=== PATIENT | male | born 1940 | race Caucasian/White ===

== ENCOUNTER 2016-07-13 11:09 | Inpatient (IN) | payer MEDICARE, OTHER ==
[~2016-07-13] VITALS: Ht 175.3 cm; Wt 65.8 kg
[~2016-07-13 11:09] MED LIST: GABA100C14 PO; HYDR-762 PO; NIAC500T92 PO; ONDA4TAB35 PO; PANT40TA4 PO; SMV40T PO; TRAZ50TA18 PO
[2016-07-13] MEDS ORDERED: PANTOPRAZOLE 40 MG INJ IV STA (16:59)
[2016-07-13] MEDS ORDERED: ONDANSETRON 4 MG INJ IV STA (16:59)
[2016-07-13] MEDS ORDERED: SOD CHLORIDE 0.9% 1,000 ML IV STA (16:59)
[2016-07-13 17:34] LABS: HEMATOCRIT 42.1 % (42.0-52.0); HEMOGLOBIN 13.8 g/dl (14.0-18.0); MEAN CORPUSCULAR HGB CONC 32.7 g/dl (32.0-37.0); MEAN CORPUSCULAR VOLUME 91.7 fl (82.0-101.0); MEAN PLATELET VOLUME 7.3 fl (7.4-10.4); PLATELET COUNT 205 10^3/UL (140-440); RED BLOOD COUNT 4.59 10^6/ul (4.70-6.10); RED CELL DISTRIBUTION WIDTH 14.4 % (11.5-14.5); UNCORRECTED WBC 6.4 10^3/ul (4.8-10.8); WHITE BLOOD COUNT 6.4 10^3/ul (4.8-10.8)
[2016-07-13] MEDS ORDERED: morphine 4 MG/ML VIAL IV STA (17:41)
[2016-07-13 17:44] LABS: ALBUMIN 4.7 g/dl (3.3-4.9); INR 1.05; PROTIME 13.7 Sec (12.2-14.2); PT RATIO 1.1
[2016-07-13 17:45] LABS: POTASSIUM 3.8 mmol/L (3.5-5.1)
[2016-07-13 17:47] LABS: ALBUMIN/GLOBULIN RATIO 1.27; BILIRUBIN,INDIRECT 0.5 mg/dl (0-1.1); BILIRUBIN,TOTAL 0.5 mg/dl (0.2-1.3); CONDITION 1; CREATININE 1.76 mg/dl (0.61-1.24); LH ANALYZER COMMENTS 1; SUSPECT 1; TOTAL PROTEIN 8.4 g/dl (6.1-8.1)
[2016-07-13 17:48] LABS: CALCIUM 9.9 mg/dl (8.4-10.2)
[2016-07-13 17:58] LABS: TROPONIN-I 0.028 ng/ml (0.00-0.12)
[2016-07-13 18:02] LABS: BASOPHIL # 0.1 10^3/ul (0.0-0.1); EOSINOPHILS # 0.1 10^3/ul (0.0-0.5); LYMPHOCYTES # 1.9 10^3/ul (0.8-2.9); MONOCYTE # 1.3 10^3/ul (0.3-0.9); NEUTROPHIL # 3.1 10^3/ul (1.6-7.5)
[2016-07-13] MEDS ORDERED: SOD CHLORIDE 0.9% 1,000 ML IV SCH (18:51)
--- NOTE | 2016-07-13 18:55 | RADRPT ---
PROCEDURE: XR Chest. CLINICAL INDICATION: Chest pain and vomiting TECHNIQUE: AP Portable chest. COMPARISON: 03/09/2014 chest x-ray FINDINGS: The soft tissues and bones are remarkable for multiple EKG leads superimposed over chest wall. Mild bilateral acromioclavicular osteoarthropathy is present. Mild thoracic spondylosis is present.. N o focal infiltrates, masses, or effusions are noted. The mediastinum and heart are remarkable for m ild vascular calcifications of the thoracic aorta and normal size heart. No pneumothorax is present . IMPRESSION: 1. No radiographic evidence for acute cardiopulmonary disease. 2. Mild atherosclerotic vascular disease RPTAT: HDC .Desiree Oliver MD, Date Time Electronically viewed and signed by .Desiree Oliver MD, on 07/13/2016 18:54 .C/
--- NOTE | 2016-07-13 18:55 | ERA ---
ER Documentation Chief Complaint Date/Time DATE: 07/13/16 TIME: 18:52 Chief Complaint SENT BY PCP - VOMITTING COFFEE GROUND VOMITTUS X 2 DAYS HPI This is a 75-year-old male who presents to the emergency room for evaluation of vomiting. This patient states that he was vomiting up brown vomit, he went to his primary care physician who is Dr. pacheco and this patient was referred to the emergency room for evaluation of upper GI bleed as he was vomiting up coffee-ground emesis. This patient does state he has epigastric discomfort and he states that the discomfort is periodic mildly relieved with vomiting. Denies any radiation of the pain. Patient presents to the emergency room for further evaluation. He is denying chest pain, palpitations shortness of breath or weakness at this time. He denies being on any blood thinners. ROS All systems reviewed and are negative except as per history of present illness. Medications Home Meds Active Scripts Ondansetron Hcl* (Zofran* ODT) 4 mg -ODT Tab.disper, 4 MG PO Q6 Y for NAUSEA AND /OR VOMITING, #10 TAB Prov:JOEL ESQUIVEL MD 02/16/16 Reported Medications Niacin (Niacin* ER) 500 Mg Tab.er.24h, 500 MG PO DAILY, TAB.SA 02/16/16 Hydrocodone Bit-Acetaminophen* (Eden*) 10-325 Mg Tablet, 1 TAB PO Q4H Y for PAIN, TAB 02/16/16 Gabapentin* (Gabapentin*) 100 Mg Capsule, 100 MG PO TID, #90 CAP 02/16/16 Pantoprazole* (Pantoprazole*) 40 Mg Tablet.dr, 40 MG PO DAILY, TAB 03/02/14 Simvastatin (Simvastatin) 40 Mg Tablet, 40 MG PO HS, TAB 03/02/14 Trazodone Hcl* (Trazodone Hcl*) 50 Mg Tablet, 50 MG PO HS, TAB 03/02/14 Allergies Allergies: Coded Allergies: No Known Allergy (Verified , 02/16/16) PMhx/Soc History of Surgery: No Anesthesia Reaction: No Hx Neurological Disorder: No Hx Respiratory Disorders: No Hx Cardiac Disorders: No (HTN, HIGH CHOLESTEROL) Hx Psychiatric Problems: No Hx Miscellaneous Medical Probl: Yes (RECTAL CA, HIP PAIN) Hx Alcohol Use: No Hx Substance Use: No Hx Tobacco Use: No (2005) Smoking Status: Former smoker Physical Exam Vitals Vital Signs Date Time Temp Pulse Resp B/P Pulse Ox O2 Delivery O2 Flow Rate FiO2 07/13/16 18:14 66 17 132/61 99 Nasal Cannula 2.0 07/13/16 18:02 Nasal Cannula 2 07/13/16 11:12 98.4 77 19 110/52 96 Physical Exam INITIAL VITAL SIGNS: Reviewed by me GENERAL: The patient is well developed and appropriate for usual state of health in no apparent distress HEENT: Pupils equal, round, and reactive to light. EOMI. There is no scleral icterus. NECK: C-spine is soft and supple, there is no meningismus. There is no cervical lymphadenopathy. LUNGS: Clear to auscultation bilaterally. There are no rales, wheezes or rhonchi. HEART: Regular rate and rhythm, no murmurs, clicks, rubs or gallops. ABDOMEN: Epigastric tenderness to palpation, negative Bryan sign, otherwise soft, non-tender, non-distended. There are bowel sounds in all four quadrants. No rebound or guarding. EXTREMITIES: There is no peripheral cyanosis or edema. No focal swelling or erythema. NEUROLOGICAL: The patient moves all four extremities with 5/5 strength. Cranial nerves II - XII are intact. Normal gait. Alert and oriented SKIN: There is no apparent rash or petechiae. HEME/LYMPHATIC: There is no evidence of excessive bruising or lymphedema. PSYCHIATRIC: The patient does not appear anxious or depressed. Result Diagram: 07/13/16 1720 07/13/16 1720 Results 24 hrs Laboratory Tests Test 07/13/16 17:20 Activated Partial Thromboplast Time 32.0Sec Alanine Aminotransferase (ALT/SGPT) 27IU/L Albumin 4.7g/dl Albumin/Globulin Ratio 1.27 Alkaline Phosphatase 89IU/L Anion Gap 23 Aspartate Amino Transf (AST/SGOT) 31IU/L Basophils # 0.110^3/ul Basophils % 1.0% Blood Morphology Comment Blood Urea Nitrogen 52mg/dl Calcium Level 9.9mg/dl Carbon Dioxide Level 32mmol/L Chloride Level 91mmol/L Creatinine 1.76mg/dl Differential Comment MANUAL DIFF Direct Bilirubin 0.00mg/dl Eosinophils # 0.110^3/ul Eosinophils % 1.0% Globulin 3.70g/dl Glucose Level 101mg/dl Hematocrit 42.1% Hemoglobin 13.8g/dl INR International Normalized Ratio 1.05 Indirect Bilirubin 0.5mg/dl Lymphocytes # 1.910^3/ul Lymphocytes % 30.0% Mean Corpuscular Hemoglobin 30.0pg Mean Corpuscular Hemoglobin Concent 32.7g/dl Mean Corpuscular Volume 91.7fl Mean Platelet Volume 7.3fl Monocytes # 1.310^3/ul Monocytes % 20.0% Neutrophils # 3.110^3/ul Neutrophils % 48.0% Nucleated Red Blood Cells # 10^3/ul Nucleated Red Blood Cells % /100WBC Platelet Count 53284^3/UL Potassium Level 3.8mmol/L Prothrombin Time 13.7Sec Prothrombin Time Ratio 1.1 Red Blood Count 4.5910^6/ul Red Cell Distribution Width 14.4% Sodium Level 142mmol/L Total Bilirubin 0.5mg/dl Total Protein 8.4g/dl Troponin I 0.028ng/ml White Blood Count 6.410^3/ul Current Medications Medications (Trade) Dose Ordered Sig/Ned Route PRN Reason Start Time Stop Time Status Last Admin Dose Admin Sodium Chloride (NS) 1,000 ml @ 1,000 mls/hr Q1H STAT IV 07/13/16 16:59 07/13/16 17:58 DC 07/13/16 17:29 Pantoprazole (Protonix Iv) 40 mg ONCE STAT IV 07/13/16 16:59 07/13/16 17:00 DC 07/13/16 17:29 Ondansetron HCl (Zofran Inj) 4 mg ONCE STAT IV 07/13/16 16:59 07/13/16 17:00 DC 07/13/16 17:29 Morphine Sulfate (morphine) 4 mg ONCE STAT IV 07/13/16 17:41 07/13/16 17:42 DC 07/13/16 18:09 Procedures/MDM Chest X-ray 1V Interpreted by me: Soft Tissue: No acute abnormalities Bones: No acute abnormalities Mediastinum/Cardiac Silhouette/Lungs: [No acute abnormalities] This 75-year-old male presents to the ER for evaluation of vomiting. This patient did vomit brown vomit and it appears that there was concern for upper GI bleed. This patient was sent in by his primary care physician for admission. His hemoglobin is stable at this time, blood pressure is within normal limits. He received fluids, Zofran, Protonix, and morphine. He is in no acute distress at this time will be placed in for admission for serial hemoglobins and possible GI intervention. He was also found to have a minor renal insufficiency and acute kidney injury. The patient was hydrated with IV normal saline here in the emergency room. Departure Diagnosis: Primary Impression: Upper GI bleed Additional Impressions: Acute kidney injury Renal insufficiency Nausea and vomiting Condition: Stable ANUPAM HAMMOND DO Jul 13, 2016 18:55
[2016-07-13] MEDS ORDERED: ONDANSETRON 4 MG INJ IV PRN (19:00)
[2016-07-13] MEDS ORDERED: ACETAMINOPHEN 325 MG TAB PO PRN (19:00)
[2016-07-13] MEDS ORDERED: TRAZ50TA18 PO (19:12)
[2016-07-13] MEDS ORDERED: ESCI10TA48 PO (19:13)
[2016-07-13] MEDS ORDERED: GABA300C16 PO (19:16)
[2016-07-13 21:00] VITALS: TEMP 98.9
[2016-07-13 21:25] VITALS: BP 122/58; PULSE 69; RESP 20
[2016-07-13 22:00] VITALS: Ht 175.3 cm; Wt 65.8 kg
[2016-07-13] MEDS ORDERED: DEXTROSE 5%-0.45% NACL 1,000 ML IV SCH (22:00)
[2016-07-13] MEDS ORDERED: ZOLPIDEM 5 MG TAB PO PRN (22:00)
[2016-07-13] MEDS: ATORVASTATIN 20 MG TAB PO SCH (23:17)
[2016-07-13] MEDS: traZODone 50 MG TAB PO SCH (23:18)
[2016-07-14] MEDS: ONDANSETRON 4 MG INJ IV PRN ×3 (04:37→20:05)
[2016-07-14] MEDS: PANTOPRAZOLE 40 MG INJ IV SCH (05:47)
[2016-07-14 05:48] LABS: ALBUMIN 3.8 g/dl (3.3-4.9)
[2016-07-14 05:49] LABS: POTASSIUM 3.8 mmol/L (3.5-5.1)
[2016-07-14 05:51] LABS: ALBUMIN/GLOBULIN RATIO 1.26; BILIRUBIN,INDIRECT 0.2 mg/dl (0-1.1); BILIRUBIN,TOTAL 0.2 mg/dl (0.2-1.3); CREATININE 1.36 mg/dl (0.61-1.24); TOTAL PROTEIN 6.8 g/dl (6.1-8.1)
[2016-07-14 06:40] LABS: HEMATOCRIT 35.3 % (42.0-52.0); HEMOGLOBIN 11.7 g/dl (14.0-18.0); MEAN CORPUSCULAR HEMOGLOBIN 30.4 pg (29.0-33.0); MEAN CORPUSCULAR HGB CONC 33.2 g/dl (32.0-37.0); MEAN CORPUSCULAR VOLUME 91.7 fl (82.0-101.0); MEAN PLATELET VOLUME 7.5 fl (7.4-10.4); PLATELET COUNT 156 10^3/UL (140-440); RED BLOOD COUNT 3.85 10^6/ul (4.70-6.10); UNCORRECTED WBC 5.9 10^3/ul (4.8-10.8); WHITE BLOOD COUNT 5.9 10^3/ul (4.8-10.8)
[2016-07-14 06:57] LABS: CONDITION 1; LH ANALYZER COMMENTS 1; SUSPECT 1
[2016-07-14 09:20] LABS: EOSINOPHILS # 0.1 10^3/ul (0.0-0.5); LYMPHOCYTES # 0.5 10^3/ul (0.8-2.9); MONOCYTE # 1.8 10^3/ul (0.3-0.9); NEUTROPHIL # 3.3 10^3/ul (1.6-7.5)
[2016-07-14] MEDS: ESCITALOPRAM 10 MG TAB PO SCH (09:20)
[2016-07-14] MEDS: GABAPENTIN 300 MG CAP PO SCH (09:20)
[2016-07-14 10:20] VITALS: BP 167/74; PULSE 62; RESP 18
[2016-07-14] MEDS: morphine 4 MG/ML VIAL IV PRN ×2 (10:29→20:10)
[2016-07-14] MEDS ORDERED: morphine 4 MG/ML VIAL IV STA (12:14)
[2016-07-14] MEDS ORDERED: ONDANSETRON 4 MG INJ IV STA (12:14)
[2016-07-14] MEDS ORDERED: POTASSIUM CHLORIDE 30 MEQ in DEXTROSE 5%-0.45% NACL 1,000 ML IV SCH (14:33)
--- NOTE | 2016-07-14 14:56 | HP ---
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 The patient also complaining of severe epigastric pain with severe nausea. The patient denies taking excessive amounts of aspiri n or any anticoagulants. There is no specific history of GI bleed in the past or peptic ulcer disea se. MEDICATIONS: 1. Niacin 2. Gabapentin. 3. Pantoprazole 4. Simvastatin. 5. Trazodone. ALLERGIES: NO KNOWN ALLERGIES. REVIEW OF SYSTEMS: HEAD: Prior history of TIAs. EYES: No blurry vision or glaucoma. Status post cataract surgery 7 years ago. ENT: Noncontributory. NECK: Status post tonsillectomy. No history of thyroid disease. CHEST: A prior smoker. History of pneumonia 2013 from which he recovered. CARDIOVASCULAR: No PND, orthopnea, palpitations. GASTROINTESTINAL: Prior history of gastrointestinal bleed, status post gastroenteritis and diarrhea after chemotherapy and radiation therapy, history of anorectal cancer in complete remission, status post chemo and radiation. GENITOURINARY: No dysuria. The patient does have nonobstructive kidney stones bilaterally. MUSCULOSKELETAL: History of avascular necrosis of the hips, status post orthopedic evaluation for s kaela. PRIOR SURGERIES: Include abdominal aortic aneurysm resection in 2005, status post endoluminal stent ing which has been stable and patient has been referred to vascular surgeon and he has not made an a ppointment as yet. PAST MEDICAL HISTORY: The patient also has history of hyperlipidemia, history of epidermoid cyst in the posterior cervical area, status post resection. PHYSICAL EXAMINATION: GENERAL: The patient is an average-built male who appears quite weak and pale. VITAL SIGNS: Blood pressure 132/62 in the emergency room, heart rate 66 per minute, pulse ox 99% on 2 liters nasal O2. HEENT: Head normocephalic. Moderate pallor without cyanosis. Tongue is coated, dry. NECK: Supple. No thyromegaly, bruits or lymphadenopathy. CHEST: Revealed decreased breath sounds at bases. HEART: S1, S2 with no definite gallops. ABDOMEN: Soft, moderate epigastric tenderness without rebound. Bowel sounds active. EXTREMITIES: No edema. Pedal pulsations poorly palpable. Homans sign is negative. NEUROLOGIC: No localizing or lateralizing signs. LABORATORY DATA: Initial WBC count 6.4, hematocrit 40.1, platelet count 205,000. Sodium 140, potas sium 3.8, BUN 52, creatinine 1.76. Chest x-ray shows normal size heart, lung menon clear. IMPRESSION: 1. Acute upper gastrointestinal bleed, probably related to peptic ulcer disease versus gastritis. 2. Dehydration with prerenal azotemia, increased BUN and also secondary to underlying GI bleed. 3. Abdominal aortic aneurysm status post endoluminal stent placement, stable. 4. Status post anal CA treated, in complete remission. 5. Hyperlipidemia. PLAN: Patient will be admitted to the medical floor, intravenous hydration, bowel rest. Obtain GI consultation, Dr. Gardiner, continue PPIs and closely monitor CBC and treat. Replace blood losses as needed. Dictated By: SYLVAIN PORRAS MD SR/NTS Conf#: [id number] DID#: [id number]
[2016-07-14 15:13] LABS: HEMATOCRIT 36.1 % (42.0-52.0); MEAN CORPUSCULAR HEMOGLOBIN 30.2 pg (29.0-33.0); MEAN CORPUSCULAR HGB CONC 33.2 g/dl (32.0-37.0); MEAN CORPUSCULAR VOLUME 91.1 fl (82.0-101.0); PLATELET COUNT 168 10^3/UL (140-440); RED BLOOD COUNT 3.97 10^6/ul (4.70-6.10); RED CELL DISTRIBUTION WIDTH 13.6 % (11.5-14.5); UNCORRECTED WBC 4.9 10^3/ul (4.8-10.8); WHITE BLOOD COUNT 4.9 10^3/ul (4.8-10.8)
[2016-07-14 15:23] LABS: CONDITION 1; LH ANALYZER COMMENTS 1; SUSPECT 1
[2016-07-14] MEDS: POTASSIUM CHLORIDE 30 MEQ in DEXTROSE 5%-0.45% NACL 1,000 ML IV SCH (15:58)
[2016-07-14 16:07] LABS: LYMPHOCYTES # 0.8 10^3/ul (0.8-2.9); MONOCYTE # 1.4 10^3/ul (0.3-0.9); NEUTROPHIL # 2.5 10^3/ul (1.6-7.5)
[2016-07-14] MEDS: METOCLOPRAMIDE 10 MG INJ IV SCH ×2 (17:15→23:50)
--- NOTE | 2016-07-14 17:18 | CONS ---
DATE OF ADMISSION: 07/13/2016 DATE OF CONSULTATION: REFERRING PHYSICIAN: Alfredo Caballero MD Dear Dr. Caballero, Thank you for asking me to evaluate your patient who is a 75-year-old gentle man with a history of anal cancer successfully treated with radiation and chemo and is tumor free. He got admitted to the hospital for abdominal pain, nausea and vomiting of 3 days' duration. There was some ground colored material in the vomitus, so GI consult was called in. 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 Patient denies consuming any kin d of ulcerogenic medication. The patient has got intravascular stent for abdominal aortic aneurysm. MEDICATIONS: All reviewed. ALLERGIES: NONE. REVIEW OF SYSTEMS: Negative. PAST SURGICAL HISTORY: ____, aneurysm resection in 2005, status post endoluminal stenting. PAST MEDICAL HISTORY: Hyperlipidemia, epidermoid cyst in the posterior cervical area, status post resection. PHYSICAL EXAMINATION: GENERAL: Thin, well-nourished, not in distress. VITAL SIGNS: Stable. HEENT: Unremarkable. NECK: Supple, no thyromegaly, no lymphadenopathy. CARDIOVASCULAR: No murmur, gallop or click. LUNGS: Clear. ABDOMEN: Benign. EXTREMITIES: No pedal edema. Homans sign negative. No clubbing, no cyanosis. CENTRAL NERVOUS SYSTEM: Grossly within normal limits. LABORATORY DATA: Hematocrit was 42 dropped down to 35 and now is stable. BUN was 52. Creatinine 1 .76. INR was within normal limits. IMPRESSION: 1. Upper gastrointestinal bleeding, rule out peptic ulcer disease, gastritis, Natali-Browne tear, r ule out also aortoenteric fistula secondary to graft. 2. Anal cancer, cured. 3. Dehydration. 4. Abdominal aortic aneurysm status post endoluminal stent. 5. Hyperlipidemia. PLAN: At this point, is to continue PPI, monitor H and H, Reglan around the clock and will proceed with endoscopy in a.m. Discussed with the patient, he understood and has agreed for the procedure. Dictated By: NICOLAS AVITIA/NTS Conf#: [id number] DID#: [id number]
[2016-07-14 20:00] VITALS: BP 139/67; PULSE 61; RESP 18
[2016-07-14] MEDS: traZODone 50 MG TAB PO SCH (20:05)
[2016-07-14] MEDS: ATORVASTATIN 20 MG TAB PO SCH (20:05)
[2016-07-14] MEDS ORDERED: NON-FORMULARY/PATIENT OWN MED (Simvastatin 40 MG) PO SCH (21:00)
[2016-07-15] VITALS (11 sets, daily range): BP systolic 98–166; BP diastolic 49–77; PULSE 65–84; RESP 16–26
[2016-07-15] MEDS: POTASSIUM CHLORIDE 30 MEQ in DEXTROSE 5%-0.45% NACL 1,000 ML IV SCH ×3 (01:56→20:16)
[2016-07-15] MEDS: morphine 4 MG/ML VIAL IV PRN (03:23)
[2016-07-15] MEDS: ONDANSETRON 4 MG INJ IV PRN (03:24)
[2016-07-15] MEDS: PANTOPRAZOLE 40 MG INJ IV SCH (05:43)
[2016-07-15] MEDS: METOCLOPRAMIDE 10 MG INJ IV SCH ×3 (05:44→18:06)
[2016-07-15 06:46] LABS: HEMATOCRIT 35.9 % (42.0-52.0); MEAN CORPUSCULAR HEMOGLOBIN 30.7 pg (29.0-33.0); MEAN CORPUSCULAR HGB CONC 33.3 g/dl (32.0-37.0); MEAN CORPUSCULAR VOLUME 92.1 fl (82.0-101.0); MEAN PLATELET VOLUME 7.4 fl (7.4-10.4); PLATELET COUNT 162 10^3/UL (140-440); RED CELL DISTRIBUTION WIDTH 13.7 % (11.5-14.5); UNCORRECTED WBC 7.4 10^3/ul (4.8-10.8); WHITE BLOOD COUNT 7.4 10^3/ul (4.8-10.8)
[2016-07-15 07:01] LABS: CONDITION 1; LH ANALYZER COMMENTS 1; SUSPECT 1
[2016-07-15 07:11] LABS: CREATININE 0.96 mg/dl (0.61-1.24)
[2016-07-15 07:12] LABS: CALCIUM 8.9 mg/dl (8.4-10.2); MAGNESIUM 1.9 mg/dl (1.7-2.5)
[2016-07-15] MEDS: GABAPENTIN 300 MG CAP PO SCH (08:13)
[2016-07-15] MEDS: ESCITALOPRAM 10 MG TAB PO SCH (08:13)
[2016-07-15 10:02] LABS: EOSINOPHILS # 0.1 10^3/ul (0.0-0.5); LYMPHOCYTES # 0.4 10^3/ul (0.8-2.9); MONOCYTE # 1.9 10^3/ul (0.3-0.9); MYELOCYTES # 0.1; NEUTROPHIL # 4.2 10^3/ul (1.6-7.5)
--- NOTE | 2016-07-15 12:45 | CONS ---
Date/Time of Note Date/Time of Note DATE: 07/15/16 TIME: 12:44 Assessment/Plan Assessment/Plan Additional Assessment/Plan IMPRESSION: 1. Upper gastrointestinal bleeding, rule out peptic ulcer disease, gastritis, Natali-Browne tear, rule out also aortoenteric fistula secondary to graft. 2. Anal cancer, cured. 3. Dehydration. 4. Abdominal aortic aneurysm status post endoluminal stent. 5. Hyperlipidemia. Plan EGD today Consultation Date/Type/Reason Admit Date/Time Jul 13, 2016 at 18:51 Initial Consult Date 24 HR Interval Summary Constitutional: improved, no complaints Exam/Review of Systems Vital Signs Vitals Vital Signs Date Time Temp Pulse Resp B/P Pulse Ox O2 Delivery O2 Flow Rate FiO2 07/15/16 08:12 98.0 65 18 166/77 99 Nasal Cannula 2.0 Intake and Output 07/14/16 07/14/16 07/15/16 15:00 23:00 07:00 Intake Total 1840 ml 1300 ml Output Total 1120 ml 400 ml Balance 720 ml 900 ml Exam Constitutional: alert, oriented, well developed Psych: nl mood/affect, no complaints Head: atraumatic, normocephalic Eyes: EOMI, PERRL, nl conjunctiva, nl lids, nl sclera ENMT: nl external ears & nose, nl lips & teeth, nl nasal mucosa & septum Neck: non-tender, supple Respiratory: clear to auscultation, normal air movement Cardiovascular: nl pulses, regular rate and rhythm Gastrointestinal: nl liver, spleen, non-tender, soft Musculoskeletal: nl extremities to inspection, nl gait and stance Extremities: normal pulses Neurological: HEEL SEAT FITTER II-XII intact, nl mental status, nl speech, nl strength Skin: nl turgor, No rash or lesions Lymph: nl lymph nodes Results Result Diagram: 07/15/16 0540 07/15/16 0520 Results 24 hrs Laboratory Tests Test 07/14/16 15:04 07/15/16 05:20 07/15/16 05:40 Band Neutrophils % 3.0 8.0 H Basophils # Basophils % Blood Morphology Comment Eosinophils # 0.1 Eosinophils % 1.0 Hematocrit 36.1 L 35.9 L Hemoglobin 12.0 L 12.0 L Lymphocytes # 0.8 0.4 L Lymphocytes % 16.0 6.0 L Mean Corpuscular Hemoglobin 30.2 30.7 Mean Corpuscular Hemoglobin Concent 33.2 33.3 Mean Corpuscular Volume 91.1 92.1 Mean Platelet Volume 7.0 L 7.4 Monocytes # 1.4 H 1.9 H Monocytes % 29.0 H 26.0 H Neutrophils # 2.5 4.2 Neutrophils % 51.0 57.0 Nucleated Red Blood Cells # Nucleated Red Blood Cells % Platelet Count 168 162 Promyelocytes # 0.0 0.1 Promyelocytes % 1.0 H 1.0 H Red Blood Count 3.97 L 3.90 L Red Cell Distribution Width 13.6 13.7 White Blood Count 4.9 7.4 # Anion Gap 16 Blood Urea Nitrogen 32 #H Calcium Level 8.9 Carbon Dioxide Level 33 H Chloride Level 97 Creatinine 0.96 Glucose Level 121 Magnesium Level 1.9 Potassium Level 4.0 Sodium Level 142 Myelocytes # 0.1 Myelocytes % 1.0 H Medications Medications Current Medications Zolpidem Tartrate (Ambien) 5 mg HS PRN PO INSOMNIA; Start 07/13/16 at 22:00 Ondansetron HCl (Zofran Inj) 4 mg Q4H PRN IV NAUSEA AND/OR VOMITING Last administered on 07/15/16 03:24; Admin Dose 4 MG; Start 07/13/16 at 22:00 Morphine Sulfate (morphine) 4 mg Q4H PRN IV pain Last administered on at 03:23; Admin Dose 4 MG; Start 07/13/16 at 22:00 Pantoprazole (Protonix Iv) 40 mg DAILY@06 IV Last administered on 07/15/16 05 :43; Admin Dose 40 MG; Start 07/14/16 at 06:00 Escitalopram Oxalate (Lexapro) 10 mg DAILY PO Last administered on 07/14/16 09:20; Admin Dose 10 MG; Start 07/14/16 at 09:00 Gabapentin (Neurontin) 300 mg DAILY PO Last administered on 07/14/16 09:20; Admin Dose 300 MG; Start 07/14/16 at 09:00 Trazodone HCl (Desyrel) 50 mg QHS PO Last administered on 07/14/16 20:05; Admin Dose 50 MG; Start 07/13/16 at 22:30 Atorvastatin Calcium 20 mg 20 mg DAILY@21 PO Last administered on 12/29/16at 20 :05; Admin Dose 20 MG; Start 07/13/16 at 22:30 Potassium Chloride/Dextrose/ Sodium Chloride (KCl/D5-1/2ns) 1,015 ml @ 100 mls/ hr Q10H9M IV Last administered on 07/15/16at 01:56; Admin Dose 100 MLS/HR; Start 07/14/16 at 15:37 Metoclopramide HCl (Reglan) 5 mg Q6 IV Last administered on 07/15/16at 12:17; Admin Dose 5 MG; Start 07/14/16 at 18:00 NICOLAS ACKERMAN MD Jul 15, 2016 12:45
[2016-07-15] MEDS ORDERED: PROPOFOL 20 ML ONE (13:22)
[2016-07-15] MEDS ORDERED: FENTAnyl 50 MCG/ML VIAL ONE (13:22)
[2016-07-15] MEDS ORDERED: ONDANSETRON 4 MG INJ IV PRN (14:00)
[2016-07-15] MEDS ORDERED: FENTAnyl 50 MCG/ML VIAL IV PRN ×2 (14:00)
[2016-07-15] MEDS ORDERED: MEPERIDINE 25 MG INJ IV PRN (14:00)
[2016-07-15] MEDS ORDERED: HYDROmorphONE (0.2 MG/ML) 10ML SYG IV PRN ×3 (14:00)
--- NOTE | 2016-07-15 15:51 | GILP ---
DATE OF PROCEDURE: 07/15/2016 PROCEDURE PERFORMED: Esophagogastroduodenoscopy with biopsy. INDICATION: A 75-year-old male undergoing this procedure for GI bleeding manifested in the form of hematemesis. The patient is mildly anemic. The purpose is to evaluate upper GI tract, find out the source of bleeding, especially rule out aortoenteric fistula since the patient had aneurysmal graft . INFORMED CONSENT: The risk of the procedure, related and unrelated complications, anesthetic risks and alternatives discussed. Informed consent was obtained. DESCRIPTION OF PROCEDURE: The patient was brought to the GI lab, sedated by Dr. Farris. After obt aining sedation, scope was passed with much ease into esophagus which was grossly within normal limi ts. He had residual of 200 mL of biliary juice in the fundal area which was completely aspirated. Z line was at 35 cm. The patient had a 5 cm hiatal hernia. Stomach mucosa revealed pangastritis wh ich was of moderate to severe degree, duodenal bulb and second part was within normal limits. Scope was advanced all the way beyond the third part into the jejunum and no aortoenteric fistula or alte red blood was identified. Scope was then gradually withdrawn circumferentially inspecting the proxi mal jejunum and the entire duodenum. Multiple biopsies obtained from the stomach to rule out H. pyl harleen infection. Retroversion done, hiatal hernia confirmed. Scope was straightened out and removed with good patient tolerance. IMPRESSION: 1. Normal esophagus. 2. Z line at 35 cm. 3. A 5 cm hiatal hernia. 4. Pangastritis. 5. Normal duodenum. 6. Endoscopy done up to proximal jejunum. There was no evidence of prior aortoenteric fistula. PLAN: At this point is to continue Reglan for gastroparesis. Continue PPI. We will advance the di et with aspiration precautions. Dictated By: NICOLAS ACKERMAN MD PJ/JOHNNY Conf#: [id number] DID#: [id number] CC: SYLVAIN PORRAS MD;*EndCC*
[2016-07-15] MEDS ORDERED: LOPERAMIDE 2 MG CAP PO PRN (18:30)
[2016-07-15] MEDS: ATORVASTATIN 20 MG TAB PO SCH (21:16)
[2016-07-15] MEDS: traZODone 50 MG TAB PO SCH (21:16)
[2016-07-16] MEDS: METOCLOPRAMIDE 10 MG INJ IV SCH ×4 (00:31→17:31)
[2016-07-16] MEDS: morphine 4 MG/ML VIAL IV PRN ×3 (02:22→18:14)
[2016-07-16] MEDS: PANTOPRAZOLE 40 MG INJ IV SCH (05:41)
[2016-07-16 06:25] LABS: BASOPHILS % 0.2 % (0.0-2.0); EOSINOPHILS # 0.2 10^3/ul (0.0-0.5); EOSINOPHILS % 3.1 % (0.0-7.0); HEMATOCRIT 35.2 % (42.0-52.0); HEMOGLOBIN 11.6 g/dl (14.0-18.0); LYMPHOCYTES # 0.9 10^3/ul (0.8-2.9); LYMPHOCYTES % 15.6 % (15.0-51.0); MEAN CORPUSCULAR HEMOGLOBIN 30.3 pg (29.0-33.0); MEAN CORPUSCULAR HGB CONC 32.9 g/dl (32.0-37.0); MEAN PLATELET VOLUME 7.4 fl (7.4-10.4); MONOCYTE # 1.1 10^3/ul (0.3-0.9); MONOCYTES % 19.5 % (0.0-11.0); NEUTROPHIL # 3.5 10^3/ul (1.6-7.5); NEUTROPHILS % 61.6 % (39.0-77.0); PLATELET COUNT 150 10^3/UL (140-440); RED BLOOD COUNT 3.82 10^6/ul (4.70-6.10); RED CELL DISTRIBUTION WIDTH 13.8 % (11.5-14.5); UNCORRECTED WBC 5.7 10^3/ul (4.8-10.8); WHITE BLOOD COUNT 5.7 10^3/ul (4.8-10.8)
[2016-07-16 06:28] LABS: CONDITION 1; LH ANALYZER COMMENTS 1
[2016-07-16] MEDS: POTASSIUM CHLORIDE 30 MEQ in DEXTROSE 5%-0.45% NACL 1,000 ML IV SCH (06:32)
[2016-07-16 06:42] LABS: POTASSIUM 4.1 mmol/L (3.5-5.1)
[2016-07-16 06:44] LABS: CREATININE 0.93 mg/dl (0.61-1.24)
[2016-07-16 06:45] LABS: CALCIUM 8.6 mg/dl (8.4-10.2); MAGNESIUM 1.8 mg/dl (1.7-2.5)
[2016-07-16 08:01] VITALS: BP 153/71; PULSE 69; RESP 16
[2016-07-16] MEDS: GABAPENTIN 300 MG CAP PO SCH (10:29)
[2016-07-16] MEDS: ESCITALOPRAM 10 MG TAB PO SCH (10:29)
[2016-07-16] MEDS ORDERED: POTASSIUM CHLORIDE 20 MEQ in DEXTROSE 5%-0.45% NACL 1,000 ML IV SCH (15:57)
[2016-07-16] MEDS: D5W-0.45 NACL + KCL 20 MEQ 1,000 ML IV SCH (17:31)
[2016-07-16 20:00] VITALS: BP 123/60; PULSE 67; RESP 18
[2016-07-16] MEDS: traZODone 50 MG TAB PO SCH (20:47)
[2016-07-16] MEDS: ATORVASTATIN 20 MG TAB PO SCH (20:47)
[2016-07-17] MEDS: METOCLOPRAMIDE 10 MG INJ IV SCH ×3 (00:07→13:10)
[2016-07-17] MEDS: D5W-0.45 NACL + KCL 20 MEQ 1,000 ML IV SCH ×2 (04:04→13:10)
[2016-07-17] MEDS: PANTOPRAZOLE 40 MG INJ IV SCH (05:42)
[2016-07-17 07:04] LABS: BASOPHILS % 0.3 % (0.0-2.0); EOSINOPHILS # 0.4 10^3/ul (0.0-0.5); EOSINOPHILS % 6.1 % (0.0-7.0); HEMATOCRIT 31.6 % (42.0-52.0); HEMOGLOBIN 10.4 g/dl (14.0-18.0); LYMPHOCYTES # 0.9 10^3/ul (0.8-2.9); LYMPHOCYTES % 15.8 % (15.0-51.0); MEAN CORPUSCULAR HEMOGLOBIN 30.5 pg (29.0-33.0); MEAN CORPUSCULAR VOLUME 92.4 fl (82.0-101.0); MEAN PLATELET VOLUME 7.6 fl (7.4-10.4); MONOCYTE # 1.2 10^3/ul (0.3-0.9); MONOCYTES % 19.8 % (0.0-11.0); NEUTROPHIL # 3.4 10^3/ul (1.6-7.5); PLATELET COUNT 141 10^3/UL (140-440); RED BLOOD COUNT 3.42 10^6/ul (4.70-6.10); RED CELL DISTRIBUTION WIDTH 13.7 % (11.5-14.5); UNCORRECTED WBC 5.9 10^3/ul (4.8-10.8); WHITE BLOOD COUNT 5.9 10^3/ul (4.8-10.8)
[2016-07-17 07:23] LABS: CONDITION 1; LH ANALYZER COMMENTS 1
[2016-07-17 07:27] LABS: CREATININE 0.85 mg/dl (0.61-1.24)
[2016-07-17 07:28] LABS: CALCIUM 8.3 mg/dl (8.4-10.2); MAGNESIUM 1.7 mg/dl (1.7-2.5)
[2016-07-17 07:52] VITALS: BP 117/60; RESP 18
--- NOTE | 2016-07-17 09:17 | CONS ---
Date/Time of Note Date/Time of Note DATE: 07/16/16 TIME: 22:17 Assessment/Plan Assessment/Plan Chief Complaint/Hosp Course IMPRESSION: 1. Upper gastrointestinal bleeding due to gastritis as seen on EGD 07-15-16. 2. Anal cancer, cured. 3. Dehydration. 4. Abdominal aortic aneurysm status post endoluminal stent. 5. Hyperlipidemia. Plan 1. advance diet as tolerated. 2. continue PPI bid x 2 wks Problems: Consultation Date/Type/Reason Admit Date/Time Jul 13, 2016 at 18:51 Initial Consult Date Type of Consultation: GI 24 HR Interval Summary Free Text/Dictation no n/v, tolerates po, no abdominal pain. Constitutional: improved Exam/Review of Systems Vital Signs Vitals Vital Signs Date Time Temp Pulse Resp B/P Pulse Ox O2 Delivery O2 Flow Rate FiO2 07/17/16 07:52 97.9 59 18 117/60 95 07/16/16 20:00 Room Air 07/15/16 20:00 2.0 Intake and Output 07/16/16 07/16/16 07/17/16 15:00 23:00 07:00 Intake Total 1420 ml 1800 ml Output Total 160 ml 400 ml Balance 1260 ml 1400 ml Exam Constitutional: alert, oriented, well developed Psych: nl mood/affect, no complaints Head: atraumatic, normocephalic Eyes: EOMI, nl conjunctiva, nl lids, nl sclera ENMT: mucosa pink and moist, nl external ears & nose, nl lips & teeth, nl nasal mucosa & septum Neck: non-tender, supple Respiratory: clear to auscultation, normal air movement Cardiovascular: nl pulses, regular rate and rhythm Gastrointestinal: non-tender, soft Neurological: nl mental status, nl speech, nl strength Results Result Diagram: 07/17/1622 07/17/16 0522 Results 24 hrs Laboratory Tests Test 07/17/16 05:22 Anion Gap 10 Basophils # 0.0 Basophils % 0.3 Blood Urea Nitrogen 18 Calcium Level 8.3 L Carbon Dioxide Level 28 Chloride Level 104 Creatinine 0.85 Eosinophils # 0.4 Eosinophils % 6.1 Glucose Level 88 Hematocrit 31.6 L Hemoglobin 10.4 L Lymphocytes # 0.9 Lymphocytes % 15.8 Magnesium Level 1.7 Mean Corpuscular Hemoglobin 30.5 Mean Corpuscular Hemoglobin Concent 33.0 Mean Corpuscular Volume 92.4 Mean Platelet Volume 7.6 Monocytes # 1.2 H Monocytes % 19.8 H Neutrophils # 3.4 Neutrophils % 58.0 Nucleated Red Blood Cells # 0.0 Nucleated Red Blood Cells % 0.0 Platelet Count 141 Potassium Level 4.0 Red Blood Count 3.42 L Red Cell Distribution Width 13.7 Sodium Level 138 White Blood Count 5.9 Medications Medications Current Medications Zolpidem Tartrate (Ambien) 5 mg HS PRN PO INSOMNIA; Start 07/13/16 at 22:00 Ondansetron HCl (Zofran Inj) 4 mg Q4H PRN IV NAUSEA AND/OR VOMITING Last administered on 07/15/16 03:24; Admin Dose 4 MG; Start 07/13/16 at 22:00 Morphine Sulfate (morphine) 4 mg Q4H PRN IV pain Last administered on 18:14; Admin Dose 4 MG; Start 07/13/16 at 22:00 Pantoprazole (Protonix Iv) 40 mg DAILY@06 IV Last administered on 07/17/16 05: 42; Admin Dose 40 MG; Start 07/14/16 at 06:00 Escitalopram Oxalate (Lexapro) 10 mg DAILY PO Last administered on 07/16/16 10:29; Admin Dose 10 MG; Start 07/14/16 at 09:00 Gabapentin (Neurontin) 300 mg DAILY PO Last administered on 07/16/16 10:29; Admin Dose 300 MG; Start 07/14/16 at 09:00 Trazodone HCl (Desyrel) 50 mg QHS PO Last administered on 07/16/16 20:47; Admin Dose 50 MG; Start 07/13/16 at 22:30 Atorvastatin Calcium (Lipitor) 20 mg DAILY@21 PO Last administered on 20:47; Admin Dose 20 MG; Start 07/13/16 at 22:30 Metoclopramide HCl (Reglan) 5 mg Q6 IV Last administered on 07/17/16 05:41; Admin Dose 5 MG; Start 07/14/16 at 18:00 Loperamide HCl 4 mg 4 mg Q6H PRN PO DIARRHEA Last administered on 07/15/16 18 :55; Admin Dose 4 MG; Start 07/15/16 at 18:30 Potassium Chloride/Dextrose/ Sod Cl (D5-1/2ns + KCl 20 Meq) 1,000 ml @ 100 mls/ hr Q10H IV Last administered on 07/17/16t 04:04; Admin Dose 100 MLS/HR; Start 07/16/16 at 16:30 JESSY GAMBLE MD Jul 17, 2016 09:17
[2016-07-17] MEDS: GABAPENTIN 300 MG CAP PO SCH (09:25)
[2016-07-17] MEDS: ESCITALOPRAM 10 MG TAB PO SCH (09:25)
--- NOTE | 2016-07-17 15:05 | CONS ---
Date/Time of Note Date/Time of Note DATE: 07/17/16 TIME: 15:04 Assessment/Plan Assessment/Plan Chief Complaint/Hosp Course IMPRESSION: 1. Upper gastrointestinal bleeding due to gastritis as seen on EGD 07-15-16. 2. Anal cancer, cured. 3. Dehydration. 4. Abdominal aortic aneurysm status post endoluminal stent. 5. Hyperlipidemia. Plan 1. advance diet as tolerated. 2. continue PPI bid x 2 wks 3. OK to dc home from GI perspective if ok with primary and other consultants. Problems: Consultation Date/Type/Reason Admit Date/Time Jul 13, 2016 at 18:51 Type of Consultation: GI 24 HR Interval Summary Free Text/Dictation tolerates PO, no further melena, brbpr, no n/v Constitutional: improved Exam/Review of Systems Vital Signs Vitals Vital Signs Date Time Temp Pulse Resp B/P Pulse Ox O2 Delivery O2 Flow Rate FiO2 07/17/16 07:52 97.9 59 18 117/60 95 07/16/16 20:00 Room Air 07/15/16 20:00 2.0 Intake and Output 07/16/16 07/16/16 07/17/16 15:00 23:00 07:00 Intake Total 1420 ml 1800 ml Output Total 160 ml 400 ml Balance 1260 ml 1400 ml Exam Constitutional: alert, oriented, well developed Psych: nl mood/affect, no complaints Head: atraumatic, normocephalic Eyes: EOMI, nl conjunctiva, nl lids ENMT: nl external ears & nose, nl lips & teeth, nl nasal mucosa & septum Neck: non-tender, supple Respiratory: clear to auscultation, normal air movement Cardiovascular: nl pulses, regular rate and rhythm Gastrointestinal: bowel sounds, non-tender, soft Neurological: nl mental status, nl speech, nl strength Results Result Diagram: 07/17/1622 07/17/1622 Results 24 hrs Laboratory Tests Test 07/17/16 05:22 Anion Gap 10 Basophils # 0.0 Basophils % 0.3 Blood Urea Nitrogen 18 Calcium Level 8.3 L Carbon Dioxide Level 28 Chloride Level 104 Creatinine 0.85 Eosinophils # 0.4 Eosinophils % 6.1 Glucose Level 88 Hematocrit 31.6 L Hemoglobin 10.4 L Lymphocytes # 0.9 Lymphocytes % 15.8 Magnesium Level 1.7 Mean Corpuscular Hemoglobin 30.5 Mean Corpuscular Hemoglobin Concent 33.0 Mean Corpuscular Volume 92.4 Mean Platelet Volume 7.6 Monocytes # 1.2 H Monocytes % 19.8 H Neutrophils # 3.4 Neutrophils % 58.0 Nucleated Red Blood Cells # 0.0 Nucleated Red Blood Cells % 0.0 Platelet Count 141 Potassium Level 4.0 Red Blood Count 3.42 L Red Cell Distribution Width 13.7 Sodium Level 138 White Blood Count 5.9 Medications Medications Current Medications Zolpidem Tartrate (Ambien) 5 mg HS PRN PO INSOMNIA; Start 07/13/16 at 22:00 Ondansetron HCl (Zofran Inj) 4 mg Q4H PRN IV NAUSEA AND/OR VOMITING Last administered on 07/15/16 03:24; Admin Dose 4 MG; Start 07/13/16 at 22:00 Morphine Sulfate (morphine) 4 mg Q4H PRN IV pain Last administered on 18:14; Admin Dose 4 MG; Start 07/13/16 at 22:00 Pantoprazole (Protonix Iv) 40 mg DAILY@06 IV Last administered on 07/17/16 05: 42; Admin Dose 40 MG; Start 07/14/16 at 06:00 Escitalopram Oxalate (Lexapro) 10 mg DAILY PO Last administered on 07/17/16 09: 25; Admin Dose 10 MG; Start 07/14/16 at 09:00 Gabapentin (Neurontin) 300 mg DAILY PO Last administered on 07/17/16 09:25; Admin Dose 300 MG; Start 07/14/16 at 09:00 Trazodone HCl (Desyrel) 50 mg QHS PO Last administered on 07/16/16 20:47; Admin Dose 50 MG; Start 07/13/16 at 22:30 Atorvastatin Calcium (Lipitor) 20 mg DAILY@21 PO Last administered on 20:47; Admin Dose 20 MG; Start 07/13/16 at 22:30 Metoclopramide HCl (Reglan) 5 mg Q6 IV Last administered on 07/17/16 13:10; Admin Dose 5 MG; Start 07/14/16 at 18:00 Loperamide HCl 4 mg 4 mg Q6H PRN PO DIARRHEA Last administered on 07/15/16 18 :55; Admin Dose 4 MG; Start 07/15/16 at 18:30 Potassium Chloride/Dextrose/ Sod Cl (D5-1/2ns + KCl 20 Meq) 1,000 ml @ 100 mls/ hr Q10H IV Last administered on 07/17/16t 13:10; Admin Dose 100 MLS/HR; Start 07/16/16 at 16:30 JESSY GAMBLE MD Jul 17, 2016 15:05
== END 2016-07-17 15:50 | disposition home or self-care (01) | DRG 379 ==
LOC: E/R 11:09 → MS2 18:51
PROVIDERS: ADMIT Internal Medicine; ATTEND Internal Medicine
PROC: 0DB68ZX Excision of Stomach, Via Natural or Artificial Opening Endoscopic, Diagnostic (ICD-10-PCS; principal; 2016-07-15 13:00)
DX: K92.0 Hematemesis (principal); K31.84 Gastroparesis; E86.0 Dehydration; E78.5 Hyperlipidemia, unspecified; K44.9 Diaphragmatic hernia without obstruction or gangrene; K29.70 Gastritis, unspecified, without bleeding; Z85.048 Personal history of other malignant neoplasm of rectum, rectosigmoid junction, and anus; R19.7 Diarrhea, unspecified
CPT/HCPCS: 36415; 71010; 80048; 80053; 83735; 84484; 85025; 85610; 85730; 86850; 86900; 86901; 87045; 88305; 88312; 93005; 96374; 96375; 97001; C9113; J2270; J2405; J2765; J3010; J3480; J7030

== ENCOUNTER → 2017-01-12 | Outpatient (CLI) | payer MEDICARE, OTHER ==
[~2017-01-12] MED LIST changes: +ESCI10TA48 PO; -GABA100C14 PO; +GABA300C16 PO; -HYDR-762 PO; +IODIXANOL LOCM 100 ML BTL ONE; -ONDA4TAB35 PO; +SOD CHLORIDE 0.9% 100 ML ONE
--- NOTE | 2017-01-12 11:20 | RADRPT ---
PROCEDURE: CT angiogram of the abdomen and pelvis with 3-D reconstructions CLINICAL INDICATION: ABD AORTIC ANEURYSM TECHNIQUE: CT angiogram of the abdomen and pelvis was performed on a multislice CT scanner . The patient was scanned after administration of intravenous contrast. Sagittal and coronal reformatted images were obtained from the axial source images. 3D MIP reformatted images were also created from the axial source images. DLP 511.94 mGycm CTDI vol 57.51, 8.96 mGy COMPARISON: CT abdomen/pelvis from 02/16/2016 FINDINGS: ANGIOGRAM: There is stable aneurysmal dilatation of the visualized distal descending thoracic aorta which measu res up to 3.2 cm in diameter. The celiac is widely patent. There is mild narrowing of the proximal SMA. There are single renal arteries bilaterally which are widely patent. The patient is again noted to be status post aortobi-iliac stent grafting of an infrarenal aortic an eurysm. The aneurysm sac measures up to 8.3 x 6.8 cm in maximum axial dimensions on series 3, image 163 which is unchanged. There is no evidence of an endoleak. The JOSE origin is occluded although the JOSE and its branches are opacified from collaterals. 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 There is stable aneurysmal dilatation of the left common iliac artery which measures up t o 4.6 cm in diameter. Both of these common iliac artery aneurysms are traversed by the distal limbs of the stent graft and do not demonstrate endoleak. Severe narrowing at the origin of the right internal iliac artery is noted as well as poststenotic d ilatation. There is calcific back wall atherosclerosis in the right external iliac artery as well a s a focus of moderate narrowing proximally on series 3, image 217 although it is otherwise widely pa tent. A coil mass is noted at the origin of the left internal iliac artery which is occluded. The left-si ded distal limb of the stent graft extends into the mid left external iliac artery is widely patent. The remainder of the left external iliac artery demonstrates a focus of mild narrowing just past t he distal extent of the stent although it is otherwise widely patent. The right common femoral and profunda arteries are patent. There is a focus of mild to moderate narrowing of the proximal right superficial femoral artery on s eries 3, image 337. There is a focus of moderate to severe narrowing of the left common femoral artery on series 3, imag e 266. The proximal profunda artery is patent. The proximal left SFA is patent. ANCILLARY: There is a small hiatal hernia. There are emphysematous changes at the lung bases. There is decreased osseous mineralization. There are severe degenerative changes of the right hip j oint including joint space narrowing, small osteophytes, and subchondral cysts and sclerosis. Mild scoliosis of the lumbar spine is noted. There are simple renal cysts measuring up to 5.4 cm on the right and 5.6 cm on the left. The appendix is within normal limits. There are colonic diverticula without evidence of diverticulitis. IMPRESSION: Stable mild aneurysmal dilatation of the distal descending thoracic aorta to 3.2 cm. Stable aneurysmal dilatation of the infrarenal aorta which measures up to 8.3 x 6.8 cm status post a ortobi-iliac stent graft in. There is no evidence of an endoleak. 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 Stable short segment moderate to severe narrowing of the left common femoral artery. Please see ancillary findings above. RPTAT: EE Physician Kenneth Date Time Electronically viewed and signed by Gabe Mcmahan Physician on 01/12/2017 11:20 /
== END | disposition home or self-care (01) ==
LOC: C/S 01-05 10:08
PROVIDERS: ATTEND Surgery
DX: I71.6 Thoracoabdominal aortic aneurysm, without rupture (principal); I72.3 Aneurysm of iliac artery; I77.1 Stricture of artery; K46.9 Unspecified abdominal hernia without obstruction or gangrene; K44.9 Diaphragmatic hernia without obstruction or gangrene; J43.9 Emphysema, unspecified; M41.9 Scoliosis, unspecified; N28.1 Cyst of kidney, acquired; K57.90 Diverticulosis of intestine, part unspecified, without perforation or abscess without bleeding
CPT/HCPCS: 75635; Q9967

== ENCOUNTER 2017-08-09 13:52 | Inpatient (IN) | END 2017-08-12 12:00 | disposition home or self-care (01) | DRG 389 ==

== ENCOUNTER 2019-01-12 13:52 | Inpatient (IN) | payer MEDICARE, OTHER ==
[2019-01-11 20:01] VITALS: PULSE 38
[~2019-01-12] VITALS: Ht 182.9 cm; Wt 75.2 kg
[~2019-01-12 13:52] MED LIST changes: +ESCI10TA PO; -ESCI10TA48 PO; -IODIXANOL LOCM 100 ML BTL ONE; -NIAC500T92 PO; +OXYC-209 PO; +PANT40TA3 PO; -PANT40TA4 PO; +SIMV40TA2 PO; -SMV40T PO; -SOD CHLORIDE 0.9% 100 ML ONE; +TRAZ-111 PO; -TRAZ50TA18 PO
[2019-01-12 14:03] VITALS: Ht 182.9 cm; Wt 75.2 kg
[2019-01-12] MEDS ORDERED: ONDANSETRON 4 MG INJ IV STA (15:02)
[2019-01-12] MEDS ORDERED: SOD CHLORIDE 0.9% 500 ML IV STA (15:04)
--- NOTE | 2019-01-12 15:04 | ERD ---
ER Documentation Chief Complaint Chief Complaint BIBA, REFERRED BY CAREGIVER D/T COMPLAINTS OF AP THIS MORNING HPI 78-year-old male history of hypertension, hyperlipidemia, abdominal aortic aneurysm status post endovascular stent, depression and anal cancer in remission presents the ED via rescue ambulance for evaluation of a 1 day history of moderate, generalized, crampy abdominal pain. No chest pain, shortness of breath or cough. Has been having intermittent nonbloody, non-mucoid diarrhea recently but denies nausea, vomiting constipation. No dysuria, polyuria, hematuria or flank pain. Increasing, bilateral lower extremity pain with swelling. No relieving or exacerbating factors. No fevers or chills. ROS All systems reviewed and are negative except as per history of present illness. Medications Home Meds Reported Medications Oxycodone HCl/Acetaminophen (Oxycodone-Acetaminophen 10-325) 1 Each Tablet, 1 EACH PO NEEDED, TAB 01/12/19 Gabapentin* (Gabapentin*) 300 Mg Capsule, 300 MG PO BID, #60 CAP 01/12/19 Escitalopram Oxalate* (Escitalopram Oxalate*) 20 Mg Tablet, 20 MG PO DAILY, #30 TAB 01/12/19 Simvastatin* (Zocor*) 40 Mg Tablet, 40 MG PO QHS, #30 TAB 01/12/19 Oxybutynin Chloride* (Ditropan*) 5 Mg Tablet, 5 MG PO DAILY, TAB 01/12/19 Diazepam* (Diazepam*) 5 Mg Tablet, 5 MG PO DAILY, TAB 01/12/19 Diphenoxylate HCl/Atropine (Diphenoxylate-Atrop 2.5-0.025) 1 Each Tablet, 1 EACH PO TID, TAB 01/12/19 Allergies Allergies: Coded Allergies: No Known Allergy (Unverified , 01/17/19) PMhx/Soc Reviewed in chart. As per HPI. History of Surgery: Yes (ABDOMINAL ANEURIZM REPAIR) Anesthesia Reaction: No Hx Neurological Disorder: No Hx Respiratory Disorders: No Hx Cardiac Disorders: No Hx Psychiatric Problems: Yes (DEPRESSION) Hx Miscellaneous Medical Probl: Yes (See EMR) Hx Alcohol Use: Yes (OCCASIONALY) Hx Substance Use: No Hx Tobacco Use: Yes FmHx No family history relevant to presenting complaint Physical Exam Vitals Temp: 100.1. Pulse: 48. Respirations: 20. Blood pressure 130/60. O2 saturation 98%. Physical Exam Const: Chronically ill-appearing, moderate distress due to pain. Head: Atraumatic Eyes: Pupils equal react to light, extraocular movements are intact. Normal Conjunctiva ENT: Normal External Ears, Nose and Mouth. Mucous membranes are dry Neck: Full range of motion. No JVD. No meningismus. Resp: Breath sounds diminished at left base. No rhonchi or wheezes. Cardio: Bradycardic. Regular rate and rhythm, no murmurs pulses 2+ in all extremities. Abd: Soft, non tender, non distended. No rebound or guarding. No masses. Normal bowel sounds Skin: No petechiae or rashes Back: No midline or flank tenderness Ext: No cyanosis . 1+ edema bilateral lower extremities. Mild bilateral calf tenderness. Neur: Awake and alert. No focal deficit Psych: Normal Mood and Affect Result Diagram: 01/19/1951101/19/19511 Results 24 hrs Laboratory Tests Test 01/12/19 15:10 White Blood Count 15.6 10^3/ul Red Blood Count 3.52 10^6/ul Hemoglobin 8.7 g/dl Hematocrit 29.0 % Mean Corpuscular Volume 82.4 fl Mean Corpuscular Hemoglobin 24.7 pg Mean Corpuscular Hemoglobin Concent 30.0 g/dl Red Cell Distribution Width 18.3 % Platelet Count 149 10^3/UL Mean Platelet Volume 9.7 fl Immature Granulocytes % 0.600 % Neutrophils % 85.8 % Lymphocytes % 5.4 % Monocytes % 7.2 % Eosinophils % 0.7 % Basophils % 0.3 % Nucleated Red Blood Cells % 0.0 /100WBC Immature Granulocytes # 0.090 10^3/ul Neutrophils # 13.4 10^3/ul Lymphocytes # 0.9 10^3/ul Monocytes # 1.1 10^3/ul Eosinophils # 0.1 10^3/ul Basophils # 0.1 10^3/ul Nucleated Red Blood Cells # 0.0 10^3/ul Sodium Level 142 mmol/L Potassium Level 4.5 mmol/L Chloride Level 107 mmol/L Carbon Dioxide Level 28 mmol/L Anion Gap 7 Blood Urea Nitrogen 18 mg/dl Creatinine 1.04 mg/dl Est Glomerular Filtrat Rate mL/min mL/min Glucose Level 106 mg/dl Calcium Level 8.4 mg/dl Total Bilirubin 0.8 mg/dl Direct Bilirubin 0.00 mg/dl Indirect Bilirubin 0.8 mg/dl Aspartate Amino Transf (AST/SGOT) 19 IU/L Alanine Aminotransferase (ALT/SGPT) 22 IU/L Alkaline Phosphatase 87 IU/L Troponin I < 0.012 ng/ml Total Protein 6.8 g/dl Albumin 3.4 g/dl Globulin 3.40 g/dl Albumin/Globulin Ratio 1.00 Lipase 21 U/L Current Medications Medications Dose Sig/Ned Start Time Status Last (Trade) Ordered Route PRN Stop Time Admin Dose Reason Admin Ondansetron 4 mg ONCE STAT 01/12/19 DC 01/12/19 HCl (Zofran IV 15:02 15:34 Inj) 01/12/19 15:04 Sodium 500 ml @ Q1H STAT 01/12/19 DC 01/12/19 Chloride 500 mls/hr IV 15:04 15:33 01/12/19 16:03 IV Flush 10 ml STK-MED 01/12/19 DC 01/12/19 (NS 10 ml) ONCE .ROUTE 17:22 17:22 01/12/19 17:23 Sodium 100 ml @ ud STK-MED 01/12/19 DC 01/12/19 Chloride ONCE .ROUTE 17:22 17:22 01/12/19 17:23 Iohexol 150 ml STK-MED 01/12/19 DC 01/12/19 (Omnipaque ONCE .ROUTE 17:22 17:22 300mg/ ml) 01/12/19 17:23 Procedures/MDM DOCUMENTS REVIEWED: ED nurse, prior ED, prior records EKG: Time: 1934. Sinus bradycardia. Ventricular rate 42. No acute ST segment elevation depression. No ectopy. My Interpretation IMAGING: PROCEDURE: XR Chest. CLINICAL INDICATION: Abdominal pain TECHNIQUE: An AP view of the chest was obtained. COMPARISON: SD CR CHEST 06/15/2018; DR CHEST 08/07/2017; CR CHEST 07/13/2016; CR CHEST 11/11/2015; CR CHEST 01/20/2015 FINDINGS: There is prominence of the interstitial and central pulmonary vascular markings with small left pleural effusion. No focal airspace opacification or pneumothorax is seen. The cardiomediastinal silhouette is mildly enlarged. Calcifications are seen within the aortic arch. The osseous structures demonstrate senescent changes. IMPRESSION: 1. Findings suggestive of pulmonary vascular congestion with small left pleural effusion. No significant interval change. 2. Mild cardiomegaly and aortic atherosclerosis. RPTAT: HH .Kimberly Matthew MD, Date Time Electronically viewed and signed by .Kimberly Matthew MD, on 01/12/2019 15:52 PROCEDURE: CT Abdomen and Pelvis with IV contrast. CLINICAL INDICATION: Abdominal pain TECHNIQUE: CT of the abdomen and pelvis with IV contrast. interventional technologist reports that contrast infiltration occurred at the time of injection. No intravascular contrast is present on the submitted images. Coronal and sagittal reformatted images. DICOM images are available. One or more of the following dose reduction techniques were used: automated exposure control, adjustment of the mA and/or kV according to patient size, use of iterative reconstruction technique. CTDI 14.8 mGy, DLP 867 mGy-cm. COMPARISON: CT 08/07/2017 FINDINGS: Lower thorax: Mild hiatal hernia. Coronary arterial calcifications. Mild left pleural effusion. Bibasilar atelectasis. Mild pulmonary emphysema. Liver: Normal. Biliary: Normal gallbladder. No biliary dilatation. Pancreas: Normal. Spleen: Normal. Adrenal glands: Normal. Genitourinary: Bilateral benign renal cysts. No urolithiasis or obstructive uropathy. Unremarkable urinary bladder. Vascular: Status post aortoiliac endograft placement. [place] abdominal aortic aneurysm sac diameter is 8.5 cm, stable. 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 No retroperitoneal hematoma. Aortoiliac atherosclerotic calcifications. Lymph nodes: No lymphadenopathy. Gastrointestinal: No bowel obstruction. Normal appendix. Colonic diverticulosis, without diverticulitis. No evidence of colitis. Peritoneum: No free air, free fluid or abscess. Reproductive organs: Unremarkable. Musculoskeletal: Severe right hip osteoarthritic degenerative changes. Osteopenia. Scoliosis and degenerative enthesopathy of the spine. IMPRESSION: 1. Please note: interventional technologist reports that contrast extravasation occurred at the time of injection. Continued monitoring of the injection site is recommended to exclude potential complication from contrast extravasation. 2. Mild hiatal hernia. 3. Mild left pleural effusion. Bibasilar atelectasis. 4. Mild pulmonary emphysema. 5. Stable appearance status post aortoiliac endograft placement. Aortoiliac atherosclerotic calcifications. 6. Colonic diverticulosis, without diverticulitis. 7. No evidence of bowel obstruction, mass, lymphadenopathy, or acute inflammatory process. 8. Osteopenia. RPTAT: QQ .Sid Mendoza MD, Date Time Electronically viewed and signed by .Sid Mendoza MD, on 01/12/2019 17:52 .R/ PROCEDURE: XR Chest. CLINICAL INDICATION: Abdominal pain TECHNIQUE: An AP view of the chest was obtained. COMPARISON: SD CR CHEST 06/15/2018; DR CHEST 08/07/2017; CR CHEST 07/13/2016; CR CHEST 11/11/2015; CR CHEST 01/20/2015 FINDINGS: There is prominence of the interstitial and central pulmonary vascular markings with small left pleural effusion. No focal airspace opacification or pneumothorax is seen. The cardiomediastinal silhouette is mildly enlarged. Calcifications are seen within the aortic arch. The osseous structures demonstrate senescent changes. IMPRESSION: 1. Findings suggestive of pulmonary vascular congestion with small left pleural effusion. No significant interval change. 2. Mild cardiomegaly and aortic atherosclerosis. RPTAT: HH .Kimberly Matthew MD, MD Date Time Electronically viewed and signed by .Kimberly Matthew MD, on 01/12/2019 15:52 [employer]-year-old male history of hypertension, hyperl ipidemia, abdominal aortic aneurysm status post endovascular stent, depression and anal cancer in remission presents the ED via rescue ambulance for evaluation of a 1 day history of moderate, generalized, crampy abdominal pain. CBC reveals leukocytosis of 15.6 with anemia, H/H of 8.7/29.0 decreased from 9.8/30.25 July 2018. Chemistry is unremarkable for electrolyte abnormalities, renal insufficiency or hyperglycemia. No hyperbilirubinemia or transaminitis. Lipase is not elevated or consistent with pancreatitis. Urinalysis is still pending. Chest x-ray reveals cardiomegaly with evidence of pulmonary vascular congestion and small left pleural effusion. Bilateral lower extremity swelling. Venous Doppler to evaluate for DVT is negative. EKG reveals bradycardia but no acute ischemic changes. Troponin is negative. Bradycardia of uncertain etiology as the patient is not on any beta-blockers may be related to sick sinus syndrome. No hypotension. CT scan of the abdomen and pelvis with IV contrast to evaluate for an acute intra-abdominal process including bowel obstruction, tumor recurrence, mesenteric ischemia, diverticulitis, prior abdominal aortic aneurysm endovascular stent reveals hiatal hernia, diverticulosis, stable endovascular stent but no acute inflammatory process. Contrast extravasation into the upper extremity will require further evaluation and follow-up. Patient presents with abdominal pain of uncertain etiology. Diarrhea possibly secondary to viral amrik ology although bacterial enteritis, foodborne illness and C. difficile colitis are considered. Lower extremity swelling and x-ray findings of pulmonary vascular congestion consistent with CHF will require further evaluation. Chronic anemia with no signs of active bleeding. admit to telemetry for further evaluation and management. PATIENT CARE TRANSITIONED: Time: 19:05, Dr. Caballero Counseled patient and family regarding diagnosis, diagnostic results and plan for admission. Departure Diagnosis: Primary Impression: Acute generalized abdominal pain Additional Impressions: Sinus bradycardia History of rectal or anal cancer Leukocytosis Leukocytosis type: unspecified Qualified Codes: D72.829 - Elevated white blood cell count, unspecified Anemia Anemia type: unspecified type Qualified Codes: D64.9 - Anemia, unspecified Diarrhea Diarrhea type: unspecified type Qualified Codes: R19.7 - Diarrhea, unspecified History of endovascular stent graft for abdominal aortic aneurysm Condition: Serious JUAN SKINNER MD Jan 12, 2019 15:04
[2019-01-12] MEDS ORDERED: DIPH1TAB25 PO (15:11)
[2019-01-12] MEDS ORDERED: DIAZ5TAB4 PO (15:11)
[2019-01-12] MEDS ORDERED: ESCI20TA38 PO (15:12)
[2019-01-12] MEDS ORDERED: SIMV40TA2 PO (15:12)
[2019-01-12] MEDS ORDERED: OXYB5TAB7 PO (15:12)
[2019-01-12] MEDS ORDERED: GABA300C16 PO (15:13)
[2019-01-12] MEDS ORDERED: OXYC-431 PO (15:14)
[2019-01-12] MEDS ORDERED: SOD CHLORIDE 0.9% 100 ML ONE (17:22)
[2019-01-12] MEDS ORDERED: IOHEXOL 300MG/ML 150 ML BTL ONE (17:22)
[2019-01-12] MEDS ORDERED: ONDANSETRON 4 MG INJ IV PRN (20:30)
[2019-01-12] MEDS ORDERED: ACETAMINOPHEN 325 MG TAB PO PRN (20:30)
[2019-01-12] MEDS ORDERED: LORAZEPAM 2 MG INJ IV ONE (20:30)
[2019-01-13] VITALS (78 sets, daily range): BP systolic 77–165; BP diastolic 33–72; PULSE 32–93; RESP 11–30
[2019-01-13] MEDS ORDERED: ATROPINE 1 MG INJ IV ONE (02:00)
[2019-01-13] MEDS ORDERED: SOD CHLORIDE 0.45% 1,000 ML IV SCH (02:36)
[2019-01-13] MEDS ORDERED: ESCITALOPRAM 10 MG TAB PO ONE (03:00)
[2019-01-13] MEDS ORDERED: VANCOMYCIN 1 GM (PMX) 250 ML IVPB ONE (03:00)
[2019-01-13] MEDS ORDERED: NACL 0.9% 3 ML SYG IV SCH (03:00)
[2019-01-13] MEDS ORDERED: ACETAMINOPHEN 325 MG TAB PO PRN (03:00)
[2019-01-13] MEDS ORDERED: ATROPINE 1 MG/10 ML SYRINGE IV PRN (03:00)
[2019-01-13] MEDS: DEXTROSE 5%-0.45% NACL 1,000 ML IV SCH ×2 (03:09→16:34)
[2019-01-13] MEDS ORDERED: DOPamine-D5W 1.6 MG/ML 250 ML ONE (04:08)
[2019-01-13] MEDS: DOPamine-D5W 1.6 MG/ML 250 ML IV SCH ×2 (04:22→16:36)
[2019-01-13] MEDS: PIPER-TAZO 3.375 GM IV (PMX) 100 ML IVPB SCH ×3 (05:48→18:14)
[2019-01-13] MEDS: PANTOPRAZOLE (EC) 40 MG TAB PO SCH (05:48)
[2019-01-13] MEDS ORDERED: LIDOCAINE 1% (MPF) 5 ML VIAL SC ONE (08:00)
--- NOTE | 2019-01-13 09:21 | CONS ---
Assessment/Plan Assessment/Plan Hospital Course (Demo Recall) Assessment: - Sick sinus with severe bradycardia/jxn rhythm- denies taking any avn blockers, will confirm. cont supportive care. cont dopamine and titrate to keep SBP > 90. cont tele monitoring. check tsh/ft4. will likely need PPM if does not resolve - s/p AAA - stable on ct scan - abd pain- resolved, ct scan negative - edema - neg venous duplex, possible related to derrek. obtain echo Consultation Date/Type/Reason Admit Date/Time Jan 12, 2019 at 20:17 Date of Consultation: Jan 13, 2019 Type of Consult Cardiology Reason for Consultation Bradycardia Requesting Provider: SYLVAIN PORRAS MD Date/Time of Note DATE: 01/13/19 TIME: 09:17 Hx of Present Illness Pt is a 78 y.o. with h/o AAA s/p endostent 2005 who presents for abd cramping, weakness. Pt with symptoms for 1 days. reports dizziness no fainting. lives at home with residential care officer, states he has no family. is ambulatory around the house no cp/sob/dizziness at [facility] Denies any chest pain/pressure, fainting. Pt without h/o syncope in the past. no palpitations. Pt found to have sinus derrek with jxn derrek at times as well. 30s-40s bp initially 80s now improved after dopamine. did respond to prn atropine as well. did have one episode of n/v this am. otherwise pt states no current abd pain/cp or dizziness. Constitutional: other (weakness) Eyes: no complaints ENT: no complaints Respiratory: no complaints Cardiovascular: no complaints Gastrointestinal: pain Genitourinary: no complaints Musculoskeletal: no complaints Skin: no complaints Neurologic: no complaints Endocrine: no complaints Lymphatic: no complaints Psychological: no complaints Immunologic: no complaints Past Medical History Anal adenoca s/p xrt/chemo GI bleed AAA s/p endorepair HTN HLD Home Meds Reported Medications Oxycodone HCl/Acetaminophen (Oxycodone-Acetaminophen 10-325) 1 Each Tablet, 1 EACH PO NEEDED, TAB 01/12/19 Gabapentin* (Gabapentin*) 300 Mg Capsule, 300 MG PO BID, #60 CAP 01/12/19 Escitalopram Oxalate* (Escitalopram Oxalate*) 20 Mg Tablet, 20 MG PO DAILY, #30 TAB 01/12/19 Simvastatin* (Zocor*) 40 Mg Tablet, 40 MG PO QHS, #30 TAB 01/12/19 Oxybutynin Chloride* (Ditropan*) 5 Mg Tablet, 5 MG PO DAILY, TAB 01/12/19 Diazepam* (Diazepam*) 5 Mg Tablet, 5 MG PO DAILY, TAB 01/12/19 Diphenoxylate HCl/Atropine (Diphenoxylate-Atrop 2.5-0.025) 1 Each Tablet, 1 EACH PO TID, TAB 01/12/19 Discontinued Reported Medications Oxycodone HCl/Acetaminophen (Percocet 10-325 mg Tablet) 1 Each Tablet, 1 EACH PO Q4 PRN for PAIN, TAB 08/07/17 Trazodone Hcl* (Trazodone Hcl*) 50 Mg Tablet, 50 MG PO QHS, #30 TAB 08/07/17 Simvastatin* (Zocor*) 40 Mg Tablet, 40 MG PO QHS, #30 TAB 08/07/17 Pantoprazole* (Protonix*) 40 Mg Tablet.dr, 40 MG PO DAILY, TAB 08/07/17 Escitalopram Oxalate* (Lexapro*) 10 Mg Tablet, 10 MG PO DAILY, #30 TAB 08/07/17 Gabapentin* (Gabapentin*) 300 Mg Capsule, 300 MG PO DAILY, #60 CAP 08/07/17 Medications Current Medications IV Flush (NS 3 ml) 3 ml PER PROTOCOL IV ; Start 01/13/19 at 03:00 Ondansetron HCl (Zofran Inj) 4 mg Q6H PRN IV NAUSEA/VOMITING; Start 01/13/19 at 03:00 Acetaminophen (Tylenol Tab) 650 mg Q6H PRN PO .PAIN 1-3 OR TEMP; Start 01/13/19 at 03:00 Morphine Sulfate (morphine) 2 mg Q4H PRN IV .SEVERE PAIN 7-10; Start 01/13/19 at 03:00 Pantoprazole (Protonix Tab) 40 mg DAILY@06 PO Last administered on 01/13/19at 05:48; Admin Dose 40 MG; Start 01/13/19 at 06:00 Enoxaparin Sodium (Lovenox) 30 mg DAILY SC ; Start 01/13/19 at 09:00 Dextrose/Sodium Chloride 1,000 ml @ 100 mls/hr Q10H IV Last administered on 01/13/19at 03:09; Admin Dose 100 MLS/HR; Start 01/13/19 at 03:00 Atropine Sulfate (Atropine (Syringe)) 0.4 mg Q2H PRN IV for HR< 50/mt; Start 01/13/19 at 03:00 Piperacillin Sod/ Tazobactam Sod 100 ml @ 200 mls/hr Q6 IVPB Last administered on 01/13/19at 05:48; Admin Dose 200 MLS/HR; Start 01/13/19 at 06:00 Dopamine HCl/ Dextrose 250 ml @ 5.64 mls/hr TITRATE IV Last administered on 01/13/19at 04:22; Admin Dose 5.64 MLS/HR; Start 01/13/19 at 04:30 Allergies: Coded Allergies: No Known Allergy (Unverified , 01/12/19) Past Surgical History Past Surgical Hx: other Family History Significant Family History: other (no rpeorted high risk ca) Social History Alcohol Use: none Smoking Status: Former smoker Drug Use: none Exam/Review of Systems Exam Vitals Vital Signs Date Temp Pulse Resp B/P (MAP) Pulse Ox O2 O2 Flow FiO2 Time Delivery Rate 01/13/19 42 18 129/45 98 06:45 (73) 01/13/19 Nasal 06:00 Cannula 01/13/19 2.0 04:00 01/13/19 97.6 03:11 Intake and Output 01/12/19 01/12/19 01/13/19 1515:00 23:00 07:00 IntakeIntake Total 686.28 ml OutputOutput Total 600 ml BalanceBalance 86.28 ml Constitutional: alert, oriented, other (elderly) Psych: no complaints, nl mood/affect Head: normocephalic, atraumatic Eyes: nl conjunctiva, nl lids ENMT: nl external ears & nose, nl lips & teeth, nl nasal mucosa & septum Neck: supple, non-tender; No jvd Respiratory: clear to auscultation, normal air movement Cardiovascular: other (derrek, nl s1s2, ii/vi esequiel rusb) Gastrointestinal: soft, nl liver, spleen, non-tender Musculoskeletal: other (normal muscle mass) Extremities: normal pulses, edema (2+ to knees bilateral ) Neurological: ADMINISTRATIVE CLERK II-XII intact, nl mental status, nl speech, nl strength Lymph: nl lymph nodes Results Result Diagram: 01/12/19 1510 01/12/19 1510 Results 24hrs Laboratory Tests Test 01/12/19 15:10 01/13/19 02:00 01/13/19 04:46 White Blood Count 15.6 #H Red Blood Count 3.52 L Hemoglobin 8.7 L Hematocrit 29.0 L Mean Corpuscular Volume 82.4 Mean Corpuscular Hemoglobin 24.7 L Mean Corpuscular Hemoglobin Concent 30.0 L Red Cell Distribution Width 18.3 #H Platelet Count 149 Mean Platelet Volume 9.7 Immature Granulocytes % 0.600 H Neutrophils % 85.8 H Lymphocytes % 5.4 L Monocytes % 7.2 Eosinophils % 0.7 Basophils % 0.3 Nucleated Red Blood Cells % 0.0 Immature Granulocytes # 0.090 H Neutrophils # 13.4 H Lymphocytes # 0.9 Monocytes # 1.1 H Eosinophils # 0.1 Basophils # 0.1 Nucleated Red Blood Cells # 0.0 Sodium Level 142 Potassium Level 4.5 Chloride Level 107 Carbon Dioxide Level 28 Anion Gap 7 Blood Urea Nitrogen 18 Creatinine 1.04 Est Glomerular Filtrat Rate mL/min Glucose Level 106 Calcium Level 8.4 Total Bilirubin 0.8 Direct Bilirubin 0.00 Indirect Bilirubin 0.8 Aspartate Amino Transf (AST/SGOT) 19 Alanine Aminotransferase (ALT/SGPT) 22 Alkaline Phosphatase 87 Troponin I < 0.012 0.028 Total Protein 6.8 Albumin 3.4 Globulin 3.40 H Albumin/Globulin Ratio 1.00 Lipase 21 L Urine Color YELLOW Urine Clarity CLEAR Urine pH 8.0 Urine Specific [place] 1.036 H Urine Ketones NEGATIVE Urine Nitrite NEGATIVE Urine Bilirubin NEGATIVE Urine Urobilinogen NEGATIVE Urine Leukocyte Esterase NEGATIVE Urine Microscopic RBC 21 H Urine Microscopic WBC 1 Urine Hemoglobin 1+ H Urine Glucose NEGATIVE Urine Total Protein NEGATIVE Lactic Acid Level 0.9 Imaging Imaging cxr report reviewed in emr ekg: reviewed sinus bradycardia, initial jxn derrek cardia with pacs tele reviewed: severe sinus derrek and intermitent jxn rhythm with pacs Medications Medication Current Medications IV Flush (NS 3 ml) 3 ml PER PROTOCOL IV ; Start 01/13/19 at 03:00 Ondansetron HCl (Zofran Inj) 4 mg Q6H PRN IV NAUSEA/VOMITING; Start 01/13/19 at 03:00 Acetaminophen (Tylenol Tab) 650 mg Q6H PRN PO .PAIN 1-3 OR TEMP; Start 01/13/19 at 03:00 Morphine Sulfate (morphine) 2 mg Q4H PRN IV .SEVERE PAIN 7-10; Start 01/13/19 at 03:00 Pantoprazole (Protonix Tab) 40 mg DAILY@06 PO Last administered on 01/13/19at 05:48; Admin Dose 40 MG; Start 01/13/19 at 06:00 Enoxaparin Sodium (Lovenox) 30 mg DAILY SC ; Start 01/13/19 at 09:00 Dextrose/Sodium Chloride 1,000 ml @ 100 mls/hr Q10H IV Last administered on 01/13/19at 03:09; Admin Dose 100 MLS/HR; Start 01/13/19 at 03:00 Atropine Sulfate (Atropine (Syringe)) 0.4 mg Q2H PRN IV for HR< 50/mt; Start 01/13/19 at 03:00 Piperacillin Sod/ Tazobactam Sod 100 ml @ 200 mls/hr Q6 IVPB Last administered on 01/13/19at 05:48; Admin Dose 200 MLS/HR; Start 01/13/19 at 06:00 Dopamine HCl/ Dextrose 250 ml @ 5.64 mls/hr TITRATE IV Last administered on 01/13/19at 04:22; Admin Dose 5.64 MLS/HR; Start 01/13/19 at 04:30 YEYO GALEANA Jan 13, 2019 09:21
--- NOTE | 2019-01-13 09:27 | HP ---
DATE OF ADMISSION: 01/12/2019 CHIEF COMPLAINT AND HISTORY OF PRESENT ILLNESS: The patient is a 78-year-old gentleman who is well k nown to me from previous followup with a prior history of abdominal aortic aneurysm status post endov ascular stent, prior history of anal cancer, chronic anemia, hyperlipidemia, hypertension, presenting with a 1-day history of severe crampy abdominal pain, and the patient was evaluated in the emergency room and I evaluated the patient in the emergency room as the patient was hypotensive and was admitt ed to the intensive care unit. The patient has been having nonbloody diarrhea for the past few weeks . The patient has not had any recent antibiotics. The patient also has been complaining of leg pain with swelling. There has been no history of trauma. MEDICATIONS: 1. Pantoprazole 40 mg p.o. daily. 2. Lomotil 1 tablet t.i.d. p.r.n. 3. Ditropan 5 mg p.o. daily. 4. Simvastatin 40 mg p.o. daily. 5. Lexapro 20 mg p.o. daily. The patient also has been depressed recently. REVIEW OF SYSTEMS: HEAD: No history of headaches, focal weakness, or numbness. No prior history of strokes. EYES: No blurry vision or glaucoma. Status post cataract surgery about 10 years back. ENT: Decreased hearing bilaterally. NECK: Status post tonsillectomy. No history of thyroid disease. CHEST: The patient was a prior smoker, history of pneumonia in 2013 from which he recovered complete ly. HEART: The patient denies any chest pain, palpitations or shortness of breath. GASTROINTESTINAL: Prior history of GI bleed, history of anorectal cancer, in complete remission post -chemo and radiation. GENITOURINARY: History of nonobstructive kidney stones bilaterally. 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 The patient is due to have an orthopedic evaluation. The patient is having difficulty ambulation recently. PRIOR SURGERIES: Include abdominal aortic aneurysm status post endovascular stenting. PHYSICAL EXAMINATION: GENERAL: The patient is an average-built male who appears somewhat depressed and anxious, complains of moderate pain in the left upper quadrant of abdomen. T-max is 100.1, blood pressure in the 90s sy stolic. Just before my seeing the patient. The patient has been given 1 dose of atropine. His hear t rate was in the 40s and up to 56, irregularly irregular. HEENT: Mild pallor, no cyanosis or icterus. Tongue is moist. NECK: Supple. No thyromegaly, bruits or lymphadenopathy. LUNGS: Clinically clear anteriorly. HEART: S1, S2 heard with no definite gallops. Irregularly irregular rhythm. ABDOMEN: Soft. Mild left upper quadrant tenderness without rebound. Bowel sounds are active. EXTREMITIES: 1+ pitting edema bilaterally with calf tenderness. NEUROLOGIC: The patient moves both upper and lower extremities well, oriented x3, no focal lateraliz ing signs. RECTAL: Deferred due to the patient's discomfort. LABORATORY DATA: WBC count 15.6, hematocrit 29.0, platelet count 149,000. Sodium 142, potassium 4.5 , BUN 18, creatinine 1.04. Troponin less than 0.012, lipase is 21. Chest x-ray shows small pleural effusion or increased pulmonary vascular congestion. CT of the abdomen and pelvis shows mild hiatal hernia, mild pulmonary emphysema, stable aortoiliac endograft placement, colonic diverticulosis witho ut diverticulitis, no obstruction, lymphadenopathy. Doppler venous study of the lower extremities sh ows no evidence of deep vein thrombosis. EKG shows sinus bradycardia, ventricular rate is 42. No ST elevations. IMPRESSION: 1. Abdominal pain with leukocytosis, possible Clostridium difficile colitis, recent diarrhea, gastro enteritis. 2. Lower extremity edema with evidence of mild cellulitis. 3. The patient presented with bradycardia after atropine heart rate went up to the 60s with atrial f ibrillation, intermittent, on the monitor, which is new. 4. Prior history of hypertension. 5. History of nephrolithiasis. 6. Status post abdominal aortic aneurysm with status post endovascular stent. 7. History of anal cancer in remission. 8. Major depression. PLAN: We will start the patient on intravenous vancomycin and Zosyn. Obtain stool for Clostridium d ifficile, repeat EKG in the morning with troponins. Gentle hydration. Consider pressors only if he does not respond to fluid management. We will get GI consultation with Dr. Gardiner in the morning. T he patient will be admitted to the intensive care unit in view of hypotension. We will also obtain b lood cultures x2 prior to starting antibiotics. Dictated By: SYLVAIN PORRAS MD SR/NTS Conf#: [id number] DID#: [id number] CC: SYLVAIN PORRAS MD;*[facility]*
[2019-01-13] MEDS: ONDANSETRON 4 MG INJ IV PRN ×2 (09:57→15:48)
[2019-01-13] MEDS: ENOXAPARIN 30 MG/0.3 ML SYG SC SCH (10:00)
[2019-01-13] MEDS ORDERED: ESCITALOPRAM 10 MG TAB PO SCH (17:30)
[2019-01-13] MEDS ORDERED: LORAZEPAM 0.5 MG TAB PO PRN (18:00)
--- NOTE | 2019-01-13 18:12 | CONS ---
DATE OF ADMISSION: 01/12/2019 DATE OF CONSULTATION: TYPE OF CONSULTATION: Gastrointestinal. HISTORY OF PRESENT ILLNESS: A 78-year-old male with a history of abdominal aortic aneurysm, status p ost endovascular stent. History of anal cancer, chronic anemia, hyperlipidemia, hypertension, came t o the hospital complaining of crampy abdominal pain. The patient was evaluated in the ER. He was fo und to be hypotensive. He was admitted to intensive care unit for further management. He denies of any abdominal pain, no nausea, no vomiting, no chest pain, no shortness of breath, no diarrhea. He j ust vomited once during his stay in the hospital this morning. He also complains of crampy abdominal pain. No GI bleeding, no weight loss. SOCIAL HISTORY: He has no family member and he lives at home with a tent finisher. MEDICATIONS AT HOME: 1. Pantoprazole 2. Lomotil. 3. Detrol. 4. Simvastatin. 5. Lexapro. REVIEW OF SYSTEMS: Negative. PRIOR SURGERY: Abdominal aortic aneurysm, status post endovascular stenting. PHYSICAL EXAMINATION: GENERAL: Alert, awake, not in distress. VITAL SIGNS: Stable. HEENT: Unremarkable. NECK: Supple, no thyromegaly, no lymphadenopathy. CARDIOVASCULAR: No murmur, gallop or click. LUNGS: Clear. ABDOMEN: Benign. EXTREMITIES: No edema. CENTRAL NERVOUS SYSTEM: Grossly within normal limits. LABORATORY DATA: CMP was within normal limits. Thyroxine level was normal. His hematocrit was 29. Normochromic normocytic pattern. Platelet count was 149. WBC was 14.6. IMPRESSION: 1. Bradycardia with episode of hypotension, most probably related to sick sinus syndrome. 2. Abdominal pain which is totally resolved. 3. History of anal cancer, status post radiation and chemotherapy. 4. Status post endoclip stasis for lower abdominal aortic aneurysm. 5. Major depression. PLAN: To send stool for analysis, especially for C. difficile toxin, ova, parasites, culture. Zofr an for the symptomatic relief of his nausea and vomiting, and anemia workup . Cardiology followup al so. ADDENDUM: I reviewed all of his medication. Dictated By: NICOLAS AVITIA/NTS Conf#: [id number] DID#: [id number] CC: SYLVAIN PORRAS MD;*End*
--- NOTE | 2019-01-13 18:19 | PN ---
DATE: 01/13/2019 SUBJECTIVE: The patient was nauseous earlier, vomited x2. Complains of pain in the abdomen, but muc h improved since yesterday. No chest pain or palpitations. OBJECTIVE: VITAL SIGNS: Temperature 98.2, heart rate 38 per minute, blood pressure 150/50, sats 96%. HEENT: Moderate pallor, without cyanosis or icterus. Tongue is moist. NECK: Supple. LUNGS: Clinically clear. HEART: S1, S2 heard. No definite gallops. ABDOMEN: Soft. Minimal left upper quadrant tenderness. EXTREMITIES: Decreased edema. Decreased erythema. Homans negative. LABORATORY DATA: Magnesium is 1.937, serum thyroxine 4.3. TSH 3.87. Other labs pending. Dr. Montanez's cardiology consultation and Dr. Gardiner's GI consultation greatly appreciated. IMPRESSION: 1. Severe sinus bradycardia with intermittent junctional rhythm with premature atrial contractions, presently no evidence of atrial fibrillation. 2. Abdominal pain, possible Clostridium difficile colitis with recent diarrhea and gastroenteritis. 3. Mild cellulitis of the lower extremities. 4. Prior history of hypertension. 5. Prior history of nephrolithiasis. 6. History of anal cancer in remission. 7. Status post abdominal aortic aneurysm, status post endovascular stent 10 years ago. 8. Underlying depression. PLAN: We will continue vancomycin and Zosyn for now. Recheck labs today. T4 levels are low; howeve r, TSH levels are in the normal range. Will start the patient on a small dose of Synthroid. We will start the patient on full-liquid diet and observe. Continue recommendations per Dr. Montanez and Dr Marcelino Gardiner. The patient has been somewhat anxious, wants to go home. We will keep him on anxiolytics, namely lorazepam. Dictated By: SYLVAIN PORRAS MD SR/NTS Conf#: [id number] DID#: [id number] CC: SYLVAIN PORRAS MD;*EndCC*
[2019-01-13] MEDS: ESCITALOPRAM 10 MG TAB PO SCH (18:23)
[2019-01-14] VITALS (98 sets, daily range): BP systolic 77–157; BP diastolic 33–70; PULSE 30–70; RESP 9–25
[2019-01-14] MEDS: PIPER-TAZO 3.375 GM IV (PMX) 100 ML IVPB SCH ×4 (00:34→18:30)
[2019-01-14] MEDS: D5W-0.45 NACL + KCL 20 MEQ 1,000 ML IV SCH ×3 (00:34→12:30)
[2019-01-14] MEDS: PANTOPRAZOLE (EC) 40 MG TAB PO SCH (05:23)
[2019-01-14] MEDS: LEVOTHYROXINE 25 MCG TAB PO SCH (05:23)
--- NOTE | 2019-01-14 07:08 | CONS ---
Assessment/Plan Assessment/Plan Hospital Course (Demo Recall) 78 yo male presented with crampy abdominal pain, hypotensive and one episode of nausea Pt is alert. C/O being tired. Denies lightheadedness, SOB, dizziness, CP. Denies abdominal pain or N/V. Tolerating full liquid diet. NO bm overnight. Per RN , no signs of GI bleeding. HR in 40s. On dopamine gtt stable at 6 mcg. 1. Bradycardia with episode of hypotension, most probably related to sick sinus syndrome. 2. Abdominal pain -resolved 3. History of anal cancer, status post radiation and chemotherapy. 4. H/O abdominal aortic aneurysm -Status post endoclip stasis for lower abdominal aortic aneurysm. 5. Major depression. 6. Diverticulosis 7. Mild pulmonary emphysema 8. Mild hiatal hernia 9. Osteopenia CT abd/pelvis 01/12: 1. Please note: electromechanical technologist reports that contrast extravasation occurred at the time of injection. Continued monitoring of the injection site is recommended to exclude potential complication from contrast extravasation. 2. Mild hiatal hernia. 3. Mild left pleural effusion. Bibasilar atelectasis. 4. Mild pulmonary emphysema. 5. Stable appearance status post aortoiliac endograft placement. Aortoiliac atherosclerotic calcifications. 6. Colonic diverticulosis, without diverticulitis. 7. No evidence of bowel obstruction, mass, lymphadenopathy, or acute inflammatory process. 8. Osteopenia. PLAN: Pending anemia work up Pending stool cultures Aspiration precautions. Monitor HH and for active GI bleeding, no signs or symptoms of GI bleeding noted PRN anti emetics Supportive ICU care Pt examined and plan of care d/w Dr. Gardiner Consultation Date/Type/Reason Admit Date/Time Jan 12, 2019 at 20:17 Initial Consult Date 01/13/19 Requesting Provider: SYLVAIN PORRAS MD Date/Time of Note DATE: 01/14/19 TIME: 07:01 Exam/Review of Systems Exam Vitals Vital Signs Date Temp Pulse Resp B/P (MAP) Pulse Ox O2 O2 Flow FiO2 Time Delivery Rate 01/14/19 40 16 149/55 99 06:45 (86) 01/14/19 98.8 04:00 01/13/19 Nasal 2.0 20:00 Cannula Intake and Output 01/13/19 01/13/19 01/14/19 1515:00 23:00 07:00 IntakeIntake Total 600 ml 333.84 ml 918.44 ml OutputOutput Total 1950 ml 2050 ml 1200 ml BalanceBalance -1350 ml -1716.16 ml -281.56 ml Constitutional: alert Psych: no complaints Head: normocephalic Eyes: PERRL ENMT: mucosa pink and moist Respiratory: normal air movement Cardiovascular: other (sinus derrek) Gastrointestinal: soft, non-tender Neurological: nl mental status Results Result Diagram: 01/14/19 0400 01/14/19 0400 Results 24hrs Laboratory Tests Test 01/13/19 18:13 01/14/19 04:00 White Blood Count 8.4 # 8.6 Red Blood Count 3.29 L 3.36 L Hemoglobin 8.0 L 8.4 L Hematocrit 26.4 L 27.0 L Mean Corpuscular Volume 80.2 L 80.4 L Mean Corpuscular Hemoglobin 24.3 L 25.0 L Mean Corpuscular Hemoglobin Concent 30.3 L 31.1 L Red Cell Distribution Width 18.3 H 18.0 H Platelet Count 135 L 137 L Mean Platelet Volume 9.6 9.4 Immature Granulocytes % 0.200 0.200 Neutrophils % 75.6 70.0 Lymphocytes % 10.0 L 12.6 L Monocytes % 13.0 H 15.0 H Eosinophils % 1.0 1.8 Basophils % 0.2 0.4 Nucleated Red Blood Cells % 0.0 0.0 Immature Granulocytes # 0.020 0.020 Neutrophils # 6.4 6.0 Lymphocytes # 0.8 1.1 Monocytes # 1.1 H 1.3 H Eosinophils # 0.1 0.2 Basophils # 0.0 0.0 Nucleated Red Blood Cells # 0.0 0.0 Sodium Level 139 141 Potassium Level 3.6 3.7 Chloride Level 106 106 Carbon Dioxide Level 27 27 Anion Gap 6 8 Blood Urea Nitrogen 14 10 Creatinine 1.00 1.06 Est Glomerular Filtrat Rate mL/min Glucose Level 130 119 Calcium Level 8.1 L 8.5 Absolute Reticulocyte Count 0.056 Percent Reticulocyte Count 1.7 H Prothrombin Time 14.8 Prothrombin Time Ratio 1.2 INR International Normalized Ratio 1.15 Magnesium Level 2.0 Total Bilirubin 0.4 Direct Bilirubin 0.00 Indirect Bilirubin 0.4 Aspartate Amino Transf (AST/SGOT) 18 Alanine Aminotransferase (ALT/SGPT) 15 Alkaline Phosphatase 83 Total Protein 6.5 Albumin 3.2 L Globulin 3.30 H Albumin/Globulin Ratio 0.96 Triglycerides Level 63 Cholesterol Level 81 L LDL Cholesterol, Calculated 35 HDL Cholesterol 33 Cholesterol/HDL Ratio 2.4 Thyroid Stimulating Hormone (TSH) Pending Free Thyroxine Index Pending Thyroxine (T4) Pending Triiodothyronine (T3) Uptake Pending Medications Medication Current Medications IV Flush (NS 3 ml) 3 ml PER PROTOCOL IV ; Start 01/13/19 at 03:00 Ondansetron HCl (Zofran Inj) 4 mg Q6H PRN IV NAUSEA/VOMITING Last administered on 01/13/19at 15:48; Admin Dose 4 MG; Start 01/13/19 at 03:00 Acetaminophen (Tylenol Tab) 650 mg Q6H PRN PO .PAIN 1-3 OR TEMP; Start 01/13/19 at 03:00 Morphine Sulfate (morphine) 2 mg Q4H PRN IV .SEVERE PAIN 7-10; Start 01/13/19 at 03:00 Pantoprazole (Protonix Tab) 40 mg DAILY@06 PO Last administered on 01/14/19at 05:23; Admin Dose 40 MG; Start 01/13/19 at 06:00 Enoxaparin Sodium (Lovenox) 30 mg DAILY SC Last administered on 01/13/19at 10:00; Admin Dose 30 MG; Start 01/13/19 at 09:00 Atropine Sulfate (Atropine (Syringe)) 0.4 mg Q2H PRN IV for HR< 50/mt; Start 01/13/19 at 03:00 Piperacillin Sod/ Tazobactam Sod 100 ml @ 200 mls/hr Q6 IVPB Last administered on 01/14/19at 05:00; Admin Dose 200 MLS/HR; Start 01/13/19 at 06:00 Dopamine HCl/ Dextrose 250 ml @ 5.64 mls/hr TITRATE IV Last administered on 01/13/19at 16:36; Admin Dose 19.74 MLS/HR; Start 01/13/19 at 04:30 Levothyroxine Sodium (Synthroid) 12.5 mcg DAILY@06 PO Last administered on 01/14/19 05:23; Admin Dose 12.5 MCG; Start 01/14/19 at 06:00 Lorazepam (Ativan) 0.5 mg Q6H PRN PO ANXIETY; Start 01/13/19 at 18:00 Escitalopram Oxalate (Lexapro) 20 mg DAILY PO Last administered on 01/13/19at 18:23; Admin Dose 20 MG; Start 01/13/19 at 17:30 Potassium Chloride/Dextrose/ Sod Cl 1,000 ml @ 100 mls/hr Q10H IV Last administered on 01/14/19at 00:34; Admin Dose 100 MLS/HR; Start 01/13/19 at 20:30 DORIS LEBLANC Jan 14, 2019 07:08
[2019-01-14] MEDS: ESCITALOPRAM 10 MG TAB PO SCH (08:33)
[2019-01-14] MEDS: DOPamine-D5W 1.6 MG/ML 250 ML IV SCH (08:38)
[2019-01-14] MEDS: ENOXAPARIN 30 MG/0.3 ML SYG SC SCH (09:00)
--- NOTE | 2019-01-14 09:55 | CONS ---
Assessment/Plan Assessment/Plan Hospital Course (Demo Recall) Assessment: - Sick sinus with severe bradycardia/jxn rhythm- denies taking any avn blockers, will confirm. cont supportive care. cont dopamine and titrate to keep SBP > 90. cont tele monitoring. will need PPM keep npo if unable to perform today will plan for tomorrow - s/p AAA - stable on ct scan - abd pain- resolved, ct scan negative - edema - neg venous duplex, possible related to derrek. Consultation Date/Type/Reason Admit Date/Time Jan 12, 2019 at 20:17 Initial Consult Date 01/13/19 Type of Consult Cardiology Requesting Provider: SYLVAIN PORRAS MD Date/Time of Note DATE: 01/14/19 TIME: 09:53 24 HR Interval Summary Free Text/Dictation remains derrek in 40s sinus with intermittent hr 30s jxn on monitor. pacs/pvcs noted. on dopamine 5mcg, bpstable uop good. no dizziness reproted tele reiewed as above Detailed Summary Eyes: no complaints ENT: no complaints Respiratory: no complaints Cardiovascular: no complaints Exam/Review of Systems Exam Vitals Vital Signs Date Temp Pulse Resp B/P (MAP) Pulse Ox O2 O2 Flow FiO2 Time Delivery Rate 01/14/19 38 16 143/57 99 09:15 (85) 01/14/19 Nasal 09:00 Cannula 01/14/19 2.0 08:00 01/14/19 98.2 08:00 Intake and Output 01/13/19 01/13/19 01/14/19 1515:00 23:00 07:00 IntakeIntake Total 600 ml 333.84 ml 918.44 ml OutputOutput Total 1950 ml 2050 ml 1200 ml BalanceBalance -1350 ml -1716.16 ml -281.56 ml Exam Constitutional: alert, oriented, other (elderly) Psych: no complaints, nl mood/affect Head: normocephalic, atraumatic Eyes: nl conjunctiva, nl lids ENMT: nl external ears & nose, nl lips & teeth, nl nasal mucosa & septum Neck: supple, non-tender; No jvd Respiratory: clear to auscultation, normal air movement Cardiovascular: other (derrek, nl s1s2, ii/vi esequiel rusb) Gastrointestinal: soft, nl liver, spleen, non-tender Musculoskeletal: other (normal muscle mass) Extremities: normal pulses, edema (2+ to knees bilateral ) Neurological: 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 STILL OPERATOR II-XII intact, nl mental status, nl speech, nl strength Lymph: nl lymph nodes Results Result Diagram: 01/14/19 0400 01/14/19 0400 Results 24hrs Laboratory Tests Test 01/13/19 18:13 01/14/19 04:00 White Blood Count 8.4 # 8.6 Red Blood Count 3.29 L 3.36 L Hemoglobin 8.0 L 8.4 L Hematocrit 26.4 L 27.0 L Mean Corpuscular Volume 80.2 L 80.4 L Mean Corpuscular Hemoglobin 24.3 L 25.0 L Mean Corpuscular Hemoglobin Concent 30.3 L 31.1 L Red Cell Distribution Width 18.3 H 18.0 H Platelet Count 135 L 137 L Mean Platelet Volume 9.6 9.4 Immature Granulocytes % 0.200 0.200 Neutrophils % 75.6 70.0 Lymphocytes % 10.0 L 12.6 L Monocytes % 13.0 H 15.0 H Eosinophils % 1.0 1.8 Basophils % 0.2 0.4 Nucleated Red Blood Cells % 0.0 0.0 Immature Granulocytes # 0.020 0.020 Neutrophils # 6.4 6.0 Lymphocytes # 0.8 1.1 Monocytes # 1.1 H 1.3 H Eosinophils # 0.1 0.2 Basophils # 0.0 0.0 Nucleated Red Blood Cells # 0.0 0.0 Sodium Level 139 141 Potassium Level 3.6 3.7 Chloride Level 106 106 Carbon Dioxide Level 27 27 Anion Gap 6 8 Blood Urea Nitrogen 14 10 Creatinine 1.00 1.06 Est Glomerular Filtrat Rate mL/min Glucose Level 130 119 Calcium Level 8.1 L 8.5 Absolute Reticulocyte Count 0.056 Percent Reticulocyte Count 1.7 H Prothrombin Time 14.8 Prothrombin Time Ratio 1.2 INR International Normalized Ratio 1.15 Magnesium Level 2.0 Ferritin 36.5 Total Bilirubin 0.4 Direct Bilirubin 0.00 Indirect Bilirubin 0.4 Aspartate Amino Transf (AST/SGOT) 18 Alanine Aminotransferase (ALT/SGPT) 15 Alkaline Phosphatase 83 Total Protein 6.5 Albumin 3.2 L Globulin 3.30 H Albumin/Globulin Ratio 0.96 Triglycerides Level 63 Cholesterol Level 81 L LDL Cholesterol, Calculated 35 HDL Cholesterol 33 Cholesterol/HDL Ratio 2.4 Vitamin B12 Level 390 Folate 8.8 Thyroid Stimulating Hormone (TSH) 4.010 Free Thyroxine Index Pending Thyroxine (T4) Pending Triiodothyronine (T3) Uptake Pending Imaging Imaging cxr report reviewed in emr Medications Medication Current Medications IV Flush (NS 3 ml) 3 ml PER PROTOCOL IV ; Start 01/13/19 at 03:00 Ondansetron HCl (Zofran Inj) 4 mg Q6H PRN IV NAUSEA/VOMITING Last administered on 01/13/19at 15:48; Admin Dose 4 MG; Start 01/13/19 at 03:00 Acetaminophen (Tylenol Tab) 650 mg Q6H PRN PO .PAIN 1-3 OR TEMP; Start 01/13/19 at 03:00 Morphine Sulfate (morphine) 2 mg Q4H PRN IV .SEVERE PAIN 7-10; Start 01/13/19 at 03:00 Pantoprazole (Protonix Tab) 40 mg DAILY@06 PO Last administered on 01/14/19 05:23; Admin Dose 40 MG; Start 01/13/19 at 06:00 Enoxaparin Sodium (Lovenox) 30 mg DAILY SC Last administered on 01/13/19at 1 0:00; Admin Dose 30 MG; Start 01/13/19 at 09:00 Atropine Sulfate (Atropine (Syringe)) 0.4 mg Q2H PRN IV for HR< 50/mt; Start 01/13/19 at 03:00 Piperacillin Sod/ Tazobactam Sod 100 ml @ 200 mls/hr Q6 IVPB Last administered on 01/14/19at 05:00; Admin Dose 200 MLS/HR; Start 01/13/19 at 06:00 Dopamine HCl/ Dextrose 250 ml @ 5.64 mls/hr TITRATE IV Last administered on 01/14/19at 08:38; Admin Dose 14.1 MLS/HR; Start 01/13/19 at 04:30 Levothyroxine Sodium (Synthroid) 12.5 mcg DAILY@06 PO Last administered on 01/14/19 05:23; Admin Dose 12.5 MCG; Start 01/14/19 at 06:00 Lorazepam (Ativan) 0.5 mg Q6H PRN PO ANXIETY; Start 01/13/19 at 18:00 Escitalopram Oxalate (Lexapro) 20 mg DAILY PO Last administered on 7/1/19at 08:33; Admin Dose 20 MG; Start 01/13/19 at 17:30 Potassium Chloride/Dextrose/ Sod Cl 1,000 ml @ 100 mls/hr Q10H IV Last administered on 01/14/19at 00:34; Admin Dose 100 MLS/HR; Start 01/13/19 at 20:30 YEYO GALEANA Jan 14, 2019 09:55
--- NOTE | 2019-01-14 09:58 | RADRPT ---
Echocardiogram Report Patient Name: MANOLO YOUSIFPatient ID: [id number] : 1940 (78y 6m)Study Date: 01/13/2019 10:57:29 AM Gender: MAccession #: [id number] Tech: Corey Bae [facility] Location: [address] Ref.Physician: ANIRUDH GALEANA Height(Cm): BSA: Weight(Kg): Quality: AdequateOrder Physician: ANIRUDH GALEANA Account #: Procedures: Echocardiographic Report: Transthoracic echocardiogram with complete 2D, M-Mode, and doppler examination. Indications: Bradycardia. Measurements: 2D/M Mode Doppler Measurement Value Normal Range Measurement Value Normal Range LVIDd 2D 3.0 [ 4.2 - 5.8 ] cm AV Peak Herb 1.9 [ 100.0 - 170.0 ] cm/se c LVIDs 2D 2.1 [ 2.5 - 4.0 ] cm AV Peak PG 14.0 [ 2.0 - 9.0 ] mmHg LVPWd 2D 0.8 [ 0.6 - 1.0 ] cm LVOT Peak Herb 1.2 [ 70.0 - 110.0 ] cm/sec IVSd 2D 1.0 [ 0.6 - 1.0 ] cm LVOT Peak PG 5.0 [ 2.0 - 6.0 ] mmHg AoR Diam 2D 3.3 [ 2.6 - 3.4 ] cm MV E Peak Herb 0.6 [ 60.0 - 130.0 ] cm/sec EDV 2D 36.2 [ 62.0 - 150.0 ] ml MV A Peak Herb 0.9 [ 100.0 - 120.0 ] cm/se c ESV 2D 14.4 [ 21.0 - 61.0 ] ml MV E/A 0.7 [ 0.8 - 1.5 ] ratio EF 2D 60.2 [ 52.0 - 72.0 ] percent MV PHT 83.0 [ 20.0 - 100.0 ] msec LA Dimen 2D 3.0 [ 3.0 - 4.0 ] cm MV Decel Time 282 [ 104 - 258 ] msec MV Decel [place] 2 Lat E` Herb 0.1 [ 10.0 - 15.0 ] cm/sec Lateral E/E` 6.5 [ 1.0 - 2.0 ] ratio Med E` Herb 0.1 cm/sec MV E/A 0.7 [ 0.8 - 1.5 ] ratio MVA PHT 2.7 [ 2.0 - 4.0 ] cm2 Findings: Left Ventricle: Normal left ventricular systolic function. Normal left ventricular cavity size. Normal left ventricular wall thickness. Ejection fraction is visually estimated at 55-60 %. Tissue Doppler/Mitral Doppler indices are consistent with impaired relaxation (Stage I diastolic dysfunction). Right Ventricle: Normal right ventricular size. Normal right ventricular systolic function. Left Atrium: The left atrium is normal in size. Right Atrium: The right atrium is normal in size. Atrial Septum: Normal atrial septum. Ventricular septum: Normal/intact ventricular septum. Mitral Valve: Normal appearance of the mitral valve. No mitral valve regurgitation is seen. Aortic Valve: Normal appearance of the aortic valve. No significant aortic stenosis or insufficiency. Aortic sclerosis without significant stenosis. Tricuspid Valve: Normal appearance of the tricuspid valve. Unable to obtain RVSP due to minimal presence of tricuspid regurgitation. No evidence of tricuspid regurgitation. Pulmonic Valve: Normal pulmonic valve appearance. There is trace pulmonic regurgitation. Pericardium: Normal pericardium with no significant pericardial effusion. Aorta: Normal aortic root. IVC: Normal size and normal respiratory collapse consistent with normal right atrial pressure. Conclusions: Normal left ventricular systolic function. Normal left ventricular cavity size. Normal left ventricular wall thickness. Ejection fraction is visually estimated at 55-60 %. Tissue Doppler/Mitral Doppler indices are consistent with impaired relaxation (Stage I diastolic dysfunction). Normal right ventricular size. Normal right ventricular systolic function. Normal appearance of the aortic valve. No significant aortic stenosis or insufficiency. Aortic sclerosis without significant stenosis. Normal appearance of the tricuspid valve. Unable to obtain RVSP due to minimal presence of tricuspid regurgitation. No evidence of tricuspid regurgitation. Normal pericardium with no significant pericardial effusion. Normal size and normal respiratory collapse consistent with normal right atrial pressure. No Vegetation, masses, or thrombi seen. Electronically Signed By: Anirudh Galeana 2019-01-14 09:58:13 PDT
--- NOTE | 2019-01-14 10:36 | PN ---
DATE: 01/14/2019 SUBJECTIVE: The patient is more awake and responsive. Denies any nausea, vomiting. VITAL SIGNS: Heart rate in the 40s, blood pressure 125/55, O2 sats 99% on 2 liters nasal cannula. Mod erate pallor . CHEST: Clear anteriorly. HEART: S1, S2 with no definite gallops. ABDOMEN: Soft, nontender, no hepatosplenomegaly. EXTREMITIES: Trace edema, decreased erythema. LABORATORY DATA: Hematocrit 27, platelet count is 137,000. Sodium 141, potassium 3.7, BUN 10, creat inine 1.06, repeat TSH is 4.01. Patient started on low dose T4 supplements. IMPRESSION: 1. Sick sinus syndrome with severe sinus bradycardia with intermittent junctional rhythm. 2. Mild hyperthyroidism. 3. Abdominal pain, resolving. 4. Mild cellulitis of the lower extremities, improved. 5. Hypertension. 6. Prior history of nephrolithiasis. 7. Prior history of anorectal cancer in remission. 8. Status post abdominal aortic aneurysm status post endovascular stent 10 years back. 9. Underlying major depression. PLAN: We will advance the diet. Continue recommendations per Dr. Montanez. The patient is being pr epped for possible pacemaker placement. Dictated By: SYLVAIN PORRAS MD SR/NTS Conf#: [id number] DID#: [id number]
[2019-01-14] MEDS ORDERED: POLYMYXIN/BACITRACIN 1L IRRIG IRR ONE (16:30)
[2019-01-14] MEDS ORDERED: CEFAZOLIN 1 GM/50 ML (PMX) 50 ML IVPB ONE (16:30)
--- NOTE | 2019-01-14 17:42 | PREAC ---
Date/Time of Note Date/Time of Note DATE: 01/14/19 TIME: 17:41 Anesthesia Eval and Record Evaluation Time Pre-Procedure Interview DATE: 01/14/19 TIME: 17:41 Age 78 Sex male NPO: 8 hrs Preoperative diagnosis Sick sinus syndrome with severe sinus bradycardia with intermittent junctional rhythm. Planned procedure PACEMAKER Past Medical History Past Medical History: Includes Cardio: HTN, Dyslipidemia GI: Other (abdominal aortic aneurysm status post endovascular stent/ rectal cancer) Heme: Anemia Surgery & Anesthesia Issues No known issue Meds Anticoagulation: No Beta Soco within 24 hr: No Reason Beta Soco not given: Pt. not on B-Soco Reported Medications Oxycodone HCl/Acetaminophen (Oxycodone-Acetaminophen 10-325) 1 Each Tablet, 1 EACH PO NEEDED, TAB 01/12/19 Gabapentin* (Gabapentin*) 300 Mg Capsule, 300 MG PO BID, #60 CAP 01/12/19 Escitalopram Oxalate* (Escitalopram Oxalate*) 20 Mg Tablet, 20 MG PO DAILY, #30 TAB 01/12/19 Simvastatin* (Zocor*) 40 Mg Tablet, 40 MG PO QHS, #30 TAB 01/12/19 Oxybutynin Chloride* (Ditropan*) 5 Mg Tablet, 5 MG PO DAILY, TAB 01/12/19 Diazepam* (Diazepam*) 5 Mg Tablet, 5 MG PO DAILY, TAB 01/12/19 Diphenoxylate HCl/Atropine (Diphenoxylate-Atrop 2.5-0.025) 1 Each Tablet, 1 EACH PO TID, TAB 01/12/19 Discontinued Reported Medications Oxycodone HCl/Acetaminophen (Percocet 10-325 mg Tablet) 1 Each Tablet, 1 EACH PO Q4 PRN for PAIN, TAB 08/07/17 Trazodone Hcl* (Trazodone Hcl*) 50 Mg Tablet, 50 MG PO QHS, #30 TAB 08/07/17 Simvastatin* (Zocor*) 40 Mg Tablet, 40 MG PO QHS, #30 TAB 08/07/17 Pantoprazole* (Protonix*) 40 Mg Tablet.dr, 40 MG PO DAILY, TAB 08/07/17 Escitalopram Oxalate* (Lexapro*) 10 Mg Tablet, 10 MG PO DAILY, #30 TAB 08/07/17 Gabapentin* (Gabapentin*) 300 Mg Capsule, 300 MG PO DAILY, #60 CAP 08/07/17 Current Medications IV Flush (NS 3 ml) 3 ml PER PROTOCOL IV ; Start 01/13/19 at 03:00 Ondansetron HCl (Zofran Inj) 4 mg Q6H PRN IV NAUSEA/VOMITING Last administered on 01/13/19 15:48; Admin Dose 4 MG; Start 01/13/19 at 03:00 Acetaminophen (Tylenol Tab) 650 mg Q6H PRN PO .PAIN 1-3 OR TEMP Last administered on 01/14/19 10:53; Admin Dose 650 MG; Start 01/13/19 at 03:00 Morphine Sulfate (morphine) 2 mg Q4H PRN IV .SEVERE PAIN 7-10; Start 01/13/19 at 03:00 Pantoprazole (Protonix Tab) 40 mg DAILY@06 PO Last administered on 01/14/19 05:23; Admin Dose 40 MG; Start 01/13/19 at 06:00 Atropine Sulfate (Atropine (Syringe)) 0.4 mg Q2H PRN IV for HR< 50/mt; Start 01/13/19 at 03:00 Piperacillin Sod/ Tazobactam Sod 100 ml @ 200 mls/hr Q6 IVPB Last administered on 01/14/19 12:07; Admin Dose 200 MLS/HR; Start 01/13/19 at 06:00 Dopamine HCl/ Dextrose 250 ml @ 5.64 mls/hr TITRATE IV Last administered on 01/14/19 08:38; Admin Dose 14.1 MLS/HR; Start 01/13/19 at 04:30 Levothyroxine Sodium (Synthroid) 12.5 mcg DAILY@06 PO Last administered on 05:23; Admin Dose 12.5 MCG; Start 01/14/19 at 06:00 Lorazepam (Ativan) 0.5 mg Q6H PRN PO ANXIETY; Start 01/13/19 at 18:00 Escitalopram Oxalate (Lexapro) 20 mg DAILY PO Last administered on 01/14/19 08:33; Admin Dose 20 MG; Start 01/13/19 at 17:30 Potassium Chloride/Dextrose/ Sod Cl 1,000 ml @ 100 mls/hr Q10H IV Last administered on 01/14/19 12:30; Admin Dose 100 MLS/HR; Start 01/13/19 at 20:30 Sodium Chloride 1,000 ml @ 75 mls/hr [id number] IV ; Start 01/15/19 at 07:30 Meds reviewed: Yes Allergies Coded Allergies: No Known Allergy (Unverified , 01/12/19) Allergies Reviewed: Yes Labs/Studies Labs Reviewed: Reviewed by anesthesiologist Result Diagram: 01/14/19 0400 01/14/19 0400 Laboratory Tests 01/14/19 04:00 test: N/A Studies: ECG (SB), CXR (The heart is enlarged. Mediastinum is not widened. No hilar masses seen. Lungs are clear of any infiltrates. There is mild interstitial edema. There is no effusion or pneumothorax. The osseous structures appear normal), 2D Echo (EF 55-60%) Pre-procedure Exam Last vitals Vital Signs Date Temp Pulse Resp B/P (MAP) Pulse Ox O2 O2 Flow FiO2 Time Delivery Rate 01/14/19 38 16 139/58 100 16:45 (85) 01/14/19 Nasal 2.0 16:00 Cannula 01/14/19 98.0 12:00 Airway: Adequate mouth opening Mallampati: Mallampati II Teeth: Normal Lung: Normal Heart: Normal ASA Physical Status ASA physical status: 3 Emergency: None Planned Anesthetic General/MAC: MAC Pre-operative Attestations Prior to commencing anesthesia and surgery, the patient was re-evaluated, there was verification of: *The patient's identity *The results of appropriate recent lab work and preoperative vital signs *The above evaluation not changing prior to induction *Anesthetic plan, risk benefits, alternative and complications discussed with patient/family; questions answered; patient/family understands, accepts and wishes to proceed. OTONIEL MOORE Jan 14, 2019 17:42
[2019-01-15] VITALS (54 sets, daily range): BP systolic 115–167; BP diastolic 46–154; PULSE 34–76; RESP 11–21
[2019-01-15] MEDS: PIPER-TAZO 3.375 GM IV (PMX) 100 ML IVPB SCH ×4 (00:01→18:31)
[2019-01-15] MEDS: D5W-0.45 NACL + KCL 20 MEQ 1,000 ML IV SCH ×2 (00:01→12:30)
[2019-01-15] MEDS: DOPamine-D5W 1.6 MG/ML 250 ML IV SCH (01:50)
[2019-01-15] MEDS: PANTOPRAZOLE (EC) 40 MG TAB PO SCH (05:42)
[2019-01-15] MEDS: LEVOTHYROXINE 25 MCG TAB PO SCH (05:43)
--- NOTE | 2019-01-15 07:15 | CONS ---
Assessment/Plan Assessment/Plan Hospital Course (Demo Recall) 78 yo male presented with crampy abdominal pain, hypotensive and one episode of nausea 1. Bradycardia with episode of hypotension, most probably related to sick sinus syndrome. 2. Abdominal pain -resolved 3. History of anal cancer, status post radiation and chemotherapy. 4. H/O abdominal aortic aneurysm -Status post endoclip stasis for lower abdominal aortic aneurysm. 5. Major depression. 6. Diverticulosis 7. Mild pulmonary emphysema 8. Mild hiatal hernia 9. Osteopenia 10. Mild thrombocytopenia 11. UTI -preliminary urine cx shows gram neg rods CT abd/pelvis 01/12: 1. Please note: senior technologist reports that contrast extravasation occurred at the time of injection. Continued monitoring of the injection site is recommended to exclude potential complication from contrast extravasation. 2. Mild hiatal hernia. 3. Mild left pleural effusion. Bibasilar atelectasis. 4. Mild pulmonary emphysema. 5. Stable appearance status post aortoiliac endograft placement. Aortoiliac atherosclerotic calcifications. 6. Colonic diverticulosis, without diverticulitis. 7. No evidence of bowel obstruction, mass, lymphadenopathy, or acute inflammatory process. 8. Osteopenia. PLAN: Plan for pacemaker today Pending FOB Pending stool cultures Aspiration precautions. Monitor HH and for active GI bleeding, no signs or symptoms of GI bleeding noted Supportive ICU care Pt examined and plan of care d/w Dr. Gardiner Consultation Date/Type/Reason Admit Date/Time Jan 12, 2019 at 20:17 Initial Consult Date 01/13/19 Requesting Provider: SYLVAIN PORRAS MD Date/Time of Note DATE: 01/15/19 TIME: 07:09 24 HR Interval Summary Free Text/Dictation Anemia work up noted. No acute events overnight. Pt continues on dopamine gtt. Stable. NO bm. NPO for pacemaker procedure today. Pt denies N/V or abdominal pain. Exam/Review of Systems Exam Vitals Vital Signs Date Temp Pulse Resp B/P (MAP) Pulse Ox O2 O2 Flow FiO2 Time Delivery Rate 01/15/19 49 17 163/56 95 06:45 (91) 01/15/19 Nasal 2.0 06:00 Cannula 01/15/19 98.0 04:00 Intake and Output 01/14/19 01/14/19 01/15/19 1515:00 23:00 07:00 IntakeIntake Total 898 ml 912.1 ml 999.3 ml OutputOutput Total 1600 ml 1450 ml 1200 ml BalanceBalance -702 ml -537.9 ml -200.7 ml Constitutional: alert Psych: no complaints Eyes: nl sclera, PERRL Respiratory: normal air movement Cardiovascular: regular rate and rhythm Gastrointestinal: soft, bowel sounds Neurological: nl mental status Results Result Diagram: 01/15/19 0433 01/15/19 0442 Results 24hrs Laboratory Tests Test 01/15/19 04:33 01/15/19 04:42 White Blood Count 9.8 Red Blood Count 3.39 L Hemoglobin 8.5 L Hematocrit 27.3 L Mean Corpuscular Volume 80.5 L Mean Corpuscular Hemoglobin 25.1 L Mean Corpuscular Hemoglobin Concent 31.1 L Red Cell Distribution Width 18.2 H Platelet Count 122 L Mean Platelet Volume 8.8 Immature Granulocytes % 0.400 Neutrophils % 67.3 Lymphocytes % 12.1 L Monocytes % 14.4 H Eosinophils % 5.4 Basophils % 0.4 Nucleated Red Blood Cells % 0.0 Immature Granulocytes # 0.040 H Neutrophils # 6.6 Lymphocytes # 1.2 Monocytes # 1.4 H Eosinophils # 0.5 Basophils # 0.0 Nucleated Red Blood Cells # 0.0 Sodium Level 140 Potassium Level 4.0 Chloride Level 105 Carbon Dioxide Level 27 Anion Gap 8 Blood Urea Nitrogen 11 Creatinine 1.02 Est Glomerular Filtrat Rate mL/min Glucose Level 108 Calcium Level 8.2 L Medications Medication Current Medications IV Flush (NS 3 ml) 3 ml PER PROTOCOL IV ; Start 01/13/19 at 03:00 Ondansetron HCl (Zofran Inj) 4 mg Q6H PRN IV NAUSEA/VOMITING Last administered on 01/13/19at 15:48; Admin Dose 4 MG; Start 01/13/19 at 03:00 Acetaminophen (Tylenol Tab) 650 mg Q6H PRN PO .PAIN 1-3 OR TEMP Last administered on 01/14/19at 10:53; Admin Dose 650 MG; Start 01/13/19 at 03:00 Morphine Sulfate (morphine) 2 mg Q4H PRN IV .SEVERE PAIN 7-10; Start 01/13/19 at 03:00 Pantoprazole (Protonix Tab) 40 mg DAILY@06 PO Last administered on 01/14/19at 05:23; Admin Dose 40 MG; Start 01/13/19 at 06:00 Atropine Sulfate (Atropine (Syringe)) 0.4 mg Q2H PRN IV for HR< 50/mt; Start 01/13/19 at 03:00 Piperacillin Sod/ Tazobactam Sod 100 ml @ 200 mls/hr Q6 IVPB Last administered on 01/15/19at 05:41; Admin Dose 200 MLS/HR; Start 01/13/19 at 06:00 Dopamine HCl/ Dextrose 250 ml @ 5.64 mls/hr TITRATE IV Last administered on 01/15/19at 01:50; Admin Dose 14.1 MLS/HR; Start 01/13/19 at 04:30 Levothyroxine Sodium (Synthroid) 12.5 mcg DAILY@06 PO Last administered on 01/14/19at 05:23; Admin Dose 12.5 MCG; Start 01/14/19 at 06:00 Lorazepam (Ativan) 0.5 mg Q6H PRN PO ANXIETY; Start 01/13/19 at 18:00 Escitalopram Oxalate (Lexapro) 20 mg DAILY PO Last administered on 01/14/19at 08:33; Admin Dose 20 MG; Start 01/13/19 at 17:30 Potassium Chloride/Dextrose/ Sod Cl 1,000 ml @ 100 mls/hr Q10H IV Last administered on 01/15/19at 00:01; Admin Dose 100 MLS/HR; Start 01/13/19 at 20:30 Sodium Chloride 1,000 ml @ 75 mls/hr [id number] IV ; Start 01/15/19 at 07:30 DORIS LEBLANC Jan 15, 2019 07:15
[2019-01-15] MEDS: ESCITALOPRAM 10 MG TAB PO SCH (09:00)
--- NOTE | 2019-01-15 09:36 | CONS ---
Assessment/Plan Assessment/Plan Hospital Course (Demo Recall) Assessment: - Sick sinus with severe bradycardia/jxn rhythm- denies taking any avn blockers, no improvement. cont supportive care. plan for PPM placement today with Dr. Mcghee at 2pm. keeping npo. would like R PICC removed prior to procedure to minimize infection risk. will wean dopamine and try to pull picc if possible. otherwise will need to be removed in OR. - s/p AAA - stable on ct scan - abd pain- resolved, ct scan negative - edema - neg venous duplex, possible related to derrek, improved Consultation Date/Type/Reason Admit Date/Time Jan 12, 2019 at 20:17 Initial Consult Date 01/13/19 Type of Consult Cardiology Requesting Provider: SYLVAIN PORRAS MD Date/Time of Note DATE: 01/15/19 TIME: 09:32 24 HR Interval Summary Free Text/Dictation remains on dopamine gtt 5mcg. hrs 40s. sometimes in 30s. appears to be sinus on tele review, ? 2:1 on one of the leads. will obtain ekg. denies any dizziness, lightehadedness, palpitations, n/v, abd pain. in bed. 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 willing to proceed. Detailed Summary Eyes: no complaints ENT: no complaints Respiratory: no complaints Cardiovascular: no complaints Exam/Review of Systems Exam Vitals Vital Signs Date Temp Pulse Resp B/P (MAP) Pulse Ox O2 O2 Flow FiO2 Time Delivery Rate 01/15/19 38 08:00 01/15/19 17 163/56 95 06:45 (91) 01/15/19 Nasal 2.0 06:00 Cannula 01/15/19 98.0 04:00 Intake and Output 01/14/19 01/14/19 01/15/19 1515:00 23:00 07:00 IntakeIntake Total 898 ml 912.1 ml 999.3 ml OutputOutput Total 1600 ml 1450 ml 1200 ml BalanceBalance -702 ml -537.9 ml -200.7 ml Exam Constitutional: alert, oriented, other (elderly) Psych: no complaints, nl mood/affect Head: normocephalic, atraumatic Eyes: nl conjunctiva, nl lids ENMT: nl external ears & nose, nl lips & teeth, nl nasal mucosa & septum Neck: supple, non-tender; No jvd Respiratory: clear to auscultation, normal air movement Cardiovascular: other (derrek, nl s1s2, ii/vi esequiel rusb) Gastrointestinal: soft, nl liver, spleen, non-tender Musculoskeletal: other (normal muscle mass) Extremities: normal pulses, edema (2+ to knees bilateral ) 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, nl mental status, nl speech, nl strength Lymph: nl lymph nodes Results Result Diagram: 01/15/19 0433 01/15/19 0442 Results 24hrs Laboratory Tests Test 01/15/19 04:33 01/15/19 04:42 White Blood Count 9.8 Red Blood Count 3.39 L Hemoglobin 8.5 L Hematocrit 27.3 L Mean Corpuscular Volume 80.5 L Mean Corpuscular Hemoglobin 25.1 L Mean Corpuscular Hemoglobin Concent 31.1 L Red Cell Distribution Width 18.2 H Platelet Count 122 L Mean Platelet Volume 8.8 Immature Granulocytes % 0.400 Neutrophils % 67.3 Lymphocytes % 12.1 L Monocytes % 14.4 H Eosinophils % 5.4 Basophils % 0.4 Nucleated Red Blood Cells % 0.0 Immature Granulocytes # 0.040 H Neutrophils # 6.6 Lymphocytes # 1.2 Monocytes # 1.4 H Eosinophils # 0.5 Basophils # 0.0 Nucleated Red Blood Cells # 0.0 Sodium Level 140 Potassium Level 4.0 Chloride Level 105 Carbon Dioxide Level 27 Anion Gap 8 Blood Urea Nitrogen 11 Creatinine 1.02 Est Glomerular Filtrat Rate mL/min Glucose Level 108 Calcium Level 8.2 L Imaging Imaging cxr report reviewed in emr tele reviewed per hpi Medications Medication Current Medications IV Flush (NS 3 ml) 3 ml PER PROTOCOL IV ; Start 01/13/19 at 03:00 Ondansetron HCl (Zofran Inj) 4 mg Q6H PRN IV NAUSEA/VOMITING Last administered on 01/13/19at 15:48; Admin Dose 4 MG; Start 01/13/19 at 03:00 Acetaminophen (Tylenol Tab) 650 mg Q6H PRN PO .PAIN 1-3 OR TEMP Last administered on 01/14/19at 10:53; Admin Dose 650 MG; Start 01/13/19 at 03:00 Morphine Sulfate (morphine) 2 mg Q4H PRN IV .SEVERE PAIN 7-10; Start 01/13/19 at 03:00 Pantoprazole (Protonix Tab) 40 mg DAILY@06 PO Last administered on 01/14/19at 05:23; Admin Dose 40 MG; Start 01/13/19 at 06:00 Atropine Sulfate (Atropine (Syringe)) 0.4 mg Q2H PRN IV for HR< 50/mt; Start 01/13/19 at 03:00 Piperacillin Sod/ Tazobactam Sod 100 ml @ 200 mls/hr Q6 IVPB Last administered on 01/15/19at 05:41; Admin Dose 200 MLS/HR; Start 01/13/19 at 06:00 Dopamine HCl/ Dextrose 250 ml @ 5.64 mls/hr TITRATE IV Last administered on 01/15/19at 01:50; Admin Dose 14.1 MLS/HR; Start 01/13/19 at 04:30 Levothyroxine Sodium (Synthroid) 12.5 mcg DAILY@06 PO Last administered on 01/14/19at 05:23; Admin Dose 12.5 MCG; Start 01/14/19 at 06:00 Lorazepam (Ativan) 0.5 mg Q6H PRN PO ANXIETY; Start 01/13/19 at 18:00 Escitalopram Oxalate (Lexapro) 20 mg DAILY PO Last administered on 01/14/19at 08:33; Admin Dose 20 MG; Start 01/13/19 at 17:30 Potassium Chloride/Dextrose/ Sod Cl 1,000 ml @ 100 mls/hr Q10H IV Last administered on 01/15/19at 00:01; Admin Dose 100 MLS/HR; Start 01/13/19 at 20:30 Sodium Chloride 1,000 ml @ 75 mls/hr [id number] IV ; Start 01/15/19 at 07:30 YEYO GALEANA Jan 15, 2019 09:36
[2019-01-15] MEDS ORDERED: BUPIVACAINE 0.25% (MPF) 30 ML INJ ONE (12:05)
[2019-01-15] MEDS ORDERED: MINERAL OIL LIGHT 10 ML VIAL ONE (12:05)
[2019-01-15] MEDS ORDERED: SODIUM CL BACTERIOSTATIC 30 ML INJ ONE (12:05)
[2019-01-15] MEDS ORDERED: THROMBIN 5000 UNIT VIAL ONE (12:05)
[2019-01-15] MEDS ORDERED: POLYMYXIN/BACITRACIN 1L IRRIG ONE (12:05)
--- NOTE | 2019-01-15 12:20 | PN ---
DATE: 01/15/2019 SUBJECTIVE: The patient is presently lethargic. Denies any chest pain or shortness of breath. PHYSICAL EXAMINATION VITAL SIGNS: Temperature 97.7, blood pressure 134/56 on dopamine drip. Heart rate 38 per minute, re gular. O2 sats 100% on room air. HEENT: Head normocephalic. Moderate pallor with cyanosis. Tongue is moist. NECK: Supple. LUNGS: Clinically clear. HEART: S1, S2 heard, no definite gallops. ABDOMEN: Soft, nontender today. EXTREMITIES: Decreased edema. Homans sign is negative. Onychomycosis of the toenails bilaterally. NEUROLOGIC: The patient moves both upper and lower extremities well. LABORATORY DATA: WBC count 9.8, hematocrit 27.3, platelet count 122,000. Sodium 140, potassium 4, B UN 11, creatinine 1.02, urine culture 30,000 total protein. Blood culture negative. IMPRESSION: 1. Sick sinus syndrome with severe bradycardia. 2. Abdominal pain, resolving. 3. Mild hypothyroidism. 4. Prior history of hypertension. 5. History of anorectal cancer in remission. 6. Status post abdominal aortic aneurysm status post endovascular stent, 10 years back. 7. Underlying major depression. 8. Prior history of nephrolithiasis. 9. Urinary tract infection. PLAN: We will continue Zosyn for now and proceed with pacemaker placement per Dr. Montanez. Will di scuss with Dr. Montanez. Dictated By: SYLVAIN PORRAS MD SR/NTS Conf#: [id number] DID#: [id number]
[2019-01-15] MEDS: SOD CHLORIDE 0.9% 1,000 ML IV SCH ×2 (12:52→18:31)
[2019-01-15] MEDS ORDERED: FENTAnyl 50 MCG/ML VIAL ONE (14:30)
[2019-01-15] MEDS ORDERED: LIDOCAINE 1%/EPI 30 ML INJ ONE (14:39)
[2019-01-15] MEDS ORDERED: CEFAZOLIN 1 GM INJ ONE (14:58)
[2019-01-15] MEDS ORDERED: LIDOCAINE 2% (SDV) 5 ML INJ ONE (14:58)
[2019-01-15] MEDS ORDERED: PROPOFOL 40 ML ONE (14:58)
[2019-01-15] MEDS ORDERED: ONDANSETRON 4 MG INJ IV PRN (15:00)
[2019-01-15] MEDS ORDERED: EPHEDrine 25 MG/5 ML SYG IV PRN (15:00)
[2019-01-15] MEDS ORDERED: HYDROmorphONE 0.5 MG/0.5 ML SYG IV PRN ×2 (15:00)
[2019-01-15] MEDS ORDERED: FENTAnyl 50 MCG/ML VIAL IV PRN (15:00)
[2019-01-15] MEDS ORDERED: IOHEXOL 300MG/ML 30 ML BTL ONE (15:03)
--- NOTE | 2019-01-15 16:24 | PAC ---
Date/Time of Note Date/Time of Note DATE: 01/15/19 TIME: 16:23 Post-Anesthesia Notes Post-Anesthesia Note Last documented vital signs Vital Signs Date Temp Pulse Resp B/P (MAP) Pulse Ox O2 O2 Flow FiO2 Time Delivery Rate 01/15/19 42 14 155/59 100 14:00 (91) 01/15/19 97.9 12:00 01/15/19 Nasal 2.0 08:00 Cannula Activity: WNL Respiratory function: WNL Cardiovascular function: WNL Mental status: Baseline Pain reasonably controlled: Yes Hydration appropriate: Yes Nausea/Vomiting absent: Yes Comments BP: 130/68 HR: 60 RR: 15 T: 98 SaO2: 97% YENNY FRANCISCO MD Jan 15, 2019 16:24
--- NOTE | 2019-01-15 17:04 | OPR ---
DATE OF OPERATION: PREOPERATIVE DIAGNOSIS: Sick sinus syndrome. POSTOPERATIVE DIAGNOSIS: Sick sinus syndrome. OPERATION: Implantation of dual chamber pacemaker. SURGEON: Carroll Pacheco MD DESCRIPTION OF PROCEDURE: The left deltopectoral area was prepped with Betadine and draped with ster ile drapes. Skin and subcutaneous tissues were infiltrated with lidocaine. Venogram was performed s howing an inferiorly displaced subclavian vein. A subcutaneous pocket was formed and extended submus cularly because the patient was so thin. The axillary/subclavian system was entered using a micropun cture technique. Using guidewire technique, 2 sheaths were placed and later peeled away. Ventricula r lead was Medtronic [id number], serial number [id number] was passed into the RV apex and had an R-wave o f 4, impedance of 11.27 ohms, threshold of 0.6 volts. The atrial lead was model [id number], serial numbe r [id number] was positioned in the right atrial appendage. The P-wave was 4.1 millivolts, impedance 682, threshold of less than 1. Leads were secured with two 2-0 Tevdek sutures. They were then attac hed to Medtronic Advisa MRI, [id number] serial number [id number]. ICD was positioned in the submuscular pocket. At this point, the PICC line was removed under fluoroscopic guidance. Subsequently, the poc ket was irrigated with solution. FloSeal was administered. Deep layer was closed with interru pted 2-0 Vicryl, second layer with continuous 3-0 Vicryl subcuticular layer with 4-0 Vicryl. The pat ient tolerated procedure well and was taken to the operating room in good condition. Dictated By: CARROLL PACHECO MD IW/NTS Conf#: [id number] DID#: [id number] CC: SYLVAIN PORRAS MD;*End[facility]*
--- NOTE | 2019-01-15 17:59 | CONS ---
DATE OF ADMISSION: 01/12/2019 DATE OF CONSULTATION: REASON FOR CONSULTATION: Pneumothorax. Thank you, Dr. Galeana, for this consultation. HISTORY OF PRESENT ILLNESS: This is a 78-year-old gentleman with past medical history including anal cancer, chronic anemia, hyperlipidemia, came in with abdominal pain with decreased p.o. intake and h ypotensive requiring admission to the intensive care unit. Here, he was found to have significant br adycardia consistent with sick sinus syndrome. The patient underwent dual pacemaker placement today. No intraoperative complications; however, postoperative chest x-ray demonstrated small left pneumot horax. The patient remains asymptomatic with no hemodynamic compromise. PAST MEDICAL HISTORY: As above. MEDICATIONS: Per chart. ALLERGIES: NONE. SOCIAL HISTORY: He is a current nonsmoker. No alcohol. No history of drug use. FAMILY HISTORY: Noncontributory. SYSTEMS REVIEW: A 12-point review of systems was negative other than that mentioned above. PHYSICAL EXAMINATION: GENERAL: Well-nourished, well-developed gentleman, comfortable at rest, in no acute distress. VITAL SIGNS: Currently afebrile, pulse is 70, blood pressure 155/59, O2 saturation 96% on room air. NECK: Supple. No JVD or lymphadenopathy. CARDIAC: S1, S2. No added sounds or murmurs. CHEST: Diminished air entry bilaterally. He has a pacemaker implantation in the left upper chest wa ll and dressings in place. ABDOMEN: Soft, nontender. No guarding or rebound. EXTREMITIES: No cyanosis, clubbing, or edema. NEUROLOGIC: Grossly intact. No focal deficits. LABORATORY DATA: White count 9.8, hemoglobin 8.5, platelets 122. BUN 11, creatinine is 1.02. INR w as 1.15. IMPRESSION AND PLAN: Sick sinus syndrome, status post pacemaker placement with postoperative pneumot horax. No evidence of tension pneumothorax or hemodynamic instability or hypoxemia at present. The patient will be placed on nonrebreather O2 for nitrogen washout to allow re-expansion of the lung. I will repeat chest x-ray in the a.m. If patient has persistent pneumothorax, he may require pigtail catheter drainage and/or Heimlich valve. Dictated By: RENE HONG MD SV/JOHNNY Conf#: [id number] DID#: [id number] CC: YEYO GALEANA MD; SYLVAIN PORRAS MD;*[facility]*
[2019-01-15] MEDS: CEFAZOLIN 1 GM/50 ML (PMX) 50 ML IVPB SCH (20:44)
[2019-01-15] MEDS: morphine 2 MG INJ IV PRN (21:50)
[2019-01-16] VITALS (24 sets, daily range): BP systolic 95–144; BP diastolic 54–83; PULSE 60–87; RESP 12–21
[2019-01-16] MEDS: PIPER-TAZO 3.375 GM IV (PMX) 100 ML IVPB SCH ×2 (00:25→05:32)
[2019-01-16] MEDS: SOD CHLORIDE 0.9% 1,000 ML IV SCH ×2 (04:00→09:45)
[2019-01-16] MEDS: CEFAZOLIN 1 GM/50 ML (PMX) 50 ML IVPB SCH ×2 (04:15→11:36)
[2019-01-16] MEDS: morphine 2 MG INJ IV PRN ×3 (04:32→16:11)
[2019-01-16] MEDS: LEVOTHYROXINE 25 MCG TAB PO SCH (05:32)
[2019-01-16] MEDS: PANTOPRAZOLE (EC) 40 MG TAB PO SCH (05:32)
[2019-01-16] MEDS: ESCITALOPRAM 10 MG TAB PO SCH (08:30)
--- NOTE | 2019-01-16 10:08 | PN ---
DATE: 01/15/2019 SUBJECTIVE: The patient is awake, alert, status post pacemaker placement by who is consult ation has been greatly appreciated. Nursing noted some bleeding around the pacemaker site. OBJECTIVE: VITAL SIGNS: Temperature 97.6, blood pressure 105/69, O2 sats 100% on 10 liters. CHEST: Clear anteriorly. HEART: S1, S2 with no definite gallops. EXTREMITIES: Decreased edema. Homans sign is negative. LABORATORY DATA: WBC of 8.5, hematocrit 26.6, platelet count 124,000. Potassium 4.0. The patient's postop chest x-ray showed small left hemothorax. Dr. Shaver's consultation was greatly appreciated . Chest x-ray from today shows stable small left apical pneumothorax. IMPRESSION: 1. Sick sinus syndrome with severe sinus bradycardia, status post pacemaker placement. 2. Abdominal pain, resolved. 3. Mild hypothyroidism. 4. Prior history of hypertension. 5. Small apical pneumothorax, left. 6. Status post abdominal aortic aneurysm status post endovascular stent. PLAN: We will closely monitor for any further bleeding. The patient is severely anemic. We will re check labs in a.m. Will hold anticoagulants for now. Continue monitoring in the ICU. Dictated By: SYLVAIN PORRAS MD SR/JOHNNY Conf#: [id number] DID#: [id number]
--- NOTE | 2019-01-16 10:11 | CONS ---
Assessment/Plan Assessment/Plan Hospital Course (Demo Recall) Assessment: - Sick sinus with severe bradycardia/jxn rhythm- denies taking any avn blockers, no improvement. s/p PPM - small apical ptx s/p ppm- pulmonary consulting, continue high flow o2 via nc - afib- new onset post ppm, monitoring on tele. unable to add anticoag given oozing from ppm. will consider once stable if remains in afib. will add po amio 400mg po bid. - s/p AAA - stable on ct scan - abd pain- resolved, ct scan negative - edema - neg venous duplex, possible related to derrek, improved Consultation Date/Type/Reason Admit Date/Time Jan 12, 2019 at 20:17 Initial Consult Date 01/13/19 Type of Consult Cardiology Requesting Provider: SYLVAIN PORRAS MD Date/Time of Note DATE: 01/16/19 TIME: 10:07 24 HR Interval Summary Free Text/Dictation no acute events. no cp/sob. feeling well. has oozing at ppm site/dressing change d. no hematoma. pt in/out afib now post procedure, rate controlled 80s-90s with intermittent av pacing tele reviewed per hpi Detailed Summary Eyes: no complaints ENT: no complaints Respiratory: no complaints Cardiovascular: no complaints Exam/Review of Systems Exam Vitals Vital Signs Date Temp Pulse Resp B/P (MAP) Pulse Ox O2 O2 Flow FiO2 Time Delivery Rate 01/16/19 76 12 105/69 100 Non 09:00 (81) Rebreather 01/16/19 10.0 08:00 01/16/19 97.6 08:00 01/15/19 100 17:26 Intake and Output 01/15/19 01/15/19 01/16/19 1515:00 23:00 07:00 IntakeIntake Total 948.70 ml 1511.28 ml 875 ml OutputOutput Total 775 ml 305 ml 320 ml BalanceBalance 173.70 ml 1206.28 ml 555 ml Exam Constitutional: alert, oriented, other (elderly) Psych: no complaints, nl mood. flat affect Head: normocephalic, atraumatic Eyes: nl conjunctiva, nl lids ENMT: nl external ears & nose, nl lips & teeth, nl nasal mucosa & septum Neck: supple, non-tender; No jvd Respiratory: clear to auscultation, normal air movement Cardiovascular: other (derrek, nl s1s2, ii/vi esequiel rusb) L PPM site dressing now c/d/i with pressure dressing. 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, nl mental status, nl speech, nl strength Lymph: nl lymph nodes Results Result Diagram: 01/16/1944301/16/19443 Results 24hrs Laboratory Tests Test 01/16/19 04:44 White Blood Count 8.5 Red Blood Count 3.23 L Hemoglobin 8.1 L Hematocrit 26.6 L Mean Corpuscular Volume 82.4 Mean Corpuscular Hemoglobin 25.1 L Mean Corpuscular Hemoglobin Concent 30.5 L Red Cell Distribution Width 18.2 H Platelet Count 124 L Mean Platelet Volume 9.8 Immature Granulocytes % 0.400 Neutrophils % 65.4 Lymphocytes % 11.9 L Monocytes % 15.8 H Eosinophils % 5.9 Basophils % 0.6 Nucleated Red Blood Cells % 0.0 Immature Granulocytes # 0.030 Neutrophils # 5.6 Lymphocytes # 1.0 Monocytes # 1.3 H Eosinophils # 0.5 Basophils # 0.1 Nucleated Red Blood Cells # 0.0 Sodium Level 140 Potassium Level 4.0 Chloride Level 109 Carbon Dioxide Level 26 Anion Gap 5 Blood Urea Nitrogen 12 Creatinine 1.12 Est Glomerular Filtrat Rate mL/min Glucose Level 80 Calcium Level 7.8 L Medications Medication Current Medications IV Flush (NS 3 ml) 3 ml PER PROTOCOL IV ; Start 01/13/19 at 03:00 Ondansetron HCl (Zofran Inj) 4 mg Q6H PRN IV NAUSEA/VOMITING Last administered on 01/13/19at 15:48; Admin Dose 4 MG; Start 01/13/19 at 03:00 Acetaminophen (Tylenol Tab) 650 mg Q6H PRN PO .PAIN 1-3 OR TEMP Last administered on 01/14/19at 10:53; Admin Dose 650 MG; Start 01/13/19 at 03:00 Morphine Sulfate (morphine) 2 mg Q4H PRN IV .SEVERE PAIN 7-10 Last administered on 01/16/19at 08:31; Admin Dose 2 MG; Start 01/13/19 at 03:00 Pantoprazole (Protonix Tab) 40 mg DAILY@06 PO Last administered on 01/16/19 05:32; Admin Dose 40 MG; Start 01/13/19 at 06:00 Atropine Sulfate (Atropine (Syringe)) 0.4 mg Q2H PRN IV for HR< 50/mt; Start 01/13/19 at 03:00 Piperacillin Sod/ Tazobactam Sod 100 ml @ 200 mls/hr Q6 IVPB Last administered on 01/16/19at 05:32; Admin Dose 200 MLS/HR; Start 01/13/19 at 06:00 Lorazepam (Ativan) 0.5 mg Q6H PRN PO ANXIETY; Start 01/13/19 at 18:00 Escitalopram Oxalate (Lexapro) 20 mg DAILY PO Last administered on 01/16/19 08:30; Admin Dose 20 MG; Start 01/13/19 at 17:30 Sodium Chloride 1,000 ml @ 75 mls/hr [id number] IV Last administered on 01/16/19at 09:45; Admin Dose 75 MLS/HR; Start 01/15/19 at 07:30 Levothyroxine Sodium (Synthroid) 25 mcg DAILY@06 PO Last administered on 01/16/19 05:32; Admin Dose 25 MCG; Start 01/16/19 at 06:00 Cefazolin Sodium 50 ml @ 100 mls/hr Q8H IVPB Last administered on 01/16/19 04:15; Admin Dose 100 MLS/HR; Start 01/15/19 at 20:00; Stop 01/16/19 at 12:29 YEYO GALEANA Jan 16, 2019 10:11
[2019-01-16] MEDS: AMIODARONE 200 MG TAB PO SCH ×2 (10:23→20:10)
--- NOTE | 2019-01-16 11:46 | CONS ---
Consult Date/Type/Reason Admit Date/Time Jan 12, 2019 at 20:17 Initial Consult Date 01/13/19 Type of Consult Pulmonary Requesting Provider: SYLVAIN PORRAS MD Date/Time of Note DATE: 01/16/19 TIME: 11:44 Subjective Patient comfortable this morning no new events continued on nonrebreather O2 but chest x-ray shows no change in pneumothorax. Objective Vital Signs Date Temp Pulse Resp B/P (MAP) Pulse Ox O2 O2 Flow FiO2 Time Delivery Rate 01/16/19 65 16 125/72 100 Non 11:00 (89) Rebreather 01/16/19 10.0 08:00 01/16/19 97.6 08:00 01/15/19 100 17:26 Intake and Output 01/15/19 01/15/19 01/16/19 1515:00 23:00 07:00 IntakeIntake Total 948.70 ml 1511.28 ml 950 ml OutputOutput Total 775 ml 305 ml 350 ml BalanceBalance 173.70 ml 1206.28 ml 600 ml Exam PHYSICAL EXAMINATION: GENERAL: Well-nourished, well-developed gentleman, comfortable at rest, in no acute distress. VITAL SIGNS: NECK: Supple. No JVD or lymphadenopathy. CARDIAC: S1, S2. No added sounds or murmurs. CHEST: Diminished air entry bilaterally. He has a pacemaker implantation in the left upper chest wall and dressings in place. ABDOMEN: Soft, nontender. No guarding or rebound. EXTREMITIES: No cyanosis, clubbing, or edema. NEUROLOGIC: Grossly intact. No focal deficits. . I Vent Setting Fraction of Inspired Oxygen pe: 100 Results/Medications Result Diagram: 01/16/19 0444 01/16/19 0444 Results 24 hrs Laboratory Tests Test 01/16/19 04:44 White Blood Count 8.5 Red Blood Count 3.23 L Hemoglobin 8.1 L Hematocrit 26.6 L Mean Corpuscular Volume 82.4 Mean Corpuscular Hemoglobin 25.1 L Mean Corpuscular Hemoglobin Concent 30.5 L Red Cell Distribution Width 18.2 H Platelet Count 124 L Mean Platelet Volume 9.8 Immature Granulocytes % 0.400 Neutrophils % 65.4 Lymphocytes % 11.9 L Monocytes % 15.8 H Eosinophils % 5.9 Basophils % 0.6 Nucleated Red Blood Cells % 0.0 Immature Granulocytes # 0.030 Neutrophils # 5.6 Lymphocytes # 1.0 Monocytes # 1.3 H Eosinophils # 0.5 Basophils # 0.1 Nucleated Red Blood Cells # 0.0 Sodium Level 140 Potassium Level 4.0 Chloride Level 109 Carbon Dioxide Level 26 Anion Gap 5 Blood Urea Nitrogen 12 Creatinine 1.12 Est Glomerular Filtrat Rate mL/min Glucose Level 80 Calcium Level 7.8 L Medications Current Medications IV Flush (NS 3 ml) 3 ml PER PROTOCOL IV ; Start 01/13/19 at 03:00 Ondansetron HCl (Zofran Inj) 4 mg Q6H PRN IV NAUSEA/VOMITING Last administered on 01/13/19 15:48; Admin Dose 4 MG; Start 01/13/19 at 03:00 Acetaminophen (Tylenol Tab) 650 mg Q6H PRN PO .PAIN 1-3 OR TEMP Last administered on 01/14/19 10:53; Admin Dose 650 MG; Start 01/13/19 at 03:00 Morphine Sulfate (morphine) 2 mg Q4H PRN IV .SEVERE PAIN 7-10 Last administered on 01/16/19 08:31; Admin Dose 2 MG; Start 01/13/19 at 03:00 Pantoprazole (Protonix Tab) 40 mg DAILY@06 PO Last administered on 01/16/19 05:32; Admin Dose 40 MG; Start 01/13/19 at 06:00 Atropine Sulfate (Atropine (Syringe)) 0.4 mg Q2H PRN IV for HR< 50/mt; Start 01/13/19 at 03:00 Lorazepam (Ativan) 0.5 mg Q6H PRN PO ANXIETY; Start 01/13/19 at 18:00 Escitalopram Oxalate (Lexapro) 20 mg DAILY PO Last administered on 01/16/19 08:30; Admin Dose 20 MG; Start 01/13/19 at 17:30 Sodium Chloride 1,000 ml @ 75 mls/hr [id number] IV Last administered on 01/16/19 09:45; Admin Dose 75 MLS/HR; Start 01/15/19 at 07:30 Levothyroxine Sodium (Synthroid) 25 mcg DAILY@06 PO Last administered on 01/16/19 05:32; Admin Dose 25 MCG; Start 01/16/19 at 06:00 Cefazolin Sodium 50 ml @ 100 mls/hr Q8H IVPB Last administered on 01/16/19at 11:36; Admin Dose 100 MLS/HR; Start 01/15/19 at 20:00; Stop 01/16/19 at 12:29 Amiodarone HCl (Cordarone) 400 mg BID PO Last administered on 01/16/19at 10:23; Admin Dose 400 MG; Start 01/16/19 at 10:15 Ciprofloxacin/ Dextrose 200 ml @ 200 mls/hr Q24H IVPB ; Start 01/16/19 at 12:00; Status UNV Assessment/Plan Hospital Course (Demo Recall) Assessment 1. Sick sinus syndrome status post pacemaker placement 2. Iatrogenic pneumothorax no change despite high flow O2. Plan 1. CT chest to evaluate size of pneumothorax if significant patient may require Heimlich valve or pigtail catheter drainage. RENE HONG MD, [facility] Jan 16, 2019 11:46
[2019-01-16] MEDS: CIPROFLOXACIN 400MG/D5W 200 ML IVPB SCH (13:25)
--- NOTE | 2019-01-16 15:44 | RADRPT ---
Vent Rate: 41 bpm RR Interval: 1460 msec RI Interval: 238 msec QRS Duration: 114 msec QT Interval: 526 msec QTC Interval: 435 msec P-R-T [place]: 41 - -40 - 21 degrees Sinus bradycardia...rate< 50 Prolonged RI interval...RI >230, V-rate 30- 49 Electronically Signed By: Elias Hobson
[2019-01-16] MEDS ORDERED: LIDOCAINE 2% (SDV) 5 ML INJ ONE (16:41)
--- NOTE | 2019-01-16 18:27 | CONS ---
Assessment/Plan Assessment/Plan Assessment/Plan (Daily) Hospital Course (Demo Recall) 78 yo male presented with crampy abdominal pain, hypotensive and one episode of nausea 1. Bradycardia with episode of hypotension, most probably related to sick sinus syndrome. 2. Abdominal pain -resolved 3. History of anal cancer, status post radiation and chemotherapy. 4. H/O abdominal aortic aneurysm -Status post endoclip stasis for lower abdominal aortic aneurysm. 5. Major depression. 6. Diverticulosis 7. Mild pulmonary emphysema 8. Mild hiatal hernia 9. Osteopenia 10. Mild thrombocytopenia 11. UTI -preliminary urine cx shows gram neg rods 12. Status post pacemaker insertion 13. Pneumothorax Plan Continue present care Once he is stable we will do EGD and colonoscopy for his iron deficiency anemia patient ferritin is low at 36 Consultation Date/Type/Reason Admit Date/Time Jan 12, 2019 at 20:17 Initial Consult Date 01/13/19 Requesting Provider: SYLVAIN PORRAS MD Date/Time of Note DATE: 01/16/19 TIME: 18:26 24 HR Interval Summary Constitutional: no complaints Exam/Review of Systems Exam Vitals Vital Signs Date Temp Pulse Resp B/P (MAP) Pulse Ox O2 O2 Flow FiO2 Time Delivery Rate 01/16/19 61 18 133/61 100 Nasal 4.0 18:00 (85) Cannula 01/16/19 97.7 16:00 01/15/19 100 17:26 Intake and Output 01/15/19 01/15/19 01/16/19 1515:00 23:00 07:00 IntakeIntake Total 948.70 ml 1511.28 ml 950 ml OutputOutput Total 775 ml 305 ml 350 ml BalanceBalance 173.70 ml 1206.28 ml 600 ml Constitutional: alert, oriented, well developed Psych: no complaints, nl mood/affect Head: normocephalic, atraumatic Eyes: nl conjunctiva, EOMI, nl lids, nl sclera, PERRL ENMT: nl external ears & nose, nl lips & teeth, nl nasal mucosa & septum Neck: supple, non-tender Respiratory: clear to auscultation, normal air movement Cardiovascular: regular rate and rhythm, nl pulses Gastrointestinal: soft, nl liver, spleen, non-tender Musculoskeletal: nl extremities to inspection, nl gait and stance Extremities: normal pulses Neurological: NEWS EDITOR II-XII intact, nl mental status, nl speech, nl strength Skin: nl turgor; No rash or lesions Lymph: nl lymph nodes Results Result Diagram: 01/16/1944301/16/19443 Results 24hrs Laboratory Tests Test 01/16/19 04:44 White Blood Count 8.5 Red Blood Count 3.23 L Hemoglobin 8.1 L Hematocrit 26.6 L Mean Corpuscular Volume 82.4 Mean Corpuscular Hemoglobin 25.1 L Mean Corpuscular Hemoglobin Concent 30.5 L Red Cell Distribution Width 18.2 H Platelet Count 124 L Mean Platelet Volume 9.8 Immature Granulocytes % 0.400 Neutrophils % 65.4 Lymphocytes % 11.9 L Monocytes % 15.8 H Eosinophils % 5.9 Basophils % 0.6 Nucleated Red Blood Cells % 0.0 Immature Granulocytes # 0.030 Neutrophils # 5.6 Lymphocytes # 1.0 Monocytes # 1.3 H Eosinophils # 0.5 Basophils # 0.1 Nucleated Red Blood Cells # 0.0 Sodium Level 140 Potassium Level 4.0 Chloride Level 109 Carbon Dioxide Level 26 Anion Gap 5 Blood Urea Nitrogen 12 Creatinine 1.12 Est Glomerular Filtrat Rate mL/min Glucose Level 80 Calcium Level 7.8 L Medications Medication Current Medications IV Flush (NS 3 ml) 3 ml PER PROTOCOL IV ; Start 01/13/19 at 03:00 Ondansetron HCl (Zofran Inj) 4 mg Q6H PRN IV NAUSEA/VOMITING Last administered on 01/13/19at 15:48; Admin Dose 4 MG; Start 01/13/19 at 03:00 Acetaminophen (Tylenol Tab) 650 mg Q6H PRN PO .PAIN 1-3 OR TEMP Last administered on 01/14/19at 10:53; Admin Dose 650 MG; Start 01/13/19 at 03:00 Morphine Sulfate (morphine) 2 mg Q4H PRN IV .SEVERE PAIN 7-10 Last administered on 01/16/19at 16:11; Admin Dose 2 MG; Start 01/13/19 at 03:00 Pantoprazole (Protonix Tab) 40 mg DAILY@06 PO Last administered on 01/16/19at 05:32; Admin Dose 40 MG; Start 01/13/19 at 06:00 Atropine Sulfate (Atropine (Syringe)) 0.4 mg Q2H PRN IV for HR< 50/mt; Start 01/13/19 at 03:00 Lorazepam (Ativan) 0.5 mg Q6H PRN PO ANXIETY Last administered on 01/16/19 15:24; Admin Dose 0.5 MG; Start 01/13/19 at 18:00 Escitalopram Oxalate (Lexapro) 20 mg DAILY PO Last administered on 01/16/19 08:30; Admin Dose 20 MG; Start 01/13/19 at 17:30 Sodium Chloride 1,000 ml @ 75 mls/hr [id number] IV Last administered on 01/16/19 09:45; Admin Dose 75 MLS/HR; Start 01/15/19 at 07:30 Levothyroxine Sodium (Synthroid) 25 mcg DAILY@06 PO Last administered on 01/16/19 05:32; Admin Dose 25 MCG; Start 01/16/19 at 06:00 Amiodarone HCl (Cordarone) 400 mg BID PO Last administered on 01/16/19 10:23; Admin Dose 400 MG; Start 01/16/19 at 10:15 Ciprofloxacin/ Dextrose 200 ml @ 200 mls/hr Q24H IVPB Last administered on 01/16/19 13:25; Admin Dose 200 MLS/HR; Start 01/16/19 at 12:00 NICOLAS ACKERMAN MD Jan 16, 2019 18:27
[2019-01-16] MEDS ORDERED: LORAZEPAM 2 MG INJ IV PRN (23:30)
[2019-01-17] VITALS (24 sets, daily range): BP systolic 110–140; BP diastolic 57–72; PULSE 60–63; RESP 9–26
[2019-01-17] MEDS: PANTOPRAZOLE (EC) 40 MG TAB PO SCH (06:00)
[2019-01-17] MEDS: LEVOTHYROXINE 25 MCG TAB PO SCH (06:00)
[2019-01-17] MEDS: ESCITALOPRAM 10 MG TAB PO SCH (09:14)
[2019-01-17] MEDS: AMIODARONE 200 MG TAB PO SCH ×2 (09:14→20:55)
--- NOTE | 2019-01-17 10:23 | CONS ---
Consult Date/Type/Reason Admit Date/Time Jan 12, 2019 at 20:17 Initial Consult Date 01/13/19 Requesting Provider: SYLVAIN PORRAS MD Date/Time of Note DATE: 01/17/19 TIME: 10:19 Subjective s/p left-sided small-bore 8.5 F chest tube placement. Small air-leak noted. Objective Vitals Vital Signs Date Temp Pulse Resp B/P (MAP) Pulse Ox O2 O2 Flow FiO2 Time Delivery Rate 01/17/19 60 14 125/72 99 Room Air 09:00 (89) 01/17/19 2.0 08:00 01/17/19 98.5 08:00 01/15/19 100 17:26 Intake and Output 01/16/19 01/16/19 01/17/19 1515:00 23:00 07:00 IntakeIntake Total 600 ml 375 ml 600 ml OutputOutput Total 220 ml 240 ml 470 ml BalanceBalance 380 ml 135 ml 130 ml Exam HEENT: Neck supple; no JVD; no LAD CVS: paced, S1 and S2 CHEST: Clear ABD: Soft, NT, + BS EXT: No c/c/e Results/Medications Result Diagram: 01/17/19 0740 01/17/19 0740 Results 24 hrs Laboratory Tests Test 01/17/19 07:40 White Blood Count 6.1 # Red Blood Count 3.01 L Hemoglobin 7.5 L Hematocrit 25.1 L Mean Corpuscular Volume 83.4 Mean Corpuscular Hemoglobin 24.9 L Mean Corpuscular Hemoglobin Concent 29.9 L Red Cell Distribution Width 18.5 H Platelet Count 98 #L Mean Platelet Volume 9.7 Immature Granulocytes % 0.200 Neutrophils % 68.2 Lymphocytes % 13.2 L Monocytes % 11.8 H Eosinophils % 5.9 Basophils % 0.7 Nucleated Red Blood Cells % 0.0 Immature Granulocytes # 0.010 Neutrophils # 4.2 Lymphocytes # 0.8 Monocytes # 0.7 Eosinophils # 0.4 Basophils # 0.0 Nucleated Red Blood Cells # 0.0 Sodium Level 141 Potassium Level 3.8 Chloride Level 110 Carbon Dioxide Level 25 Anion Gap 6 Blood Urea Nitrogen 16 Creatinine 1.06 Est Glomerular Filtrat Rate mL/min Glucose Level 80 Calcium Level 7.8 L Home Meds Reported Medications Oxycodone HCl/Acetaminophen (Oxycodone-Acetaminophen 10-325) 1 Each Tablet, 1 EACH PO NEEDED, TAB 01/12/19 Gabapentin* (Gabapentin*) 300 Mg Capsule, 300 MG PO BID, #60 CAP 01/12/19 Escitalopram Oxalate* (Escitalopram Oxalate*) 20 Mg Tablet, 20 MG PO DAILY, #30 TAB 01/12/19 Simvastatin* (Zocor*) 40 Mg Tablet, 40 MG PO QHS, #30 TAB 01/12/19 Oxybutynin Chloride* (Ditropan*) 5 Mg Tablet, 5 MG PO DAILY, TAB 01/12/19 Diazepam* (Diazepam*) 5 Mg Tablet, 5 MG PO DAILY, TAB 01/12/19 Diphenoxylate HCl/Atropine (Diphenoxylate-Atrop 2.5-0.025) 1 Each Tablet, 1 EACH PO TID, TAB 01/12/19 Discontinued Reported Medications Oxycodone HCl/Acetaminophen (Percocet 10-325 mg Tablet) 1 Each Tablet, 1 EACH PO Q4 PRN for PAIN, TAB 08/07/17 Trazodone Hcl* (Trazodone Hcl*) 50 Mg Tablet, 50 MG PO QHS, #30 TAB 08/07/17 Simvastatin* (Zocor*) 40 Mg Tablet, 40 MG PO QHS, #30 TAB 08/07/17 Pantoprazole* (Protonix*) 40 Mg Tablet.dr, 40 MG PO DAILY, TAB 08/07/17 Escitalopram Oxalate* (Lexapro*) 10 Mg Tablet, 10 MG PO DAILY, #30 TAB 08/07/17 Gabapentin* (Gabapentin*) 300 Mg Capsule, 300 MG PO DAILY, #60 CAP 08/07/17 Medications Current Medications IV Flush (NS 3 ml) 3 ml PER PROTOCOL IV ; Start 01/13/19 at 03:00 Ondansetron HCl (Zofran Inj) 4 mg Q6H PRN IV NAUSEA/VOMITING Last administered on 01/13/19at 15:48; Admin Dose 4 MG; Start 01/13/19 at 03:00 Acetaminophen (Tylenol Tab) 650 mg Q6H PRN PO .PAIN 1-3 OR TEMP Last administered on 01/14/19at 10:53; Admin Dose 650 MG; Start 01/13/19 at 03:00 Morphine Sulfate (morphine) 2 mg Q4H PRN IV .SEVERE PAIN 7-10 Last administered on 01/16/19 16:11; Admin Dose 2 MG; Start 01/13/19 at 03:00 Pantoprazole (Protonix Tab) 40 mg DAILY@06 PO Last administered on 01/16/19 05:32; Admin Dose 40 MG; Start 01/13/19 at 06:00 Atropine Sulfate (Atropine (Syringe)) 0.4 mg Q2H PRN IV for HR< 50/mt; Start 01/13/19 at 03:00 Escitalopram Oxalate (Lexapro) 20 mg DAILY PO Last administered on 01/17/19 09:14; Admin Dose 20 MG; Start 01/13/19 at 17:30 Sodium Chloride 1,000 ml @ 75 mls/hr [id number] IV Last administered on 01/16/19 04:00; Admin Dose 75 MLS/HR; Start 01/15/19 at 07:30 Levothyroxine Sodium (Synthroid) 25 mcg DAILY@06 PO Last administered on 01/16/19 05:32; Admin Dose 25 MCG; Start 01/16/19 at 06:00 Amiodarone HCl (Cordarone) 400 mg BID PO Last administered on 01/17/19 09:14; Admin Dose 400 MG; Start 01/16/19 at 10:15 Ciprofloxacin/ Dextrose 200 ml @ 200 mls/hr Q24H IVPB Last administered on 01/16/19 13:25; Admin Dose 200 MLS/HR; Start 01/16/19 at 12:00 Lorazepam (Ativan) 0.5 mg Q6H PRN IV AGITATION Last administered on 01/16/19 23:28; Admin Dose 0.5 MG; Start 01/16/19 at 23:30 Assessment/Plan Assessment/Plan (Daily) IMP: 1. Sick sinus syndrome status post pacemaker placement 2. Iatrogenic pneumothorax--s/p small-bore chest tube placement. Now with re- expansion. Small air-leak noted. 3. Anemia 4. Thrombocytopenia RECS: 1. Continue chest tube to 20 cm H20 suction; will then transition to H20 seal. 2. Once no further air-leak present, can clamp tube and remove. 3. Stable for telemetry EDMUND GARCÍA MD Jan 17, 2019 10:23
--- NOTE | 2019-01-17 13:21 | CONS ---
Assessment/Plan Assessment/Plan Assessment/Plan (Daily) Assessment/Recs: - Sick sinus with severe bradycardia/jxn rhythm- s/p PPM with small PTX - small apical ptx s/p ppm- pulmonary consulting, continue high flow o2 via nc - afib- new onset post ppm, monitoring on tele. unable to add anticoag given oozing from ppm. will consider once stable if remains in afib. will add po amio 400mg po bid. - s/p AAA - stable on ct scan - abd pain- resolved, ct scan negative - edema - neg venous duplex, possible related to derrek, improved ok for transfer to tele await for PTX to resolve Continue on current meds Consultation Date/Type/Reason Admit Date/Time Jan 12, 2019 at 20:17 Initial Consult Date 01/13/19 Type of Consult Cardiology Requesting Provider: SYLVAIN PORRAS MD Date/Time of Note DATE: 01/17/19 TIME: 13:20 24 HR Interval Summary Free Text/Dictation Feels ok. No pain. NO dizziness. no events except for confusion. Exam/Review of Systems Vital Signs Vitals Vital Signs Date Temp Pulse Resp B/P (MAP) Pulse Ox O2 O2 Flow FiO2 Time Delivery Rate 01/17/19 60 12:00 01/17/19 14 117/58 100 Nasal 11:00 (77) Cannula 01/17/19 2.0 08:00 01/17/19 98.5 08:00 01/15/19 100 17:26 Intake and Output 01/16/19 01/16/19 01/17/19 1515:00 23:00 07:00 IntakeIntake Total 600 ml 375 ml 600 ml OutputOutput Total 220 ml 240 ml 470 ml BalanceBalance 380 ml 135 ml 130 ml Exam Constitutional: alert, frail Psych: no complaints, nl mood/affect Head: normocephalic, atraumatic Eyes: nl conjunctiva ENMT: nl external ears & nose Neck: supple; No jvd Respiratory: clear to auscultation, other (CT in place) Cardiovascular: regular rate and rhythm, nl pulses Gastrointestinal: soft Neurological: BANK MANAGER II-XII intact Labs Result Diagram: 01/17/19 0740 01/17/19 0740 Results 24hrs Laboratory Tests Test 01/17/19 07:40 White Blood Count 6.1 # Red Blood Count 3.01 L Hemoglobin 7.5 L Hematocrit 25.1 L Mean Corpuscular Volume 83.4 Mean Corpuscular Hemoglobin 24.9 L Mean Corpuscular Hemoglobin Concent 29.9 L Red Cell Distribution Width 18.5 H Platelet Count 98 #L Mean Platelet Volume 9.7 Immature Granulocytes % 0.200 Neutrophils % 68.2 Lymphocytes % 13.2 L Monocytes % 11.8 H Eosinophils % 5.9 Basophils % 0.7 Nucleated Red Blood Cells % 0.0 Immature Granulocytes # 0.010 Neutrophils # 4.2 Lymphocytes # 0.8 Monocytes # 0.7 Eosinophils # 0.4 Basophils # 0.0 Nucleated Red Blood Cells # 0.0 Sodium Level 141 Potassium Level 3.8 Chloride Level 110 Carbon Dioxide Level 25 Anion Gap 6 Blood Urea Nitrogen 16 Creatinine 1.06 Est Glomerular Filtrat Rate mL/min Glucose Level 80 Calcium Level 7.8 L Medications Medications Current Medications IV Flush (NS 3 ml) 3 ml PER PROTOCOL IV ; Start 01/13/19 at 03:00 Ondansetron HCl (Zofran Inj) 4 mg Q6H PRN IV NAUSEA/VOMITING Last administered on 01/13/19at 15:48; Admin Dose 4 MG; Start 01/13/19 at 03:00 Acetaminophen (Tylenol Tab) 650 mg Q6H PRN PO .PAIN 1-3 OR TEMP Last admi nistered on 01/14/19at 10:53; Admin Dose 650 MG; Start 01/13/19 at 03:00 Morphine Sulfate (morphine) 2 mg Q4H PRN IV .SEVERE PAIN 7-10 Last administered on 01/16/19at 16:11; Admin Dose 2 MG; Start 01/13/19 at 03:00 Pantoprazole (Protonix Tab) 40 mg DAILY@06 PO Last administered on 01/16/19 05:32; Admin Dose 40 MG; Start 01/13/19 at 06:00 Atropine Sulfate (Atropine (Syringe)) 0.4 mg Q2H PRN IV for HR< 50/mt; Start 01/13/19 at 03:00 Escitalopram Oxalate (Lexapro) 20 mg DAILY PO Last administered on 01/17/19 09:14; Admin Dose 20 MG; Start 01/13/19 at 17:30 Sodium Chloride 1,000 ml @ 75 mls/hr [id number] IV Last administered on 01/16/19 04:00; Admin Dose 75 MLS/HR; Start 01/15/19 at 07:30 Levothyroxine Sodium (Synthroid) 25 mcg DAILY@06 PO Last administered on 01/16/19 05:32; Admin Dose 25 MCG; Start 01/16/19 at 06:00 Amiodarone HCl (Cordarone) 400 mg BID PO Last administered on 01/17/19 09:14; Admin Dose 400 MG; Start 01/16/19 at 10:15 Ciprofloxacin/ Dextrose 200 ml @ 200 mls/hr Q24H IVPB Last administered on 01/16/19 13:25; Admin Dose 200 MLS/HR; Start 01/16/19 at 12:00 Lorazepam (Ativan) 0.5 mg Q6H PRN IV AGITATION Last administered on 01/16/19 23:28; Admin Dose 0.5 MG; Start 01/16/19 at 23:30 LUBA MYERS MD Jan 17, 2019 13:21
[2019-01-17] MEDS: CIPROFLOXACIN 400MG/D5W 200 ML IVPB SCH (13:27)
[2019-01-17] MEDS: SOD CHLORIDE 0.9% 1,000 ML IV SCH (13:28)
--- NOTE | 2019-01-17 14:42 | CONS ---
Assessment/Plan Assessment/Plan Assessment/Plan (Daily) Assessment/Plan (Daily) Hospital Course (Demo Recall) 78 yo male presented with crampy abdominal pain, hypotensive and one episode of nausea 1. Bradycardia with episode of hypotension, most probably related to sick sinus syndrome. 2. Abdominal pain -resolved 3. History of anal cancer, status post radiation and chemotherapy. 4. H/O abdominal aortic aneurysm -Status post endoclip stasis for lower abdominal aortic aneurysm. 5. Major depression. 6. Diverticulosis 7. Mild pulmonary emphysema 8. Mild hiatal hernia 9. Osteopenia 10. Mild thrombocytopenia 11. UTI -preliminary urine cx shows gram neg rods 12. Status post pacemaker insertion 13. Pneumothorax status small chest tube placement 8.5 Sinhala pigtail catheter and it is reduced significantly 14 anemia, no active bleeding Plan Continue present care Once he is stable we will do EGD and colonoscopy for his iron deficiency anemia patient ferritin is low at 36 Consultation Date/Type/Reason Admit Date/Time Jan 12, 2019 at 20:17 Initial Consult Date 01/13/19 Requesting Provider: SYLVAIN PORRAS MD Date/Time of Note DATE: 01/17/19 TIME: 14:41 24 HR Interval Summary Constitutional: improved Exam/Review of Systems Exam Vitals Vital Signs Date Temp Pulse Resp B/P (MAP) Pulse Ox O2 O2 Flow FiO2 Time Delivery Rate 01/17/19 60 17 124/60 99 Nasal 14:00 (81) Cannula 01/17/19 99.0 12:00 01/17/19 2.0 08:00 01/15/19 100 17:26 Intake and Output 01/16/19 01/16/19 01/17/19 1515:00 23:00 07:00 IntakeIntake Total 600 ml 375 ml 600 ml OutputOutput Total 220 ml 240 ml 470 ml BalanceBalance 380 ml 135 ml 130 ml Constitutional: alert, oriented, well developed Psych: no complaints, nl mood/affect Head: normocephalic, atraumatic Eyes: nl conjunctiva, EOMI, nl lids, nl sclera, PERRL ENMT: nl external ears & nose, nl lips & teeth, nl nasal mucosa & septum Neck: supple, non-tender Respiratory: clear to auscultation, normal air movement Cardiovascular: regular rate and rhythm, nl pulses Gastrointestinal: soft, nl liver, spleen, non-tender Musculoskeletal: nl extremities to inspection, nl gait and stance Extremities: normal pulses Neurological: TESTING MACHINE OPERATOR II-XII intact, nl mental status, nl speech, nl strength Skin: nl turgor; No rash or lesions Lymph: nl lymph nodes Results Result Diagram: 01/17/19 0740 01/17/19 0740 Results 24hrs Laboratory Tests Test 01/17/19 07:40 White Blood Count 6.1 # Red Blood Count 3.01 L Hemoglobin 7.5 L Hematocrit 25.1 L Mean Corpuscular Volume 83.4 Mean Corpuscular Hemoglobin 24.9 L Mean Corpuscular Hemoglobin Concent 29.9 L Red Cell Distribution Width 18.5 H Platelet Count 98 #L Mean Platelet Volume 9.7 Immature Granulocytes % 0.200 Neutrophils % 68.2 Lymphocytes % 13.2 L Monocytes % 11.8 H Eosinophils % 5.9 Basophils % 0.7 Nucleated Red Blood Cells % 0.0 Immature Granulocytes # 0.010 Neutrophils # 4.2 Lymphocytes # 0.8 Monocytes # 0.7 Eosinophils # 0.4 Basophils # 0.0 Nucleated Red Blood Cells # 0.0 Sodium Level 141 Potassium Level 3.8 Chloride Level 110 Carbon Dioxide Level 25 Anion Gap 6 Blood Urea Nitrogen 16 Creatinine 1.06 Est Glomerular Filtrat Rate mL/min Glucose Level 80 Calcium Level 7.8 L Medications Medication Current Medications IV Flush (NS 3 ml) 3 ml PER PROTOCOL IV ; Start 01/13/19 at 03:00 Ondansetron HCl (Zofran Inj) 4 mg Q6H PRN IV NAUSEA/VOMITING Last administered on 01/13/19at 15:48; Admin Dose 4 MG; Start 01/13/19 at 03:00 Acetaminophen (Tylenol Tab) 650 mg Q6H PRN PO .PAIN 1-3 OR TEMP Last administered on 01/14/19at 10:53; Admin Dose 650 MG; Start 01/13/19 at 03:00 Morphine Sulfate (morphine) 2 mg Q4H PRN IV .SEVERE PAIN 7-10 Last administered on 01/16/19at 16:11; Admin Dose 2 MG; Start 01/13/19 at 03:00 Pantoprazole (Protonix Tab) 40 mg DAILY@06 PO Last administered on 01/16/19at 05:32; Admin Dose 40 MG; Start 01/13/19 at 06:00 Atropine Sulfate (Atropine (Syringe)) 0.4 mg Q2H PRN IV for HR< 50/mt; Start 01/13/19 at 03:00 Escitalopram Oxalate (Lexapro) 20 mg DAILY PO Last administered on 01/17/19 09:14; Admin Dose 20 MG; Start 01/13/19 at 17:30 Sodium Chloride 1,000 ml @ 75 mls/hr [id number] IV Last administered on 01/17/19 13:28; Admin Dose 75 MLS/HR; Start 01/15/19 at 07:30 Levothyroxine Sodium (Synthroid) 25 mcg DAILY@06 PO Last administered on 01/16/19 05:32; Admin Dose 25 MCG; Start 01/16/19 at 06:00 Amiodarone HCl (Cordarone) 400 mg BID PO Last administered on 01/17/19 09:14; Admin Dose 400 MG; Start 01/16/19 at 10:15 Ciprofloxacin/ Dextrose 200 ml @ 200 mls/hr Q24H IVPB Last administered on 01/17/19 13:27; Admin Dose 200 MLS/HR; Start 01/16/19 at 12:00 Lorazepam (Ativan) 0.5 mg Q6H PRN IV AGITATION Last administered on 01/16/19 23 :28; Admin Dose 0.5 MG; Start 01/16/19 at 23:30 NICOLAS ACKERMAN MD Jan 17, 2019 14:42
[2019-01-17] MEDS ORDERED: POTASSIUM CHLORIDE (SR) 20 MEQ TAB PO STA (18:20)
--- NOTE | 2019-01-17 18:29 | PN ---
DATE: 01/17/2019 SUBJECTIVE: The patient was quite agitated last night and was placed on lorazepam and also a sitter was ordered. OBJECTIVE: GENERAL: Presently, the patient is awake, has a depressed affect. VITAL SIGNS: Blood pressure 129/66, heart rate in the 60s, O2 saturation 99% on 2 liters nasal cannu la. CHEST: Clinically clear. The patient has had new onset of atrial fibrillation now. HEART: S1, S2 with no definite gallops. EXTREMITIES: Decreased edema. IMPRESSION: 1. Sick sinus syndrome, status post pacemaker placement. 2. Iatrogenic pneumothorax, status post chest tube placement. 3. Anemia and thrombocytopenia. PLAN: Continue management in the ICU. Monitor potassium closely. Potassium is low at 3.83. We briseida l give 1 dose of potassium chloride today. Recheck labs in a.m. Dictated By: SYLVAIN PORRAS MD SR/NTS Conf#: [id number] DID#: [id number] CC: RENE HONG MD;*End*
[2019-01-17] MEDS ORDERED: POTASSIUM CHLORIDE 20 MEQ POWDER FOR ORAL SOLN PO ONE (21:00)
[2019-01-18] VITALS (28 sets, daily range): BP systolic 118–146; BP diastolic 47–65; PULSE 59–60; RESP 9–20
[2019-01-18] MEDS: SOD CHLORIDE 0.9% 1,000 ML IV SCH ×2 (02:10→05:51)
[2019-01-18] MEDS: PANTOPRAZOLE (EC) 40 MG TAB PO SCH (05:51)
[2019-01-18] MEDS: LEVOTHYROXINE 25 MCG TAB PO SCH (05:51)
--- NOTE | 2019-01-18 08:40 | CONS ---
Assessment/Plan Assessment/Plan Assessment/Plan (Daily) Assessment/Recs: # Sick sinus with severe bradycardia/jxn rhythm- s/p PPM with small PTX # small apical ptx s/p ppm- pulmonary consulting, continue high flow o2 via nc # afib- new onset post ppm, monitoring on tele. unable to add anticoag given oozing from ppm. will consider once stable if remains in afib. will add po amio 400mg po bid. # s/p AAA - stable on ct scan # abd pain- resolved, ct scan negative # anemia # edema - neg venous duplex, possible related to derrek, improved >>ok for transfer to tele >>await for PTX to resolve; appreciate pulmonary input >>Continue on current meds >>Consider anticoagulation if Afib recurrent Consultation Date/Type/Reason Admit Date/Time Jan 12, 2019 at 20:17 Initial Consult Date 01/13/19 Type of Consult Cardiology Requesting Provider: SYLVAIN PORRAS MD Date/Time of Note DATE: 01/18/19 TIME: 08:39 24 HR Interval Summary Free Text/Dictation no new comlpaints and no events ON Exam/Review of Systems Vital Signs Vitals Vital Signs Date Temp Pulse Resp B/P (MAP) Pulse Ox O2 O2 Flow FiO2 Time Delivery Rate 01/18/19 60 14 137/60 100 Nasal 2.0 07:00 (85) Cannula 01/18/19 98.2 04:00 01/15/19 100 17:26 Intake and Output 01/17/19 01/17/19 01/18/19 1515:00 23:00 07:00 IntakeIntake Total 1175 ml 950 ml 570 ml OutputOutput Total 490 ml 255 ml 255 ml BalanceBalance 685 ml 695 ml 315 ml Exam Constitutional: alert, frail Psych: no complaints Head: normocephalic, atraumatic Eyes: nl conjunctiva ENMT: nl external ears & nose Neck: supple, non-tender Respiratory: clear to auscultation Cardiovascular: regular rate and rhythm, nl pulses Gastrointestinal: soft Neurological: HOME SCHOOL COORDINATOR II-XII intact Labs Result Diagram: 01/18/19 0507 01/18/19 0507 Results 24hrs Laboratory Tests Test 01/18/19 05:07 White Blood Count 4.0 #L Red Blood Count 2.99 L Hemoglobin 7.4 L Hematocrit 24.0 L Mean Corpuscular Volume 80.3 L Mean Corpuscular Hemoglobin 24.7 L Mean Corpuscular Hemoglobin Concent 30.8 L Red Cell Distribution Width 18.1 H Platelet Count 110 L Mean Platelet Volume 9.5 Immature Granulocytes % 0.500 H Neutrophils % 83.4 H Lymphocytes % 13.3 L Monocytes % 2.5 Eosinophils % 0.0 Basophils % 0.3 Nucleated Red Blood Cells % 0.0 Immature Granulocytes # 0.020 Neutrophils # 3.3 Lymphocytes # 0.5 L Monocytes # 0.1 L Eosinophils # 0.0 Basophils # 0.0 Nucleated Red Blood Cells # 0.0 Sodium Level 141 Potassium Level 4.1 Chloride Level 110 Carbon Dioxide Level 24 Anion Gap 7 Blood Urea Nitrogen 19 Creatinine 0.94 Est Glomerular Filtrat Rate mL/min Glucose Level 130 # Calcium Level 8.0 L Medications Medications Current Medications IV Flush (NS 3 ml) 3 ml PER PROTOCOL IV ; Start 01/13/19 at 03:00 Ondansetron HCl (Zofran Inj) 4 mg Q6H PRN IV NAUSEA/VOMITING Last administered on 01/13/19 15:48; Admin Dose 4 MG; Start 01/13/19 at 03:00 Acetaminophen (Tylenol Tab) 650 mg Q6H PRN PO .PAIN 1-3 OR TEMP Last administered on 01/14/19 10:53; Admin Dose 650 MG; Start 01/13/19 at 03:00 Morphine Sulfate (morphine) 2 mg Q4H PRN IV .SEVERE PAIN 7-10 Last administered on 01/16/19 16:11; Admin Dose 2 MG; Start 01/13/19 at 03:00 Pantoprazole (Protonix Tab) 40 mg DAILY@06 PO Last administered on 01/18/19 05:51; Admin Dose 40 MG; Start 01/13/19 at 06:00 Atropine Sulfate (Atropine (Syringe)) 0.4 mg Q2H PRN IV for HR< 50/mt; Start 01/13/19 at 03:00 Escitalopram Oxalate (Lexapro) 20 mg DAILY PO Last administered on 01/17/19 09:14; Admin Dose 20 MG; Start 01/13/19 at 17:30 Levothyroxine Sodium (Synthroid) 25 mcg DAILY@06 PO Last administered on 01/18/19 05:51; Admin Dose 25 MCG; Start 01/16/19 at 06:00 Amiodarone HCl (Cordarone) 400 mg BID PO Last administered on 01/17/19at 20:55; Admin Dose 400 MG; Start 01/16/19 at 10:15 Ciprofloxacin/ Dextrose 200 ml @ 200 mls/hr Q24H IVPB Last administered on 01/17/19 13:27; Admin Dose 200 MLS/HR; Start 01/16/19 at 12:00 Lorazepam (Ativan) 0.5 mg Q6H PRN IV AGITATION Last administered on 01/16/19at 23:28; Admin Dose 0.5 MG; Start 01/16/19 at 23:30 LUBA MYERS MD Jan 18, 2019 08:40
[2019-01-18] MEDS ORDERED: SOD CHLORIDE 0.9% 250 ML IV* ONE (08:58)
--- NOTE | 2019-01-18 08:59 | PN ---
DATE: 01/18/2019 No dictation. Dictated By: SYLVAIN PORRAS MD SR/NTS Conf#: [id number] DID#: [id number] CC: RENE HONG MD; SYLVAIN PORRAS MD;*EndCC*
--- NOTE | 2019-01-18 08:59 | PN ---
DATE: 01/18/2019 SUBJECTIVE: The patient was agitated earlier presently comfortable. VITAL SIGNS: Temperature 98.2, blood pressure 137/60, O2 sats 100% on 2 liters nasal cannula. CHEST: Clear anteriorly. HEART: S1, S2 heard, no definite gallops. EXTREMITIES: No edema. Chest tube, left side in place. LABORATORY DATA: WBC count 4.0, hematocrit 24, platelet count is 110,000. Sodium 141, potassium 4.1 , BUN 19, creatinine 0.94. IMPRESSION: 1. Sick sinus syndrome, status post pacemaker placement. 2. Iatrogenic pneumothorax, left status post chest tube placement. 3. Severe anemia, thrombocytopenia. 4. Mild hypothyroidism. 5. History of anorectal cancer in remission. Plan will transfuse 1 unit of packed cells. Check sto ol for OB. Recheck labs in a.m. PLAN: Continue pulmonary recommendations of Dr. Hong, cardiac recommendation by Dr. Montanez. Dictated By: SYLVAIN PORRAS MD SR/NTS Conf#: [id number] DID#: [id number] CC: RENE HONG MD;*EndCC*
--- NOTE | 2019-01-18 09:05 | CONS ---
Consult Date/Type/Reason Admit Date/Time Jan 12, 2019 at 20:17 Initial Consult Date 01/13/19 Type of Consult Pulmonary Requesting Provider: SYLVAIN PORRAS MD Date/Time of Note DATE: 01/18/19 TIME: 09:03 Subjective Patient stable this morning. No new events status post pigtail catheter drainage with no evidence of pneumothorax this morning. Continues to remain hemodynamically stable. Objective Vital Signs Date Temp Pulse Resp B/P (MAP) Pulse Ox O2 O2 Flow FiO2 Time Delivery Rate 01/18/19 98.0 60 16 146/57 100 Nasal 2.0 08:00 (86) Cannula 01/15/19 100 17:26 Intake and Output 01/17/19 01/17/19 01/18/19 1414:59 22:59 06:59 IntakeIntake Total 625 ml 1500 ml 645 ml OutputOutput Total 490 ml 345 ml 285 ml BalanceBalance 135 ml 1155 ml 360 ml Exam GENERAL: Elderly gentleman comfortable at rest no acute distress VITAL SIGNS: per chart NECK: Supple. No JVD or lymphadenopathy. CARDIAC EXAM: S1, S2. No added sounds or murmurs. CHEST: clear bilaterally, No added sounds, rales or wheezes ABDOMEN: Soft, nontender. No guarding or rebound. EXTREMITIES: No cyanosis, clubbing or edema. NEUROLOGIC: Generalized weakness. No focal deficits. Vent Setting Fraction of Inspired Oxygen pe: 100 Results/Medications Result Diagram: 01/18/19 0507 01/18/19 0507 Results 24 hrs Laboratory Tests Test 01/18/19 05:07 White Blood Count 4.0 #L Red Blood Count 2.99 L Hemoglobin 7.4 L Hematocrit 24.0 L Mean Corpuscular Volume 80.3 L Mean Corpuscular Hemoglobin 24.7 L Mean Corpuscular Hemoglobin Concent 30.8 L Red Cell Distribution Width 18.1 H Platelet Count 110 L Mean Platelet Volume 9.5 Immature Granulocytes % 0.500 H Neutrophils % 83.4 H Lymphocytes % 13.3 L Monocytes % 2.5 Eosinophils % 0.0 Basophils % 0.3 Nucleated Red Blood Cells % 0.0 Immature Granulocytes # 0.020 Neutrophils # 3.3 Lymphocytes # 0.5 L Monocytes # 0.1 L Eosinophils # 0.0 Basophils # 0.0 Nucleated Red Blood Cells # 0.0 Sodium Level 141 Potassium Level 4.1 Chloride Level 110 Carbon Dioxide Level 24 Anion Gap 7 Blood Urea Nitrogen 19 Creatinine 0.94 Est Glomerular Filtrat Rate mL/min Glucose Level 130 # Calcium Level 8.0 L Medications Current Medications IV Flush (NS 3 ml) 3 ml PER PROTOCOL IV ; Start 01/13/19 at 03:00 Ondansetron HCl (Zofran Inj) 4 mg Q6H PRN IV NAUSEA/VOMITING Last administered on 01/13/19 15:48; Admin Dose 4 MG; Start 01/13/19 at 03:00 Acetaminophen (Tylenol Tab) 650 mg Q6H PRN PO .PAIN 1-3 OR TEMP Last administered on 01/14/19 10:53; Admin Dose 650 MG; Start 01/13/19 at 03:00 Morphine Sulfate (morphine) 2 mg Q4H PRN IV .SEVERE PAIN 7-10 Last administered on 01/16/19 16:11; Admin Dose 2 MG; Start 01/13/19 at 03:00 Pantoprazole (Protonix Tab) 40 mg DAILY@06 PO Last administered on 01/18/19 05:51; Admin Dose 40 MG; Start 01/13/19 at 06:00 Atropine Sulfate (Atropine (Syringe)) 0.4 mg Q2H PRN IV for HR< 50/mt; Start 01/13/19 at 03:00 Escitalopram Oxalate (Lexapro) 20 mg DAILY PO Last administered on 01/17/19 09:14; Admin Dose 20 MG; Start 01/13/19 at 17:30 Levothyroxine Sodium (Synthroid) 25 mcg DAILY@06 PO Last administered on 01/18/19 05:51; Admin Dose 25 MCG; Start 01/16/19 at 06:00 Amiodarone HCl (Cordarone) 400 mg BID PO Last administered on 01/17/19 20:55; Admin Dose 400 MG; Start 01/16/19 at 10:15 Ciprofloxacin/ Dextrose 200 ml @ 200 mls/hr Q24H IVPB Last administered on 01/17/19 13:27; Admin Dose 200 MLS/HR; Start 01/16/19 at 12:00 Lorazepam (Ativan) 0.5 mg Q6H PRN IV AGITATION Last administered on 01/16/19 23:28; Admin Dose 0.5 MG; Start 01/16/19 at 23:30 Assessment/Plan Hospital Course (Demo Recall) Assessment 1. Sick sinus syndrome status post pacemaker placement 2. Iatrogenic pneumothorax no change despite high flow O2. Now status post pigtail catheter placement with resolution of pneumothorax currently on suction Plan 1. Continue chest tube management we will switch from suction to waterseal. Repeat chest x-ray in a.m. if no pneumothorax we will clamp and remove Stable for transfer to telemetry from pulmonary standpoint RENE HONG MD, [facility] Jan 18, 2019 09:04
[2019-01-18] MEDS: AMIODARONE 200 MG TAB PO SCH ×2 (10:19→20:44)
[2019-01-18] MEDS: ESCITALOPRAM 10 MG TAB PO SCH (10:20)
[2019-01-18] MEDS: CIPROFLOXACIN 400MG/D5W 200 ML IVPB SCH (12:53)
--- NOTE | 2019-01-18 13:10 | CONS ---
Assessment/Plan Assessment/Plan Assessment/Plan (Daily) 78 yo male presented with crampy abdominal pain, hypotensive and one episode of nausea 1. Bradycardia with episode of hypotension, most probably related to sick sinus syndrome. 2. Abdominal pain -resolved 3. History of anal cancer, status post radiation and chemotherapy. 4. H/O abdominal aortic aneurysm -Status post endoclip stasis for lower abdominal aortic aneurysm. 5. Major depression. 6. Diverticulosis 7. Mild pulmonary emphysema 8. Mild hiatal hernia 9. Osteopenia 10. Mild thrombocytopenia 11. UTI -preliminary urine cx shows gram neg rods 12. Status post pacemaker insertion 13. Pneumothorax status small chest tube placement 8.5 [place] pigtail catheter. Pneumothorax has resolved 14 anemia, no active bleeding Plan Continue present care Once he is stable we will do EGD and colonoscopy for his iron deficiency anemia patient ferritin is low at 36 Discussed with the patient and the motel food service supervisor for possible EGD colonoscopy and they have agreed for the procedure Consultation Date/Type/Reason Admit Date/Time Jan 12, 2019 at 20:17 Initial Consult Date 01/13/19 Requesting Provider: SYLVAIN PORRAS MD Date/Time of Note DATE: 01/18/19 TIME: 13:09 24 HR Interval Summary Constitutional: improved Exam/Review of Systems Exam Vitals Vital Signs Date Temp Pulse Resp B/P (MAP) Pulse Ox O2 O2 Flow FiO2 Time Delivery Rate 01/18/19 60 16 118/55 99 Nasal 13:00 (76) Cannula 01/18/19 98.0 2.0 08:00 01/15/19 100 17:26 Intake and Output 01/17/19 01/17/19 01/18/19 1515:00 23:00 07:00 IntakeIntake Total 1175 ml 950 ml 570 ml OutputOutput Total 490 ml 255 ml 315 ml BalanceBalance 685 ml 695 ml 255 ml Constitutional: alert, oriented, well developed Gastrointestinal: non-tender Results Result Diagram: 01/18/19 0507 01/18/19 0507 Results 24hrs Laboratory Tests Test 01/18/19 05:07 White Blood Count 4.0 #L Red Blood Count 2.99 L Hemoglobin 7.4 L Hematocrit 24.0 L Mean Corpuscular Volume 80.3 L Mean Corpuscular Hemoglobin 24.7 L Mean Corpuscular Hemoglobin Concent 30.8 L Red Cell Distribution Width 18.1 H Platelet Count 110 L Mean Platelet Volume 9.5 Immature Granulocytes % 0.500 H Neutrophils % 83.4 H Lymphocytes % 13.3 L Monocytes % 2.5 Eosinophils % 0.0 Basophils % 0.3 Nucleated Red Blood Cells % 0.0 Immature Granulocytes # 0.020 Neutrophils # 3.3 Lymphocytes # 0.5 L Monocytes # 0.1 L Eosinophils # 0.0 Basophils # 0.0 Nucleated Red Blood Cells # 0.0 Sodium Level 141 Potassium Level 4.1 Chloride Level 110 Carbon Dioxide Level 24 Anion Gap 7 Blood Urea Nitrogen 19 Creatinine 0.94 Est Glomerular Filtrat Rate mL/min Glucose Level 130 # Calcium Level 8.0 L Medications Medication Current Medications IV Flush (NS 3 ml) 3 ml PER PROTOCOL IV ; Start 01/13/19 at 03:00 Ondansetron HCl (Zofran Inj) 4 mg Q6H PRN IV NAUSEA/VOMITING Last administered on 01/13/19 15:48; Admin Dose 4 MG; Start 01/13/19 at 03:00 Acetaminophen (Tylenol Tab) 650 mg Q6H PRN PO .PAIN 1-3 OR TEMP Last administered on 01/14/19 10:53; Admin Dose 650 MG; Start 01/13/19 at 03:00 Morphine Sulfate (morphine) 2 mg Q4H PRN IV .SEVERE PAIN 7-10 Last administered on 01/16/19 16:11; Admin Dose 2 MG; Start 01/13/19 at 03:00 Pantoprazole (Protonix Tab) 40 mg DAILY@06 PO Last administered on 01/18/19 05:51; Admin Dose 40 MG; Start 01/13/19 at 06:00 Atropine Sulfate (Atropine (Syringe)) 0.4 mg Q2H PRN IV for HR< 50/mt; Start 01/13/19 at 03:00 Escitalopram Oxalate (Lexapro) 20 mg DAILY PO Last administered on 01/18/19 10:20; Admin Dose 20 MG; Start 01/13/19 at 17:30 Levothyroxine Sodium (Synthroid) 25 mcg DAILY@06 PO Last administered on 01/18/19 05:51; Admin Dose 25 MCG; Start 01/16/19 at 06:00 Amiodarone HCl (Cordarone) 400 mg BID PO Last administered on 7/5/19at 10:19; Admin Dose 400 MG; Start 01/16/19 at 10:15 Ciprofloxacin/ Dextrose 200 ml @ 200 mls/hr Q24H IVPB Last administered on 01/18/19at 12:53; Admin Dose 200 MLS/HR; Start 01/16/19 at 12:00 Lorazepam (Ativan) 0.5 mg Q6H PRN IV AGITATION Last administered on 01/16/19at 23:28; Admin Dose 0.5 MG; Start 01/16/19 at 23:30 NCIOLAS ACKERMAN MD Jan 18, 2019 13:10
[2019-01-18] MEDS ORDERED: DIPHENHYDRAMINE 25 MG CAP PO PRN (15:30)
[2019-01-19] VITALS (8 sets, daily range): BP systolic 140–166; BP diastolic 66–76; PULSE 59–60; RESP 18–20
[2019-01-19] MEDS: LEVOTHYROXINE 25 MCG TAB PO SCH (04:51)
[2019-01-19] MEDS: PANTOPRAZOLE (EC) 40 MG TAB PO SCH (05:11)
[2019-01-19] MEDS: ESCITALOPRAM 10 MG TAB PO SCH (08:37)
[2019-01-19] MEDS: AMIODARONE 200 MG TAB PO SCH ×2 (08:40→20:43)
--- NOTE | 2019-01-19 10:33 | CONS ---
Assessment/Plan Assessment/Plan Assessment/Plan (Daily) Assessment/Plan Assessment/Plan (Daily) 78 yo male presented with crampy abdominal pain, hypotensive and one episode of nausea 1. Bradycardia with episode of hypotension, most probably related to sick sinus syndrome. 2. Abdominal pain -resolved 3. History of anal cancer, status post radiation and chemotherapy. 4. H/O abdominal aortic aneurysm -Status post endoclip stasis for lower abdominal aortic aneurysm. 5. Major depression. 6. Diverticulosis 7. Mild pulmonary emphysema 8. Mild hiatal hernia 9. Osteopenia 10. Mild thrombocytopenia 11. UTI -preliminary urine cx shows gram neg rods 12. Status post pacemaker insertion 13. Pneumothorax status small chest tube placement 8.5 Hungarian pigtail catheter. Pneumothorax has resolved 14 anemia, no active bleeding. Hematocrit is 28 now Plan Continue present care Once he is stable we will do EGD and colonoscopy for his iron deficiency anemia patient ferritin is low at 36 Discussed with the patient and the story editor for possible EGD colonoscopy and they have agreed for the procedure Hopefully chest tube will be removed today Consultation Date/Type/Reason Admit Date/Time Jan 12, 2019 at 20:17 Initial Consult Date 01/13/19 Requesting Provider: SYLVAIN PORRAS MD Date/Time of Note DATE: 01/19/19 TIME: 10:32 24 HR Interval Summary Constitutional: no complaints, improved Exam/Review of Systems Exam Vitals Vital Signs Date Temp Pulse Resp B/P (MAP) Pulse Ox O2 O2 Flow FiO2 Time Delivery Rate 01/19/19 60 140/66 08:40 (90) 01/19/19 Nasal 2.0 08:30 Cannula 01/19/19 97.9 20 94 07:37 01/15/19 100 17:26 Intake and Output 01/18/19 01/18/19 01/19/19 1515:00 23:00 07:00 IntakeIntake Total 1300 ml 640 ml 220 ml OutputOutput Total 250 ml 307 ml 1000 ml BalanceBalance 1050 ml 333 ml -780 ml Constitutional: alert, oriented, well developed Psych: no complaints, nl mood/affect Head: normocephalic, atraumatic Eyes: nl conjunctiva, EOMI, nl lids, nl sclera, PERRL ENMT: nl external ears & nose, nl lips & teeth, nl nasal mucosa & septum Neck: supple, non-tender Respiratory: clear to auscultation, normal air movement Cardiovascular: regular rate and rhythm, nl pulses Gastrointestinal: soft, nl liver, spleen, non-tender Musculoskeletal: nl extremities to inspection, nl gait and stance Extremities: normal pulses Neurological: CURRICULUM SPECIALIST II-XII intact, nl mental status, nl speech, nl strength Skin: nl turgor; No rash or lesions Lymph: nl lymph nodes Results Result Diagram: 01/19/19 0512 01/19/19 0512 Results 24hrs Laboratory Tests Test 01/19/19 05:12 White Blood Count 7.7 # Red Blood Count 3.53 L Hemoglobin 8.9 #L Hematocrit 28.6 L Mean Corpuscular Volume 81.0 L Mean Corpuscular Hemoglobin 25.2 L Mean Corpuscular Hemoglobin Concent 31.1 L Red Cell Distribution Width 18.3 H Platelet Count 145 # Mean Platelet Volume 9.9 Immature Granulocytes % 0.400 Neutrophils % 65.8 Lymphocytes % 21.0 Monocytes % 10.8 Eosinophils % 1.6 Basophils % 0.4 Nucleated Red Blood Cells % 0.0 Immature Granulocytes # 0.030 Neutrophils # 5.0 Lymphocytes # 1.6 Monocytes # 0.8 Eosinophils # 0.1 Basophils # 0.0 Nucleated Red Blood Cells # 0.0 Sodium Level 140 Potassium Level 3.8 Chloride Level 107 Carbon Dioxide Level 27 Anion Gap 6 Blood Urea Nitrogen 21 H Creatinine 1.07 Est Glomerular Filtrat Rate mL/min Glucose Level 85 # Calcium Level 8.4 Medications Medication Current Medications IV Flush (NS 3 ml) 3 ml PER PROTOCOL IV ; Start 01/13/19 at 03:00 Ondansetron HCl (Zofran Inj) 4 mg Q6H PRN IV NAUSEA/VOMITING Last administered on 01/13/19at 15:48; Admin Dose 4 MG; Start 01/13/19 at 03:00 Acetaminophen (Tylenol Tab) 650 mg Q6H PRN PO .PAIN 1-3 OR TEMP Last administered on 01/14/19at 10:53; Admin Dose 650 MG; Start 01/13/19 at 03:00 Morphine Sulfate (morphine) 2 mg Q4H PRN IV .SEVERE PAIN 7-10 Last administered on 01/16/19at 16:11; Admin Dose 2 MG; Start 01/13/19 at 03:00 Pantoprazole (Protonix Tab) 40 mg DAILY@06 PO Last administered on 01/19/19 05:11; Admin Dose 40 MG; Start 01/13/19 at 06:00 Atropine Sulfate (Atropine (Syringe)) 0.4 mg Q2H PRN IV for HR< 50/mt; Start 01/13/19 at 03:00 Escitalopram Oxalate (Lexapro) 20 mg DAILY PO Last administered on 01/19/19 08:37; Admin Dose 20 MG; Start 01/13/19 at 17:30 Levothyroxine Sodium (Synthroid) 25 mcg DAILY@06 PO Last administered on 01/19/19 04:51; Admin Dose 25 MCG; Start 01/16/19 at 06:00 Amiodarone HCl (Cordarone) 400 mg BID PO Last administered on 01/19/19 08:40; Admin Dose 400 MG; Start 01/16/19 at 10:15 Ciprofloxacin/ Dextrose 200 ml @ 200 mls/hr Q24H IVPB Last administered on 01/18/19 12:53; Admin Dose 200 MLS/HR; Start 01/16/19 at 12:00 Lorazepam (Ativan) 0.5 mg Q6H PRN IV AGITATION Last administered on 01/16/19 23:28; Admin Dose 0.5 MG; Start 01/16/19 at 23:30 Diphenhydramine HCl (Benadryl) 25 mg TID PRN PO ITCHING; Start 01/18/19 at 15:30 NICOLAS ACKERMAN MD Jan 19, 2019 10:33
[2019-01-19] MEDS: CIPROFLOXACIN 400MG/D5W 200 ML IVPB SCH (12:55)
--- NOTE | 2019-01-19 16:12 | PN ---
DATE: 01/19/2019 SUBJECTIVE: The patient has been transferred to the telemetry floor. Denies any chest pain or short ness of breath. PHYSICAL EXAMINATION: VITAL SIGNS: Temperature 98.0, blood pressure 154/75, O2 saturation 95% on 2 liters nasal cannula. HEENT: Mild pallor without cyanosis. CHEST: Clinically clear anteriorly. HEART: S1, S2 heard, no definite gallops. EXTREMITIES: No edema. LABORATORY DATA: WBC 7.7, hematocrit 28.6, potassium 3.8. Chest tube still in place. IMPRESSION: 1. Sick sinus syndrome, status post pacemaker placement. 2. Iatrogenic pneumothorax, status post left chest tube placement. 3. Severe anemia, thrombocytopenia. 4. Mild hypothyroidism. 5. History of anorectal cancer in remission. PLAN: Continue monitoring with telemetry. Follow recommendations of Dr. Shaver and Dr. Montanez. Dictated By: SYLVAIN PORRAS MD, SR/JOHNNY Conf#: [id number] DID#: [id number]
[2019-01-19] MEDS: HYDROCORTISONE 0.5% 28.35 GM OINT TOP SCH ×2 (16:56→20:42)
--- NOTE | 2019-01-19 17:36 | CONS ---
Assessment/Plan Assessment/Plan Assessment/Plan (Daily) Assessment/Recs: # Sick sinus with severe bradycardia/jxn rhythm- s/p PPM with small PTX # small apical ptx s/p ppm- pulmonary consulting, continue high flow o2 via nc # afib- new onset post ppm, monitoring on tele. unable to add anticoag given oozing from ppm. will consider once stable if remains in afib. will add po amio 400mg po bid. # s/p AAA - stable on ct scan # abd pain- resolved, ct scan negative # anemia # edema - neg venous duplex, possible related to derrek, improved >>awaiting CT removal >>Continue on current meds >>Consider anticoagulation if Afib recurrent Consultation Date/Type/Reason Admit Date/Time Jan 12, 2019 at 20:17 Initial Consult Date 01/13/19 Type of Consult Cardiology Requesting Provider: SYLVAIN PORRAS MD Date/Time of Note DATE: 01/19/19 TIME: 17:36 24 HR Interval Summary Free Text/Dictation Doing well. Asking when CT will be removed. NO CP or SOB. Constitutional: no complaints Exam/Review of Systems Vital Signs Vitals Vital Signs Date Temp Pulse Resp B/P (MAP) Pulse Ox O2 O2 Flow FiO2 Time Delivery Rate 01/19/19 98.0 60 20 157/69 96 Nasal 15:24 (98) Cannula 01/19/19 2.0 08:30 01/15/19 100 17:26 Intake and Output 01/18/19 01/18/19 01/19/19 1515:00 23:00 07:00 IntakeIntake Total 1300 ml 640 ml 220 ml OutputOutput Total 250 ml 307 ml 1000 ml BalanceBalance 1050 ml 333 ml -780 ml Exam Constitutional: alert, frail Psych: no complaints Head: normocephalic Eyes: nl conjunctiva ENMT: nl external ears & nose Neck: supple; No jvd Respiratory: clear to auscultation Cardiovascular: regular rate and rhythm; No edema Gastrointestinal: soft Neurological: MENTAL HEALTH AIDES TEACHER II-XII intact Labs Result Diagram: 01/19/19 0512 01/19/19 0512 Results 24hrs Laboratory Tests Test 01/19/19 05:12 01/19/19 06:00 White Blood Count 7.7 # Red Blood Count 3.53 L Hemoglobin 8.9 #L Hematocrit 28.6 L Mean Corpuscular Volume 81.0 L Mean Corpuscular Hemoglobin 25.2 L Mean Corpuscular Hemoglobin Concent 31.1 L Red Cell Distribution Width 18.3 H Platelet Count 145 # Mean Platelet Volume 9.9 Immature Granulocytes % 0.400 Neutrophils % 65.8 Lymphocytes % 21.0 Monocytes % 10.8 Eosinophils % 1.6 Basophils % 0.4 Nucleated Red Blood Cells % 0.0 Immature Granulocytes # 0.030 Neutrophils # 5.0 Lymphocytes # 1.6 Monocytes # 0.8 Eosinophils # 0.1 Basophils # 0.0 Nucleated Red Blood Cells # 0.0 Sodium Level 140 Potassium Level 3.8 Chloride Level 107 Carbon Dioxide Level 27 Anion Gap 6 Blood Urea Nitrogen 21 H Creatinine 1.07 Est Glomerular Filtrat Rate mL/min Glucose Level 85 # Calcium Level 8.4 Stool Occult Blood NEGATIVE Medications Medications Current Medications IV Flush (NS 3 ml) 3 ml PER PROTOCOL IV ; Start 01/13/19 at 03:00 Ondansetron HCl (Zofran Inj) 4 mg Q6H PRN IV NAUSEA/VOMITING Last administered on 01/13/19 15:48; Admin Dose 4 MG; Start 01/13/19 at 03:00 Acetaminophen (Tylenol Tab) 650 mg Q6H PRN PO .PAIN 1-3 OR TEMP Last administered on 01/14/19 10:53; Admin Dose 650 MG; Start 01/13/19 at 03:00 Morphine Sulfate (morphine) 2 mg Q4H PRN IV .SEVERE PAIN 7-10 Last administered on 01/16/19 16:11; Admin Dose 2 MG; Start 01/13/19 at 03:00 Pantoprazole (Protonix Tab) 40 mg DAILY@06 PO Last administered on 01/19/19 05:11; Admin Dose 40 MG; Start 01/13/19 at 06:00 Atropine Sulfate (Atropine (Syringe)) 0.4 mg Q2H PRN IV for HR< 50/mt; Start 01/13/19 at 03:00 Escitalopram Oxalate (Lexapro) 20 mg DAILY PO Last administered on 01/19/19 08:37; Admin Dose 20 MG; Start 01/13/19 at 17:30 Levothyroxine Sodium (Synthroid) 25 mcg DAILY@06 PO Last administered on 01/19/19 04:51; Admin Dose 25 MCG; Start 01/16/19 at 06:00 Amiodarone HCl (Cordarone) 400 mg BID PO Last administered on 01/19/19 08:40; Admin Dose 400 MG; Start 01/16/19 at 10:15 Ciprofloxacin/ Dextrose 200 ml @ 200 mls/hr Q24H IVPB Last administered on 01/19/19at 12:55; Admin Dose 200 MLS/HR; Start 01/16/19 at 12:00 Lorazepam (Ativan) 0.5 mg Q6H PRN IV AGITATION Last administered on 01/16/19at 23 :28; Admin Dose 0.5 MG; Start 01/16/19 at 23:30 Diphenhydramine HCl (Benadryl) 25 mg TID PRN PO ITCHING; Start 01/18/19 at 15:30 Hydrocortisone (Hydrocortisone 0.5% Oint) 1 applic BID TOP Last administered on 01/19/19at 16:56; Admin Dose 1 APPLIC; Start 01/19/19 at 16:00 LUBA MYERS MD Jan 19, 2019 17:36
[2019-01-20 03:34] VITALS: BP 158/74; PULSE 61; RESP 20
[2019-01-20] MEDS: PANTOPRAZOLE (EC) 40 MG TAB PO SCH (05:54)
[2019-01-20] MEDS: LEVOTHYROXINE 25 MCG TAB PO SCH (05:55)
[2019-01-20 07:23] VITALS: BP 158/70; PULSE 60; RESP 20
[2019-01-20] MEDS: ESCITALOPRAM 10 MG TAB PO SCH (08:55)
[2019-01-20] MEDS: AMIODARONE 200 MG TAB PO SCH ×2 (08:57→19:51)
[2019-01-20] MEDS: HYDROCORTISONE 0.5% 28.35 GM OINT TOP SCH ×2 (08:57→19:47)
[2019-01-20 11:43] VITALS: BP 140/67; PULSE 60; RESP 20
[2019-01-20] MEDS: CIPROFLOXACIN 400MG/D5W 200 ML IVPB SCH (12:10)
--- NOTE | 2019-01-20 14:02 | CONS ---
Assessment/Plan Assessment/Plan Assessment/Plan (Daily) Assessment/Plan Assessment/Plan (Daily) 78 yo male presented with crampy abdominal pain, hypotensive and one episode of nausea 1. Bradycardia with episode of hypotension, most probably related to sick sinus syndrome. 2. Abdominal pain -resolved 3. History of anal cancer, status post radiation and chemotherapy. 4. H/O abdominal aortic aneurysm -Status post endoclip stasis for lower abdominal aortic aneurysm. 5. Major depression. 6. Diverticulosis 7. Mild pulmonary emphysema 8. Mild hiatal hernia 9. Osteopenia 10. Mild thrombocytopenia 11. UTI -preliminary urine cx shows gram neg rods 12. Status post pacemaker insertion 13. Pneumothorax status small chest tube placement 8.5 Bengali pigtail catheter. Pneumothorax has resolved 14 anemia, no active bleeding. Hematocrit is 28 now Plan Continue present care Once he is stable we will do EGD and colonoscopy for his iron deficiency anemia patient ferritin is low at 36 Discussed with the patient and the environmental science instructor for possible EGD colonoscopy and they have agreed for the procedure Hopefully chest tube will be removed today Consultation Date/Type/Reason Admit Date/Time Jan 12, 2019 at 20:17 Initial Consult Date 01/13/19 Requesting Provider: SYLVAIN PORRAS MD Date/Time of Note DATE: 01/20/19 TIME: 14:01 24 HR Interval Summary Constitutional: improved Exam/Review of Systems Exam Vitals Vital Signs Date Temp Pulse Resp B/P (MAP) Pulse Ox O2 O2 Flow FiO2 Time Delivery Rate 01/20/19 98.1 60 20 140/67 96 Nasal 11:43 (91) Cannula 01/20/19 2.0 10:03 Intake and Output 01/19/19 01/19/19 01/20/19 1515:00 23:00 07:00 IntakeIntake Total 320 ml 360 ml 460 ml OutputOutput Total 1500 ml 1410 ml BalanceBalance 320 ml -1140 ml -950 ml Constitutional: alert, oriented, well developed Psych: no complaints, nl mood/affect Head: normocephalic, atraumatic Eyes: nl conjunctiva, EOMI, nl lids, nl sclera, PERRL ENMT: nl external ears & nose, nl lips & teeth, nl nasal mucosa & septum Neck: supple, non-tender Respiratory: clear to auscultation, normal air movement Cardiovascular: regular rate and rhythm, nl pulses Gastrointestinal: soft, nl liver, spleen, non-tender Musculoskeletal: nl extremities to inspection, nl gait and stance Extremities: normal pulses Neurological: BEATER AND PULPER FEEDER II-XII intact, nl mental status, nl speech, nl strength Skin: nl turgor; No rash or lesions Lymph: nl lymph nodes Results Result Diagram: 01/19/1951101/19/19511 Medications Medication Current Medications IV Flush (NS 3 ml) 3 ml PER PROTOCOL IV ; Start 01/13/19 at 03:00 Ondansetron HCl (Zofran Inj) 4 mg Q6H PRN IV NAUSEA/VOMITING Last administered on 01/13/19 15:48; Admin Dose 4 MG; Start 01/13/19 at 03:00 Acetaminophen (Tylenol Tab) 650 mg Q6H PRN PO .PAIN 1-3 OR TEMP Last administered on 01/14/19 10:53; Admin Dose 650 MG; Start 01/13/19 at 03:00 Morphine Sulfate (morphine) 2 mg Q4H PRN IV .SEVERE PAIN 7-10 Last administered on 01/16/19at 16:11; Admin Dose 2 MG; Start 01/13/19 at 03:00 Pantoprazole (Protonix Tab) 40 mg DAILY@06 PO Last administered on 01/20/19 05:54; Admin Dose 40 MG; Start 01/13/19 at 06:00 Atropine Sulfate (Atropine (Syringe)) 0.4 mg Q2H PRN IV for HR< 50/mt; Start 01/13/19 at 03:00 Escitalopram Oxalate (Lexapro) 20 mg DAILY PO Last administered on 01/20/19 08:55; Admin Dose 20 MG; Start 01/13/19 at 17:30 Levothyroxine Sodium (Synthroid) 25 mcg DAILY@06 PO Last administered on 01/20/19 05:55; Admin Dose 25 MCG; Start 01/16/19 at 06:00 Amiodarone HCl (Cordarone) 400 mg BID PO Last administered on 01/20/19 08:57; Admin Dose 400 MG; Start 01/16/19 at 10:15 Ciprofloxacin/ Dextrose 200 ml @ 200 mls/hr Q24H IVPB Last administered on 01/20/19 12:10; Admin Dose 200 MLS/HR; Start 01/16/19 at 12:00 Lorazepam (Ativan) 0.5 mg Q6H PRN IV AGITATION Last administered on 01/16/19at 23 :28; Admin Dose 0.5 MG; Start 01/16/19 at 23:30 Diphenhydramine HCl (Benadryl) 25 mg TID PRN PO ITCHING; Start 01/18/19 at 15:30 Hydrocortisone (Hydrocortisone 0.5% Oint) 1 applic BID TOP Last administered on 01/20/19at 08:57; Admin Dose 1 APPLIC; Start 01/19/19 at 16:00 NICOLAS ACKERMAN MD Jan 20, 2019 14:02
[2019-01-20 15:49] VITALS: BP 143/65; PULSE 60; RESP 20
--- NOTE | 2019-01-20 18:39 | PN ---
DATE: 01/20/2019 SUBJECTIVE: The patient is overall comfortable, denies any chest pain or shortness of breath. PHYSICAL EXAMINATION VITAL SIGNS: Temperature 98.1, blood pressure 140/65. GENERAL: Mild pallor with cyanosis. CHEST: Clinically clear anteriorly. HEART: S1, S2 with no definite gallops. EXTREMITIES: No edema. IMPRESSION: 1. Recurrent syndrome, status post pacemaker placement. 2. Iatrogenic pneumothorax status post left chest tube placement, chest tube being clamped. 3. Severe anemia with thrombocytopenia. 4. Mild hypothyroidism. 5. History of anorectal cancer in remission. PLAN: Will continue present treatment. Will recheck labs in a.m. Chest tube removal per Dr. Jasen carl Dictated By: SYLVAIN PORRAS MD, SR/JOHNNY Conf#: [id number] DID#: [id number]
[2019-01-21] VITALS: BP 141/67; PULSE 60; RESP 18
[2019-01-21 04:15] VITALS: BP 149/70; PULSE 60; RESP 19
[2019-01-21] MEDS: LEVOTHYROXINE 25 MCG TAB PO SCH (05:47)
[2019-01-21] MEDS: PANTOPRAZOLE (EC) 40 MG TAB PO SCH (05:47)
[2019-01-21 07:09] VITALS: BP 134/65; PULSE 60; RESP 18
[2019-01-21] MEDS: HYDROCORTISONE 0.5% 28.35 GM OINT TOP SCH ×2 (09:00→21:00)
--- NOTE | 2019-01-21 09:19 | CONS ---
Assessment/Plan Assessment/Plan Assessment/Plan (Daily) Assessment/Recs: # Sick sinus with severe bradycardia/jxn rhythm- s/p PPM with small PTX # small apical ptx s/p ppm- pulmonary consulting, continue high flow o2 via nc # afib- new onset post ppm, monitoring on tele. unable to add anticoag given oozing from ppm. will consider once stable if remains in afib. will add po amio 400mg po bid. # s/p AAA - stable on ct scan # abd pain- resolved, ct scan negative # anemia # edema - neg venous duplex, possible related to derrek, improved >>CT removal per pulmonary however appears ready to be pulled today >>Continue on current meds >>Consider anticoagulation if Afib recurrent- none has been noted >> continue on current meds >>Ok from cardiac standpoint for dispo planning and office follow up Consultation Date/Type/Reason Admit Date/Time Jan 12, 2019 at 20:17 Initial Consult Date 01/13/19 Type of Consult Cardiology Requesting Provider: SYLVAIN PORRAS MD Date/Time of Note DATE: 01/21/19 TIME: 09:19 24 HR Interval Summary Free Text/Dictation pt without new complaints. Wants to go home. Exam/Review of Systems Vital Signs Vitals Vital Signs Date Temp Pulse Resp B/P (MAP) Pulse Ox O2 O2 Flow FiO2 Time Delivery Rate 01/21/19 97.6 60 18 134/65 97 Room Air 07:09 (88) 01/20/19 2.0 10:03 Intake and Output 01/20/19 01/20/19 01/21/19 1515:00 23:00 07:00 IntakeIntake Total 220 ml 350 ml 440 ml OutputOutput Total 500 ml 1300 ml BalanceBalance 220 ml -150 ml -860 ml Exam Constitutional: alert, oriented, frail Psych: no complaints Head: normocephalic Eyes: nl conjunctiva, EOMI ENMT: nl external ears & nose Neck: supple; No jvd Respiratory: clear to auscultation Cardiovascular: regular rate and rhythm; No S3 Gastrointestinal: soft Musculoskeletal: nl extremities to inspection Labs Result Diagram: 01/21/19 0532 01/21/19 0532 Results 24hrs Laboratory Tests Test 01/21/19 05:32 White Blood Count 7.4 Red Blood Count 3.60 L Hemoglobin 9.2 L Hematocrit 29.2 L Mean Corpuscular Volume 81.1 L Mean Corpuscular Hemoglobin 25.6 L Mean Corpuscular Hemoglobin Concent 31.5 L Red Cell Distribution Width 18.4 H Platelet Count 156 Mean Platelet Volume 10.1 Immature Granulocytes % 0.500 H Neutrophils % 72.8 Lymphocytes % 12.8 L Monocytes % 10.5 Eosinophils % 3.0 Basophils % 0.4 Nucleated Red Blood Cells % 0.0 Immature Granulocytes # 0.040 H Neutrophils # 5.4 Lymphocytes # 0.9 Monocytes # 0.8 Eosinophils # 0.2 Basophils # 0.0 Nucleated Red Blood Cells # 0.0 Sodium Level 139 Potassium Level 3.5 Chloride Level 105 Carbon Dioxide Level 29 Anion Gap 5 Blood Urea Nitrogen 16 Creatinine 0.88 Est Glomerular Filtrat Rate mL/min Glucose Level 90 Calcium Level 8.4 Medications Medications Current Medications IV Flush (NS 3 ml) 3 ml PER PROTOCOL IV ; Start 01/13/19 at 03:00 Ondansetron HCl (Zofran Inj) 4 mg Q6H PRN IV NAUSEA/VOMITING Last administered on 01/13/19 15:48; Admin Dose 4 MG; Start 01/13/19 at 03:00 Acetaminophen (Tylenol Tab) 650 mg Q6H PRN PO .PAIN 1-3 OR TEMP Last administered on 01/14/19 10:53; Admin Dose 650 MG; Start 01/13/19 at 03:00 Morphine Sulfate (morphine) 2 mg Q4H PRN IV .SEVERE PAIN 7-10 Last administered on 01/16/19 16:11; Admin Dose 2 MG; Start 01/13/19 at 03:00 Pantoprazole (Protonix Tab) 40 mg DAILY@06 PO Last administered on 01/21/19 05:47; Admin Dose 40 MG; Start 01/13/19 at 06:00 Atropine Sulfate (Atropine (Syringe)) 0.4 mg Q2H PRN IV for HR< 50/mt; Start 01/13/19 at 03:00 Escitalopram Oxalate (Lexapro) 20 mg DAILY PO Last administered on 01/20/19 08:55; Admin Dose 20 MG; Start 01/13/19 at 17:30 Levothyroxine Sodium (Synthroid) 25 mcg DAILY@06 PO Last administered on 01/21/19 05:47; Admin Dose 25 MCG; Start 01/16/19 at 06:00 Amiodarone HCl (Cordarone) 400 mg BID PO Last administered on 01/20/19 19:51; Admin Dose 400 MG; Start 01/16/19 at 10:15 Ciprofloxacin/ Dextrose 200 ml @ 200 mls/hr Q24H IVPB Last administered on 01/20/19 12:10; Admin Dose 200 MLS/HR; Start 01/16/19 at 12:00 Lorazepam (Ativan) 0.5 mg Q6H PRN IV AGITATION Last administered on 01/16/19 23:28; Admin Dose 0.5 MG; Start 01/16/19 at 23:30 Diphenhydramine HCl (Benadryl) 25 mg TID PRN PO ITCHING; Start 01/18/19 at 15:30 Hydrocortisone (Hydrocortisone 0.5% Oint) 1 applic BID TOP Last administered on 01/20/19 19:47; Admin Dose 1 APPLIC; Start 01/19/19 at 16:00 LUBA MYERS MD Jan 21, 2019 09:19
[2019-01-21] MEDS: ESCITALOPRAM 10 MG TAB PO SCH (09:25)
[2019-01-21] MEDS: AMIODARONE 200 MG TAB PO SCH ×2 (09:26→20:59)
[2019-01-21 11:15] VITALS: BP 134/65; PULSE 60; RESP 18
--- NOTE | 2019-01-21 12:12 | CONS ---
Consult Date/Type/Reason Admit Date/Time Jan 12, 2019 at 20:17 Initial Consult Date 01/13/19 Type of Consult Pulmonary Requesting Provider: SYLVAIN PORRAS MD Date/Time of Note DATE: 01/21/19 TIME: 12:11 Subjective patient comfortable this morning no respiratory distress chest x-ray shows no pneumothorax. Objective Vital Signs Date Temp Pulse Resp B/P (MAP) Pulse Ox O2 O2 Flow FiO2 Time Delivery Rate 01/21/19 97.6 60 18 134/65 98 Room Air 11:15 (88) 01/20/19 2.0 10:03 Intake and Output 01/20/19 01/20/19 01/21/19 1515:00 23:00 07:00 IntakeIntake Total 220 ml 350 ml 440 ml OutputOutput Total 500 ml 1300 ml BalanceBalance 220 ml -150 ml -860 ml Exam GENERAL: Elderly gentleman comfortable at rest no acute distress VITAL SIGNS: per chart NECK: Supple. No JVD or lymphadenopathy. CARDIAC EXAM: S1, S2. No added sounds or murmurs. CHEST: clear bilaterally, No added sounds, rales or wheezes ABDOMEN: Soft, nontender. No guarding or rebound. EXTREMITIES: No cyanosis, clubbing or edema. NEUROLOGIC: Generalized weakness. No focal deficits. Vent Setting Fraction of Inspired Oxygen pe: 100 Results/Medications Result Diagram: 01/21/19 0532 01/21/19 0532 Results 24 hrs Laboratory Tests Test 01/21/19 05:32 White Blood Count 7.4 Red Blood Count 3.60 L Hemoglobin 9.2 L Hematocrit 29.2 L Mean Corpuscular Volume 81.1 L Mean Corpuscular Hemoglobin 25.6 L Mean Corpuscular Hemoglobin Concent 31.5 L Red Cell Distribution Width 18.4 H Platelet Count 156 Mean Platelet Volume 10.1 Immature Granulocytes % 0.500 H Neutrophils % 72.8 Lymphocytes % 12.8 L Monocytes % 10.5 Eosinophils % 3.0 Basophils % 0.4 Nucleated Red Blood Cells % 0.0 Immature Granulocytes # 0.040 H Neutrophils # 5.4 Lymphocytes # 0.9 Monocytes # 0.8 Eosinophils # 0.2 Basophils # 0.0 Nucleated Red Blood Cells # 0.0 Sodium Level 139 Potassium Level 3.5 Chloride Level 105 Carbon Dioxide Level 29 Anion Gap 5 Blood Urea Nitrogen 16 Creatinine 0.88 Est Glomerular Filtrat Rate mL/min Glucose Level 90 Calcium Level 8.4 Medications Current Medications IV Flush (NS 3 ml) 3 ml PER PROTOCOL IV ; Start 01/13/19 at 03:00 Ondansetron HCl (Zofran Inj) 4 mg Q6H PRN IV NAUSEA/VOMITING Last administered on 01/13/19 15:48; Admin Dose 4 MG; Start 01/13/19 at 03:00 Acetaminophen (Tylenol Tab) 650 mg Q6H PRN PO .PAIN 1-3 OR TEMP Last administered on 01/14/19 10:53; Admin Dose 650 MG; Start 01/13/19 at 03:00 Morphine Sulfate (morphine) 2 mg Q4H PRN IV .SEVERE PAIN 7-10 Last administered on 01/16/19 16:11; Admin Dose 2 MG; Start 01/13/19 at 03:00 Pantoprazole (Protonix Tab) 40 mg DAILY@06 PO Last administered on 01/21/19 05:47; Admin Dose 40 MG; Start 01/13/19 at 06:00 Atropine Sulfate (Atropine (Syringe)) 0.4 mg Q2H PRN IV for HR< 50/mt; Start 01/13/19 at 03:00 Escitalopram Oxalate (Lexapro) 20 mg DAILY PO Last administered on 01/21/19 09:25; Admin Dose 20 MG; Start 01/13/19 at 17:30 Levothyroxine Sodium (Synthroid) 25 mcg DAILY@06 PO Last administered on 01/21/19 05:47; Admin Dose 25 MCG; Start 01/16/19 at 06:00 Amiodarone HCl (Cordarone) 400 mg BID PO Last administered on 01/21/19 09:26; Admin Dose 400 MG; Start 01/16/19 at 10:15 Ciprofloxacin/ Dextrose 200 ml @ 200 mls/hr Q24H IVPB Last administered on 01/20/19 12:10; Admin Dose 200 MLS/HR; Start 01/16/19 at 12:00 Lorazepam (Ativan) 0.5 mg Q6H PRN IV AGITATION Last administered on 01/16/19 23:28; Admin Dose 0.5 MG; Start 01/16/19 at 23:30 Diphenhydramine HCl (Benadryl) 25 mg TID PRN PO ITCHING; Start 01/18/19 at 15:30 Hydrocortisone (Hydrocortisone 0.5% Oint) 1 applic BID TOP Last administered on 01/20/19at 19:47; Admin Dose 1 APPLIC; Start 01/19/19 at 16:00 Assessment/Plan Hospital Course (Demo Recall) Assessment 1. Sick sinus syndrome status post pacemaker placement 2. Iatrogenic pneumothorax no change despite high flow O2. Now status post pigtail catheter placement with resolution of pneumothorax currently on suction Plan 1. Continue chest tube management, no evidence of pneumothorax on chest tube clamping will request radiology removed DC planning okay from pulmonary standpoint. RENE HONG MD, [facility] Jan 21, 2019 12:12
[2019-01-21] MEDS: CIPROFLOXACIN 400MG/D5W 200 ML IVPB SCH (12:29)
[2019-01-21 15:10] VITALS: BP 126/59; PULSE 60; RESP 19
[2019-01-21] MEDS ORDERED: POTASSIUM CHLORIDE (SR) 20 MEQ TAB PO STA (15:16)
[2019-01-21] MEDS: LOPERAMIDE 2 MG CAP PO PRN (16:22)
--- NOTE | 2019-01-21 17:57 | CONS ---
Assessment/Plan Assessment/Plan Assessment/Plan (Daily) Assessment/Plan Assessment/Plan (Daily) 78 yo male presented with crampy abdominal pain, hypotensive and one episode of nausea 1. Bradycardia with episode of hypotension, most probably related to sick sinus syndrome. 2. Abdominal pain -resolved 3. History of anal cancer, status post radiation and chemotherapy. 4. H/O abdominal aortic aneurysm -Status post endoclip stasis for lower abdominal aortic aneurysm. 5. Major depression. 6. Diverticulosis 7. Mild pulmonary emphysema 8. Mild hiatal hernia 9. Osteopenia 10. Mild thrombocytopenia 11. UTI -preliminary urine cx shows gram neg rods 12. Status post pacemaker insertion 13. Pneumothorax status small chest tube placement 8.5 [place] pigtail catheter. Pneumothorax has resolved 14 anemia, no active bleeding. Hematocrit is 28 now Plan Continue present care Once he is stable we will do EGD and colonoscopy for his iron deficiency anemia patient ferritin is low at 36, on Monday Discussed with the patient and the corporate development officer for possible EGD colonoscopy and they have agreed for the procedure Consultation Date/Type/Reason Admit Date/Time Jan 12, 2019 at 20:17 Initial Consult Date 01/13/19 Requesting Provider: SYLVAIN PORRAS MD Date/Time of Note DATE: 01/21/19 TIME: 17:57 24 HR Interval Summary Free Text/Dictation Chest tube removed patient is comfortable. No shortness of breath no abdominal pain Constitutional: improved Exam/Review of Systems Exam Vitals Vital Signs Date Temp Pulse Resp B/P (MAP) Pulse Ox O2 O2 Flow FiO2 Time Delivery Rate 01/21/19 97.7 60 19 126/59 98 Room Air 15:10 (81) 01/20/19 2.0 10:03 Intake and Output 01/20/19 01/20/19 01/21/19 1515:00 23:00 07:00 IntakeIntake Total 220 ml 350 ml 440 ml OutputOutput Total 500 ml 1300 ml BalanceBalance 220 ml -150 ml -860 ml Constitutional: alert, oriented, well developed Psych: no complaints, nl mood/affect Head: normocephalic, atraumatic Eyes: nl conjunctiva, EOMI, nl lids, nl sclera, PERRL ENMT: nl external ears & nose, nl lips & teeth, nl nasal mucosa & septum Neck: supple, non-tender Respiratory: clear to auscultation, normal air movement Cardiovascular: regular rate and rhythm, nl pulses Gastrointestinal: soft, nl liver, spleen, non-tender Musculoskeletal: nl extremities to inspection, nl gait and stance Extremities: normal pulses Neurological: SCENIC DESIGNER II-XII intact, nl mental status, nl speech, nl strength Skin: nl turgor; No rash or lesions Lymph: nl lymph nodes Results Result Diagram: 01/21/19 0532 01/21/19 0532 Results 24hrs Laboratory Tests Test 01/21/19 05:32 White Blood Count 7.4 Red Blood Count 3.60 L Hemoglobin 9.2 L Hematocrit 29.2 L Mean Corpuscular Volume 81.1 L Mean Corpuscular Hemoglobin 25.6 L Mean Corpuscular Hemoglobin Concent 31.5 L Red Cell Distribution Width 18.4 H Platelet Count 156 Mean Platelet Volume 10.1 Immature Granulocytes % 0.500 H Neutrophils % 72.8 Lymphocytes % 12.8 L Monocytes % 10.5 Eosinophils % 3.0 Basophils % 0.4 Nucleated Red Blood Cells % 0.0 Immature Granulocytes # 0.040 H Neutrophils # 5.4 Lymphocytes # 0.9 Monocytes # 0.8 Eosinophils # 0.2 Basophils # 0.0 Nucleated Red Blood Cells # 0.0 Sodium Level 139 Potassium Level 3.5 Chloride Level 105 Carbon Dioxide Level 29 Anion Gap 5 Blood Urea Nitrogen 16 Creatinine 0.88 Est Glomerular Filtrat Rate mL/min Glucose Level 90 Calcium Level 8.4 Medications Medication Current Medications IV Flush (NS 3 ml) 3 ml PER PROTOCOL IV ; Start 01/13/19 at 03:00 Ondansetron HCl (Zofran Inj) 4 mg Q6H PRN IV NAUSEA/VOMITING Last administered on 01/13/19at 15:48; Admin Dose 4 MG; Start 01/13/19 at 03:00 Acetaminophen (Tylenol Tab) 650 mg Q6H PRN PO .PAIN 1-3 OR TEMP Last administered on 01/14/19at 10:53; Admin Dose 650 MG; Start 01/13/19 at 03:00 Morphine Sulfate (morphine) 2 mg Q4H PRN IV .SEVERE PAIN 7-10 Last administered on 01/16/19at 16:11; Admin Dose 2 MG; Start 01/13/19 at 03:00 Pantoprazole (Protonix Tab) 40 mg DAILY@06 PO Last administered on 01/21/19 05:47; Admin Dose 40 MG; Start 01/13/19 at 06:00 Atropine Sulfate (Atropine (Syringe)) 0.4 mg Q2H PRN IV for HR< 50/mt; Start 01/13/19 at 03:00 Escitalopram Oxalate (Lexapro) 20 mg DAILY PO Last administered on 01/21/19 09:25; Admin Dose 20 MG; Start 01/13/19 at 17:30 Levothyroxine Sodium (Synthroid) 25 mcg DAILY@06 PO Last administered on 01/21/19 05:47; Admin Dose 25 MCG; Start 01/16/19 at 06:00 Amiodarone HCl (Cordarone) 400 mg BID PO Last administered on 01/21/19 09:26; Admin Dose 400 MG; Start 01/16/19 at 10:15 Ciprofloxacin/ Dextrose 200 ml @ 200 mls/hr Q24H IVPB Last administered on 01/21/19 12:29; Admin Dose 200 MLS/HR; Start 01/16/19 at 12:00 Lorazepam (Ativan) 0.5 mg Q6H PRN IV AGITATION Last administered on 01/16/19 23:28; Admin Dose 0.5 MG; Start 01/16/19 at 23:30 Diphenhydramine HCl (Benadryl) 25 mg TID PRN PO ITCHING; Start 01/18/19 at 15:30 Hydrocortisone (Hydrocortisone 0.5% Oint) 1 applic BID TOP Last administered on 01/20/19 19:47; Admin Dose 1 APPLIC; Start 01/19/19 at 16:00 Loperamide HCl (Imodium Cap) 2 mg QID PRN PO DIARRHEA Last administered on 01/21/19 16:22; Admin Dose 2 MG; Start 01/21/19 at 15:30 NICOLAS ACKERMAN MD Jan 21, 2019 17:57
--- NOTE | 2019-01-21 18:30 | PN ---
DATE: 01/21/2019 SUBJECTIVE: The patient denies any abdominal pain. Denies any chest pain or shortness of breath. PHYSICAL EXAMINATION: VITAL SIGNS: Temperature 97.6, blood pressure 134/65, O2 saturation 98% on room air. CHEST: Clear anteriorly. Chest tube in place. ABDOMEN: Soft, nontender, no hepatosplenomegaly. EXTREMITIES: No edema. LABORATORY DATA: Sodium 139, potassium 3.5, BUN 16, creatinine 0.88, WBC count 7.4, hematocrit 28.2, platelet count 1000. Chest x-ray today shows left basilar opacity, likely atelectatic changes. IMPRESSION: 1. Status post pacemaker placement. Sick sinus syndrome with iatrogenic pneumothorax clinically imp roved. 2. Anemia, thrombocytopenia, improving. 3. Mild hypothyroidism. 4. History of anorectal cancer in remission. PLAN: We will follow the condition with Dr. Shaver. Consider removal of the chest tube after which we will initiate physical therapy. Dictated By: SYLVAIN PORRAS MD, SR/JOHNNY Conf#: [id number] DID#: [id number]
[2019-01-21 20:02] VITALS: BP 130/62; PULSE 98; RESP 18
[2019-01-22] VITALS (7 sets, daily range): BP systolic 125–154; BP diastolic 58–70; PULSE 57–61; RESP 18–23
[2019-01-22] MEDS: LOPERAMIDE 2 MG CAP PO PRN (03:05)
[2019-01-22] MEDS: LEVOTHYROXINE 25 MCG TAB PO SCH (06:26)
[2019-01-22] MEDS: PANTOPRAZOLE (EC) 40 MG TAB PO SCH (06:26)
[2019-01-22] MEDS: ESCITALOPRAM 10 MG TAB PO SCH (08:34)
[2019-01-22] MEDS: AMIODARONE 200 MG TAB PO SCH ×2 (08:35→21:00)
[2019-01-22] MEDS: HYDROCORTISONE 0.5% 28.35 GM OINT TOP SCH ×2 (08:36→20:59)
--- NOTE | 2019-01-22 09:28 | CONS ---
Assessment/Plan Assessment/Plan Assessment/Plan (Daily) Assessment/Plan Assessment/Plan (Daily) 78 yo male presented with crampy abdominal pain, hypotensive and one episode of nausea 1. Bradycardia with episode of hypotension, most probably related to sick sinus syndrome. 2. Abdominal pain -resolved 3. History of anal cancer, status post radiation and chemotherapy. 4. H/O abdominal aortic aneurysm -Status post endoclip stasis for lower abdominal aortic aneurysm. 5. Major depression. 6. Diverticulosis 7. Mild pulmonary emphysema 8. Mild hiatal hernia 9. Osteopenia 10. Mild thrombocytopenia 11. UTI -preliminary urine cx shows gram neg rods 12. Status post pacemaker insertion 13. Pneumothorax status small chest tube placement 8.5 [place] pigtail catheter. Pneumothorax has resolved 14 anemia, no active bleeding. Hematocrit is 28 now Plan Continue present care Once he is stable we will do EGD and colonoscopy for his iron deficiency anemia patient ferritin is low at 36, on Monday Discussed with the patient and the deputy probation officer for possible EGD colonoscopy and they have agreed for the procedure. pt is schedule for colonoscopy,EGD tomorrow Consultation Date/Type/Reason Admit Date/Time Jan 12, 2019 at 20:17 Initial Consult Date 01/13/19 Requesting Provider: SYLVAIN PORRAS MD Date/Time of Note DATE: 01/22/19 TIME: 09:27 24 HR Interval Summary Constitutional: improved Exam/Review of Systems Exam Vitals Vital Signs Date Temp Pulse Resp B/P (MAP) Pulse Ox O2 O2 Flow FiO2 Time Delivery Rate 01/22/19 97.8 60 20 148/68 96 Room Air 07:19 (94) 01/20/19 2.0 10:03 Intake and Output 01/21/19 01/21/19 01/22/19 1515:00 23:00 07:00 IntakeIntake Total 1020 ml 100 ml OutputOutput Total 550 ml 500 ml BalanceBalance 470 ml -400 ml Constitutional: alert, oriented, well developed Psych: no complaints, nl mood/affect Head: normocephalic, atraumatic Eyes: nl conjunctiva, EOMI, nl lids, nl sclera, PERRL ENMT: nl external ears & nose, nl lips & teeth, nl nasal mucosa & septum Neck: supple, non-tender Respiratory: clear to auscultation, normal air movement Cardiovascular: regular rate and rhythm, nl pulses Gastrointestinal: soft, nl liver, spleen, non-tender Musculoskeletal: nl extremities to inspection, nl gait and stance Extremities: normal pulses Neurological: POLICE SHIFT COMMANDER II-XII intact, nl mental status, nl speech, nl strength Skin: nl turgor; No rash or lesions Lymph: nl lymph nodes Results Result Diagram: 01/21/1932 01/21/1932 Medications Medication Current Medications IV Flush (NS 3 ml) 3 ml PER PROTOCOL IV ; Start 01/13/19 at 03:00 Ondansetron HCl (Zofran Inj) 4 mg Q6H PRN IV NAUSEA/VOMITING Last administered on 01/13/19 15:48; Admin Dose 4 MG; Start 01/13/19 at 03:00 Acetaminophen (Tylenol Tab) 650 mg Q6H PRN PO .PAIN 1-3 OR TEMP Last administered on 01/14/19 10:53; Admin Dose 650 MG; Start 01/13/19 at 03:00 Morphine Sulfate (morphine) 2 mg Q4H PRN IV .SEVERE PAIN 7-10 Last administered on 01/16/19at 16:11; Admin Dose 2 MG; Start 01/13/19 at 03:00 Pantoprazole (Protonix Tab) 40 mg DAILY@06 PO Last administered on 01/22/19 06:26; Admin Dose 40 MG; Start 01/13/19 at 06:00 Atropine Sulfate (Atropine (Syringe)) 0.4 mg Q2H PRN IV for HR< 50/mt; Start 01/13/19 at 03:00 Escitalopram Oxalate (Lexapro) 20 mg DAILY PO Last administered on 01/22/19 08:34; Admin Dose 20 MG; Start 01/13/19 at 17:30 Levothyroxine Sodium (Synthroid) 25 mcg DAILY@06 PO Last administered on 06:26; Admin Dose 25 MCG; Start 01/16/19 at 06:00 Amiodarone HCl (Cordarone) 400 mg BID PO Last administered on 01/22/19 08:35; Admin Dose 400 MG; Start 01/16/19 at 10:15 Ciprofloxacin/ Dextrose 200 ml @ 200 mls/hr Q24H IVPB Last administered on 01/21/19 12:29; Admin Dose 200 MLS/HR; Start 01/16/19 at 12:00 Lorazepam (Ativan) 0.5 mg Q6H PRN IV AGITATION Last administered on 01/16/19at 23:28; Admin Dose 0.5 MG; Start 01/16/19 at 23:30 Diphenhydramine HCl (Benadryl) 25 mg TID PRN PO ITCHING; Start 01/18/19 at 15:30 Hydrocortisone (Hydrocortisone 0.5% Oint) 1 applic BID TOP Last administered on 01/22/19at 08:36; Admin Dose 1 APPLIC; Start 01/19/19 at 16:00 Loperamide HCl (Imodium Cap) 2 mg QID PRN PO DIARRHEA Last administered on 01/22/19at 03:05; Admin Dose 2 MG; Start 01/21/19 at 15:30 Polyethylene Glycol/ Electrolytes (Golytely) 4,000 ml ONCE STAT PO ; Start 01/22/19 at 09:22; Stop 01/22/19 at 09:23; Status UNV NICOLAS ACKERMAN MD Jan 22, 2019 09:28
[2019-01-22] MEDS ORDERED: PEG/ELECTROLYTES 4L BTL PO SCH (10:00)
[2019-01-22] MEDS ORDERED: POTASSIUM CHLORIDE (SR) 20 MEQ TAB PO STA (10:57)
--- NOTE | 2019-01-22 11:06 | CONS ---
Consultation Date/Type/Reason Admit Date/Time Jan 12, 2019 at 20:17 Initial Consult Date 01/13/19 Type of Consult Pulmonary Patient's condition is stable. Remains completely awake and alert. Denies any shortness of breath or chest pain. General exam; elderly male, awake and alert. Currently in no distress. On room air. H EENT exam; supple neck, no JVD. No lymphadenopathy. Midline trachea. No thyromegaly. Patient has fair dentition. Chest exam; clear to auscultation. Pacemaker in left chest wall. S1-S2 audible, no murmurs. Abdomen exam; soft, nontender. No organomegaly. Bowel sounds are audible. Extremity exam; no peripheral edema clubbing. PREP MANAGER exam; no focal deficit. Assessment and recommendations; 1. Patient admitted with sick sinus syndrome status post left pacemaker placement with ensuing left pneumothorax with complete interval resolution. Left chest catheter has been removed. Continue current supportive care. Consider discharge. Requesting Provider: SYLVAIN PORRAS MD Date/Time of Note DATE: 01/22/19 TIME: 11:05 Exam/Review of Systems Exam Vitals Vital Signs Date Temp Pulse Resp B/P (MAP) Pulse Ox O2 O2 Flow FiO2 Time Delivery Rate 01/22/19 97.8 60 20 148/68 96 Room Air 07:19 (94) 01/20/19 2.0 10:03 Intake and Output 01/21/19 01/21/19 01/22/19 1515:00 23:00 07:00 IntakeIntake Total 1020 ml 100 ml OutputOutput Total 550 ml 500 ml BalanceBalance 470 ml -400 ml Results Result Diagram: 01/21/19 0532 01/21/19 0532 Medications Medication Current Medications IV Flush (NS 3 ml) 3 ml PER PROTOCOL IV ; Start 01/13/19 at 03:00 Ondansetron HCl (Zofran Inj) 4 mg Q6H PRN IV NAUSEA/VOMITING Last administered on 01/13/19at 15:48; Admin Dose 4 MG; Start 01/13/19 at 03:00 Acetaminophen (Tylenol Tab) 650 mg Q6H PRN PO .PAIN 1-3 OR TEMP Last administered on 01/14/19at 10:53; Admin Dose 650 MG; Start 01/13/19 at 03:00 Morphine Sulfate (morphine) 2 mg Q4H PRN IV .SEVERE PAIN 7-10 Last administered on 01/16/19 16:11; Admin Dose 2 MG; Start 01/13/19 at 03:00 Pantoprazole (Protonix Tab) 40 mg DAILY@06 PO Last administered on 01/22/19 06:26; Admin Dose 40 MG; Start 01/13/19 at 06:00 Atropine Sulfate (Atropine (Syringe)) 0.4 mg Q2H PRN IV for HR< 50/mt; Start 01/13/19 at 03:00 Escitalopram Oxalate (Lexapro) 20 mg DAILY PO Last administered on 01/22/19 08:34; Admin Dose 20 MG; Start 01/13/19 at 17:30 Levothyroxine Sodium (Synthroid) 25 mcg DAILY@06 PO Last administered on 01/22/19 06:26; Admin Dose 25 MCG; Start 01/16/19 at 06:00 Amiodarone HCl (Cordarone) 400 mg BID PO Last administered on 01/22/19 08:35; Admin Dose 400 MG; Start 01/16/19 at 10:15 Ciprofloxacin/ Dextrose 200 ml @ 200 mls/hr Q24H IVPB Last administered on 01/21/19 12:29; Admin Dose 200 MLS/HR; Start 01/16/19 at 12:00 Lorazepam (Ativan) 0.5 mg Q6H PRN IV AGITATION Last administered on 01/16/19 23:28; Admin Dose 0.5 MG; Start 01/16/19 at 23:30 Diphenhydramine HCl (Benadryl) 25 mg TID PRN PO ITCHING; Start 01/18/19 at 15:30 Hydrocortisone (Hydrocortisone 0.5% Oint) 1 applic BID TOP Last administered on 01/22/19 08:36; Admin Dose 1 APPLIC; Start 01/19/19 at 16:00 Loperamide HCl (Imodium Cap) 2 mg QID PRN PO DIARRHEA Last administered on 01/22/19 03:05; Admin Dose 2 MG; Start 01/21/19 at 15:30 Polyethylene Glycol/ Electrolytes (Golytely) 4,000 ml ONCE PO ; Start 01/22/19 at 10:00; Stop 01/22/19 at 16:00 TIFFANY HOWARD Jan 22, 2019 11:06
[2019-01-22] MEDS: CIPROFLOXACIN 400MG/D5W 200 ML IVPB SCH (11:59)
--- NOTE | 2019-01-22 12:41 | PN ---
DATE: 01/22/2019 SUBJECTIVE: The patient is somewhat depressed, crying, denies any chest pain or palpitations. OBJECTIVE: VITAL SIGNS: Temperature 97.8, blood pressure 148/68, O2 sat 96% on room air. CHEST: Clear anteriorly. HEART: S1, S2, with no definite gallops. EXTREMITIES: No edema. Discussed with nursing. The patient's overall functional status is poor. The patient is working wit h physical therapy. IMPRESSION: 1. Status post pacemaker placement for sick sinus syndrome with iatrogenic pneumothorax, clinically improved. Chest tube out. 2. Anemia with thrombocytopenia, improved. 3. Mild hypothyroidism. 4. History of anorectal cancer in remission. 5. Severe debility. PLAN: The patient due to have GI workup including a colonoscopy tomorrow. After that, will discuss with Dr. Vasquez regarding rehabilitation evaluation. Dictated By: SYLVAIN PORRAS MD SR/NTS Conf#: [id number] DID#: [id number] CC: SYLVAIN PORRAS MD;*EndCC*
[2019-01-23] VITALS (10 sets, daily range): BP systolic 115–162; BP diastolic 67–75; PULSE 58–64; RESP 18–22
[2019-01-23] MEDS: LEVOTHYROXINE 25 MCG TAB PO SCH (06:32)
[2019-01-23] MEDS: PANTOPRAZOLE (EC) 40 MG TAB PO SCH (06:33)
[2019-01-23] MEDS: ESCITALOPRAM 10 MG TAB PO SCH (08:17)
[2019-01-23] MEDS: HYDROCORTISONE 0.5% 28.35 GM OINT TOP SCH ×2 (08:17→20:16)
[2019-01-23] MEDS: AMIODARONE 200 MG TAB PO SCH ×2 (08:18→20:15)
--- NOTE | 2019-01-23 10:51 | PN ---
DATE: 01/23/2019 SUBJECTIVE: The patient has generalized weakness. Denies any chest pain or shortness of breath. PHYSICAL EXAMINATION: VITAL SIGNS: Temperature 97.6, blood pressure 157/73, O2 saturation 97% on room air. HEENT: Mild pallor without cyanosis. CHEST: Clear anteriorly. HEART: Has no gallops. LABORATORY DATA: Sodium 141, potassium 4.1, BUN 17 and creatinine 0.88. WBC count 9.1, hematocrit 3 1.1. IMPRESSION: 1. Status post colonoscopy findings . 2. Status post pacemaker placement for sick sinus syndrome with iatrogenic pneumothorax, resolved. Chest tube out. 3. Anemia, thrombocytopenia, improved. 4. Hypothyroidism. 5. History of anorectal cancer, in remission. 6. Severe debility. PLAN: Continue physical therapy. We will request acute rehabilitation unit consultation. Dictated By: SYLVAIN PORRAS MD, SR/JOHNNY Conf#: [id number] DID#: [id number]
--- NOTE | 2019-01-23 11:14 | CONS ---
Consult Date/Type/Reason Admit Date/Time Jan 12, 2019 at 20:17 Initial Consult Date 01/13/19 Type of Consult Pulmonary Requesting Provider: SYLVAIN PORRAS MD Date/Time of Note DATE: 01/23/19 TIME: 11:12 Subjective Patient comfortable this morning following removal of chest tube. Still has significant global weakness and depressed affect. Objective Vital Signs Date Temp Pulse Resp B/P (MAP) Pulse Ox O2 O2 Flow FiO2 Time Delivery Rate 01/23/19 Nasal 3.0 08:00 Cannula 01/23/19 97.6 60 20 157/73 97 07:25 (101) Intake and Output 01/22/19 01/22/19 01/23/19 1515:00 23:00 07:00 IntakeIntake Total 250 ml 1470 ml OutputOutput Total 1100 ml 1800 ml BalanceBalance 250 ml 370 ml -1800 ml Exam GENERAL: VITAL SIGNS: per chart NECK: Supple. No JVD or lymphadenopathy. CARDIAC EXAM: S1, S2. No added sounds or murmurs. CHEST: clear bilaterally, No added sounds, rales or wheezes ABDOMEN: Soft, nontender. No guarding or rebound. EXTREMITIES: No cyanosis, clubbing or edema. NEUROLOGIC: Generalized weakness. No focal deficits. Vent Setting Fraction of Inspired Oxygen pe: 100 Results/Medications Result Diagram: 01/23/1951901/23/19519 Results 24 hrs Laboratory Tests Test 01/23/19 05:20 01/23/19 06:19 White Blood Count 9.1 # Red Blood Count 3.81 L Hemoglobin 9.6 L Hematocrit 31.1 L Mean Corpuscular Volume 81.6 L Mean Corpuscular Hemoglobin 25.2 L Mean Corpuscular Hemoglobin Concent 30.9 L Red Cell Distribution Width 19.4 H Platelet Count 155 Mean Platelet Volume 9.7 Immature Granulocytes % 0.600 H Neutrophils % 70.6 Lymphocytes % 12.5 L Monocytes % 12.0 H Eosinophils % 3.9 Basophils % 0.4 Nucleated Red Blood Cells % 0.0 Immature Granulocytes # 0.050 H Neutrophils # 6.4 Lymphocytes # 1.1 Monocytes # 1.1 H Eosinophils # 0.4 Basophils # 0.0 Nucleated Red Blood Cells # 0.0 Sodium Level 141 Potassium Level 4.1 Chloride Level 106 Carbon Dioxide Level 29 Anion Gap 6 Blood Urea Nitrogen 17 Creatinine 0.88 Est Glomerular Filtrat Rate mL/min Glucose Level 88 Calcium Level 8.5 Lab Scanned Report BLOOD TRANSFUSION Medications Current Medications IV Flush (NS 3 ml) 3 ml PER PROTOCOL IV ; Start 01/13/19 at 03:00 Ondansetron HCl (Zofran Inj) 4 mg Q6H PRN IV NAUSEA/VOMITING Last administered on 01/13/19 15:48; Admin Dose 4 MG; Start 01/13/19 at 03:00 Acetaminophen (Tylenol Tab) 650 mg Q6H PRN PO .PAIN 1-3 OR TEMP Last admini stered on 01/14/19 10:53; Admin Dose 650 MG; Start 01/13/19 at 03:00 Morphine Sulfate (morphine) 2 mg Q4H PRN IV .SEVERE PAIN 7-10 Last administered on 01/16/19 16:11; Admin Dose 2 MG; Start 01/13/19 at 03:00 Pantoprazole (Protonix Tab) 40 mg DAILY@06 PO Last administered on 01/23/19 06:33; Admin Dose 40 MG; Start 01/13/19 at 06:00 Atropine Sulfate (Atropine (Syringe)) 0.4 mg Q2H PRN IV for HR< 50/mt; Start 01/13/19 at 03:00 Escitalopram Oxalate (Lexapro) 20 mg DAILY PO Last administered on 01/23/19 08:17; Admin Dose 20 MG; Start 01/13/19 at 17:30 Levothyroxine Sodium (Synthroid) 25 mcg DAILY@06 PO Last administered on 01/23/19 06:32; Admin Dose 25 MCG; Start 01/16/19 at 06:00 Amiodarone HCl (Cordarone) 400 mg BID PO Last administered on 01/23/19 08:18; Admin Dose 400 MG; Start 01/16/19 at 10:15 Ciprofloxacin/ Dextrose 200 ml @ 200 mls/hr Q24H IVPB Last administered on 01/22/19 11:59; Admin Dose 200 MLS/HR; Start 01/16/19 at 12:00 Lorazepam (Ativan) 0.5 mg Q6H PRN IV AGITATION Last administered on 01/16/19 23:28; Admin Dose 0.5 MG; Start 01/16/19 at 23:30 Diphenhydramine HCl (Benadryl) 25 mg TID PRN PO ITCHING; Start 01/18/19 at 15:30 Hydrocortisone (Hydrocortisone 0.5% Oint) 1 applic BID TOP Last administered on 01/23/19at 08:17; Admin Dose 1 APPLIC; Start 01/19/19 at 16:00 Loperamide HCl (Imodium Cap) 2 mg QID PRN PO DIARRHEA Last administered on 01/22/19at 03:05; Admin Dose 2 MG; Start 01/21/19 at 15:30 Assessment/Plan Hospital Course (Demo Recall) Assessment 1. Sick sinus syndrome status post pacemaker placement 2. Iatrogenic pneumothorax stable following chest tube removal 3. Significant deconditioning Plan 1. Incentive spirometry as tolerated 2. Physical therapy eval 3. Agree with acute rehab eval DC planning okay from pulmonary standpoint. RENE HONG MD, [facility] Jan 23, 2019 11:13
[2019-01-23] MEDS: CIPROFLOXACIN 400MG/D5W 200 ML IVPB SCH (11:31)
--- NOTE | 2019-01-23 12:39 | PREAC ---
Date/Time of Note Date/Time of Note DATE: 01/23/19 TIME: 12:35 Anesthesia Eval and Record Evaluation Time Pre-Procedure Interview DATE: 01/23/19 TIME: 12:35 Age 78 Sex male NPO: 8 hrs Preoperative diagnosis Abdominal pain,colon screening Planned procedure EGD, Colonoscopy Past Medical History Past Medical History: Includes Cardio: HTN, Dyslipidemia, Arrythmia, PPM/AICD Endo: Diabetes Pulm: COPD GI: Obesity Surgery & Anesthesia Issues No known issue Meds Anticoagulation: No Beta Soco within 24 hr: No Reason Beta Soco not given: Pt. not on B-Soco Reported Medications Oxycodone HCl/Acetaminophen (Oxycodone-Acetaminophen 10-325) 1 Each Tablet, 1 EACH PO NEEDED, TAB 01/12/19 Gabapentin* (Gabapentin*) 300 Mg Capsule, 300 MG PO BID, #60 CAP 01/12/19 Escitalopram Oxalate* (Escitalopram Oxalate*) 20 Mg Tablet, 20 MG PO DAILY, #30 TAB 01/12/19 Simvastatin* (Zocor*) 40 Mg Tablet, 40 MG PO QHS, #30 TAB 01/12/19 Oxybutynin Chloride* (Ditropan*) 5 Mg Tablet, 5 MG PO DAILY, TAB 01/12/19 Diazepam* (Diazepam*) 5 Mg Tablet, 5 MG PO DAILY, TAB 01/12/19 Diphenoxylate HCl/Atropine (Diphenoxylate-Atrop 2.5-0.025) 1 Each Tablet, 1 EACH PO TID, TAB 01/12/19 Current Medications IV Flush (NS 3 ml) 3 ml PER PROTOCOL IV ; Start 01/13/19 at 03:00 Ondansetron HCl (Zofran Inj) 4 mg Q6H PRN IV NAUSEA/VOMITING Last administered on 01/13/19at 15:48; Admin Dose 4 MG; Start 01/13/19 at 03:00 Acetaminophen (Tylenol Tab) 650 mg Q6H PRN PO .PAIN 1-3 OR TEMP Last administered on 01/14/19at 10:53; Admin Dose 650 MG; Start 01/13/19 at 03:00 Morphine Sulfate (morphine) 2 mg Q4H PRN IV .SEVERE PAIN 7-10 Last administered on 01/16/19at 16:11; Admin Dose 2 MG; Start 01/13/19 at 03:00 Pantoprazole (Protonix Tab) 40 mg DAILY@06 PO Last administered on 01/23/19 06:33; Admin Dose 40 MG; Start 01/13/19 at 06:00 Atropine Sulfate (Atropine (Syringe)) 0.4 mg Q2H PRN IV for HR< 50/mt; Start 01/13/19 at 03:00 Escitalopram Oxalate (Lexapro) 20 mg DAILY PO Last administered on 01/23/19 08:17; Admin Dose 20 MG; Start 01/13/19 at 17:30 Levothyroxine Sodium (Synthroid) 25 mcg DAILY@06 PO Last administered on 01/23/19 06:32; Admin Dose 25 MCG; Start 01/16/19 at 06:00 Amiodarone HCl (Cordarone) 400 mg BID PO Last administered on 01/23/19 08:18; Admin Dose 400 MG; Start 01/16/19 at 10:15 Ciprofloxacin/ Dextrose 200 ml @ 200 mls/hr Q24H IVPB Last administered on 01/23/19 11:31; Admin Dose 200 MLS/HR; Start 01/16/19 at 12:00 Lorazepam (Ativan) 0.5 mg Q6H PRN IV AGITATION Last administered on 01/16/19 23:28; Admin Dose 0.5 MG; Start 01/16/19 at 23:30 Diphenhydramine HCl (Benadryl) 25 mg TID PRN PO ITCHING; Start 01/18/19 at 15:30 Hydrocortisone (Hydrocortisone 0.5% Oint) 1 applic BID TOP Last administered on 01/23/19 08:17; Admin Dose 1 APPLIC; Start 01/19/19 at 16:00 Loperamide HCl (Imodium Cap) 2 mg QID PRN PO DIARRHEA Last administered on 01/22/19 03:05; Admin Dose 2 MG; Start 01/21/19 at 15:30 Meds reviewed: Yes Allergies Coded Allergies: No Known Allergy (Unverified , 01/17/19) Allergies Reviewed: Yes Labs/Studies Labs Reviewed: Reviewed by anesthesiologist Result Diagram: 01/23/1951901/23/19 0520 Laboratory Tests 01/23/19 05:20 test: N/A Studies: ECG Pre-procedure Exam Last vitals Vital Signs Date Temp Pulse Resp B/P (MAP) Pulse Ox O2 O2 Flow FiO2 Time Delivery Rate 01/23/19 Non 10 12:22 Rebreather 01/23/19 97.4 60 20 162/70 98 11:32 (100) Airway: Adequate mouth opening, Adequate thyromental dist Mallampati: Mallampati III Teeth: Normal Lung: Normal Heart: Normal ASA Physical Status ASA physical status: 4 Emergency: None Planned Anesthetic General/MAC: MAC Planned Pain Management Parenteral pain med Pre-operative Attestations Prior to commencing anesthesia and surgery, the patient was re-evaluated, there was verification of: *The patient's identity *The results of appropriate recent lab work and preoperative vital signs *The above evaluation not changing prior to induction *Anesthetic plan, risk benefits, alternative and complications discussed with patient/family; questions answered; patient/family understands, accepts and wishes to proceed. SANA DIAZ MD Jan 23, 2019 12:39
[2019-01-23] MEDS ORDERED: PROPOFOL 60 ML ONE (12:40)
[2019-01-23] MEDS ORDERED: LIDOCAINE 2% (SDV) 5 ML INJ ONE (12:40)
--- NOTE | 2019-01-23 13:23 | PAC ---
Date/Time of Note Date/Time of Note DATE: 01/23/19 TIME: 13:22 Post-Anesthesia Notes Post-Anesthesia Note Last documented vital signs Vital Signs Date Temp Pulse Resp B/P (MAP) Pulse Ox O2 O2 Flow FiO2 Time Delivery Rate 01/23/19 Non 10 12:22 Rebreather 01/23/19 97.4 60 20 162/70 98 11:32 (100) Activity: WNL Respiratory function: WNL Cardiovascular function: WNL Mental status: Baseline Pain reasonably controlled: Yes Hydration appropriate: Yes Nausea/Vomiting absent: Yes Comments BP:122/56, P:78, Spo2:100%, T:98,8 SANA DIAZ MD Jan 23, 2019 13:23
[2019-01-24 00:14] VITALS: BP 138/63; PULSE 61; RESP 18
[2019-01-24 04:02] VITALS: BP 136/65; PULSE 61; RESP 18
[2019-01-24] MEDS: PANTOPRAZOLE (EC) 40 MG TAB PO SCH (06:20)
[2019-01-24] MEDS: LEVOTHYROXINE 25 MCG TAB PO SCH (06:20)
--- NOTE | 2019-01-24 07:29 | CONS ---
Assessment/Plan Assessment/Plan Hospital Course (Demo Recall) 78 yo male presented with crampy abdominal pain, hypotensive and one episode of nausea No complaints. 1. Bradycardia with episode of hypotension, most probably related to sick sinus syndrome. 2. Abdominal pain -resolved 3. History of anal cancer, status post radiation and chemotherapy. 4. H/O abdominal aortic aneurysm -Status post endoclip stasis for lower abdominal aortic aneurysm. 5. Major depression. 6. Diverticulosis 7. Mild pulmonary emphysema 8. Mild hiatal hernia 9. Osteopenia 10. Mild thrombocytopenia 11. UTI -preliminary urine cx shows gram neg rods 13. Pneumothorax status small chest tube placement 8.5 [place] pigtail catheter. Pneumothorax has resolved 14 Anemia, no active bleeding. 15. S/P EGD and colonoscopy 710: Gastritis and polyps in colon PLAN: Pending histopathology High fiber diet Monitor HH and for active GI bleeding, no signs or symptoms of GI bleeding noted Spoke with EASTON, conservator for the patient and updated him on the results of E GD and colonoscopy. Educated on high fiber and low acid diet. Pt examined and plan of care d/w Dr. Gardiner Consultation Date/Type/Reason Admit Date/Time Jan 12, 2019 at 20:17 Initial Consult Date 01/13/19 Requesting Provider: SYLVAIN PORRAS MD Date/Time of Note DATE: 01/24/19 TIME: 07:19 Exam/Review of Systems Exam Vitals Vital Signs Date Temp Pulse Resp B/P (MAP) Pulse Ox O2 O2 Flow FiO2 Time Delivery Rate 01/24/19 97.7 61 18 136/65 96 Nasal 04:02 (88) Cannula 01/23/19 3.0 20:30 Intake and Output 01/23/19 01/23/19 01/24/19 1515:00 23:00 07:00 IntakeIntake Total 340 ml 200 ml OutputOutput Total 500 ml 400 ml 1300 ml BalanceBalance -500 ml -60 ml -1100 ml Constitutional: alert Psych: no complaints Head: normocephalic Eyes: PERRL Respiratory: normal air movement Cardiovascular: regular rate and rhythm Gastrointestinal: soft, non-tender Neurological: nl mental status Results Result Diagram: 01/23/19 0520 01/23/19 05 Medications Medication Current Medications IV Flush (NS 3 ml) 3 ml PER PROTOCOL IV ; Start 01/13/19 at 03:00 Ondansetron HCl (Zofran Inj) 4 mg Q6H PRN IV NAUSEA/VOMITING Last administered on 01/13/19 15:48; Admin Dose 4 MG; Start 01/13/19 at 03:00 Acetaminophen (Tylenol Tab) 650 mg Q6H PRN PO .PAIN 1-3 OR TEMP Last administered on 01/14/19 10:53; Admin Dose 650 MG; Start 01/13/19 at 03:00 Morphine Sulfate (morphine) 2 mg Q4H PRN IV .SEVERE PAIN 7-10 Last administered on 01/16/19 16:11; Admin Dose 2 MG; Start 01/13/19 at 03:00 Pantoprazole (Protonix Tab) 40 mg DAILY@06 PO Last administered on 01/24/19 06:20; Admin Dose 40 MG; Start 01/13/19 at 06:00 Atropine Sulfate (Atropine (Syringe)) 0.4 mg Q2H PRN IV for HR< 50/mt; Start 01/13/19 at 03:00 Escitalopram Oxalate (Lexapro) 20 mg DAILY PO Last administered on 01/23/19 08:17; Admin Dose 20 MG; Start 01/13/19 at 17:30 Levothyroxine Sodium (Synthroid) 25 mcg DAILY@06 PO Last administered on 01/24/19 06:20; Admin Dose 25 MCG; Start 01/16/19 at 06:00 Amiodarone HCl (Cordarone) 400 mg BID PO Last administered on 01/23/19 20:15; Admin Dose 400 MG; Start 01/16/19 at 10:15 Lorazepam (Ativan) 0.5 mg Q6H PRN IV AGITATION Last administered on 01/16/19 23:28; Admin Dose 0.5 MG; Start 01/16/19 at 23:30 Diphenhydramine HCl (Benadryl) 25 mg TID PRN PO ITCHING; Start 01/18/19 at 15:30 Hydrocortisone (Hydrocortisone 0.5% Oint) 1 applic BID TOP Last administered on 01/23/19 20:16; Admin Dose 1 APPLIC; Start 01/19/19 at 16:00 Loperamide HCl (Imodium Cap) 2 mg QID PRN PO DIARRHEA Last administered on 01/22/19 03:05; Admin Dose 2 MG; Start 01/21/19 at 15:30 DORIS LEBLANC Jan 24, 2019 07:29
[2019-01-24 07:30] VITALS: BP 137/64; PULSE 61; RESP 20
[2019-01-24] MEDS: ESCITALOPRAM 10 MG TAB PO SCH (08:06)
[2019-01-24] MEDS: AMIODARONE 200 MG TAB PO SCH ×2 (08:07→20:47)
[2019-01-24] MEDS: HYDROCORTISONE 0.5% 28.35 GM OINT TOP SCH ×2 (08:07→20:48)
[2019-01-24 11:06] VITALS: BP 111/55; PULSE 61; RESP 18
--- NOTE | 2019-01-24 11:40 | PN ---
DATE: 01/24/2019 SUBJECTIVE: The patient overall feels well, but feels weak. Denies any abdominal pain. PHYSICAL EXAMINATION: VITAL SIGNS: Temperature 98.0, blood pressure 137/64, O2 sats 95% on 2 to 3 liters nasal cannula. CHEST: Clear anteriorly. HEART: S1, S2 heard, no definite gallops. ABDOMEN: Soft, bowel sounds active. Colonoscopy results reviewed. Severe diverticulosis, advised h igh fiber diet. The patient worked with physical therapy IMPRESSION: 1. Sick sinus syndrome, status post permanent pacemaker placement. 2. pneumothorax, resolved. Chest tube out. 3. Thrombocytopenia. 4. Hypothyroidism. 5. History of rectal cancer, in remission. 6. Status post colonoscopy with severe diverticulosis. 7. Severe debility. PLAN: Will continue physical therapy and request rehab consultation. Dictated By: SYLVAIN PORRAS MD, SR/NTS Conf#: [id number] DID#: [id number]
[2019-01-24 15:10] VITALS: BP 128/63; PULSE 60; RESP 18
[2019-01-24 19:12] VITALS: BP 129/60; PULSE 62; RESP 18
[2019-01-24] MEDS: LOPERAMIDE 2 MG CAP PO PRN (20:51)
[2019-01-25 00:43] VITALS: BP 145/67; PULSE 60; RESP 18
[2019-01-25 04:04] VITALS: BP 147/69; PULSE 61; RESP 20
[2019-01-25] MEDS: PANTOPRAZOLE (EC) 40 MG TAB PO SCH (05:11)
[2019-01-25] MEDS: LEVOTHYROXINE 25 MCG TAB PO SCH (05:11)
[2019-01-25 07:16] VITALS: BP 120/62; PULSE 60; RESP 20
[2019-01-25] MEDS: HYDROCORTISONE 0.5% 28.35 GM OINT TOP SCH (09:00)
[2019-01-25] MEDS: ESCITALOPRAM 10 MG TAB PO SCH (09:05)
[2019-01-25] MEDS: AMIODARONE 200 MG TAB PO SCH ×2 (09:06→21:01)
[2019-01-25 11:33] VITALS: BP 138/73; PULSE 68; RESP 20
--- NOTE | 2019-01-25 11:39 | CONS ---
Consult Date/Type/Reason Admit Date/Time Jan 12, 2019 at 20:17 Initial Consult Date 01/13/19 Type of Consult Pulmonary Requesting Provider: SYLVAIN PORRAS MD Date/Time of Note DATE: 01/25/19 TIME: 11:37 Subjective Remains comfortable. Objective Vital Signs Date Temp Pulse Resp B/P (MAP) Pulse Ox O2 O2 Flow FiO2 Time Delivery Rate 01/25/19 98.0 68 20 138/73 97 Room Air 11:33 (94) 01/25/19 3.0 08:05 Intake and Output 01/24/19 01/24/19 01/25/19 1515:00 23:00 07:00 IntakeIntake Total 500 ml 700 ml OutputOutput Total 400 ml 900 ml BalanceBalance 100 ml -200 ml Exam GENERAL: VITAL SIGNS: per chart NECK: Supple. No JVD or lymphadenopathy. CARDIAC EXAM: S1, S2. No added sounds or murmurs. CHEST: clear bilaterally, No added sounds, rales or wheezes ABDOMEN: Soft, nontender. No guarding or rebound. EXTREMITIES: No cyanosis, clubbing or edema. NEUROLOGIC: Generalized weakness. No focal deficits. Vent Setting Fraction of Inspired Oxygen pe: 100 Results/Medications Result Diagram: 01/23/1951901/23/19519 Medications Current Medications IV Flush (NS 3 ml) 3 ml PER PROTOCOL IV ; Start 01/13/19 at 03:00 Ondansetron HCl (Zofran Inj) 4 mg Q6H PRN IV NAUSEA/VOMITING Last administered on 01/13/19at 15:48; Admin Dose 4 MG; Start 01/13/19 at 03:00 Acetaminophen (Tylenol Tab) 650 mg Q6H PRN PO .PAIN 1-3 OR TEMP Last administered on 01/14/19at 10:53; Admin Dose 650 MG; Start 01/13/19 at 03:00 Morphine Sulfate (morphine) 2 mg Q4H PRN IV .SEVERE PAIN 7-10 Last administered on 01/16/19at 16:11; Admin Dose 2 MG; Start 01/13/19 at 03:00 Pantoprazole (Protonix Tab) 40 mg DAILY@06 PO Last administered on 01/25/19at 05:11; Admin Dose 40 MG; Start 01/13/19 at 06:00 Atropine Sulfate (Atropine (Syringe)) 0.4 mg Q2H PRN IV for HR< 50/mt; Start at 03:00 Escitalopram Oxalate (Lexapro) 20 mg DAILY PO Last administered on 01/25/19 09:05; Admin Dose 20 MG; Start 01/13/19 at 17:30 Levothyroxine Sodium (Synthroid) 25 mcg DAILY@06 PO Last administered on 01/25/19 05:11; Admin Dose 25 MCG; Start 01/16/19 at 06:00 Amiodarone HCl (Cordarone) 400 mg BID PO Last administered on 01/25/19 09:06; Admin Dose 400 MG; Start 01/16/19 at 10:15 Lorazepam (Ativan) 0.5 mg Q6H PRN IV AGITATION Last administered on 01/16/19 23:28; Admin Dose 0.5 MG; Start 01/16/19 at 23:30 Diphenhydramine HCl (Benadryl) 25 mg TID PRN PO ITCHING; Start 01/18/19 at 15:30 Hydrocortisone (Hydrocortisone 0.5% Oint) 1 applic BID TOP Last administered on 01/24/19 20:48; Admin Dose 1 APPLIC; Start 01/19/19 at 16:00 Loperamide HCl (Imodium Cap) 2 mg QID PRN PO DIARRHEA Last administered on 01/24/19 20:51; Admin Dose 2 MG; Start 01/21/19 at 15:30 Assessment/Plan Hospital Course (Demo Recall) Assessment 1. Sick sinus syndrome status post pacemaker placement 2. Iatrogenic pneumothorax stable following chest tube removal 3. Significant deconditioning Plan 1. Incentive spirometry as tolerated 2. Physical therapy eval 3. Agree with acute rehab eval 4. address depression. RENE HONG MD, [facility] Jan 25, 2019 11:39
--- NOTE | 2019-01-25 14:28 | PN ---
DATE: 01/25/2019 SUBJECTIVE: The patient has been complaining of generalized weakness, poor mobility. Denies any o[address] pain. Complains of severe fatigue. VITAL SIGNS: Temperature 98.0, blood pressure 138/73, O2 saturation 97% on room air. LUNGS: Clinically clear. HEART: S1, S2 heard, no definite gallops. ABDOMEN: Soft, nontender, no hepatosplenomegaly. No hepatosplenomegaly. EXTREMITIES: No edema. NEUROLOGIC: The patient has got generalized weakness both upper and lower extremities. IMPRESSION: 1. Sick sinus syndrome, status post permanent pacemaker placement. 2. Iatrogenic pneumothorax, resolved, left chest. 3. Anemia, thrombocytopenia. 4. Hypothyroidism. 5. History of anorectal, cancer in remission. 6. Severe diverticulosis. 7. 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 PLAN: We will request acute rehabilitation consultation. Consider discontinuing the F[facility] tomorrow. Recheck labs in a.m. Dictated By: SYLVAIN PORRAS MD, SR/JOHNNY Conf#: [id number] DID#: [id number]
[2019-01-25 15:27] VITALS: BP 134/60; PULSE 60; RESP 18
--- NOTE | 2019-01-25 16:43 | CONS ---
Assessment/Plan Assessment/Plan Assessment/Plan (Daily) Consultation Assessment/Plan Assessment/Plan Assessment/Plan (Daily) Assessment/Plan Assessment/Plan (Daily) 78 yo male presented with crampy abdominal pain, hypotensive and one episode of nausea 1. Bradycardia with episode of hypotension, most probably related to sick sinus syndrome. 2. Abdominal pain -resolved 3. History of anal cancer, status post radiation and chemotherapy. 4. H/O abdominal aortic aneurysm -Status post endoclip stasis for lower abdominal aortic aneurysm. 5. Major depression. 6. Diverticulosis 7. Mild pulmonary emphysema 8. Mild hiatal hernia 9. Osteopenia 10. Mild thrombocytopenia 11. UTI -preliminary urine cx shows gram neg rods 12. Status post pacemaker insertion 13. Pneumothorax status small chest tube placement 8.5 [place] pigtail catheter. Pneumothorax has resolved 14 anemia, no active bleeding. Hematocrit is 28 now Plan Continue present care Encourage p.o. feeding Consultation Date/Type/Reason Admit Date/Time Jan 12, 2019 at 20:17 Initial Consult Date 01/13/19 Requesting Provider: SYLVAIN PORRAS MD Date/Time of Note DATE: 01/25/19 TIME: 16:42 24 HR Interval Summary Free Text/Dictation Patient is in good spirits and smiling tolerating diet no complaints Constitutional: improved Exam/Review of Systems Exam Vitals Vital Signs Date Temp Pulse Resp B/P (MAP) Pulse Ox O2 O2 Flow FiO2 Time Delivery Rate 01/25/19 98.0 60 18 134/60 97 Nasal 15:27 (84) Cannula 01/25/19 3.0 08:05 Intake and Output 01/24/19 01/24/19 01/25/19 1515:00 23:00 07:00 IntakeIntake Total 500 ml 700 ml OutputOutput Total 400 ml 900 ml BalanceBalance 100 ml -200 ml Constitutional: alert, oriented, well developed Psych: no complaints, nl mood/affect Head: normocephalic, atraumatic Eyes: nl conjunctiva, EOMI, nl lids, nl sclera, PERRL ENMT: nl external ears & nose, nl lips & teeth, nl nasal mucosa & septum Neck: supple, non-tender Respiratory: clear to auscultation, normal air movement Cardiovascular: regular rate and rhythm, nl pulses Gastrointestinal: soft, nl liver, spleen, non-tender Musculoskeletal: nl extremities to inspection, nl gait and stance Extremities: normal pulses Neurological: MANAGER PORT II-XII intact, nl mental status, nl speech, nl strength Skin: nl turgor; No rash or lesions Lymph: nl lymph nodes Results Result Diagram: 01/23/1951901/23/19519 Medications Medication Current Medications IV Flush (NS 3 ml) 3 ml PER PROTOCOL IV ; Start 01/13/19 at 03:00 Ondansetron HCl (Zofran Inj) 4 mg Q6H PRN IV NAUSEA/VOMITING Last administered on 01/13/19 15:48; Admin Dose 4 MG; Start 01/13/19 at 03:00 Acetaminophen (Tylenol Tab) 650 mg Q6H PRN PO .PAIN 1-3 OR TEMP Last administered on 01/14/19 10:53; Admin Dose 650 MG; Start 01/13/19 at 03:00 Morphine Sulfate (morphine) 2 mg Q4H PRN IV .SEVERE PAIN 7-10 Last administered on 01/16/19 16:11; Admin Dose 2 MG; Start 01/13/19 at 03:00 Pantoprazole (Protonix Tab) 40 mg DAILY@06 PO Last administered on 01/25/19 05:11; Admin Dose 40 MG; Start 01/13/19 at 06:00 Atropine Sulfate (Atropine (Syringe)) 0.4 mg Q2H PRN IV for HR< 50/mt; Start 01/13/19 at 03:00 Escitalopram Oxalate (Lexapro) 20 mg DAILY PO Last administered on 01/25/19 09:05; Admin Dose 20 MG; Start 01/13/19 at 17:30 Levothyroxine Sodium (Synthroid) 25 mcg DAILY@06 PO Last administered on 01/25/19 05:11; Admin Dose 25 MCG; Start 01/16/19 at 06:00 Amiodarone HCl (Cordarone) 400 mg BID PO Last administered on 01/25/19 09:06; Admin Dose 400 MG; Start 01/16/19 at 10:15 Lorazepam (Ativan) 0.5 mg Q6H PRN IV AGITATION Last administered on 01/16/19 23:28; Admin Dose 0.5 MG; Start 01/16/19 at 23:30 Diphenhydramine HCl (Benadryl) 25 mg TID PRN PO ITCHING; Start 01/18/19 at 15:30 Hydrocortisone (Hydrocortisone 0.5% Oint) 1 applic BID TOP Last administered on 01/24/19at 20:48; Admin Dose 1 APPLIC; Start 01/19/19 at 16:00 Loperamide HCl (Imodium Cap) 2 mg QID PRN PO DIARRHEA Last administered on 01/24/19at 20:51; Admin Dose 2 MG; Start 01/21/19 at 15:30 NICOLAS ACKERMAN MD Jan 25, 2019 16:43
[2019-01-25 20:03] VITALS: BP 130/63; PULSE 60; RESP 20
[2019-01-25] MEDS: HYDROCORTISONE 0.5% 28.35 GM CR TOP SCH (22:43)
[2019-01-25] MEDS: LOPERAMIDE 2 MG CAP PO PRN (22:43)
[2019-01-26] VITALS: BP 133/60; PULSE 62; RESP 20
[2019-01-26 03:51] VITALS: BP 132/67; PULSE 60; RESP 20
[2019-01-26] MEDS: PANTOPRAZOLE (EC) 40 MG TAB PO SCH (05:07)
[2019-01-26] MEDS: LEVOTHYROXINE 25 MCG TAB PO SCH (05:07)
[2019-01-26 07:41] VITALS: BP 156/73; PULSE 60; RESP 19
[2019-01-26] MEDS: HYDROCORTISONE 0.5% 28.35 GM CR TOP SCH ×2 (09:36→21:00)
[2019-01-26] MEDS: AMIODARONE 200 MG TAB PO SCH ×2 (09:37→21:11)
[2019-01-26 11:33] VITALS: BP 134/79; PULSE 61; RESP 19
[2019-01-26] MEDS: ESCITALOPRAM 10 MG TAB PO SCH (13:16)
--- NOTE | 2019-01-26 13:57 | PN ---
DATE: 01/26/2019 SUBJECTIVE: Chart reviewed. Events noted. Patient currently on room air saturating 97% and does no t appear in acute distress. PHYSICAL EXAMINATION: VITAL SIGNS: Blood pressure 134/79, pulse 61, respirations 19, temperature 97.5. HEENT: Pupils are equal and react to light. NECK: Supple, no JVD noted, no cervical adenopathy noted. LUNGS: Fair breath sounds bilaterally. CARDIOVASCULAR: S1, S2 normal. ABDOMEN: Soft, nontender, no masses noted. EXTREMITIES: No clubbing, cyanosis, or edema noted. NEUROLOGIC: No focal deficits. LABORATORY DATA: WBC 9.1, hemoglobin 10, hematocrit 32.2, platelets 153. Sodium 140, potassium 3.9, chloride 104, CO2 28, BUN 22, creatinine 0.92, glucose 84. IMPRESSION: 1. Sick sinus syndrome, status post pacemaker insertion. 2. Iatrogenic pneumothorax, stable now following chest tube removal. 3. Deconditioning. RECOMMENDATIONS: 1. Continue current treatment. 2. Acute rehabilitation evaluation. 3. Cardiology noted. 4. Above discussed with the staff. Dictated By: JENNIFER MONTANA MD, MA/JOHNNY Conf#: [id number] DID#: [id number] CC: SYLVAIN PORRAS MD;*EndCC*
--- NOTE | 2019-01-26 14:04 | CONS ---
Assessment/Plan Assessment/Plan Assessment/Plan (Daily) Assessment/Plan (Daily) 78 yo male presented with crampy abdominal pain, hypotensive and one episode of nausea 1. Bradycardia with episode of hypotension, most probably related to sick sinus syndrome. 2. Abdominal pain -resolved 3. History of anal cancer, status post radiation and chemotherapy. 4. H/O abdominal aortic aneurysm -Status post endoclip stasis for lower abdominal aortic aneurysm. 5. Major depression. 6. Diverticulosis 7. Mild pulmonary emphysema 8. Mild hiatal hernia 9. Osteopenia 10. Mild thrombocytopenia 11. UTI -preliminary urine cx shows gram neg rods 12. Status post pacemaker insertion 13. Pneumothorax status small chest tube placement 8.5 Mexican pigtail catheter. Pneumothorax has resolved 14 anemia, no active bleeding. Hematocrit is 32 now Plan Continue present care Encourage p.o. feeding Consultation Date/Type/Reason Admit Date/Time Jan 12, 2019 at 20:17 Initial Consult Date 01/13/19 Requesting Provider: SYLVAIN PORRAS MD Date/Time of Note DATE: 01/26/19 TIME: 14:04 24 HR Interval Summary Constitutional: no complaints, improved Exam/Review of Systems Exam Vitals Vital Signs Date Temp Pulse Resp B/P (MAP) Pulse Ox O2 O2 Flow FiO2 Time Delivery Rate 01/26/19 97.5 61 19 134/79 97 Room Air 11:33 (97) 01/25/19 3.0 20:00 Intake and Output 01/25/19 01/25/19 01/26/19 1515:00 23:00 07:00 IntakeIntake Total 600 ml 300 ml OutputOutput Total 700 ml 450 ml BalanceBalance -100 ml -150 ml Constitutional: alert, oriented, well developed Psych: no complaints, nl mood/affect Head: normocephalic, atraumatic Eyes: nl conjunctiva, EOMI, nl lids, nl sclera, PERRL ENMT: nl external ears & nose, nl lips & teeth, nl nasal mucosa & septum Neck: supple, non-tender Respiratory: clear to auscultation, normal air movement Cardiovascular: regular rate and rhythm, nl pulses Gastrointestinal: soft, nl liver, spleen, non-tender Musculoskeletal: nl extremities to inspection, nl gait and stance Extremities: normal pulses Neurological: FORENSIC CHEMIST II-XII intact, nl mental status, nl speech, nl strength Skin: nl turgor; No rash or lesions Lymph: nl lymph nodes Results Result Diagram: 01/26/19 0516 01/26/19 0516 Results 24hrs Laboratory Tests Test 01/26/19 05:16 White Blood Count 9.1 Red Blood Count 3.89 L Hemoglobin 10.0 L Hematocrit 32.2 L Mean Corpuscular Volume 82.8 Mean Corpuscular Hemoglobin 25.7 L Mean Corpuscular Hemoglobin Concent 31.1 L Red Cell Distribution Width 20.1 H Platelet Count 153 Mean Platelet Volume 9.4 Immature Granulocytes % 0.300 Neutrophils % 69.7 Lymphocytes % 14.4 L Monocytes % 12.0 H Eosinophils % 3.0 Basophils % 0.6 Nucleated Red Blood Cells % 0.0 Immature Granulocytes # 0.030 Neutrophils # 6.3 Lymphocytes # 1.3 Monocytes # 1.1 H Eosinophils # 0.3 Basophils # 0.1 Nucleated Red Blood Cells # 0.0 Sodium Level 140 Potassium Level 3.9 Chloride Level 104 Carbon Dioxide Level 28 Anion Gap 8 Blood Urea Nitrogen 22 H Creatinine 0.92 Est Glomerular Filtrat Rate mL/min Glucose Level 84 Calcium Level 8.6 Magnesium Level 1.9 Medications Medication Current Medications IV Flush (NS 3 ml) 3 ml PER PROTOCOL IV ; Start 01/13/19 at 03:00 Ondansetron HCl (Zofran Inj) 4 mg Q6H PRN IV NAUSEA/VOMITING Last administered on 01/13/19at 15:48; Admin Dose 4 MG; Start 01/13/19 at 03:00 Acetaminophen (Tylenol Tab) 650 mg Q6H PRN PO .PAIN 1-3 OR TEMP Last administered on 01/14/19at 10:53; Admin Dose 650 MG; Start 01/13/19 at 03:00 Morphine Sulfate (morphine) 2 mg Q4H PRN IV .SEVERE PAIN 7-10 Last administered on 01/16/19at 16:11; Admin Dose 2 MG; Start 01/13/19 at 03:00 Pantoprazole (Protonix Tab) 40 mg DAILY@06 PO Last administered on 01/26/19 05:07; Admin Dose 40 MG; Start 01/13/19 at 06:00 Atropine Sulfate (Atropine (Syringe)) 0.4 mg Q2H PRN IV for HR< 50/mt; Start 01/13/19 at 03:00 Escitalopram Oxalate (Lexapro) 20 mg DAILY PO Last administered on 01/26/19 13:16; Admin Dose 20 MG; Start 01/13/19 at 17:30 Levothyroxine Sodium (Synthroid) 25 mcg DAILY@06 PO Last administered on 01/26/19 05:07; Admin Dose 25 MCG; Start 01/16/19 at 06:00 Amiodarone HCl (Cordarone) 400 mg BID PO Last administered on 01/26/19 09:37; Admin Dose 400 MG; Start 01/16/19 at 10:15 Lorazepam (Ativan) 0.5 mg Q6H PRN IV AGITATION Last administered on 01/16/19 23:28; Admin Dose 0.5 MG; Start 01/16/19 at 23:30 Diphenhydramine HCl (Benadryl) 25 mg TID PRN PO ITCHING; Start 01/18/19 at 15:30 Loperamide HCl (Imodium Cap) 2 mg QID PRN PO DIARRHEA Last administered on 01/25/19 22:43; Admin Dose 2 MG; Start 01/21/19 at 15:30 Hydrocortisone (Hydrocortisone 0.5% Cr) 1 applic BID TOP Last administered on 01/26/19 09:36; Admin Dose 1 APPLIC; Start 01/25/19 at 21:00 NICOLAS ACKERMAN MD Jan 26, 2019 14:04
[2019-01-26] MEDS ORDERED: PANT40TA4 PO (14:10)
[2019-01-26] MEDS ORDERED: LEVO25TA6 PO (14:10)
[2019-01-26 15:56] VITALS: BP 137/63; PULSE 60; RESP 20
--- NOTE | 2019-01-26 17:49 | PN ---
DATE: 01/26/2019 SUBJECTIVE: The patient is more awake and responsive. Denies any chest pain or shortness of breath. PHYSICAL EXAMINATION VITAL SIGNS: Temperature 97.5, blood pressure 134/79, O2 saturation 97% on room air. HEENT: Head normocephalic. CHEST: Clinically clear. HEART: S1, S2 with no definite gallops. EXTREMITIES: No edema. IMPRESSION: 1. Sick sinus syndrome, status post permanent pacemaker placement. 2. Iatrogenic PTX , resolved. 3. Anemia, thrombocytopenia, stable. 4. Hypothyroidism. 5. History of anorectal cancer in remission. 6. Severe diverticulosis. 7. Severe debility with myopathy secondary to a prolonged period of being hospitalized. PLAN: Will transfer to rehab unit today. Will discontinue the Farias and monitor for signs of infection. Dictated By: SYLVAIN PORRAS MD, SR/JOHNNY Conf#: [id number] DID#: [id number] MTDD
[2019-01-26 19:42] VITALS: BP 134/63; PULSE 60; RESP 20
[2019-01-27] MEDS ORDERED: ESCITALOPRAM 20 MG TAB PO SCH (09:00)
== END 2019-01-26 22:27 | DRG 243 ==
LOC: E/R 13:52 → ICU 20:17 → EDBEDREQSVC 21:49 → 6WM 01-18 15:24
PROVIDERS: ADMIT Internal Medicine; ATTEND Internal Medicine
PROC: 02HV33Z Insertion of Infusion Device into Superior Vena Cava, Percutaneous Approach (ICD-10-PCS; 2019-01-13)
PROC: 02HK3JZ Insertion of Pacemaker Lead into Right Ventricle, Percutaneous Approach (ICD-10-PCS; 2019-01-15)
PROC: 02H63JZ Insertion of Pacemaker Lead into Right Atrium, Percutaneous Approach (ICD-10-PCS; 2019-01-15)
PROC: 0JH606Z Insertion of Pacemaker, Dual Chamber into Chest Subcutaneous Tissue and Fascia, Open Approach (ICD-10-PCS; principal; 2019-01-15 14:00)
PROC: 0B9P30Z Drainage of Left Pleura with Drainage Device, Percutaneous Approach (ICD-10-PCS; 2019-01-16)
PROC: 0DJD8ZZ Inspection of Lower Intestinal Tract, Via Natural or Artificial Opening Endoscopic (ICD-10-PCS; 2019-01-23)
PROC: 0DB68ZX Excision of Stomach, Via Natural or Artificial Opening Endoscopic, Diagnostic (ICD-10-PCS; 2019-01-23)
DX: I49.5 Sick sinus syndrome (principal); N39.0 Urinary tract infection, site not specified; J95.811 Postprocedural pneumothorax; L03.116 Cellulitis of left lower limb; L03.115 Cellulitis of right lower limb; I95.9 Hypotension, unspecified; R00.1 Bradycardia, unspecified; F32.9 Major depressive disorder, single episode, unspecified; I10 Essential (primary) hypertension; E78.5 Hyperlipidemia, unspecified; K52.9 Noninfective gastroenteritis and colitis, unspecified; E03.9 Hypothyroidism, unspecified; I48.91 Unspecified atrial fibrillation; K29.70 Gastritis, unspecified, without bleeding; D69.6 Thrombocytopenia, unspecified; R53.81 Other malaise; D50.9 Iron deficiency anemia, unspecified; G72.9 Myopathy, unspecified; K57.30 Diverticulosis of large intestine without perforation or abscess without bleeding; Z85.048 Personal history of other malignant neoplasm of rectum, rectosigmoid junction, and anus
CPT/HCPCS: 36415; 36430; 36569; 36589; 71045; 71250; 74177; 75989; 76937; 80048; 80053; 80061; 81001; 82270; 82607; 82728; 82746; 83605; 83690; 83735; 84436; 84443; 84479; 84484; 85025; 85045; 85610; 86850; 86900; 86901; 86920; 87075; 87081; 87086; 88300; 88305; 88312; 93005; 93306; 93970; 96361; 96374; 97116; 97163; 97530; C1729; J0461; J0690; J0744; J1265; J1650; J2060; J2270; J2405; J2543; J3010; J3370; J3480; J7030; J7040; J7042; P9016; Q9967

== ENCOUNTER 2019-01-26 22:15 | Inpatient (IN) | payer MEDICARE, OTHER ==
[~2019-01-26 22:15] MED LIST changes: +DIAZ5TAB4 PO; +DIPH1TAB25 PO; -ESCI10TA PO; +ESCI20TA38 PO; +LEVO25TA6 PO; +OXYB5TAB7 PO; -OXYC-209 PO; +OXYC-431 PO; -PANT40TA3 PO; +PANT40TA4 PO; -TRAZ-111 PO
[2019-01-26 23:00] VITALS: BP 149/72; PULSE 60; RESP 18
[2019-01-27] MEDS ORDERED: ATROPINE 1 MG/10 ML SYRINGE IV PRN (00:30)
[2019-01-27] MEDS ORDERED: DIPHENHYDRAMINE 50 MG CAP PO PRN (00:30)
[2019-01-27] MEDS ORDERED: MAGNESIUM HYDROXIDE 30ML CUP PO PRN (00:30)
[2019-01-27] MEDS ORDERED: LACTULOSE 30ML CUP PO PRN (00:30)
[2019-01-27] MEDS ORDERED: BISACODYL 10 MG SUPP PR PRN (00:30)
[2019-01-27] MEDS: PANTOPRAZOLE (EC) 40 MG TAB PO SCH (06:15)
[2019-01-27] MEDS: LEVOTHYROXINE 25 MCG TAB PO SCH (06:15)
[2019-01-27 07:00] VITALS: BP 158/73; PULSE 60; RESP 18
[2019-01-27] MEDS: AMIODARONE 200 MG TAB PO SCH ×2 (08:40→20:36)
[2019-01-27] MEDS: ESCITALOPRAM 10 MG TAB PO SCH (08:41)
[2019-01-27] MEDS: DOCUSATE SODIUM 100 MG CAP PO SCH ×2 (08:41→20:35)
[2019-01-27] MEDS: GABAPENTIN 300 MG CAP PO SCH ×2 (08:41→20:36)
[2019-01-27] MEDS ORDERED: ESCITALOPRAM 10 MG TAB NGT SCH (09:00)
[2019-01-27] MEDS ORDERED: PENDING SANTYL ORDER FOR WOUND CARE XX PRN (10:30)
--- NOTE | 2019-01-27 11:11 | CONS ---
DATE OF ADMISSION: 01/26/2019 DATE OF CONSULTATION: 01/27/2019 REHABILITATION POST ADMISSION PHYSICIAN EVALUATION REHABILITATION IMPAIRMENT CATEGORY: Critical illness myopathy. ACTIVE COMORBIDITIES: 1. Sick sinus syndrome, status post pacemaker placement. 2. Status post pneumothorax and chest tube which has been removed. 3. Urinary tract infection. 4. Anemia. 5. Thrombocytopenia. 6. Hypothyroidism. 7. Diverticulosis. 8. History of anal cancer and radiation treatment. 9. Bilateral lower extremity cellulitis. 10. Impairments in self-care and mobility. HISTORY OF PRESENT ILLNESS: The patient is a very pleasant 78-year-old gentleman with a history of multiple medical comorbidities, who was admitted with significant weakness and disorientation. The patient had no diarrhea, bilateral lower extremity pain. Workup was notable for pneumonia, sick sinus syndrome, bilateral lower extremity cellulitis, thrombocytopenia in addition to urinary tract infection. The patient did undergo pacemaker placement. His hospital course was notable for a pneumothorax, which did require chest tube which was eventually removed. The patient now with significant impairments in self-care and mobility and he has been cleared to transfer to the rehabilitation unit for comprehensive interdisciplinary rehab care. FUNCTIONAL HISTORY: Prior to recent events, he was independent in self-care tasks and mobility. Currently, he requires maximal assist for self-care and mobility tasks. I have reviewed the preadmission screen and patient's current functional status is consistent with the preadmission screen. FAMILY AND SOCIAL HISTORY: The patient reports living at home with caregiver and hopes to return there upon discharge. PAST MEDICAL HISTORY: 1. History of abdominal aortic aneurysm status post endovascular stent. 2. History of anal cancer with radiation treatment. 3. Anemia. 4. Hyperlipidemia. 5. Hypertension. 6. 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 7. Hypothyroidism. CURRENT MEDICATIONS: 1. Tylenol p.r.n. 2. Cordarone 400 mg p.o. b.i.d. 3. Lexapro 20 mg p.o. daily. 4. Hydrocortisone topically. 5. Synthroid 25 mcg p.o. daily. 6. Protonix 20 mg p.o. daily. ALLERGIES: THE PATIENT WITH NO KNOWN DRUG ALLERGIES. PHYSICAL EXAMINATION: VITAL SIGNS: The patient is currently afebrile with stable vital signs. HEENT: Extraocular motions appear intact. Oropharynx clear. NECK: Supple. LUNGS: Clear anteriorly. CARDIAC: S1, S2. ABDOMEN: Soft, nontender, positive bowel sounds. NEUROLOGIC: He is awake and alert. He is oriented to person and hospital. He will follow simple 1-step commands. He demonstrates antigravity strength in bilateral upper extremity and lower extremity. PLAN: The patient has been admitted for comprehensive interdisciplinary acute rehab and is anticipated to tolerate 3 hours of daily therapy in divided doses for at least 5/7 days a week. The treatment plan will include: 1. Physical therapy to focus on bed mobility, transfers, and household ambulation with the goal of having patient reach a standby assist level. 2. Occupational therapy to focus on hygiene, grooming, dressing, bathing, and toileting activities with the goal of having patient reach standby assist level. 3. Rehabilitation nursing for carryover of therapeutic interventions, the goal of continent of bowel and bladder, and the goal of patient and caregiver education with regard to the aforementioned issues. ESTIMATED LENGTH OF STAY: 14 days. DISPOSITION GOAL: Home with caregiver. REHABILITATION BARRIER: Weakness. INTERVENTION FOR BARRIER: Interdisciplinary approach. I acknowledge that I performed a full physical examination on this patient within 24 hours of admission to the rehabilitation unit. I believe the patient is a good candidate for comprehensive interdisciplinary rehab care and is anticipated to make reasonable goals in a reasonable period of time as outlined above. Dictated By: SOPHIE WALDRON/JOHNNY Conf#: [id number] DID#: [id number] CC: SYLVAIN PORRAS MD;*EndCC* MTDD
[2019-01-27 14:00] VITALS: BP 140/70; PULSE 58; RESP 18
[2019-01-27 19:30] VITALS: BP 126/50; PULSE 63; RESP 16
[2019-01-27] MEDS: SENNA TAB PO SCH (20:36)
[2019-01-27] MEDS: ATORVASTATIN 20 MG TAB PO SCH (20:36)
--- NOTE | 2019-01-27 20:36 | PN ---
DATE: 01/27/2019 Dr. Pedro Garibay rehab consultation and recommendation greatly appreciated. The patient has been tr ansferred to rehab. SUBJECTIVE: Denies any chest pain or palpitations. OBJECTIVE: VITAL SIGNS: Temperature 98.0, blood pressure 140/70, O2 sats 96% on room air. HEENT: Mild pallor. LUNGS: Clinically clear. HEART: S1, S2 heard, no definite gallops. EXTREMITIES: No edema. LABORATORY DATA: WBC count 8.7, hematocrit 33.7. Sodium 140, potassium 4.2, glucose 87. IMPRESSION: 1. Sick sinus syndrome, status post permanent pacemaker placement. 2. Iatrogenic pneumothorax, resolved, left chest, status post chest tube. 3. Anemia with thrombocytopenia, stable. 4. Hypothyroidism. 5. History of anorectal cancer in remission. 6. Diverticulosis. 7. Severe debility with myopathy secondary to prolonged period of being hospitalized. PLAN: We will continue rehabilitation per Dr. Vasquez. Dictated By: SYLVAIN PORRAS MD SR/NTS Conf#: [id number] DID#: [id number] CC: SOPHIE GARIBAY MD;*EndCC*
[2019-01-28 02:00] VITALS: BP 142/57; PULSE 60; RESP 18
[2019-01-28] MEDS: LEVOTHYROXINE 25 MCG TAB PO SCH (06:16)
[2019-01-28] MEDS: PANTOPRAZOLE (EC) 40 MG TAB PO SCH (06:16)
[2019-01-28 08:00] VITALS: BP 139/67; PULSE 60; RESP 18
[2019-01-28] MEDS: MULTIVITAMINS/MINERALS TAB PO SCH (08:51)
[2019-01-28] MEDS: ESCITALOPRAM 10 MG TAB PO SCH (08:52)
[2019-01-28] MEDS: ASCORBIC ACID 250 MG TAB PO SCH (08:53)
[2019-01-28] MEDS: ZINC SULFATE 220 MG CAP PO SCH (08:53)
[2019-01-28] MEDS: DOCUSATE SODIUM 100 MG CAP PO SCH ×2 (08:53→20:19)
[2019-01-28] MEDS: GABAPENTIN 300 MG CAP PO SCH ×2 (08:53→20:19)
[2019-01-28] MEDS: AMIODARONE 200 MG TAB PO SCH ×2 (08:53→20:20)
--- NOTE | 2019-01-28 11:15 | PN ---
Date/Time of Note Date/Time of Note DATE: 01/28/19 TIME: 11:13 Subjective Comfortable Objective Vital Signs Date Temp Pulse Resp B/P (MAP) Pulse Ox O2 O2 Flow FiO2 Time Delivery Rate 01/28/19 97.8 60 18 139/67 97 Room Air 08:00 (91) Intake and Output 01/27/19 01/27/19 01/28/19 1515:00 23:00 07:00 IntakeIntake Total 2120 ml 200 ml OutputOutput Total 900 ml BalanceBalance 1220 ml 200 ml Exam pulm-cta abd-soft mod transfer mod ambulation Results/Medications Result Diagram: 01/27/19 0610 01/27/19 0610 Medications Current Medications Docusate Sodium (Colace) 100 mg BID PO Last administered on 01/28/19at 08:53; Admin Dose 100 MG; Start 01/27/19 at 09:00 Senna (Senokot) 1 tab HS PO Last administered on 01/27/19at 20:36; Admin Dose 1 TAB; Start 01/27/19 at 21:00 Magnesium Hydroxide (Milk Of Mag) 30 ml BID PRN PO CONSTIPATION; Start 01/27/19 at 00:30 Lactulose (Enulose) 20 gm DAILY PRN PO CONSTIPATION; Start 01/27/19 at 00:30 Bisacodyl (Dulcolax Supp) 10 mg DAILY PRN [place] CONSTIPATION; Start 01/27/19 at 00:30 Acetaminophen (Tylenol Tab) 325 mg Q6H PRN PO MILD PAIN(1-3)OR ELEVATED TEMP; Start 01/27/19 at 00:30 Amiodarone HCl (Cordarone) 400 mg BID PO Last administered on 01/28/19at 08:53; Admin Dose 400 MG; Start 01/27/19 at 09:00 Atropine Sulfate (Atropine (Syringe)) 0.4 mg Q2H PRN IV BRADYCARDIA; Start 01/27/19 at 00:30 Diphenhydramine HCl (Benadryl) 50 mg TID PRN PO -; Start 01/27/19 at 00:30 Levothyroxine Sodium (Synthroid) 25 mcg DAILY@06 PO Last administered on 01/28/19at 06:16; Admin Dose 25 MCG; Start 01/27/19 at 06:00 Loperamide HCl (Imodium Cap) 2 mg QID PRN PO DIARRHEA; Start 01/27/19 at 00:30 Pantoprazole (Protonix Tab) 40 mg DAILY@06 PO Last administered on 01/28/19 06:16; Admin Dose 40 MG; Start 01/27/19 at 06:00 Gabapentin (Neurontin) 300 mg BID PO Last administered on 01/28/19 08:53; Admin Dose 300 MG; Start 01/27/19 at 09:00 Atorvastatin Calcium (Lipitor) 20 mg HS PO Last administered on 01/27/19 20:36; Admin Dose 20 MG; Start 01/27/19 at 21:00 Escitalopram Oxalate (Lexapro) 20 mg DAILY PO Last administered on 01/28/19 08:52; Admin Dose 20 MG; Start 01/27/19 at 09:00 [facility] This patient comer... PRN PRN XX WOUND CARE; Start 01/27/19 at 10:30 Multivitamins/ Minerals (Theragran-M) 1 tab DAILY PO Last administered on 01/28/19 08:51; Admin Dose 1 TAB; Start 01/28/19 at 09:00 Ascorbic Acid (Vitamin C) 250 mg DAILY PO Last administered on 01/28/19 08:53; Admin Dose 250 MG; Start 01/28/19 at 09:00 Zinc Sulfate (Zinc Sulfate) 220 mg DAILY PO Last administered on 01/28/19 08:53; Admin Dose 220 MG; Start 01/28/19 at 09:00 Assessment/Plan Additional Assessment/Plan Rehab- Critical illness myopathy. Continue rehab activities Integ- off loading, wound care and nutrition Sick sinus syndrome, status post pacemaker placement. Status post pneumothorax and chest tube which has been removed. Urinary tract infection. Anemia. Hypothyroidism. Diverticulosis. History of anal cancer and radiation treatment. s/p Bilateral lower extremity cellulitis. SOPHIE GARIBAY MD Jan 28, 2019 11:15
[2019-01-28 14:00] VITALS: BP 138/60; PULSE 68; RESP 18
--- NOTE | 2019-01-28 16:55 | PN ---
DATE: 01/28/2019 SUBJECTIVE: The patient overall feels well. Mild right hip pain. Denies any diarrhea. OBJECTIVE: VITAL SIGNS: Blood pressure 139/67, O2 sat is 97% on room air, temperature is 97.8. HEENT: Head normocephalic. Mild pallor, no cyanosis. CHEST: Clear anteriorly. HEART: S1 and S2, no murmur or gallops. ABDOMEN: Soft, nontender, no hepatosplenomegaly. EXTREMITIES: No edema. LABORATORY DATA: Urine culture no growth after 24 hours. MRSA screen is negative for MRSA. IMPRESSION: 1. Myopathy related to critical illness. 2. Sick sinus syndrome, status post pacemaker placement. 3. Iatrogenic pneumothorax, left chest, resolved. 4. Anemia and thrombocytopenia. 5. Hypothyroidism. 6. History of anorectal cancer, in remission. 7. Diverticulosis. PLAN: Will continue rehabilitation per ____. Recheck labs in a few days. Dictated By: SYLVAIN PORRAS MD SR/NTS Conf#: [id number] DID#: [id number] CC: SOPHIE GARIBAY MD;*EndCC*
[2019-01-28 20:00] VITALS: BP 138/66; PULSE 60; RESP 18
[2019-01-28] MEDS: ATORVASTATIN 20 MG TAB PO SCH (20:19)
[2019-01-28] MEDS: SENNA TAB PO SCH (20:19)
[2019-01-29] MEDS: ACETAMINOPHEN 325 MG TAB PO PRN (00:43)
[2019-01-29 02:00] VITALS: BP 139/64; PULSE 60; RESP 18
[2019-01-29] MEDS: LEVOTHYROXINE 25 MCG TAB PO SCH (06:37)
[2019-01-29] MEDS: PANTOPRAZOLE (EC) 40 MG TAB PO SCH (06:37)
[2019-01-29 07:00] VITALS: BP 174/77; PULSE 59; RESP 18
[2019-01-29] MEDS: ESCITALOPRAM 10 MG TAB PO SCH (08:39)
[2019-01-29] MEDS: ASCORBIC ACID 250 MG TAB PO SCH (08:39)
[2019-01-29] MEDS: DOCUSATE SODIUM 100 MG CAP PO SCH ×2 (08:39→20:19)
[2019-01-29] MEDS: AMIODARONE 200 MG TAB PO SCH ×2 (08:39→20:19)
[2019-01-29] MEDS: GABAPENTIN 300 MG CAP PO SCH ×2 (08:39→20:19)
[2019-01-29] MEDS: MULTIVITAMINS/MINERALS TAB PO SCH (08:40)
[2019-01-29] MEDS: BALSAM PERU/CASTOR OIL 60 GM TUBE TOP SCH (08:40)
[2019-01-29] MEDS: ZINC SULFATE 220 MG CAP PO SCH (08:40)
--- NOTE | 2019-01-29 11:01 | CONS ---
Assessment/Plan Assessment/Plan Assessment/Plan (Daily) Onychomycosis Tinea pedis Decreased mobility Plan Nails debrided x10 with nail nipper. Clotrimazole to feet. Offload heels with pillows and/or heel protectors. No further podiatric procedures planned at this time. Patient can follow up as outpatient. Consultation Date/Type/Reason Admit Date/Time Jan 26, 2019 at 22:15 Date/Time of Note DATE: 01/29/19 TIME: 11:00 Hx of Present Illness 78-year-old gentleman with a history of multiple medical comorbidities, who was admitted with significant weakness and disorientation. Patient presents to the floor with elongated and thickened toe nails. Unable to cut them himself and they have not been cut for a while. Denies constitutional symptoms. ROS negative except for HPI Past Medical History History of abdominal aortic aneurysm status post endovascular stent. History of anal cancer with radiation treatment. Anemia. Hyperlipidemia. Hypertension. 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 Hypothyroidism. Home Meds Active Scripts Pantoprazole* (Pantoprazole*) 40 Mg Tablet.dr, 40 MG PO DAILY@06 for 30 Days, #30 Prov:SYLVAIN PORRAS MD 01/26/19 Levothyroxine Sodium* (Levothyroxine Sodium*) 25 Mcg Tablet, 25 MCG PO DAILY@06 for 30 Days, #30 TAB Prov:SYLVAIN PORRAS MD 01/26/19 Reported Medications Oxycodone HCl/Acetaminophen (Oxycodone-Acetaminophen 10-325) 1 Each Tablet, 1 EACH PO NEEDED, TAB 01/12/19 Gabapentin* (Gabapentin*) 300 Mg Capsule, 300 MG PO BID, #60 CAP 01/12/19 Escitalopram Oxalate* (Escitalopram Oxalate*) 20 Mg Tablet, 20 MG PO DAILY, #30 TAB 01/12/19 Simvastatin* (Zocor*) 40 Mg Tablet, 40 MG PO QHS, #30 TAB 01/12/19 Oxybutynin Chloride* (Ditropan*) 5 Mg Tablet, 5 MG PO DAILY, TAB 01/12/19 Diazepam* (Diazepam*) 5 Mg Tablet, 5 MG PO DAILY, TAB 01/12/19 Diphenoxylate HCl/Atropine (Diphenoxylate-Atrop 2.5-0.025) 1 Each Tablet, 1 EACH PO TID, TAB 01/12/19 Medications Current Medications Docusate Sodium (Colace) 100 mg BID PO Last administered on 01/29/19 08:39; Admin Dose 100 MG; Start 01/27/19 at 09:00 Senna (Senokot) 1 tab HS PO Last administered on 01/28/19 20:19; Admin Dose 1 TAB; Start 01/27/19 at 21:00 Magnesium Hydroxide (Milk Of Mag) 30 ml BID PRN PO CONSTIPATION; Start 01/27/19 at 00:30 Lactulose (Enulose) 20 gm DAILY PRN PO CONSTIPATION; Start 01/27/19 at 00:30 Bisacodyl (Dulcolax Supp) 10 mg DAILY PRN [place] CONSTIPATION; Start 01/27/19 at 00:30 Acetaminophen (Tylenol Tab) 325 mg Q6H PRN PO MILD PAIN(1-3)OR ELEVATED TEMP Last administered on 01/29/19at 00:43; Admin Dose 325 MG; Start 01/27/19 at 00:30 Amiodarone HCl (Cordarone) 400 mg BID PO Last administered on 01/29/19 08:39; Admin Dose 400 MG; Start 01/27/19 at 09:00 Atropine Sulfate (Atropine (Syringe)) 0.4 mg Q2H PRN IV BRADYCARDIA; Start 01/27/19 at 00:30 Diphenhydramine HCl (Benadryl) 50 mg TID PRN PO -; Start 01/27/19 at 00:30 Levothyroxine Sodium (Synthroid) 25 mcg DAILY@06 PO Last administered on 01/29/19at 06:37; Admin Dose 25 MCG; Start 01/27/19 at 06:00 Loperamide HCl (Imodium Cap) 2 mg QID PRN PO DIARRHEA; Start 01/27/19 at 00:30 Pantoprazole (Protonix Tab) 40 mg DAILY@06 PO Last administered on 01/29/19 06:37; Admin Dose 40 MG; Start 01/27/19 at 06:00 Gabapentin (Neurontin) 300 mg BID PO Last administered on 01/29/19 08:39; Admin Dose 300 MG; Start 01/27/19 at 09:00 Atorvastatin Calcium (Lipitor) 20 mg HS PO Last administered on 01/28/19 20:19; Admin Dose 20 MG; Start 01/27/19 at 21:00 Escitalopram Oxalate (Lexapro) 20 mg DAILY PO Last administered on 01/29/19at 08:39; Admin Dose 20 MG; Start 01/27/19 at 09:00 [facility]iscellaneous [facility] This patient comer... PRN PRN XX WOUND CARE; Start 01/27/19 at 10:30 Multivitamins/ Minerals (Theragran-M) 1 tab DAILY PO Last administered on 01/29/19at 08:40; Admin Dose 1 TAB; Start 01/28/19 at 09:00 Ascorbic Acid (Vitamin C) 250 mg DAILY PO Last administered on 01/29/19 08:39; Admin Dose 250 MG; Start 01/28/19 at 09:00 Zinc Sulfate (Zinc Sulfate) 220 mg DAILY PO Last administered on 01/29/19 08:40; Admin Dose 220 MG; Start 01/28/19 at 09:00 Allergies: Coded Allergies: No Known Allergy (Unverified , 01/17/19) Past Surgical History chest tube placement, pace maker placement Past Surgical Hx: other Family History Significant Family History: no pertinent family hx Social History reports living at home with caregiver and hopes to return there upon discharge. Smoking Status: Former smoker Exam/Review of Systems Exam Vitals Vital Signs Date Temp Pulse Resp B/P (MAP) Pulse Ox O2 O2 Flow FiO2 Time Delivery Rate 01/29/19 98.0 59 18 174/77 94 Room Air 07:00 (109) Intake and Output 01/28/19 01/28/19 01/29/19 1515:00 23:00 07:00 IntakeIntake Total 720 ml 300 ml OutputOutput Total 400 ml BalanceBalance 320 ml 300 ml Exam DP/PT pulses weakly palpable No pressure sores/deep tissue injuries appreciated Right lower leg sanguinous crust with epithelialized skin underneath Protective sensations intact Skin temp gradient warm to warm from proximal leg to distal feet CFT less than 3 seconds No pain on palpation to the sanguinous crust site Results Result Diagram: 01/27/19 0610 01/27/19 0610 Medications Medication Current Medications Docusate Sodium (Colace) 100 mg BID PO Last administered on 01/29/19at 08:39; Admin Dose 100 MG; Start 01/27/19 at 09:00 Senna (Senokot) 1 tab HS PO Last administered on 01/28/19 20:19; Admin Dose 1 TAB; Start 01/27/19 at 21:00 Magnesium Hydroxide (Milk Of Mag) 30 ml BID PRN PO CONSTIPATION; Start 01/27/19 at 00:30 Lactulose (Enulose) 20 gm DAILY PRN PO CONSTIPATION; Start 01/27/19 at 00:30 Bisacodyl (Dulcolax Supp) 10 mg DAILY PRN [place] CONSTIPATION; Start 01/27/19 at 00:30 Acetaminophen (Tylenol Tab) 325 mg Q6H PRN PO MILD PAIN(1-3)OR ELEVATED TEMP Last administered on 01/29/19at 00:43; Admin Dose 325 MG; Start 01/27/19 at 00:30 Amiodarone HCl (Cordarone) 400 mg BID PO Last administered on 01/29/19 08:39; Admin Dose 400 MG; Start 01/27/19 at 09:00 Atropine Sulfate (Atropine (Syringe)) 0.4 mg Q2H PRN IV BRADYCARDIA; Start 01/27/19 at 00:30 Diphenhydramine HCl (Benadryl) 50 mg TID PRN PO -; Start 01/27/19 at 00:30 Levothyroxine Sodium (Synthroid) 25 mcg DAILY@06 PO Last administered on 01/29/19at 06:37; Admin Dose 25 MCG; Start 01/27/19 at 06:00 Loperamide HCl (Imodium Cap) 2 mg QID PRN PO DIARRHEA; Start 01/27/19 at 00:30 Pantoprazole (Protonix Tab) 40 mg DAILY@06 PO Last administered on 01/29/19at 06:37; Admin Dose 40 MG; Start 01/27/19 at 06:00 Gabapentin (Neurontin) 300 mg BID PO Last administered on 01/29/19 08:39; Admin Dose 300 MG; Start 01/27/19 at 09:00 Atorvastatin Calcium (Lipitor) 20 mg HS PO Last administered on 01/28/19 20:19; Admin Dose 20 MG; Start 01/27/19 at 21:00 Escitalopram Oxalate (Lexapro) 20 mg DAILY PO Last administered on 01/29/19 08:39; Admin Dose 20 MG; Start 01/27/19 at 09:00 Miscellaneous Information (Pending [facility] Order For Wound Care) This patient comer... PRN PRN XX WOUND CARE; Start 01/27/19 at 10:30 Multivitamins/ Minerals (Theragran-M) 1 tab DAILY PO Last administered on 01/29/19at 08:40; Admin Dose 1 TAB; Start 01/28/19 at 09:00 Ascorbic Acid (Vitamin C) 250 mg DAILY PO Last administered on 01/29/19at 08:39; Admin Dose 250 MG; Start 01/28/19 at 09:00 Zinc Sulfate (Zinc Sulfate) 220 mg DAILY PO Last administered on 01/29/19at 08:40; Admin Dose 220 MG; Start 01/28/19 at 09:00 MICHELLE PENA DPM Jan 29, 2019 11:01
--- NOTE | 2019-01-29 12:00 | PN ---
Date/Time of Note Date/Time of Note DATE: 01/29/19 TIME: 11:58 Subjective Comfortable Objective Vital Signs Date Temp Pulse Resp B/P (MAP) Pulse Ox O2 O2 Flow FiO2 Time Delivery Rate 01/29/19 98.0 59 18 174/77 94 Room Air 07:00 (109) Intake and Output 01/28/19 01/28/19 01/29/19 1515:00 23:00 07:00 IntakeIntake Total 720 ml 300 ml OutputOutput Total 400 ml BalanceBalance 320 ml 300 ml Exam pulm-cta mod assist transfer mod ambulation Results/Medications Result Diagram: 01/27/1910 01/27/19 0610 Medications Current Medications Docusate Sodium (Colace) 100 mg BID PO Last administered on 01/29/19at 08:39; Admin Dose 100 MG; Start 01/27/19 at 09:00 Senna (Senokot) 1 tab HS PO Last administered on 01/28/19at 20:19; Admin Dose 1 TAB; Start 01/27/19 at 21:00 Magnesium Hydroxide (Milk Of Mag) 30 ml BID PRN PO CONSTIPATION; Start 01/27/19 at 00:30 Lactulose (Enulose) 20 gm DAILY PRN PO CONSTIPATION; Start 01/27/19 at 00:30 Bisacodyl (Dulcolax Supp) 10 mg DAILY PRN [place] CONSTIPATION; Start 01/27/19 at 00:30 Acetaminophen (Tylenol Tab) 325 mg Q6H PRN PO MILD PAIN(1-3)OR ELEVATED TEMP Last administered on 01/29/19at 00:43; Admin Dose 325 MG; Start 01/27/19 at 00:30 Amiodarone HCl (Cordarone) 400 mg BID PO Last administered on 01/29/19at 08:39; Admin Dose 400 MG; Start 01/27/19 at 09:00 Atropine Sulfate (Atropine (Syringe)) 0.4 mg Q2H PRN IV BRADYCARDIA; Start 01/27/19 at 00:30 Diphenhydramine HCl (Benadryl) 50 mg TID PRN PO -; Start 01/27/19 at 00:30 Levothyroxine Sodium (Synthroid) 25 mcg DAILY@06 PO Last administered on 01/29/19at 06:37; Admin Dose 25 MCG; Start 01/27/19 at 06:00 Loperamide HCl (Imodium Cap) 2 mg QID PRN PO DIARRHEA; Start 01/27/19 at 00:30 Pantoprazole (Protonix Tab) 40 mg DAILY@06 PO Last administered on 01/29/19 06:37; Admin Dose 40 MG; Start 01/27/19 at 06:00 Gabapentin (Neurontin) 300 mg BID PO Last administered on 01/29/19 08:39; Ad min Dose 300 MG; Start 01/27/19 at 09:00 Atorvastatin Calcium (Lipitor) 20 mg HS PO Last administered on 01/28/19 20:19; Admin Dose 20 MG; Start 01/27/19 at 21:00 Escitalopram Oxalate (Lexapro) 20 mg DAILY PO Last administered on 01/29/19 08:39; Admin Dose 20 MG; Start 01/27/19 at 09:00 Miscellaneous Information ([facility]) This patient comer... 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 Overall steady progress. Case d/w Dr. Rollins Integ- off loading, wound care and nutrition Sick sinus syndrome, status post pacemaker placement. Status post pneumothorax and chest tube which has been removed. Urinary tract infection. Anemia. Hypothyroidism. Diverticulosis. History of anal cancer and radiation treatment. s/p Bilateral lower extremity cellulitis. SOPHIE GARIBAY MD Jan 29, 2019 12:00
[2019-01-29 14:00] VITALS: BP 129/60; PULSE 60; RESP 18
--- NOTE | 2019-01-29 16:35 | PN ---
DATE: 01/29/2019 SUBJECTIVE: The patient is comfortable, no major complaints. OBJECTIVE: VITAL SIGNS: Temperature 98.0, blood pressure 174/77, O2 sats 94% on room air. CHEST: Clinically clear. HEART: S1, S2 with no rubs or gallops. EXTREMITIES: No edema. IMPRESSION: 1. Myopathy related to critical illness and prolonged hospitalization. 2. Sick sinus syndrome, status post pacemaker placement. 3. Iatrogenic pneumothorax, left chest wall. 4. Anemia, thrombocytopenia. 5. Hypothyroidism. 6. History of anorectal cancer in remission. 7. Diverticulosis. PLAN: Continue rehabilitation per Dr. Vasquez. ADDENDUM: We will discontinue the midline today. Dictated By: SYLVAIN PORRAS MD SR/NTS Conf#: [id number] DID#: [id number] CC: SOPHIE GARIBAY MD;*EndCC*
[2019-01-29 20:00] VITALS: BP 132/58; PULSE 60; RESP 18
[2019-01-29] MEDS: CLOTRIMAZOLE 1% 30 GM CR TOP SCH (20:18)
[2019-01-29] MEDS: ATORVASTATIN 20 MG TAB PO SCH (20:19)
[2019-01-29] MEDS: SENNA TAB PO SCH (20:19)
[2019-01-30 02:00] VITALS: BP 130/65; PULSE 60; RESP 18
[2019-01-30] MEDS: PANTOPRAZOLE (EC) 40 MG TAB PO SCH (06:21)
[2019-01-30] MEDS: LEVOTHYROXINE 25 MCG TAB PO SCH (06:21)
[2019-01-30 07:30] VITALS: BP 141/67; PULSE 62; RESP 18
[2019-01-30] MEDS: GABAPENTIN 300 MG CAP PO SCH ×2 (09:11→20:30)
[2019-01-30] MEDS: ZINC SULFATE 220 MG CAP PO SCH (09:12)
[2019-01-30] MEDS: ASCORBIC ACID 250 MG TAB PO SCH (09:12)
[2019-01-30] MEDS: MULTIVITAMINS/MINERALS TAB PO SCH (09:12)
[2019-01-30] MEDS: DOCUSATE SODIUM 100 MG CAP PO SCH ×2 (09:14→20:31)
[2019-01-30] MEDS: ESCITALOPRAM 10 MG TAB PO SCH (09:14)
[2019-01-30] MEDS: AMIODARONE 200 MG TAB PO SCH ×2 (09:15→20:31)
[2019-01-30] MEDS: CLOTRIMAZOLE 1% 30 GM CR TOP SCH ×2 (09:24→20:46)
[2019-01-30] MEDS: BALSAM PERU/CASTOR OIL 60 GM TUBE TOP SCH (09:24)
[2019-01-30 14:00] VITALS: BP 117/55; PULSE 60; RESP 18
--- NOTE | 2019-01-30 14:22 | PN ---
DATE: 01/30/2019 SUBJECTIVE: The patient progressing well at the rehab. Some hip pain. Denies any chest pain or elle rtness of breath. PHYSICAL EXAMINATION: VITAL SIGNS: Temperature 97.6, blood pressure 141/67, O2 saturation 98% on room air. LUNGS: Clinically clear. HEART: S1, S2 heard, no definite gallops. ABDOMEN: Soft. EXTREMITIES: No edema. Homans sign is negative. IMPRESSION: 1. Myopathy related to critical illness and prolonged immobilization. 2. Sick sinus syndrome, status post pacemaker placement. 3. Iatrogenic pneumothorax, left chest, resolved. 4. Anemia with thrombocytopenia. 5. Hypothyroidism. 6. History of anorectal cancer in remission. 7. Diverticulosis. PLAN: Will continue rehab recommendations per Dr. Vasquez. Dictated By: SYLVAIN PORRAS MD SR/NTS Conf#: [id number] DID#: [id number] CC: SOPHIE GARIBAY MD;*EndCC*
--- NOTE | 2019-01-30 14:32 | PN ---
Date/Time of Note Date/Time of Note DATE: 01/30/19 TIME: 14:31 Subjective Comfortable Objective Vital Signs Date Temp Pulse Resp B/P (MAP) Pulse Ox O2 O2 Flow FiO2 Time Delivery Rate 01/30/19 97.6 62 18 141/67 98 Room Air 07:30 (91) Intake and Output 01/29/19 01/29/19 01/30/19 1515:00 23:00 07:00 IntakeIntake Total 800 ml 1200 ml OutputOutput Total 300 ml 600 ml BalanceBalance 500 ml 600 ml Exam pulm-cta abd-soft mod ambulation 20 feet Results/Medications Result Diagram: 01/27/19 0610 01/27/19 0610 Medications Current Medications Docusate Sodium (Colace) 100 mg BID PO Last administered on 01/30/19at 09:14; Admin Dose 100 MG; Start 01/27/19 at 09:00 Senna (Senokot) 1 tab HS PO Last administered on 01/29/19at 20:19; Admin Dose 1 TAB; Start 01/27/19 at 21:00 Magnesium Hydroxide (Milk Of Mag) 30 ml BID PRN PO CONSTIPATION; Start 01/27/19 at 00:30 Lactulose (Enulose) 20 gm DAILY PRN PO CONSTIPATION; Start 01/27/19 at 00:30 Bisacodyl (Dulcolax Supp) 10 mg DAILY PRN [place] CONSTIPATION; Start 01/27/19 at 00:30 Acetaminophen (Tylenol Tab) 325 mg Q6H PRN PO MILD PAIN(1-3)OR ELEVATED TEMP Last administered on 01/29/19at 00:43; Admin Dose 325 MG; Start 01/27/19 at 00:30 Amiodarone HCl (Cordarone) 400 mg BID PO Last administered on 01/30/19at 09:15; Admin Dose 400 MG; Start 01/27/19 at 09:00 Atropine Sulfate (Atropine (Syringe)) 0.4 mg Q2H PRN IV BRADYCARDIA; Start 01/27/19 at 00:30 Diphenhydramine HCl (Benadryl) 50 mg TID PRN PO -; Start 01/27/19 at 00:30 Levothyroxine Sodium (Synthroid) 25 mcg DAILY@06 PO Last administered on 01/30/19at 06:21; Admin Dose 25 MCG; Start 01/27/19 at 06:00 Loperamide HCl (Imodium Cap) 2 mg QID PRN PO DIARRHEA; Start 01/27/19 at 00:30 Pantoprazole (Protonix Tab) 40 mg DAILY@06 PO Last administered on 01/30/19 06:21; Admin Dose 40 MG; Start 01/27/19 at 06:00 Gabapentin (Neurontin) 300 mg BID PO Last administered on 01/30/19 09:11; Admin Dose 300 MG; Start 01/27/19 at 09:00 Atorvastatin Calcium (Lipitor) 20 mg HS PO Last administered on 01/29/19 20:19; Admin Dose 20 MG; Start 01/27/19 at 21:00 Escitalopram Oxalate (Lexapro) 20 mg DAILY PO Last administered on 01/30/19 09:14; Admin Dose 20 MG; Start 01/27/19 at 09:00 Miscellaneous Information (Pending Santyl Order For Wound Care) This patient comer... PRN PRN XX WOUND CARE; Start 01/27/19 at 10:30 Multivitamins/ Minerals (Theragran-M) 1 tab DAILY PO Last administered on 01/30/19 09:12; Admin Dose 1 TAB; Start 01/28/19 at 09:00 Ascorbic Acid (Vitamin C) 250 mg DAILY PO Last administered on 01/30/19 09:12; Admin Dose 250 MG; Start 01/28/19 at 09:00 Zinc Sulfate (Zinc Sulfate) 220 mg DAILY PO Last administered on 01/30/19 09:12; Admin Dose 220 MG; Start 01/28/19 at 09:00 Clotrimazole (Lotrimin Cr) 1 applic BID TOP Last administered on 01/30/19 09:24; Admin Dose 1 APPLIC; Start 01/29/19 at 21:00 Assessment/Plan Additional Assessment/Plan Rehab- Critical illness myopathy. Good progress. SW working on dc planning Integ- off loading, wound care and nutrition Sick sinus syndrome, status post pacemaker placement. Status post pneumothorax and chest tube which has been removed. Urinary tract infection. Anemia. Hypothyroidism. Diverticulosis. History of anal cancer and radiation treatment. s/p Bilateral lower extremity cellulitis. SOPHIE GARIBAY MD Jan 30, 2019 14:32
[2019-01-30 19:30] VITALS: BP 138/64; PULSE 60; RESP 18
[2019-01-30] MEDS: SENNA TAB PO SCH (20:30)
[2019-01-30] MEDS: ATORVASTATIN 20 MG TAB PO SCH (20:30)
[2019-01-31] MEDS: ACETAMINOPHEN 325 MG TAB PO PRN ×3 (00:02→21:14)
--- NOTE | 2019-01-31 01:39 | CONS ---
DATE OF ADMISSION: 01/26/2019 DATE OF CONSULTATION: 01/30/2019 TYPE OF CONSULTATION: Psychological. REFERRING PHYSICIAN: Sophie Pires MD CONSULTING PSYCHOLOGIST: Julián Leavitt, PhD REASON FOR CONSULTATION: This consultation was requested by Dr. Pedro Pires in order to evaluate t cognitive and emotional functioning of this patient related to his present medical condition. HISTORY OF PRESENT ILLNESS: The patient is a 78-year-old male. The patient has multiple medical pro blems. He was admitted with significant weakness and disorientation. His workup was notable for pne umonia, sick sinus syndrome, bilateral lower extremity cellulitis, and thrombocytopenia, in addition to a urinary tract infection. The patient did undergo a pacemaker placement. The patient was cleare d medically and sent to the acute rehabilitation unit for acute multidisciplinary rehabilitation. Th e patient is motivated to get better and does want to return to his previous level of functioning. FAMILY AND SOCIAL HISTORY: The patient reports that he lives in [place] in a home by himself . The patient does have a 24/7 caregiver who is there daily. MEDICATIONS: The patient is currently on Lexapro 20 mg daily. He was on this prior to entering the hospital and was prescribed this by his primary care physician. SUBSTANCE USE: The patient reports that he does not smoke. The patient reports he does not use alco hol or other drugs. MENTAL STATUS EXAMINATION: APPEARANCE: The patient was seen in his wheelchair. He appears to be of average height and weight. The patient wears glasses and is right-handed. BEHAVIOR: The patient was cooperative during the consultation. The patient did attempt to answer al l questions presented to him by the interviewer. The patient did have some difficulty hearing some o f the questions, so the interviewer did speak very loudly and repeated numerous questions to him. MOOD AND AFFECT: The patient's mood appears to be slightly depressed. Affect does appear to be slig htly anxious. PERCEPTION: The patient reports no hallucinations or delusions. The patient was alert to person, pl gabriela, situation and time. MEMORY AND COGNITION: The patient's memory and cognition appear to be basically intact. He did have some slip ups, but given the fact that he had a urinary tract infection this may affect his cognitio n. Overall, though he was able to remember recent and remote events. The patient was able to name [facility]. The patient was able to name the month and the year. The patient was able to spell "wo rld" backwards. The patient was able to say who the senior vice president and chief information officer is, but he could not remember the governor of the [facility], or the mayor of the [facility]. The p atsebastián could only do 1 serial 7 subtraction from 100, but he did say that he was very poor in math. INTELLIGENCE: Would appear to fall in the average range. INSIGHT: Fair. JUDGMENT: Fair. THOUGHT CONTENT: The patient is concerned about his present medical condition. The patient is wanti ng to recover and return to his previous level of functioning and return home. DISCUSSION: The patient can likely benefit from some cognitive/behavioral psychotherapy while he is on the unit. This psychotherapy would focus on his underlying level of frustration about his medical problems as well as his underlying depression. DIAGNOSTIC IMPRESSION: F33.1, major depressive disorder, recurrent, moderate. Thank you very much, Dr. Pedro Pires, for referring this individual. Please do not hesitate to marco parra if you have additional questions. Dictated By: JULIÁN LEAVITT PHD RK/JOHNNY Conf#: [id number] DID#: [id number] CC: SOPHIE PIRES MD;*[facility]*
[2019-01-31 02:20] VITALS: BP 116/58; PULSE 60; RESP 18
[2019-01-31] MEDS: LEVOTHYROXINE 25 MCG TAB PO SCH (05:29)
[2019-01-31] MEDS: PANTOPRAZOLE (EC) 40 MG TAB PO SCH (05:29)
[2019-01-31 08:00] VITALS: BP 129/68; PULSE 60; RESP 18
[2019-01-31] MEDS: AMIODARONE 200 MG TAB PO SCH ×2 (09:56→21:13)
[2019-01-31] MEDS: ESCITALOPRAM 10 MG TAB PO SCH (09:56)
[2019-01-31] MEDS: ZINC SULFATE 220 MG CAP PO SCH (09:56)
[2019-01-31] MEDS: ASCORBIC ACID 250 MG TAB PO SCH (09:56)
[2019-01-31] MEDS: MULTIVITAMINS/MINERALS TAB PO SCH (09:56)
[2019-01-31] MEDS: DOCUSATE SODIUM 100 MG CAP PO SCH ×2 (09:56→21:00)
[2019-01-31] MEDS: GABAPENTIN 300 MG CAP PO SCH ×2 (09:57→21:13)
[2019-01-31] MEDS: BALSAM PERU/CASTOR OIL 60 GM TUBE TOP SCH (10:01)
[2019-01-31] MEDS: CLOTRIMAZOLE 1% 30 GM CR TOP SCH ×2 (10:01→21:18)
--- NOTE | 2019-01-31 12:40 | PN ---
Date/Time of Note Date/Time of Note DATE: 01/31/19 TIME: 12:38 Objective Vital Signs Date Temp Pulse Resp B/P (MAP) Pulse Ox O2 O2 Flow FiO2 Time Delivery Rate 01/31/19 97.5 60 18 116/58 97 02:20 (77) 01/30/19 Room Air 14:00 Intake and Output 01/30/19 01/30/19 01/31/19 1414:59 22:59 06:59 IntakeIntake Total 240 ml 1020 ml OutputOutput Total 200 ml BalanceBalance 240 ml 820 ml Exam INTERDISCIPLINARY TEAM CONFERENCE Attended by PT, OT, ST, Adhesive Bandage Making Operator, Social Work, Rehabilitation Nursing, Environmental Web Crawler and Billet GrinderInsurance Underwriter Exam: Pulm- Abd- BOWEL- Cont BLADDER-Cont SKIN- improving OT- DRESSING- min BATHING-min TOILETING- min PT- BED MOBILITY- min TRANSFERS-min AMBULATION-min 30 feet A/P- Interdisciplinary team conference held today. Please see interdisciplinary sheet. Working toward d.c. on 02/08 with post discharge follow up of physical therapy, occupational therapy. Results/Medications Result Diagram: 01/27/19 0610 01/27/19 0610 Medications Current Medications Docusate Sodium (Colace) 100 mg BID PO Last administered on 01/31/19at 09:56; Admin Dose 100 MG; Start 01/27/19 at 09:00 Senna (Senokot) 1 tab HS PO Last administered on 01/30/19at 20:30; Admin Dose 1 TAB; Start 01/27/19 at 21:00 Magnesium Hydroxide (Milk Of Mag) 30 ml BID PRN PO CONSTIPATION; Start 01/27/19 at 00:30 Lactulose (Enulose) 20 gm DAILY PRN PO CONSTIPATION; Start 01/27/19 at 00:30 Bisacodyl (Dulcolax Supp) 10 mg DAILY PRN [place] CONSTIPATION; Start 01/27/19 at 00:30 Acetaminophen (Tylenol Tab) 325 mg Q6H PRN PO MILD PAIN(1-3)OR ELEVATED TEMP Last administered on 01/31/19at 05:33; Admin Dose 325 MG; Start 01/27/19 at 00:30 Amiodarone HCl (Cordarone) 400 mg BID PO Last administered on 01/31/19at 09:56; Admin Dose 400 MG; Start 01/27/19 at 09:00 Atropine Sulfate (Atropine (Syringe)) 0.4 mg Q2H PRN IV BRADYCARDIA; Start 01/27/19 at 00:30 Diphenhydramine HCl (Benadryl) 50 mg TID PRN PO -; Start 01/27/19 at 00:30 Levothyroxine Sodium (Synthroid) 25 mcg DAILY@06 PO Last administered on 01/31/19 05:29; Admin Dose 25 MCG; Start 01/27/19 at 06:00 Loperamide HCl (Imodium Cap) 2 mg QID PRN PO DIARRHEA; Start 01/27/19 at 00:30 Pantoprazole (Protonix Tab) 40 mg DAILY@06 PO Last administered on 01/31/19 05:29; Admin Dose 40 MG; Start 01/27/19 at 06:00 Gabapentin (Neurontin) 300 mg BID PO Last administered on 01/31/19 09:57; Admin Dose 300 MG; Start 01/27/19 at 09:00 Atorvastatin Calcium (Lipitor) 20 mg HS PO Last administered on 01/30/19 20:30; Admin Dose 20 MG; Start 01/27/19 at 21:00 Escitalopram Oxalate (Lexapro) 20 mg DAILY PO Last administered on 01/31/19 09:56; Admin Dose 20 MG; Start 01/27/19 at 09:00 Miscellaneous Information (Pending [facility] Order For Wound Care) This patient comer... PRN PRN XX WOUND CARE; Start 01/27/19 at 10:30 Multivitamins/ Minerals (Theragran-M) 1 tab DAILY PO Last administered on 01/31/19 09:56; Admin Dose 1 TAB; Start 01/28/19 at 09:00 Ascorbic Acid (Vitamin C) 250 mg DAILY PO Last administered on 01/31/19 09:56; Admin Dose 250 MG; Start 01/28/19 at 09:00 Zinc Sulfate (Zinc Sulfate) 220 mg DAILY PO Last administered on 01/31/19 09:56; Admin Dose 220 MG; Start 01/28/19 at 09:00 Clotrimazole (Lotrimin Cr) 1 applic BID TOP Last administered on 01/31/19 10:01; Admin Dose 1 APPLIC; Start 01/29/19 at 21:00 SOPHIE GARIBAY MD Jan 31, 2019 12:40
--- NOTE | 2019-01-31 13:18 | PN ---
DATE: 01/31/2019 SUBJECTIVE: Patient denies any chest pain or shortness of breath. PHYSICAL EXAMINATION VITAL SIGNS: Temperature 97.5, blood pressure 116/58, O2 saturation 97% on room air. HEENT: Mild pallor without cyanosis. JVD is not increased. CHEST: Clinically clear. HEART: S1, S2 with no definite gallops. EXTREMITIES: No edema. IMPRESSION: 1. Sick sinus syndrome, status post pacemaker placement. 2. Iatrogenic pneumothorax status post chest tube placement. 3. Anemia with thrombocytopenia. 4. Prior history of abdominal aortic aneurysm status post endoluminal stent. 5. History of anorectal cancer in remission. 6. Underlying major depression. PLAN: Continue present rehabilitation followup. Dictated By: SYLVAIN PORRAS MD SR/NTS Conf#: [id number] DID#: [id number] CC: SOPHIE GARIBAY MD;*EndCC*
[2019-01-31 14:00] VITALS: BP 125/63; PULSE 57; RESP 18
[2019-01-31] MEDS: SENNA TAB PO SCH (21:00)
[2019-01-31] MEDS: ATORVASTATIN 20 MG TAB PO SCH (21:13)
[2019-02-01] MEDS: PANTOPRAZOLE (EC) 40 MG TAB PO SCH (06:21)
[2019-02-01] MEDS: LEVOTHYROXINE 25 MCG TAB PO SCH (06:21)
[2019-02-01 07:30] VITALS: BP 137/64; PULSE 61; RESP 20
[2019-02-01] MEDS: DOCUSATE SODIUM 100 MG CAP PO SCH ×2 (09:00→20:07)
[2019-02-01] MEDS: ESCITALOPRAM 10 MG TAB PO SCH (10:00)
[2019-02-01] MEDS: GABAPENTIN 300 MG CAP PO SCH ×2 (10:00→20:09)
[2019-02-01] MEDS: MULTIVITAMINS/MINERALS TAB PO SCH (10:00)
[2019-02-01] MEDS: AMIODARONE 200 MG TAB PO SCH ×2 (10:01→20:09)
[2019-02-01] MEDS: ASCORBIC ACID 250 MG TAB PO SCH (10:01)
[2019-02-01] MEDS: ZINC SULFATE 220 MG CAP PO SCH (10:01)
[2019-02-01] MEDS: CLOTRIMAZOLE 1% 30 GM CR TOP SCH ×2 (10:02→20:12)
[2019-02-01] MEDS: BALSAM PERU/CASTOR OIL 60 GM TUBE TOP SCH (10:02)
--- NOTE | 2019-02-01 14:58 | PN ---
Date/Time of Note Date/Time of Note DATE: 02/01/19 TIME: 14:57 Subjective Overall improving Objective Vital Signs Date Temp Pulse Resp B/P (MAP) Pulse Ox O2 O2 Flow FiO2 Time Delivery Rate 02/01/19 97.7 61 20 137/64 97 Room Air 07:30 (88) Intake and Output 01/31/19 01/31/19 02/01/19 1515:00 23:00 07:00 IntakeIntake Total 720 ml 320 ml 250 ml OutputOutput Total 401 ml 400 ml 800 ml BalanceBalance 319 ml -80 ml -550 ml Exam pulm-cta cga ambulation Results/Medications Medications Current Medications Docusate Sodium (Colace) 100 mg BID PO Last administered on 01/31/19at 09:56; Admin Dose 100 MG; Start 01/27/19 at 09:00 Senna (Senokot) 1 tab HS PO Last administered on 01/30/19at 20:30; Admin Dose 1 TAB; Start 01/27/19 at 21:00 Magnesium Hydroxide (Milk Of Mag) 30 ml BID PRN PO CONSTIPATION; Start 01/27/19 at 00:30 Lactulose (Enulose) 20 gm DAILY PRN PO CONSTIPATION; Start 01/27/19 at 00:30 Bisacodyl (Dulcolax Supp) 10 mg DAILY PRN [place] CONSTIPATION; Start 01/27/19 at 00:30 Acetaminophen (Tylenol Tab) 325 mg Q6H PRN PO MILD PAIN(1-3)OR ELEVATED TEMP Last administered on 01/31/19at 21:14; Admin Dose 325 MG; Start 01/27/19 at 00:30 Amiodarone HCl (Cordarone) 400 mg BID PO Last administered on 02/01/19at 10:01; Admin Dose 400 MG; Start 01/27/19 at 09:00 Atropine Sulfate (Atropine (Syringe)) 0.4 mg Q2H PRN IV BRADYCARDIA; Start 01/27/19 at 00:30 Diphenhydramine HCl (Benadryl) 50 mg TID PRN PO -; Start 01/27/19 at 00:30 Levothyroxine Sodium (Synthroid) 25 mcg DAILY@06 PO Last administered on 02/01/19at 06:21; Admin Dose 25 MCG; Start 01/27/19 at 06:00 Loperamide HCl (Imodium Cap) 2 mg QID PRN PO DIARRHEA; Start 01/27/19 at 00:30 Pantoprazole (Protonix Tab) 40 mg DAILY@06 PO Last administered on 02/01/19 06:21; Admin Dose 40 MG; Start 01/27/19 at 06:00 Gabapentin (Neurontin) 300 mg BID PO Last administered on 02/01/19 10:00; Admin Dose 300 MG; Start 01/27/19 at 09:00 Atorvastatin Calcium (Lipitor) 20 mg HS PO Last administered on 01/31/19 21:13; Admin Dose 20 MG; Start 01/27/19 at 21:00 Escitalopram Oxalate (Lexapro) 20 mg DAILY PO Last administered on 02/01/19 10:00; Admin Dose 20 MG; Start 01/27/19 at 09:00 Miscellaneous Information (Pending Santyl Order For Wound Care) This patient comer... PRN PRN XX WOUND CARE; Start 01/27/19 at 10:30 Multivitamins/ Minerals (Theragran-M) 1 tab DAILY PO Last administered on 02/01/19 10:00; Admin Dose 1 TAB; Start 01/28/19 at 09:00 Ascorbic Acid (Vitamin C) 250 mg DAILY PO Last administered on 02/01/19 10:01; Admin Dose 250 MG; Start 01/28/19 at 09:00 Zinc Sulfate (Zinc Sulfate) 220 mg DAILY PO Last administered on 02/01/19 10:01; Admin Dose 220 MG; Start 01/28/19 at 09:00 Clotrimazole (Lotrimin Cr) 1 applic BID TOP Last administered on 02/01/19 10:02; Admin Dose 1 APPLIC; Start 01/29/19 at 21:00 Assessment/Plan Additional Assessment/Plan Rehab- Critical illness myopathy. Continue rehab, SW working on dc planning with POA Integ- off loading, wound care and nutrition, overall improving Sick sinus syndrome, status post pacemaker placement. Status post pneumothorax and chest tube which has been removed. Urinary tract infection. Anemia. Hypothyroidism. Diverticulosis. History of anal cancer and radiation treatment. s/p Bilateral lower extremity cellulitis. SOPHIE GARIBAY MD Feb 01, 2019 14:58
--- NOTE | 2019-02-01 15:10 | PN ---
DATE: 02/01/2019 SUBJECTIVE: The patient is comfortable, denies any chest pain or shortness of breath. PHYSICAL EXAMINATION VITAL SIGNS: Temperature 97.7, blood pressure 130/64, O2 saturation 97% on room air. LUNGS: Clinically clear. HEART: S1, S2 heard, no definite gallops. EXTREMITIES: No edema. Onychomycosis of the toenails. IMPRESSION: 1. Sick sinus syndrome, status post pacemaker placement. 2. Iatrogenic pneumothorax status post chest tube placement and subsequent removal of chest tube. 3. Anemia with thrombocytopenia, chronic. 4. Status post history of abdominal aortic aneurysm status post endoluminal stent. 5. History of anorectal cancer in remission. 6. Underlying major depression. 7. Critical illness myopathy, improving. PLAN: Continue recommendations per Dr. Graham. Dictated By: SYLVAIN PORRAS MD SR/NTS Conf#: [id number] DID#: [id number] CC: SOPHIE GARIBAY MD;*EndCC*
[2019-02-01 15:22] VITALS: BP 117/62; PULSE 59; RESP 18
[2019-02-01 19:52] VITALS: BP 118/63; PULSE 60; RESP 18
[2019-02-01] MEDS: SENNA TAB PO SCH (20:07)
[2019-02-01] MEDS: ATORVASTATIN 20 MG TAB PO SCH (20:09)
[2019-02-02 02:00] VITALS: BP 128/61; PULSE 58; RESP 18
[2019-02-02] MEDS: PANTOPRAZOLE (EC) 40 MG TAB PO SCH (06:37)
[2019-02-02] MEDS: LEVOTHYROXINE 25 MCG TAB PO SCH (06:38)
[2019-02-02 07:56] VITALS: BP 127/58; PULSE 60; RESP 18
[2019-02-02] MEDS: ZINC SULFATE 220 MG CAP PO SCH (08:30)
[2019-02-02] MEDS: ESCITALOPRAM 10 MG TAB PO SCH (08:31)
[2019-02-02] MEDS: GABAPENTIN 300 MG CAP PO SCH ×2 (08:31→20:53)
[2019-02-02] MEDS: MULTIVITAMINS/MINERALS TAB PO SCH (08:31)
[2019-02-02] MEDS: AMIODARONE 200 MG TAB PO SCH ×2 (08:32→20:53)
[2019-02-02] MEDS: ASCORBIC ACID 250 MG TAB PO SCH (08:32)
[2019-02-02] MEDS: BALSAM PERU/CASTOR OIL 60 GM TUBE TOP SCH (09:23)
[2019-02-02] MEDS: CLOTRIMAZOLE 1% 30 GM CR TOP SCH ×2 (09:23→20:56)
--- NOTE | 2019-02-02 10:49 | PN ---
Date/Time of Note Date/Time of Note DATE: 02/02/19 TIME: 10:48 Subjective AWAKE ALERT, - SOB Objective Vital Signs Date Temp Pulse Resp B/P (MAP) Pulse Ox O2 O2 Flow FiO2 Time Delivery Rate 02/02/19 97.8 60 18 127/58 97 07:56 (81) 02/02/19 Room Air 02:00 Intake and Output 02/01/19 02/01/19 02/02/19 1515:00 23:00 07:00 IntakeIntake Total 400 ml 300 ml 400 ml BalanceBalance 400 ml 300 ml 400 ml Exam LUNGS CTA COR RRR FAIR MOTOR CLOF XT AND GAIT CGA C DIFF - Results/Medications Medications Current Medications Docusate Sodium (Colace) 100 mg BID PO Last administered on 01/31/19at 09:56; Admin Dose 100 MG; Start 01/27/19 at 09:00; Status Hold Senna (Senokot) 1 tab HS PO Last administered on 01/30/19at 20:30; Admin Dose 1 TAB; Start 01/27/19 at 21:00 Magnesium Hydroxide (Milk Of Mag) 30 ml BID PRN PO CONSTIPATION; Start 01/27/19 at 00:30 Lactulose (Enulose) 20 gm DAILY PRN PO CONSTIPATION; Start 01/27/19 at 00:30 Bisacodyl (Dulcolax Supp) 10 mg DAILY PRN [place] CONSTIPATION; Start 01/27/19 at 00:30 Acetaminophen (Tylenol Tab) 325 mg Q6H PRN PO MILD PAIN(1-3)OR ELEVATED TEMP Last administered on 01/31/19at 21:14; Admin Dose 325 MG; Start 01/27/19 at 00:30 Amiodarone HCl (Cordarone) 400 mg BID PO Last administered on 02/02/19at 08:32; Admin Dose 400 MG; Start 01/27/19 at 09:00 Atropine Sulfate (Atropine (Syringe)) 0.4 mg Q2H PRN IV BRADYCARDIA; Start 01/27/19 at 00:30 Diphenhydramine HCl (Benadryl) 50 mg TID PRN PO -; Start 01/27/19 at 00:30 Levothyroxine Sodium (Synthroid) 25 mcg DAILY@06 PO Last administered on 02/02/19at 06:38; Admin Dose 25 MCG; Start 01/27/19 at 06:00 Loperamide HCl (Imodium Cap) 2 mg QID PRN PO DIARRHEA; Start 01/27/19 at 00:30 Pantoprazole (Protonix Tab) 40 mg DAILY@06 PO Last administered on 02/02/19 06:37; Admin Dose 40 MG; Start 01/27/19 at 06:00 Gabapentin (Neurontin) 300 mg BID PO Last administered on 02/02/19 08:31; Admin Dose 300 MG; Start 01/27/19 at 09:00 Atorvastatin Calcium (Lipitor) 20 mg HS PO Last administered on 02/01/19 20:09; Admin Dose 20 MG; Start 01/27/19 at 21:00 Escitalopram Oxalate (Lexapro) 20 mg DAILY PO Last administered on 02/02/19 08:31; Admin Dose 20 MG; Start 01/27/19 at 09:00 Miscellaneous Information (Pending Santyl Order For Wound Care) This patient comer... PRN PRN XX WOUND CARE; Start 01/27/19 at 10:30 Multivitamins/ Minerals (Theragran-M) 1 tab DAILY PO Last administered on 02/02/19 08:31; Admin Dose 1 TAB; Start 01/28/19 at 09:00 Ascorbic Acid (Vitamin C) 250 mg DAILY PO Last administered on 02/02/19 08:32; Admin Dose 250 MG; Start 01/28/19 at 09:00 Zinc Sulfate (Zinc Sulfate) 220 mg DAILY PO Last administered on 02/02/19 08:30; Admin Dose 220 MG; Start 01/28/19 at 09:00 Clotrimazole (Lotrimin Cr) 1 applic BID TOP Last administered on 02/02/19 09:23; Admin Dose 1 APPLIC; Start 01/29/19 at 21:00 Assessment/Plan Additional Assessment/Plan Rehab- Critical illness myopathy. Continue rehab, SW working on dc planning with POA. MAKING GREAT GAINS Integ- off loading, wound care and nutrition, overall improving Sick sinus syndrome, status post pacemaker placement. Status post pneumothorax and chest tube which has been removed. Urinary tract infection. Anemia. Hypothyroidism. Diverticulosis. History of anal cancer and radiation treatment. s/p Bilateral lower extremity cellulitis. DIARRHEA C DAVID - RAMONE GARIBAY MD Feb 02, 2019 10:49
[2019-02-02 14:00] VITALS: BP 123/60; PULSE 60; RESP 18
[2019-02-02 20:00] VITALS: BP 118/62; PULSE 61; RESP 18
[2019-02-02] MEDS: ATORVASTATIN 20 MG TAB PO SCH (20:53)
[2019-02-02] MEDS: SENNA TAB PO SCH (21:00)
[2019-02-03 02:00] VITALS: BP_SYST 122; BP_SYST 138; BP_DIAS 61; BP_DIAS 65; PULSE 58; PULSE 65; RESP 18
--- NOTE | 2019-02-03 02:10 | PN ---
DATE: 02/02/2019 SUBJECTIVE: Patient is awake, alert. OBJECTIVE: VITAL SIGNS: Temperature 98.0, blood pressure 120/60, O2 saturation 96% on room air. GENERAL: Denies any abdominal pain. Mild pallor without cyanosis. CHEST: Clinically clear. HEART: S1, S2 heard, no definite gallops. EXTREMITIES: No edema. IMPRESSION: 1. Sick sinus syndrome, status post pacemaker placement. 2. Critical illness myopathy, improving. 3. Iatrogenic pneumothorax, status post chest tube placement, left; subsequent removal of chest tube . 4. Anemia with thrombocytopenia, chronic. 5. History of abdominal aortic aneurysm, status post endoluminal stent. 6. History of anorectal cancer, in remission. 7. Underlying major depression. PLAN: We will repeat labs in a.m. Continue rehabilitation recommendations per Dr. Pires. Dictated By: SYLVAIN PORRAS MD SR/NTS Conf#: [id number] DID#: [id number]
[2019-02-03] MEDS: PANTOPRAZOLE (EC) 40 MG TAB PO SCH (06:17)
[2019-02-03] MEDS: LEVOTHYROXINE 25 MCG TAB PO SCH (06:17)
[2019-02-03 07:30] VITALS: BP 128/64; PULSE 60; RESP 20
[2019-02-03] MEDS: MULTIVITAMINS/MINERALS TAB PO SCH (08:44)
[2019-02-03] MEDS: GABAPENTIN 300 MG CAP PO SCH ×2 (08:44→20:55)
[2019-02-03] MEDS: ESCITALOPRAM 10 MG TAB PO SCH (08:45)
[2019-02-03] MEDS: ZINC SULFATE 220 MG CAP PO SCH (08:45)
[2019-02-03] MEDS: ASCORBIC ACID 250 MG TAB PO SCH (08:45)
[2019-02-03] MEDS: AMIODARONE 200 MG TAB PO SCH ×2 (08:46→20:56)
[2019-02-03] MEDS: BALSAM PERU/CASTOR OIL 60 GM TUBE TOP SCH (10:48)
[2019-02-03] MEDS: CLOTRIMAZOLE 1% 30 GM CR TOP SCH ×2 (10:48→21:29)
[2019-02-03] MEDS: LOPERAMIDE 2 MG CAP PO PRN ×2 (12:03→18:19)
[2019-02-03 14:00] VITALS: BP 128/60; PULSE 60; RESP 20
[2019-02-03 20:00] VITALS: BP 119/64; PULSE 60; RESP 18
[2019-02-03] MEDS: SENNA TAB PO SCH (20:55)
[2019-02-03] MEDS: ATORVASTATIN 20 MG TAB PO SCH (20:55)
[2019-02-04 02:00] VITALS: BP 123/67; PULSE 58; RESP 18
[2019-02-04] MEDS: PANTOPRAZOLE (EC) 40 MG TAB PO SCH (06:06)
[2019-02-04] MEDS: LEVOTHYROXINE 25 MCG TAB PO SCH (06:06)
[2019-02-04 07:30] VITALS: BP 121/59; PULSE 60; RESP 20
[2019-02-04] MEDS: ASCORBIC ACID 250 MG TAB PO SCH (09:32)
[2019-02-04] MEDS: MULTIVITAMINS/MINERALS TAB PO SCH (09:32)
[2019-02-04] MEDS: ZINC SULFATE 220 MG CAP PO SCH (09:32)
[2019-02-04] MEDS: GABAPENTIN 300 MG CAP PO SCH ×2 (09:32→20:16)
[2019-02-04] MEDS: ESCITALOPRAM 10 MG TAB PO SCH (09:32)
[2019-02-04] MEDS: AMIODARONE 200 MG TAB PO SCH ×2 (09:33→20:17)
[2019-02-04] MEDS: BALSAM PERU/CASTOR OIL 60 GM TUBE TOP SCH (09:37)
[2019-02-04] MEDS: CLOTRIMAZOLE 1% 30 GM CR TOP SCH ×2 (09:37→20:17)
[2019-02-04] MEDS: ACETAMINOPHEN 325 MG TAB PO PRN (12:55)
[2019-02-04 14:00] VITALS: BP 99/49; PULSE 60; RESP 20
--- NOTE | 2019-02-04 15:46 | PN ---
DATE: 02/04/2019 SUBJECTIVE: The patient overall feels well. Denies any chest pain or shortness of breath. Does hav e frequent bowel movements. No blood in the stools. VITAL SIGNS: Temperature 97.8, blood pressure 122/67, O2 sats 96% on room air. HEENT: Mild pallor without cyanosis. CHEST: Clinically clear. HEART: S1, S2 heard, no definite gallops. EXTREMITIES: No edema. IMPRESSION: 1. Sick sinus syndrome, status post pacemaker placement. 2. Critical illness myopathy, slowly improving. 3. Iatrogenic pneumothorax status post chest tube placement. Chest tube is out. 4. Anemia, thrombocytopenia, chronic. 5. History of abdominal aortic aneurysm status post endoluminal stent. 6. History of anorectal cancer in remission. 7. Major depression. PLAN: We will continue present treatment, patient's labs from yesterday noted. Continue recommendat ions per Dr. Graham. Dictated By: SYLVAIN PORRAS MD SR/NTS Conf#: [id number] DID#: [id number] CC: SOPHIE GARIBAY MD;*EndCC*
[2019-02-04] MEDS: CHOLESTYRAMINE 4 GM PACKET PO SCH (15:54)
--- NOTE | 2019-02-04 17:45 | PN ---
Date/Time of Note Date/Time of Note DATE: 02/04/19 TIME: 17:44 Subjective Comfortable Objective Vital Signs Date Temp Pulse Resp B/P (MAP) Pulse Ox O2 O2 Flow FiO2 Time Delivery Rate 02/04/19 97.8 60 20 99/49 (66) 96 Room Air 14:00 Intake and Output 02/03/19 02/03/19 02/04/19 1515:00 23:00 07:00 IntakeIntake Total 980 ml OutputOutput Total 100 ml BalanceBalance 980 ml -100 ml Exam pulm-cta abd-soft sba ambulation Results/Medications Result Diagram: 02/03/1963002/03/19630 Medications Current Medications Docusate Sodium (Colace) 100 mg BID PO Last administered on 01/31/19at 09:56; Admin Dose 100 MG; Start 01/27/19 at 09:00; Status Hold Senna (Senokot) 1 tab HS PO Last administered on 02/03/19at 20:55; Admin Dose 1 TAB; Start 01/27/19 at 21:00 Magnesium Hydroxide (Milk Of Mag) 30 ml BID PRN PO CONSTIPATION; Start 01/27/19 at 00:30 Lactulose (Enulose) 20 gm DAILY PRN PO CONSTIPATION; Start 01/27/19 at 00:30 Bisacodyl (Dulcolax Supp) 10 mg DAILY PRN [place] CONSTIPATION; Start 01/27/19 at 00:30 Acetaminophen (Tylenol Tab) 325 mg Q6H PRN PO MILD PAIN(1-3)OR ELEVATED TEMP Last administered on 02/04/19at 12:55; Admin Dose 325 MG; Start 01/27/19 at 00:30 Amiodarone HCl (Cordarone) 400 mg BID PO Last administered on 02/04/19at 09:33; Admin Dose 400 MG; Start 01/27/19 at 09:00 Atropine Sulfate (Atropine (Syringe)) 0.4 mg Q2H PRN [place] BRADYCARDIA; Start 01/27/19 at 00:30 Diphenhydramine HCl (Benadryl) 50 mg TID PRN PO -; Start 01/27/19 at 00:30 Levothyroxine Sodium (Synthroid) 25 mcg DAILY@06 PO Last administered on 02/04/19at 06:06; Admin Dose 25 MCG; Start 01/27/19 at 06:00 Loperamide HCl (Imodium Cap) 2 mg QID PRN PO DIARRHEA Last administered on 02/03/19 18:19; Admin Dose 2 MG; Start 01/27/19 at 00:30 Pantoprazole (Protonix Tab) 40 mg DAILY@06 PO Last administered on 02/04/19 06:06; Admin Dose 40 MG; Start 01/27/19 at 06:00 Gabapentin (Neurontin) 300 mg BID PO Last administered on 02/04/19 09:32; Admin Dose 300 MG; Start 01/27/19 at 09:00 Atorvastatin Calcium (Lipitor) 20 mg HS PO Last administered on 02/03/19 20:55; Admin Dose 20 MG; Start 01/27/19 at 21:00 Escitalopram Oxalate (Lexapro) 20 mg DAILY PO Last administered on 02/04/19 09:32; Admin Dose 20 MG; Start 01/27/19 at 09:00 [facility]isc[facility] This patient comer... PRN PRN XX WOUND CARE; Start 01/27/19 at 10:30 Multivitamins/ Minerals (Theragran-M) 1 tab DAILY PO Last administered on 02/04/19 09:32; Admin Dose 1 TAB; Start 01/28/19 at 09:00 Ascorbic Acid (Vitamin C) 250 mg DAILY PO Last administered on 02/04/19 09:32; Admin Dose 250 MG; Start 01/28/19 at 09:00 Zinc Sulfate (Zinc Sulfate) 220 mg DAILY PO Last administered on 02/04/19 09:32; Admin Dose 220 MG; Start 01/28/19 at 09:00 Clotrimazole (Lotrimin Cr) 1 applic BID TOP Last administered on 02/04/19 09:37; Admin Dose 1 APPLIC; Start 01/29/19 at 21:00 Simethicone (Mylicon) 80 mg TID PRN PO DISTENSION/GAS/BLOATING Last administered on 02/03/19 10:47; Admin Dose 80 MG; Start 02/02/19 at 22:30 Cholestyramine Resin (Questran) 1 pkt DAILY PO Last administered on 02/04/19 15:54; Admin Dose 1 PKT; Start 02/04/19 at 15:00 Assessment/Plan Additional Assessment/Plan Rehab- Critical illness myopathy. Continue rehab, overall improving Integ- off loading, wound care and nutrition, overall improving Sick sinus syndrome, status post pacemaker placement. Status post pneumothorax and chest tube which has been removed. Urinary tract infection. Anemia. Hypothyroidism. Diverticulosis. History of anal cancer and radiation treatment. s/p Bilateral lower extremity cellulitis. SOPHIE GARIBAY MD Feb 04, 2019 17:45
[2019-02-04 20:00] VITALS: BP 117/55; PULSE 60; RESP 18
[2019-02-04] MEDS: SENNA TAB PO SCH (20:16)
[2019-02-04] MEDS: ATORVASTATIN 20 MG TAB PO SCH (20:16)
[2019-02-05 02:00] VITALS: BP 127/59; PULSE 62; RESP 18
[2019-02-05] MEDS: LEVOTHYROXINE 25 MCG TAB PO SCH (06:36)
[2019-02-05] MEDS: PANTOPRAZOLE (EC) 40 MG TAB PO SCH (06:36)
[2019-02-05 07:00] VITALS: BP 109/46; PULSE 60; RESP 18
[2019-02-05] MEDS: CHOLESTYRAMINE 4 GM PACKET PO SCH (10:39)
[2019-02-05] MEDS: ESCITALOPRAM 10 MG TAB PO SCH (10:39)
[2019-02-05] MEDS: MULTIVITAMINS/MINERALS TAB PO SCH (10:39)
[2019-02-05] MEDS: GABAPENTIN 300 MG CAP PO SCH ×2 (10:41→20:21)
[2019-02-05] MEDS: AMIODARONE 200 MG TAB PO SCH ×2 (10:41→20:21)
[2019-02-05] MEDS: CLOTRIMAZOLE 1% 30 GM CR TOP SCH ×2 (10:43→20:23)
[2019-02-05] MEDS: BALSAM PERU/CASTOR OIL 60 GM TUBE TOP SCH (10:43)
[2019-02-05] MEDS: ASCORBIC ACID 250 MG TAB PO SCH (10:49)
[2019-02-05] MEDS: ZINC SULFATE 220 MG CAP PO SCH (10:49)
--- NOTE | 2019-02-05 13:49 | PN ---
DATE: 02/05/2019 SUBJECTIVE: The patient overall feels well. Denies any diarrhea. OBJECTIVE: VITAL SIGNS: Temperature 97.9, blood pressure 109/46, O2 sat 97%. HEENT: Head normocephalic. Pulse is 60 per minute, regular. Mild pallor without cyanosis. CHEST: Clinically clear. HEART: S1, S2 heard. No definite gallops. EXTREMITIES: No edema. LABORATORY DATA: Sodium 139, potassium 4.6, BUN 30, creatinine 0.92. WBC 9.7, hematocrit 37.1 from yesterday. IMPRESSION: 1. Sick sinus syndrome, status post pacemaker placement. 2. Critical illness myopathy, improving. 3. Status post iatrogenic pneumothorax, resolved. 4. Chronic anemia, thrombocytopenia. 5. History of abdominal aortic aneurysm status post endoluminal stent. 6. History of anorectal cancer in remission. 7. Major depression. PLAN: We will continue rehabilitation recommendations per Dr. Sophie Graham. Dictated By: SYLVAIN PORRAS MD SR/NTS Conf#: [id number] DID#: [id number] CC: SOPHIE GARIBAY MD;*EndCC*
[2019-02-05 14:00] VITALS: BP 120/60; PULSE 60; RESP 18
--- NOTE | 2019-02-05 15:40 | PN ---
Date/Time of Note Date/Time of Note DATE: 02/05/19 TIME: 15:39 Subjective Overall improving Objective Vital Signs Date Temp Pulse Resp B/P (MAP) Pulse Ox O2 O2 Flow FiO2 Time Delivery Rate 02/05/19 97.9 60 18 109/46 97 Room Air 07:00 (67) Intake and Output 02/04/19 02/04/19 02/05/19 1515:00 23:00 07:00 IntakeIntake Total 150 ml 1260 ml 50 ml OutputOutput Total 860 ml 1000 ml BalanceBalance 150 ml 400 ml -950 ml Exam pulm-cta sba/cga ambulation Results/Medications Result Diagram: 02/03/1963002/03/19630 Medications Current Medications Docusate Sodium (Colace) 100 mg BID PO Last administered on 01/31/19 09:56; Admin Dose 100 MG; Start 01/27/19 at 09:00; Status Hold Senna (Senokot) 1 tab HS PO Last administered on 02/04/19at 20:16; Admin Dose 1 TAB; Start 01/27/19 at 21:00 Magnesium Hydroxide (Milk Of Mag) 30 ml BID PRN PO CONSTIPATION; Start 01/27/19 at 00:30 Lactulose (Enulose) 20 gm DAILY PRN PO CONSTIPATION; Start 01/27/19 at 00:30 Bisacodyl (Dulcolax Supp) 10 mg DAILY PRN [place] CONSTIPATION; Start 01/27/19 at 00:30 Acetaminophen (Tylenol Tab) 325 mg Q6H PRN PO MILD PAIN(1-3)OR ELEVATED TEMP Last administered on 02/04/19at 12:55; Admin Dose 325 MG; Start 01/27/19 at 00:30 Amiodarone HCl (Cordarone) 400 mg BID PO Last administered on 02/05/19at 10:41; Admin Dose 400 MG; Start 01/27/19 at 09:00 Atropine Sulfate (Atropine (Syringe)) 0.4 mg Q2H PRN IV BRADYCARDIA; Start 01/27/19 at 00:30 Diphenhydramine HCl (Benadryl) 50 mg TID PRN PO -; Start 01/27/19 at 00:30 Levothyroxine Sodium (Synthroid) 25 mcg DAILY@06 PO Last administered on 02/05/19at 06:36; Admin Dose 25 MCG; Start 01/27/19 at 06:00 Loperamide HCl (Imodium Cap) 2 mg QID PRN PO DIARRHEA Last administered on 02/03/19 18:19; Admin Dose 2 MG; Start 01/27/19 at 00:30 Pantoprazole (Protonix Tab) 40 mg DAILY@06 PO Last administered on 02/05/19 06:36; Admin Dose 40 MG; Start 01/27/19 at 06:00 Gabapentin (Neurontin) 300 mg BID PO Last administered on 02/05/19 10:41; Admin Dose 300 MG; Start 01/27/19 at 09:00 Atorvastatin Calcium (Lipitor) 20 mg HS PO Last administered on 02/04/19 20:16; Admin Dose 20 MG; Start 01/27/19 at 21:00 Escitalopram Oxalate (Lexapro) 20 mg DAILY PO Last administered on 02/05/19 10:39; Admin Dose 20 MG; Start 01/27/19 at 09:00 Miscellaneous Information (Pending [facility] Order For Wound Care) This patient comer... PRN PRN XX WOUND CARE; Start 01/27/19 at 10:30 Multivitamins/ Minerals (Theragran-M) 1 tab DAILY PO Last administered on 02/05/19 10:39; Admin Dose 1 TAB; Start 01/28/19 at 09:00 Ascorbic Acid (Vitamin C) 250 mg DAILY PO Last administered on 02/05/19 10:49; Admin Dose 250 MG; Start 01/28/19 at 09:00 Zinc Sulfate (Zinc Sulfate) 220 mg DAILY PO Last administered on 02/05/19 10:49; Admin Dose 220 MG; Start 01/28/19 at 09:00 Clotrimazole (Lotrimin Cr) 1 applic BID TOP Last administered on 02/05/19 10:43; Admin Dose 1 APPLIC; Start 01/29/19 at 21:00 Simethicone (Mylicon) 80 mg TID PRN PO DISTENSION/GAS/BLOATING Last administered on 02/03/19 10:47; Admin Dose 80 MG; Start 02/02/19 at 22:30 Cholestyramine Resin (Questran) 1 pkt DAILY PO Last administered on 02/05/19 10:39; Admin Dose 1 PKT; Start 02/04/19 at 15:00 Assessment/Plan Additional Assessment/Plan Rehab- Critical illness myopathy. Continue rehab, dc planning in progress. Integ- continue wound care Sick sinus syndrome, status post pacemaker placement. Status post pneumothorax and chest tube which has been removed. Urinary tract infection. Anemia. Hypothyroidism. Diverticulosis. History of anal cancer and radiation treatment. s/p Bilateral lower extremity cellulitis. SOPHIE GARIBAY MD Feb 05, 2019 15:40
[2019-02-05] MEDS: ACETAMINOPHEN 325 MG TAB PO PRN ×2 (18:33→18:34)
[2019-02-05] MEDS: ATORVASTATIN 20 MG TAB PO SCH (20:21)
[2019-02-05] MEDS: SENNA TAB PO SCH (20:21)
[2019-02-06 02:00] VITALS: BP 127/63; PULSE 67; RESP 18
[2019-02-06] MEDS: PANTOPRAZOLE (EC) 40 MG TAB PO SCH (06:17)
[2019-02-06] MEDS: LEVOTHYROXINE 25 MCG TAB PO SCH (06:17)
[2019-02-06 07:00] VITALS: BP_SYST 141; BP_SYST 97; BP_DIAS 67; PULSE 60; PULSE 67; RESP 18
[2019-02-06] MEDS: BALSAM PERU/CASTOR OIL 60 GM TUBE TOP SCH (09:00)
[2019-02-06] MEDS: ESCITALOPRAM 10 MG TAB PO SCH (09:45)
[2019-02-06] MEDS: AMIODARONE 200 MG TAB PO SCH ×2 (09:46→21:33)
[2019-02-06] MEDS: CHOLESTYRAMINE 4 GM PACKET PO SCH (09:46)
[2019-02-06] MEDS: ASCORBIC ACID 250 MG TAB PO SCH (09:46)
[2019-02-06] MEDS: ZINC SULFATE 220 MG CAP PO SCH (09:46)
[2019-02-06] MEDS: MULTIVITAMINS/MINERALS TAB PO SCH (09:46)
[2019-02-06] MEDS: GABAPENTIN 300 MG CAP PO SCH ×2 (09:46→21:32)
[2019-02-06 14:00] VITALS: BP_SYST 111; BP_SYST 120; BP_DIAS 60; BP_DIAS 66; PULSE 60; PULSE 69; RESP 18
--- NOTE | 2019-02-06 15:25 | PN ---
Date/Time of Note Date/Time of Note DATE: 02/06/19 TIME: 15:23 Subjective Patient reports non itchy rash on dorsum of feet Objective Vital Signs Date Temp Pulse Resp B/P (MAP) Pulse Ox O2 O2 Flow FiO2 Time Delivery Rate 02/06/19 98.0 69 18 111/60 94 Room Air 14:00 (77) Intake and Output 02/05/19 02/05/19 02/06/19 1515:00 23:00 07:00 IntakeIntake Total 240 ml 1400 ml OutputOutput Total 200 ml 930 ml 1150 ml BalanceBalance 40 ml 470 ml -1150 ml Exam pulm-cta abd-soft integ- mild dry petchial rash of dorsum of feet, right worse than left Results/Medications Result Diagram: 02/03/1963002/03/19630 Medications Current Medications Docusate Sodium (Colace) 100 mg BID PO Last administered on 01/31/19at 09:56; Admin Dose 100 MG; Start 01/27/19 at 09:00; Status Hold Senna (Senokot) 1 tab HS PO Last administered on 02/05/19at 20:21; Admin Dose 1 TAB; Start 01/27/19 at 21:00 Magnesium Hydroxide (Milk Of Mag) 30 ml BID PRN PO CONSTIPATION; Start 01/27/19 at 00:30 Lactulose (Enulose) 20 gm DAILY PRN PO CONSTIPATION; Start 01/27/19 at 00:30 Bisacodyl (Dulcolax Supp) 10 mg DAILY PRN [place] CONSTIPATION; Start 01/27/19 at 00:30 Acetaminophen (Tylenol Tab) 325 mg Q6H PRN PO MILD PAIN(1-3)OR ELEVATED TEMP Last administered on 02/05/19at 18:34; Admin Dose 325 MG; Start 01/27/19 at 00:30 Amiodarone HCl (Cordarone) 400 mg BID PO Last administered on 02/06/19at 09:46; Admin Dose 400 MG; Start 01/27/19 at 09:00 Atropine Sulfate (Atropine (Syringe)) 0.4 mg Q2H PRN IV BRADYCARDIA; Start 01/27/19 at 00:30 Diphenhydramine HCl (Benadryl) 50 mg TID PRN PO -; Start 01/27/19 at 00:30 Levothyroxine Sodium (Synthroid) 25 mcg DAILY@06 PO Last administered on 02/06/19 06:17; Admin Dose 25 MCG; Start 01/27/19 at 06:00 Loperamide HCl (Imodium Cap) 2 mg QID PRN PO DIARRHEA Last administered on 02/03/19 18:19; Admin Dose 2 MG; Start 01/27/19 at 00:30 Pantoprazole (Protonix Tab) 40 mg DAILY@06 PO Last administered on 02/06/19 06:17; Admin Dose 40 MG; Start 01/27/19 at 06:00 Gabapentin (Neurontin) 300 mg BID PO Last administered on 02/06/19 09:46; Admin Dose 300 MG; Start 01/27/19 at 09:00 Atorvastatin Calcium (Lipitor) 20 mg HS PO Last administered on 02/05/19 20:21; Admin Dose 20 MG; Start 01/27/19 at 21:00 Escitalopram Oxalate (Lexapro) 20 mg DAILY PO Last administered on 02/06/19 09:45; Admin Dose 20 MG; Start 01/27/19 at 09:00 [facility] This patient comer... PRN PRN XX WOUND CARE; Start 01/27/19 at 10:30 Multivitamins/ Minerals (Theragran-M) 1 tab DAILY PO Last administered on 02/06/19 09:46; Admin Dose 1 TAB; Start 01/28/19 at 09:00 Ascorbic Acid (Vitamin C) 250 mg DAILY PO Last administered on 02/06/19 09:46; Admin Dose 250 MG; Start 01/28/19 at 09:00 Zinc Sulfate (Zinc Sulfate) 220 mg DAILY PO Last administered on 02/06/19 09:46; Admin Dose 220 MG; Start 01/28/19 at 09:00 Simethicone (Mylicon) 80 mg TID PRN PO DISTENSION/GAS/BLOATING Last administered on 02/03/19 10:47; Admin Dose 80 MG; Start 02/02/19 at 22:30 Cholestyramine Resin (Questran) 1 pkt DAILY PO Last administered on 02/06/19 09:46; Admin Dose 1 PKT; Start 02/04/19 at 15:00 Betamethasone/ Clotrimazole (Lotrisone Cr) 1 applic BID TOP ; Start 02/06/19 at 21:00 Assessment/Plan Additional Assessment/Plan Rehab- Critical illness myopathy. Continue rehab activities, overall improving Integ- prob contact dermatitis/fungal rash on feet, add lotrisone; sacrum improving Sick sinus syndrome, status post pacemaker placement. Status post pneumothorax and chest tube which has been removed. Urinary tract infection. Anemia. Hypothyroidism. Diverticulosis. History of anal cancer and radiation treatment. s/p Bilateral lower extremity cellulitis. SOPHIE GARIBAY MD Feb 06, 2019 15:25
--- NOTE | 2019-02-06 16:03 | PN ---
DATE: 02/06/2019 SUBJECTIVE: The patient is overall comfortable, progressing well with physical therapy. VITAL SIGNS: Temperature 98.2, blood pressure 141/67, O2 sats 94% on room air. LUNGS: Clinically clear. HEART: S1, S2, no definite gallops. EXTREMITIES: No edema. IMPRESSION: 1. Critical illness myopathy, clinically improving. 2. Sick sinus syndrome, status post pacemaker placement. 3. Status post iatrogenic pneumothorax. 4. Anemia. 5. Hypothyroidism. 6. Diverticulosis. 7. Major depression. 8. Status post rectal cancer, in remission. 9. Abdominal aortic aneurysm status post endoluminal stent. 10. Continue present treatment. Dictated By: SYLVAIN PORRAS MD SR/NTS Conf#: [id number] DID#: [id number] CC: SOPHIE GARIBAY MD;*EndCC*
[2019-02-06 20:47] VITALS: BP 116/58; PULSE 61; RESP 20
[2019-02-06] MEDS: ATORVASTATIN 20 MG TAB PO SCH (21:32)
[2019-02-06] MEDS: SENNA TAB PO SCH (21:32)
[2019-02-06] MEDS: BETAMETHASONE/CLOTRIMAZOLE 15 GM CR TOP SCH (21:33)
[2019-02-07 02:13] VITALS: BP 118/61; PULSE 60; RESP 20
--- NOTE | 2019-02-07 03:28 | PN ---
DATE: 02/06/2019 PSYCHOLOGY -- INDIVIDUAL SESSION -- [id number] This is a followup on a patient who was seen last week. The patient was seen in bed. The patient wa s tired and sleepy. He had just finished some physical therapy. The patient was feeling like he has made progress while he is in the program and is looking forward to being discharged back home. The patient does have a caregiver at home and does look forward to being able to try and continue to incr ease his level of functioning. I worked with the patient to try to deal with his underlying level of anxiety and depression. The patient was receptive. Dictated By: JULIÁN COTE PHD JACKIE/JOHNNY Conf#: [id number] DID#: [id number]
[2019-02-07] MEDS: PANTOPRAZOLE (EC) 40 MG TAB PO SCH (06:40)
[2019-02-07] MEDS: LEVOTHYROXINE 25 MCG TAB PO SCH (06:40)
[2019-02-07 07:53] VITALS: BP 126/62; PULSE 64; RESP 18
[2019-02-07] MEDS: CHOLESTYRAMINE 4 GM PACKET PO SCH ×2 (09:00→09:51)
[2019-02-07] MEDS: GABAPENTIN 300 MG CAP PO SCH ×2 (09:49→21:02)
[2019-02-07] MEDS: ASCORBIC ACID 250 MG TAB PO SCH (09:50)
[2019-02-07] MEDS: AMIODARONE 200 MG TAB PO SCH ×2 (09:50→21:01)
[2019-02-07] MEDS: ESCITALOPRAM 10 MG TAB PO SCH (09:51)
[2019-02-07] MEDS: MULTIVITAMINS/MINERALS TAB PO SCH (09:51)
[2019-02-07] MEDS: ZINC SULFATE 220 MG CAP PO SCH (09:51)
[2019-02-07] MEDS: BALSAM PERU/CASTOR OIL 60 GM TUBE TOP SCH (09:55)
[2019-02-07] MEDS: BETAMETHASONE/CLOTRIMAZOLE 15 GM CR TOP SCH ×2 (09:55→21:03)
[2019-02-07 14:00] VITALS: BP 118/57; PULSE 62; RESP 18
--- NOTE | 2019-02-07 16:45 | PN ---
DATE: 02/07/2019 SUBJECTIVE: The patient overall comfortable. OBJECTIVE: VITAL SIGNS: Temperature 98.6, blood pressure 126/62, O2 sat is 94% on room air. CHEST: Clinically clear. HEART: S1, S2 rhythm, no definite gallops. EXTREMITIES: No edema. IMPRESSION: 1. Critical illness myopathy, improving. 2. Sick sinus syndrome, status post pacemaker placement. 3. Status post iatrogenic pneumothorax, left. 4. Chronic anemia with thrombocytopenia. 5. Hypothyroidism. 6. Diverticulosis. 7. Major depression. 8. Status post anorectal cancer, in remission. 9. Abdominal aortic aneurysm, status post endoluminal stent. PLAN: Will continue present treatment. Discharge plans noted. Dictated By: SYLVAIN PORRAS MD SR/NTS Conf#: [id number] DID#: [id number] CC: SOPHIE GARIBAY MD;*EndCC*
--- NOTE | 2019-02-07 17:14 | PN ---
Date/Time of Note Date/Time of Note DATE: 02/07/19 TIME: 17:12 Objective Vital Signs Date Temp Pulse Resp B/P (MAP) Pulse Ox O2 O2 Flow FiO2 Time Delivery Rate 02/07/19 94.4 62 18 118/57 96 14:00 (77) 02/06/19 Room Air 14:00 Intake and Output 02/06/19 02/06/19 02/07/19 1515:00 23:00 07:00 IntakeIntake Total 1200 ml 550 ml OutputOutput Total 800 ml 600 ml BalanceBalance 400 ml -50 ml Exam INTERDISCIPLINARY TEAM CONFERENCE Attended by PT, OT, ST, Social Work, Rehabilitation Nursing, Port Warden and Interlocking Machine OperatorVideotape Operator Exam: Pulm-cta Abd-soft BOWEL- Cont BLADDER-Cont SKIN- intact OT- DRESSING- s/min BATHING-sba/min TOILETING-sba PT- BED MOBILITY-sba TRANSFERS-sba AMBULATION-sba 150 feet COGNITION- cues for safety A/P- Interdisciplinary team conference held today. Please see interdisciplinary sheet. Working toward d.c. on 02/08 with post discharge follow up of physical therapy, occupational therapy. Results/Medications Result Diagram: 02/06/19 1413 02/06/19 1413 Medications Current Medications Docusate Sodium (Colace) 100 mg BID PO Last administered on 01/31/19at 09:56; Admin Dose 100 MG; Start 01/27/19 at 09:00; Status Hold Senna (Senokot) 1 tab HS PO Last administered on 02/06/19at 21:32; Admin Dose 1 TAB; Start 01/27/19 at 21:00 Magnesium Hydroxide (Milk Of Mag) 30 ml BID PRN PO CONSTIPATION; Start 01/27/19 at 00:30 Lactulose (Enulose) 20 gm DAILY PRN PO CONSTIPATION; Start 01/27/19 at 00:30 Bisacodyl (Dulcolax Supp) 10 mg DAILY PRN [place] CONSTIPATION; Start 01/27/19 at 00:30 Acetaminophen (Tylenol Tab) 325 mg Q6H PRN PO MILD PAIN(1-3)OR ELEVATED TEMP Last administered on 02/05/19at 18:34; Admin Dose 325 MG; Start 01/27/19 at 00:30 Amiodarone HCl (Cordarone) 400 mg BID PO Last administered on 02/07/19 09:50; Admin Dose 400 MG; Start 01/27/19 at 09:00 Atropine Sulfate (Atropine (Syringe)) 0.4 mg Q2H PRN IV BRADYCARDIA; Start 01/27/19 at 00:30 Diphenhydramine HCl (Benadryl) 50 mg TID PRN PO -; Start 01/27/19 at 00:30 Levothyroxine Sodium (Synthroid) 25 mcg DAILY@06 PO Last administered on 02/07/19 06:40; Admin Dose 25 MCG; Start 01/27/19 at 06:00 Loperamide HCl (Imodium Cap) 2 mg QID PRN PO DIARRHEA Last administered on 18:19; Admin Dose 2 MG; Start 01/27/19 at 00:30 Pantoprazole (Protonix Tab) 40 mg DAILY@06 PO Last administered on 02/07/19 06:40; Admin Dose 40 MG; Start 01/27/19 at 06:00 Gabapentin (Neurontin) 300 mg BID PO Last administered on 02/07/19 09:49; Admin Dose 300 MG; Start 01/27/19 at 09:00 Atorvastatin Calcium (Lipitor) 20 mg HS PO Last administered on 02/06/19 21:32; Admin Dose 20 MG; Start 01/27/19 at 21:00 Escitalopram Oxalate (Lexapro) 20 mg DAILY PO Last administered on 02/07/19 09:51; Admin Dose 20 MG; Start 01/27/19 at 09:00 Miscellaneous Information (Pending [facility] For [facility]ound Care) This patient comer... PRN PRN XX WOUND CARE; Start 01/27/19 at 10:30 Multivitamins/ Minerals (Theragran-M) 1 tab DAILY PO Last administered on 02/07/19 09:51; Admin Dose 1 TAB; Start 01/28/19 at 09:00 Ascorbic Acid (Vitamin C) 250 mg DAILY PO Last administered on 02/07/19 09:50; Admin Dose 250 MG; Start 01/28/19 at 09:00 Zinc Sulfate (Zinc Sulfate) 220 mg DAILY PO Last administered on 02/07/19 09:51; Admin Dose 220 MG; Start 01/28/19 at 09:00 Simethicone (Mylicon) 80 mg TID PRN PO DISTENSION/GAS/BLOATING Last administered on 02/03/19 10:47; Admin Dose 80 MG; Start 02/02/19 at 22:30 Cholestyramine Resin (Questran) 1 pkt DAILY PO Last administered on 02/06/19 09:46; Admin Dose 1 PKT; Start 02/04/19 at 15:00 Betamethasone/ Clotrimazole (Lotrisone Cr) 1 applic BID TOP Last administered on 02/07/19 09:55; Admin Dose 1 APPLIC; Start 02/06/19 at 21:00 SOPHIE GARIBAY MD Feb 07, 2019 17:14
[2019-02-07 20:00] VITALS: BP 115/64; PULSE 63; RESP 18
[2019-02-07] MEDS: ATORVASTATIN 20 MG TAB PO SCH (20:59)
[2019-02-07] MEDS: SENNA TAB PO SCH (21:00)
[2019-02-08 02:00] VITALS: BP 122/63; PULSE 65; RESP 18
[2019-02-08] MEDS: PANTOPRAZOLE (EC) 40 MG TAB PO SCH (06:24)
[2019-02-08] MEDS: LEVOTHYROXINE 25 MCG TAB PO SCH (06:24)
[2019-02-08 07:00] VITALS: BP 144/68; PULSE 60; RESP 18
[2019-02-08] MEDS: MULTIVITAMINS/MINERALS TAB PO SCH (10:00)
[2019-02-08] MEDS: ESCITALOPRAM 10 MG TAB PO SCH (10:00)
[2019-02-08] MEDS: ZINC SULFATE 220 MG CAP PO SCH (10:01)
[2019-02-08] MEDS: GABAPENTIN 300 MG CAP PO SCH (10:01)
[2019-02-08] MEDS: AMIODARONE 200 MG TAB PO SCH (10:01)
[2019-02-08] MEDS: ASCORBIC ACID 250 MG TAB PO SCH (10:02)
[2019-02-08] MEDS: BETAMETHASONE/CLOTRIMAZOLE 15 GM CR TOP SCH (10:03)
[2019-02-08] MEDS: BALSAM PERU/CASTOR OIL 60 GM TUBE TOP SCH (10:03)
[2019-02-08] MEDS: CHOLESTYRAMINE 4 GM PACKET PO SCH (10:04)
--- NOTE | 2019-02-08 19:15 | PN ---
DATE: 02/08/2019 SUBJECTIVE: The patient was seen just before his discharge. The patient was asymptomatic. Denies a ny chest pain, palpitations. No diarrhea. PHYSICAL EXAMINATION: VITAL SIGNS: Temperature 98.0, blood pressure 144/68, O2 sats 94% on room air. CHEST: Clinically clear. HEART: S1, S2 heard, no definite gallops. EXTREMITIES: No edema. IMPRESSION: 1. Critical illness myopathy, improved. 2. Sick sinus syndrome, status post pacemaker placement. 3. Status post iatrogenic pneumothorax, left, resolved. 4. Chronic anemia thrombocytopenia. 5. Hypothyroidism. 6. Diverticulosis. 7. Major depression. 8. Status post anorectal cancer in remission. 9. Aortic aneurysm (abdominal) status post endoluminal repair 10 years ago. PLAN: Discharge plans per Dr. Vasquez noted. Medications reviewed. Discussed with the patient's frie nd who has the power of tax associate attorney and advised him to follow up in the office over the course of next 2 weeks and continue physical therapy as outpatient at the [facility]. Dictated By: SYLVAIN PORRAS MD SR/NTS Conf#: [id number] DID#: [id number] CC: SOPHIE GARIBAY MD;*EndCC*
== END 2019-02-08 11:05 | DRG 92 ==
LOC: VRC 22:15
PROVIDERS: ADMIT Physical Medicine & Rehabilitation; ATTEND Internal Medicine
PROC: F07Z5ZZ Bed Mobility Treatment (ICD-10-PCS; principal; 2019-01-27)
PROC: F07Z8ZZ Transfer Training Treatment (ICD-10-PCS; 2019-01-27)
PROC: F07Z9ZZ Gait Training/Functional Ambulation Treatment (ICD-10-PCS; 2019-01-27)
PROC: F08Z0ZZ Bathing/Showering Techniques Treatment (ICD-10-PCS; 2019-01-27)
PROC: F08Z1ZZ Dressing Techniques Treatment (ICD-10-PCS; 2019-01-27)
PROC: F08Z2ZZ Grooming/Personal Hygiene Treatment (ICD-10-PCS; 2019-01-27)
PROC: 0HBRXZZ Excision of Toe Nail, External Approach (ICD-10-PCS; 2019-01-29)
DX: G72.81 Critical illness myopathy (principal); N39.0 Urinary tract infection, site not specified; L03.116 Cellulitis of left lower limb; L03.115 Cellulitis of right lower limb; F33.1 Major depressive disorder, recurrent, moderate; D64.9 Anemia, unspecified; D69.6 Thrombocytopenia, unspecified; E03.9 Hypothyroidism, unspecified; K57.90 Diverticulosis of intestine, part unspecified, without perforation or abscess without bleeding; I49.5 Sick sinus syndrome; G72.89 Other specified myopathies; B35.1 Tinea unguium; B35.3 Tinea pedis; R53.81 Other malaise; E78.5 Hyperlipidemia, unspecified; I10 Essential (primary) hypertension; Z74.09 Other reduced mobility; Z95.0 Presence of cardiac pacemaker; Z95.828 Presence of other vascular implants and grafts; Z85.048 Personal history of other malignant neoplasm of rectum, rectosigmoid junction, and anus; Z92.3 Personal history of irradiation; Z87.891 Personal history of nicotine dependence
CPT/HCPCS: 80048; 80053; 81001; 85025; 87075; 87081; 87086; 92507; 92523; 92526; 92610; 97110; 97112; 97116; 97150; 97163; 97166; 97530; 97535; 97542; A4310

== ENCOUNTER 2019-02-13 11:13 | Inpatient (IN) | payer MEDICARE, OTHER ==
[~2019-02-13] VITALS: Ht 175.3 cm; Wt 61.3 kg
[~2019-02-13 11:13] MED LIST changes: +AMIO200T4 PO; +ATOR20TA38 PO; +CHOL378P PO
--- NOTE | 2019-02-13 14:00 | ERD ---
ER Documentation Chief Complaint Chief Complaint abdominal spasms (2 days) after recent pacemaker installation 2 wks ago HPI Patient received a pacemaker and was discharged from hospital on January [address] Michael. Patient presenting now with 2 days of palpitations and feelings of spasming in his chest and abdomen. No chest pain or shortness of breath, no syncope or weakness. No nausea or vomiting has been compliant with all his medications. ROS All systems reviewed and are negative except as per history of present illness. Medications Home Meds Active Scripts Pantoprazole* (Pantoprazole*) 40 Mg Tablet., 40 MG PO DAILY@06 for 30 Days, #30 Prov:SYLVAIN PORRAS MD 01/26/19 Levothyroxine Sodium* (Levothyroxine Sodium*) 25 Mcg Tablet, 25 MCG PO DAILY@06 for 30 Days, #30 TAB Prov:SYLVAIN PORRAS MD 01/26/19 Reported Medications Cholestyramine* (Cholestyramine* Powder) 378 Gm Powder, 4 GM PO DAILY, EA 02/13/19 Atorvastatin Calcium* (Atorvastatin Calcium*) 20 Mg Tablet, 20 MG PO QHS, #30 TAB 02/13/19 Amiodarone Hcl* (Amiodarone Hcl*) 200 Mg Tablet, 400 MG PO BID, #180 TAB 02/13/19 Gabapentin* (Gabapentin*) 300 Mg Capsule, 300 MG PO BID, #60 CAP 01/12/19 Escitalopram Oxalate* (Escitalopram Oxalate*) 20 Mg Tablet, 20 MG PO DAILY, #30 TAB 01/12/19 Discontinued Reported Medications Oxycodone HCl/Acetaminophen (Oxycodone-Acetaminophen 10-325) 1 Each Tablet, 1 EACH PO NEEDED, TAB 01/12/19 Simvastatin* (Zocor*) 40 Mg Tablet, 40 MG PO QHS, #30 TAB 01/12/19 Oxybutynin Chloride* (Ditropan*) 5 Mg Tablet, 5 MG PO DAILY, TAB 01/12/19 Diazepam* (Diazepam*) 5 Mg Tablet, 5 MG PO DAILY, TAB 01/12/19 Diphenoxylate HCl/Atropine (Diphenoxylate-Atrop 2.5-0.025) 1 Each Tablet, 1 EACH PO TID, TAB 01/12/19 Allergies Allergies: Coded Allergies: No Known Allergy (Unverified , 02/13/19) PMhx/Soc History of Surgery: Yes Anesthesia Reaction: No Hx Respiratory Disorders: No Hx Cardiac Disorders: Yes Hx Psychiatric Problems: Yes (depression) Hx Miscellaneous Medical Probl: Yes (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 Neck: Full range of motion. No meningismus. Resp: Clear to auscultation bilaterally Cardio: Regular rate and rhythm, no murmurs Abd: Soft, non tender, non distended. Normal bowel sounds abdominal muscle wall spasming Skin: No petechiae or rashes Back: No midline or flank tenderness Ext: No cyanosis, or edema Neur: Awake and alert Psych: Normal Mood and Affect Result Diagram: 02/13/19 1234 02/13/19 1234 Results 24 hrs Laboratory Tests Test 02/13/19 12:34 White Blood Count 7.3 10^3/ul Red Blood Count 4.13 10^6/ul Hemoglobin 11.0 g/dl Hematocrit 35.4 % Mean Corpuscular Volume 85.7 fl Mean Corpuscular Hemoglobin 26.6 pg Mean Corpuscular Hemoglobin Concent 31.1 g/dl Red Cell Distribution Width 21.1 % Platelet Count 105 10^3/UL Mean Platelet Volume 10.1 fl Immature Granulocytes % 0.300 % Neutrophils % 71.5 % Lymphocytes % 13.8 % Monocytes % 12.8 % Eosinophils % 1.2 % Basophils % 0.4 % Nucleated Red Blood Cells % 0.0 /100WBC Immature Granulocytes # 0.020 10^3/ul Neutrophils # 5.2 10^3/ul Lymphocytes # 1.0 10^3/ul Monocytes # 0.9 10^3/ul Eosinophils # 0.1 10^3/ul Basophils # 0.0 10^3/ul Nucleated Red Blood Cells # 0.0 10^3/ul Prothrombin Time 13.3 Sec Prothrombin Time Ratio 1.0 INR International Normalized Ratio 1.00 Activated Partial Thromboplast Time 32.8 Sec Sodium Level 141 mmol/L Potassium Level 4.2 mmol/L Chloride Level 104 mmol/L Carbon Dioxide Level 29 mmol/L Anion Gap 8 Blood Urea Nitrogen 25 mg/dl Creatinine 1.11 mg/dl Est Glomerular Filtrat Rate mL/min mL/min Glucose Level 84 mg/dl Calcium Level 8.8 mg/dl Total Bilirubin 0.4 mg/dl Direct Bilirubin 0.00 mg/dl Indirect Bilirubin 0.4 mg/dl Aspartate Amino Transf (AST/SGOT) 34 IU/L Alanine Aminotransferase (ALT/SGPT) 46 IU/L Alkaline Phosphatase 87 IU/L Troponin I < 0.012 ng/ml B-Type Natriuretic Peptide 455 PG/ML Total Protein 7.0 g/dl Albumin 3.8 g/dl Globulin 3.20 g/dl Albumin/Globulin Ratio 1.18 Procedures/MDM Patient presenting with palpitations and abdominal wall muscle wall spasming after recent pacemaker placement. Patient is hemodynamic stable well-appearing. Chest x-ray is concerning for pacer wire displacement. Patient's engine monitor shows intermittent inappropriate paced beats that correlated patient's symptoms and spasming seen on exam. Will admit patient for pacemaker lead displacements consulting cardiology. Departure Condition: Stable CANDY PRESTON MD Feb 13, 2019 14:00
[2019-02-13] MEDS ORDERED: ACETAMINOPHEN 325 MG TAB PO PRN (14:30)
[2019-02-13] MEDS ORDERED: ONDANSETRON 4 MG INJ IV PRN (14:30)
--- NOTE | 2019-02-13 16:11 | CONS ---
Assessment/Plan Assessment/Plan Hospital Course (Demo Recall) Assessment/Recs: # RV lead dislodgement- [employer] rep contacted for interrogation and to turn off RV lead to avoid further diaphragmatic stimulation. pt indication was sick sinus and he is not dependant on RV pacing. WIll need to d/w EP re: whether to plan for replacement of RV lead, vs. to leave it inactive and just continue AAI pacing. # Sick sinus with severe bradycardia/jxn rhythm- s/p PPM with small PTX which resolved # afib- post ppm, no recurrence, nsr # s/p AAA - stable - device interrogation by device rep pending - obtain echo - patient may eat, no plan for immediate procedures - tele monitoring recommended - resume home meds Consultation Date/Type/Reason Admit Date/Time 02/13/2019 Date of Consultation: Feb 13, 2019 Type of Consult Cardiology Reason for Consultation Pacemaker Dysfunction Requesting Provider: CANDY PRESTON MD Date/Time of Note DATE: 02/13/19 TIME: 15:56 Hx of Present Illness Pt is a 78 y.o. with recent placement of [employer] Dual Chamber PPM after presenting with Sick Sinus Syndrome last month in early january. Pt did have complication of pneumothorax post procedure managed with chest tube. Pt did well d/c to living facility, did not follow up in clinic. had home nurse which managed wound without issue. pt states has 36 hours of feeling twitching in RUQ. states was uncomfortable but not painful. occurs off/on, improved after eating this am but returned. no chest pain, sob, palpitations, dizziness, fainting, abd pain, n/v, diarrhea. denies any falls, trauma, stretching or heavy use of LUE. all other systems negative Past Medical History SSS s/p [employer] Dual Chamber ppm Anal adenoca s/p xrt/chemo GI bleed AAA s/p endorepair HTN HLD Past Surgical History Past Surgical Hx: other Family History Significant Family History: other (no reported high risk ca) Social History Alcohol Use: none Smoking Status: Former smoker Drug Use: none Home Meds Active Scripts Pantoprazole* (Pantoprazole*) 40 Mg Tablet., 40 MG PO DAILY@06 for 30 Days, #30 Prov:SYLVAIN PORRAS MD 01/26/19 Levothyroxine Sodium* (Levothyroxine Sodium*) 25 Mcg Tablet, 25 MCG PO DAILY@06 for 30 Days, #30 TAB Prov:SYLVAIN PORRAS MD 01/26/19 Reported Medications Cholestyramine* (Cholestyramine* Powder) 378 Gm Powder, 4 GM PO DAILY, EA 02/13/19 Atorvastatin Calcium* (Atorvastatin Calcium*) 20 Mg Tablet, 20 MG PO QHS, #30 TAB 02/13/19 Amiodarone Hcl* (Amiodarone Hcl*) 200 Mg Tablet, 400 MG PO BID, #180 TAB 02/13/19 Gabapentin* (Gabapentin*) 300 Mg Capsule, 300 MG PO BID, #60 CAP 01/12/19 Escitalopram Oxalate* (Escitalopram Oxalate*) 20 Mg Tablet, 20 MG PO DAILY, #30 TAB 01/12/19 Discontinued Reported Medications Oxycodone HCl/Acetaminophen (Oxycodone-Acetaminophen 10-325) 1 Each Tablet, 1 EACH PO NEEDED, TAB 01/12/19 Simvastatin* (Zocor*) 40 Mg Tablet, 40 MG PO QHS, #30 TAB 01/12/19 Oxybutynin Chloride* (Ditropan*) 5 Mg Tablet, 5 MG PO DAILY, TAB 01/12/19 Diazepam* (Diazepam*) 5 Mg Tablet, 5 MG PO DAILY, TAB 01/12/19 Diphenoxylate HCl/Atropine (Diphenoxylate-Atrop 2.5-0.025) 1 Each Tablet, 1 EACH PO TID, TAB 01/12/19 Medications Current Medications Ondansetron HCl (Zofran Inj) 4 mg ER BRIDGE PRN IV NAUSEA/VOMITING; Start 02/13/19 at 14:30; Stop 02/14/19 at 14:29 Acetaminophen (Tylenol Tab) 650 mg ER BRIDGE PRN PO .MILD PAIN 1-3 OR TEMP; Start 02/13/19 at 14:30; Stop 02/14/19 at 14:29 Allergies: Coded Allergies: No Known Allergy (Unverified , 02/13/19) Past Surgical History Past Surgical Hx: other Social History Smoking Status: Former smoker Exam/Review of Systems Exam Vitals Vital Signs Date Temp Pulse Resp B/P (MAP) Pulse Ox O2 O2 Flow FiO2 Time Delivery Rate 02/13/19 97.7 65 18 124/71 98 11:35 (88) Exam Constitutional: alert, oriented, other (elderly) Psych: no complaints, nl mood/affect Head: normocephalic, atraumatic Eyes: nl conjunctiva, nl lids ENMT: nl external ears & nose, nl lips & teeth, nl nasal mucosa & septum Neck: supple, non-tender; No jvd Respiratory: clear to auscultation, normal air movement Cardiovascular: other (derrek, nl s1s2, ii/vi esequiel rusb). L ppm in place, weal healed wound Gastrointestinal: soft, nl liver, spleen, non-tender Musculoskeletal: other (normal muscle mass) Extremities: normal pulses, no edema Neurological: PEDICAB DRIVER II-XII intact, nl mental status, nl speech, nl strength Lymph: nl lymph nodes Results Result Diagram: 02/13/19 1234 02/13/19 1234 Results 24hrs Laboratory Tests Test 02/13/19 12:34 White Blood Count 7.3 # Red Blood Count 4.13 L Hemoglobin 11.0 L Hematocrit 35.4 L Mean Corpuscular Volume 85.7 Mean Corpuscular Hemoglobin 26.6 L Mean Corpuscular Hemoglobin Concent 31.1 L Red Cell Distribution Width 21.1 H Platelet Count 105 L Mean Platelet Volume 10.1 Immature Granulocytes % 0.300 Neutrophils % 71.5 Lymphocytes % 13.8 L Monocytes % 12.8 H Eosinophils % 1.2 Basophils % 0.4 Nucleated Red Blood Cells % 0.0 Immature Granulocytes # 0.020 Neutrophils # 5.2 Lymphocytes # 1.0 Monocytes # 0.9 Eosinophils # 0.1 Basophils # 0.0 Nucleated Red Blood Cells # 0.0 Prothrombin Time 13.3 Prothrombin Time Ratio 1.0 INR International Normalized Ratio 1.00 Activated Partial Thromboplast Time 32.8 Sodium Level 141 Potassium Level 4.2 Chloride Level 104 Carbon Dioxide Level 29 Anion Gap 8 Blood Urea Nitrogen 25 H Creatinine 1.11 Est Glomerular Filtrat Rate mL/min Glucose Level 84 Calcium Level 8.8 Total Bilirubin 0.4 Direct Bilirubin 0.00 Indirect Bilirubin 0.4 Aspartate Amino Transf (AST/SGOT) 34 Alanine Aminotransferase (ALT/SGPT) 46 Alkaline Phosphatase 87 Troponin I < 0.012 B-Type Natriuretic Peptide 455 H Total Protein 7.0 Albumin 3.8 Globulin 3.20 Albumin/Globulin Ratio 1.18 Imaging Imaging cxr report reviewed in emr ekg reviewed: apaced, non capture of v pacing lead Medications Medication Current Medications Ondansetron HCl (Zofran Inj) 4 mg ER BRIDGE PRN IV NAUSEA/VOMITING; Start 02/13/19 at 14:30; Stop 02/14/19 at 14:29 Acetaminophen (Tylenol Tab) 650 mg ER BRIDGE PRN PO .MILD PAIN 1-3 OR TEMP; Start 02/13/19 at 14:30; Stop 02/14/19 at 14:29 YEYO GALEANA Feb 13, 2019 16:06
[2019-02-13 18:48] VITALS: Ht 175.3 cm; Wt 61.3 kg
[2019-02-13 18:55] VITALS: BP 143/68; PULSE 71; RESP 18
[2019-02-13] MEDS ORDERED: NACL 0.9% 3 ML SYG IV SCH (19:30)
[2019-02-13] MEDS ORDERED: ONDANSETRON 4 MG TAB PO PRN (19:30)
[2019-02-13] MEDS ORDERED: ZOLPIDEM 5 MG TAB PO PRN (19:30)
[2019-02-13 20:43] VITALS: BP 119/57; PULSE 60; RESP 17
[2019-02-13] MEDS: GABAPENTIN 300 MG CAP PO SCH (20:49)
[2019-02-13] MEDS ORDERED: AMIODARONE 200 MG TAB PO SCH (21:00)
[2019-02-13] MEDS ORDERED: ATORVASTATIN 20 MG TAB PO SCH (21:00)
[2019-02-14] VITALS (7 sets, daily range): BP systolic 106–127; BP diastolic 55–67; PULSE 60–94; RESP 18–19
[2019-02-14] MEDS ORDERED: PANTOPRAZOLE (EC) 40 MG TAB PO SCH (06:00)
[2019-02-14] MEDS: LEVOTHYROXINE 25 MCG TAB PO SCH (06:22)
[2019-02-14] MEDS: PANTOPRAZOLE (EC) 40 MG TAB PO SCH (06:22)
--- NOTE | 2019-02-14 06:23 | HP ---
DATE OF ADMISSION: 02/13/2019 CHIEF COMPLAINT AND HISTORY OF PRESENT ILLNESS: The patient is a 78-year-old gentleman who presents with a 2-day history of palpitations, spasm of the anterior chest wall and abdomen and the patient wa s evaluated in the emergency room, found to have pacemaker malfunction and patient was admitted to [facility]. The patient was admitted about 3 weeks back for sick sinus syndrome and had a permanent pac emaker placement after which he had iatrogenic pneumothorax on the left, which resolved with a chest tube placement. The patient was subsequently transferred to rehab from where he was transferred to [facility]. The patient also has had severe abdominal pain and diarrhea and a GI wor kup has been unremarkable so far. REVIEW OF SYSTEMS: HEAD: No history of headache, no prior history of strokes. EYES: No blurry vision or glaucoma. ENT: Decreased hearing bilaterally. NECK: No history of neck pain. History of mild hypothyroidism, status post tonsillectomy. CHEST: He is a prior smoker, history of pneumonia 2013 from which he recovered completely. History of left-sided pneumothorax, resolved with chest tube placement 3 weeks prior. HEART: History of sick sinus syndrome, status post pacemaker placement 3 weeks prior. The patient d enies any chest pain. GASTROINTESTINAL: Prior history of GI bleed, history of anorectal cancer in complete remission, stat us post chemo and radiation. GENITOURINARY: History of nonobstructive kidney stones bilaterally. MUSCULOSKELETAL: History of avascular necrosis of the hips with degenerative joint disease of the hi ps. The patient was due to an orthopedic evaluation. PRIOR SURGERIES: Also include abdominal aortic aneurysm status post endovascular stenting. MEDICATIONS: 1. Pantoprazole 40 mg daily. 2. Simvastatin 40 mg daily. 3. Lexapro 20 mg p.o. daily. 4. Levothyroxine 25 mcg p.o. 5. Gabapentin 300 mg p.o. b.i.d. 6. Atorvastatin 20 mg daily. 7. Amiodarone 400 mg b.i.d. PHYSICAL EXAMINATION: GENERAL: The patient is an average-built male who is presently comfortable, in no acute distress. HEENT: Mild pallor without cyanosis or icterus. Tongue is moist. NECK: Supple. CHEST: Clinically clear. HEART: S1, S2 heard, no definite gallops. ABDOMEN: Soft, nontender, no hepatosplenomegaly. EXTREMITIES: No edema. Pedals poorly palpable. Homans sign is negative. VITAL SIGNS: Temperature 97.9, blood pressure 142/63, heart rate 60 per minute. Telemetry reveals a trial pacing. LABORATORY DATA: WBC count 11.3, hematocrit 34.4, platelet count 105. Sodium 141, potassium 4.2, BU N 25, creatinine 1.1. BNP is 455. PT/INR 1.0. IMAGING: Chest x-ray shows heart size is normal, lung menon clear. IMPRESSION: 1. Pacemaker malfunction with a right ventricular lead dislodgement. 2. Sick sinus syndrome. 3. Status post abdominal aortic aneurysm, endoluminal stent 10 years back. 4. History of anorectal cancer in remission. 5. Hyperlipidemia. 6. Major depression. 7. History of irritable bowel syndrome. 8. 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 PLAN: We will follow recommendations by Dr. Montanez with device interrogation. Proceed with an ech ocardiogram. Continue telemetry. Dictated By: SYLVAIN PORRAS MD, SR/JOHNNY Conf#: [id number] DID#: [id number]
--- NOTE | 2019-02-14 08:45 | CONS ---
Assessment/Plan Assessment/Plan Hospital Course (Demo Recall) Assessment/Recs: # RV lead dislodgement- RV lead interrogated not capturing. device placed in AAI mode. no V pacing. . pt indication was sick sinus and he is not dependant on RV pacing. Unclear if risk of lead replacement outweighs benefit, Dr. Mcghee from EP to evaluate # Sick sinus with severe bradycardia/jxn rhythm- s/p PPM with small PTX which resolved # afib- post ppm, no recurrence, nsr. on amio, change to low dose # s/p AAA - stable - ppm mgmt as above - can d/c amio as had post procedure afib, no recurrence - on statin cont Consultation Date/Type/Reason Admit Date/Time Feb 13, 2019 at 14:08 Initial Consult Date 02/13/19 Type of Consult Cardiology Requesting Provider: CANDY PRESTON MD Date/Time of Note DATE: 02/14/19 TIME: 08:41 24 HR Interval Summary Free Text/Dictation no acute events. pt denies any chest pain, palpitations, abd pain/pulsation. has mild dizziness. tele reviewed a paced Detailed Summary Eyes: no complaints ENT: no complaints Respiratory: no complaints Cardiovascular: lightheadedness Gastrointestinal: no complaints Exam/Review of Systems Exam Vitals Vital Signs Date Temp Pulse Resp B/P (MAP) Pulse Ox O2 O2 Flow FiO2 Time Delivery Rate 02/14/19 97.8 94 18 111/62 96 07:42 (78) 02/14/19 Room Air 04:10 Intake and Output 02/13/19 02/13/19 02/14/19 1515:00 23:00 07:00 IntakeIntake Total 100 ml 100 ml BalanceBalance 100 ml 100 ml Exam Constitutional: alert, oriented, other (elderly) Psych: no complaints, nl mood/affect Head: normocephalic, atraumatic Eyes: nl conjunctiva, nl lids ENMT: nl external ears & nose, nl lips & teeth, nl nasal mucosa & septum Neck: supple, non-tender; No jvd Respiratory: clear to auscultation, normal air movement Cardiovascular: other (derrek, nl s1s2, ii/vi esequiel rusb). L ppm in place, weal healed wound Gastrointestinal: soft, nl liver, spleen, non-tender Musculoskeletal: other (normal muscle mass) Extremities: normal pulses, no edema Neurological: ROAD CONDUCTOR II-XII intact, nl mental status, nl speech, nl strength Lymph: nl lymph nodes Results Result Diagram: 02/14/19 0453 02/14/19 0452 Results 24hrs Laboratory Tests Test 02/13/19 12:34 02/13/19 19:20 02/14/19 00:21 02/14/19 04:52 White Blood Count 7.3 # Red Blood Count 4.13 L Hemoglobin 11.0 L Hematocrit 35.4 L Mean Corpuscular 85.7 Volume Mean Corpuscular 26.6 L Hemoglobin Mean Corpuscular 31.1 L Hemoglobin Concent Red Cell Distribution 21.1 H Width Platelet Count 105 L Mean Platelet Volume 10.1 Immature Granulocytes 0.300 % Neutrophils % 71.5 Lymphocytes % 13.8 L Monocytes % 12.8 H Eosinophils % 1.2 Basophils % 0.4 Nucleated Red Blood 0.0 Cells % Immature Granulocytes 0.020 # Neutrophils # 5.2 Lymphocytes # 1.0 Monocytes # 0.9 Eosinophils # 0.1 Basophils # 0.0 Nucleated Red Blood 0.0 Cells # Prothrombin Time 13.3 Prothrombin Time Ratio 1.0 INR International 1.00 Normalized Ratio Activated 32.8 Partial Thromboplast Time Sodium Level 141 141 Potassium Level 4.2 4.1 Chloride Level 104 104 Carbon Dioxide Level 29 29 Anion Gap 8 8 Blood Urea Nitrogen 25 H 27 H Creatinine 1.11 1.13 Est Glomerular Filtrat Rate mL/min Glucose Level 84 84 Calcium Level 8.8 8.8 Total Bilirubin 0.4 0.4 Direct Bilirubin 0.00 0.00 Indirect Bilirubin 0.4 0.4 Aspartate Amino 34 36 Transf (AST/SGOT) Alanine 46 49 Aminotransferase (ALT/ SGPT) Alkaline Phosphatase 87 81 Troponin I < 0.012 < 0.012 < 0.012 B-Type Natriuretic 455 H Peptide Total Protein 7.0 6.2 Albumin 3.8 3.3 Globulin 3.20 2.90 Albumin/Globulin Ratio 1.18 1.13 Creatine Kinase 32 25 Creatine Kinase Index 2.7 3.6 Creatinine Kinase MB 0.85 0.90 (Mass) Magnesium Level 2.0 Triglycerides Level 59 Cholesterol Level 86 L LDL Cholesterol, 30 Calculated HDL Cholesterol 44 Cholesterol/HDL Ratio 1.9 Test 02/14/19 04:53 White Blood Count 7.3 Red Blood Count 3.97 L Hemoglobin 10.6 L Hematocrit 34.2 L Mean Corpuscular 86.1 Volume Mean Corpuscular 26.7 L Hemoglobin Mean Corpuscular 31.0 L Hemoglobin Concent Red Cell Distribution 20.9 H Width Platelet Count 92 L Mean Platelet Volume 9.7 Immature Granulocytes 0.400 % Neutrophils % 69.2 Lymphocytes % 16.1 Monocytes % 11.7 H Eosinophils % 1.9 Basophils % 0.7 Nucleated Red Blood 0.0 Cells % Immature Granulocytes 0.030 # Neutrophils # 5.0 Lymphocytes # 1.2 Monocytes # 0.9 Eosinophils # 0.1 Basophils # 0.1 Nucleated Red Blood 0.0 Cells # Imaging Imaging cxr report reviewed in emr Medications Medication Current Medications Ondansetron HCl (Zofran Inj) 4 mg ER BRIDGE PRN IV NAUSEA/VOMITING; Start 02/13/19 at 14:30; Stop 02/14/19 at 14:29 Acetaminophen (Tylenol Tab) 650 mg ER BRIDGE PRN PO .MILD PAIN 1-3 OR TEMP; Start 02/13/19 at 14:30; Stop 02/14/19 at 14:29 IV Flush (NS 3 ml) 3 ml PER PROTOCOL IV ; Start 02/13/19 at 19:30 Ondansetron HCl (Zofran Tab) 4 mg Q6H PRN PO NAUSEA/VOMITING; Start 02/13/19 at 19:30 Morphine Sulfate (morphine) 2 mg Q4H PRN IV .PAIN 7-10; Start 02/13/19 at 19:30 Zolpidem Tartrate (Ambien) 5 mg QHS PRN PO .INSOMNIA; Start 02/13/19 at 19:30 Pantoprazole (Protonix Tab) 40 mg DAILY@06 PO Last administered on 02/14/19at 06:22; Admin Dose 40 MG; Start 02/14/19 at 06:00 Amiodarone HCl (Cordarone) 400 mg BID PO Last administered on 02/13/19at 20:49; Admin Dose 400 MG; Start 02/13/19 at 21:00 Atorvastatin Calcium (Lipitor) 20 mg QHS PO Last administered on 02/13/19at 20:49; Admin Dose 20 MG; Start 02/13/19 at 21:00 Escitalopram Oxalate (Lexapro) 20 mg DAILY PO ; Start 02/14/19 at 09:00 Gabapentin (Neurontin) 300 mg BID PO Last administered on 02/13/19at 20:49; Admin Dose 300 MG; Start 02/13/19 at 21:00 Levothyroxine Sodium (Synthroid) 25 mcg DAILY@06 PO Last administered on 02/14/19at 06:22; Admin Dose 25 MCG; Start 02/14/19 at 06:00 YEYO GALEANA Feb 14, 2019 08:45
[2019-02-14] MEDS ORDERED: AMIODARONE 200 MG TAB PO SCH (09:00)
[2019-02-14] MEDS: ESCITALOPRAM 10 MG TAB PO SCH (09:44)
[2019-02-14] MEDS: GABAPENTIN 300 MG CAP PO SCH ×2 (09:44→21:32)
[2019-02-14] MEDS ORDERED: DOCUSATE SODIUM 100 MG CAP PO PRN (11:00)
--- NOTE | 2019-02-14 12:45 | PN ---
DATE: 02/14/2019 SUBJECTIVE: Patient is awake, alert. Denies any chest pain or shortness of breath. PHYSICAL EXAMINATION: VITAL SIGNS: Temperature 97.8, blood pressure 111/62, O2 sat 96%. Mild pallor without cyanosis. LUNGS: Clinically clear. HEART: S1, S2 with no definite gallops. EXTREMITIES: No edema. LABORATORY DATA: Hematocrit 34.2. WBC count 7.3, platelet count of 92,000. Sodium 141, potassium 4 .1, BUN 27, creatinine 1.13, magnesium 2.0. LDL is 30, was 86. Dr. Montanez's cardiology recommendations are greatly appreciated. IMPRESSION: 1. Pacemaker malfunction with the right ventricular lead dislodgement. 2. Sick sinus syndrome. 3. Post-procedure, atrial fibrillation on amiodarone to be discontinued per . 4. Status post abdominal aortic aneurysm repair 10 years back. 5. History of anorectal cancer in remission. 6. Hyperlipidemia, well controlled on statin. 7. Major depression. PLAN: The patient presently is on atorvastatin 20 mg. Will decrease it to 10 mg at bedtime. Discon tinue amiodarone. Recheck labs in a.m. Follow recommendations by Dr. Montanez. Dictated By: SYLVAIN PORRAS MD, SR/JOHNNY Conf#: [id number] DID#: [id number]
[2019-02-14] MEDS: ATORVASTATIN 10 MG TAB PO SCH (21:32)
--- NOTE | 2019-02-14 23:40 | OPR ---
DATE OF OPERATION: 02/14/2019 TYPE OF CONSULTATION: Cardiac electrophysiology HISTORY OF PRESENT ILLNESS: This 78-year-old male who was seen for electrophysiology evaluation. Bhavesh joyner has very complex medical history. He is nonambulatory, presumably due to bad hip disease. He has had an abdominal aortic aneurysm stent 10 years ago. He has had anorectal cancer, treated with s urgery, radiation and chemo. He has also been treated for major depression. He was admitted here ap proximately 1 month ago with symptomatic bradycardia and underwent pacemaker placement. Course was c omplicated by a small pneumothorax. He presented now with diaphragmatic pacing. Chest x-ray showed dislodgement of the RV lead. Device was interrogated. Atrial lead parameters were excellent. Atria l lead position on x-ray is excellent, and he was programmed to AAI-R. He currently feels well, feel s much better than before the pacemaker. He is seen for evaluation. PAST MEDICAL HISTORY: As per Dr. Caballero and Dr. Bui. MEDICATIONS: Most recent medications: 1. Atorvastatin 20 mg daily. 2. Amiodarone 400 mg b.i.d. 3. Gabapentin 300 mg. 4. Lexapro 20 mg. 5. Levothyroxine 25 mcg daily. 6. Pantoprazole 40 mg daily. Remainder of past history is as per admission notes PHYSICAL EXAMINATION GENERAL: He is in no distress. He is quite conversational. LUNGS: Clear. CHEST: The pacemaker incision is well healed. CARDIAC: Reveals a trace murmur. ABDOMEN: Negative. EXTREMITIES: Negative. Pacemaker was interrogated as above. There is excellent atrial capture and lead parameters, though h e does Wenckebach in approximately 100 to 110, but note he is on high-dose amiodarone. He is bradyca rdic without pacing, but does have a junctional escape rhythm. IMPRESSION: 1. Status post pacemaker with dislodgement of ventricular lead, doing well in AAI mode. 2. History of anorectal cancer. 3. Status post abdominal aortic aneurysm stent. 4. Nonambulatory, lives in a board and care. 5. Advanced hip disease. 6. Hyperlipidemia. 7. History of anorectal cancer treated with radiation and chemotherapy. SUGGESTIONS: 1. Discussed in great detail with patient and his power of teasel setter, Dominguez, also with Dr. Bui. Bhavesh joyner is stable with atrial pacing. We discussed the option of revising the ventricular lead but pat sebastián and power of teasel setter did not wish him to undergo another procedure. He is aware of the pros an d cons and risks of each approach. He wishes continued current management. 2. Have increased atrial pacing parameters to provide a greater threshold. 3. Discussed with Dr. Bui. We will discontinue amiodarone which should further improve escape r hythm. 4. Should have close pacemaker follow up when he reaches the board and care where he is going. Dictated By: ROSA MARIA PACHECO MD IW/NTS Conf#: [id number] DID#: [id number]
[2019-02-15 03:31] VITALS: BP 112/57; PULSE 61; RESP 18
[2019-02-15] MEDS: PANTOPRAZOLE (EC) 40 MG TAB PO SCH (05:51)
[2019-02-15] MEDS: LEVOTHYROXINE 25 MCG TAB PO SCH (05:51)
[2019-02-15 07:46] VITALS: BP 99/54; PULSE 60; RESP 18
--- NOTE | 2019-02-15 08:27 | RADRPT ---
Echocardiogram Report Patient Name: MANOLO YOUSIFPatient ID: [id number] : 1940 (78y 7m)Study Date: 02/14/2019 7:19:37 AM Gender: MAccession #: [id number] Tech: ConstantineMarcelino Rose [facility] Location: [facility] Ref.Physician: ANIRUDH GALEANA Height(Cm): BSA: Weight(Kg): Quality: AdequateOrder Physician: ANIRUDH GALEANA Account #: Procedures: Echocardiographic Report: Transthoracic echocardiogram with complete 2D, M-Mode, and doppler examination. Indications: Pacemaker dysfunction. Measurements: 2D/M Mode Doppler Measurement Value Normal Range Measurement Value Normal Range LVIDd 2D 4.3 [ 4.2 - 5.8 ] cm AV Peak Herb 1.0 [ 100.0 - 170.0 ] cm/sec LVIDs 2D 2.3 [ 2.5 - 4.0 ] cm AV Peak PG 4.0 [ 2.0 - 9.0 ] mmHg LVPWd 2D 1.4 [ 0.6 - 1.0 ] cm LVOT Peak Herb 0.7 [ 70.0 - 110.0 ] cm/sec IVSd 2D 1.5 [ 0.6 - 1.0 ] cm LVOT Peak PG 2.0 [ 2.0 - 6.0 ] mmHg AoR Diam 2D 3.1 [ 2.6 - 3.4 ] cm MV E Peak Herb 0.4 [ 60.0 - 130.0 ] cm/sec EDV 2D 80.8 [ 62.0 - 150.0 ] ml MV A Peak Herb 0.7 [ 100.0 - 120.0 ] cm/sec ESV 2D 18.5 [ 21.0 - 61.0 ] ml MV E/A 0.6 [ 0.8 - 1.5 ] ratio EF 2D 77.1 [ 52.0 - 72.0 ] percent MV Decel Time 264 [ 104 - 258 ] msec LA Dimen 2D 3.2 [ 3.0 - 4.0 ] cm Lat E` Herb 0.1 [ 10.0 - 15.0 ] cm/sec Lateral E/E` 5.4 [ 1.0 - 2.0 ] ratio MV E/A 0.6 [ 0.8 - 1.5 ] ratio Findings: Left Ventricle: Normal left ventricular systolic function. Normal left ventricular cavity size. Moderate concentric left ventricular hypertrophy. Ejection fraction is visually estimated at 60 %. Tissue Doppler/Mitral Doppler indices are consistent with impaired relaxation (Stage I diastolic dysfunction). Right Ventricle: Normal right ventricular size. Normal right ventricular systolic function. Left Atrium: The left atrium is normal in size. Right Atrium: The right atrium is normal in size. Mitral Valve: Mitral valve leaflets appear mildly thickened. Mild mitral annular calcification. Trace mitral regurgitation. Aortic Valve: Normal appearance of the aortic valve. No significant aortic stenosis or insufficiency. Tricuspid Valve: Normal appearance and function of the tricuspid valve with trace physiologic regurgitation. Normal right ventricular systolic pressure. Pulmonic Valve: Normal pulmonic valve appearance. Pericardium: Normal pericardium with no significant pericardial effusion. Aorta: Normal aortic root. IVC: Normal size and normal respiratory collapse consistent with normal right atrial pressure. Conclusions: Normal left ventricular systolic function. Normal left ventricular cavity size. Moderate concentric left ventricular hypertrophy. Ejection fraction is visually estimated at 60 %. Tissue Doppler/Mitral Doppler indices are consistent with impaired relaxation (Stage I diastolic dysfunction). Normal right ventricular size. Normal right ventricular systolic function. The right atrium is normal in size. Normal appearance of the aortic valve. No significant aortic stenosis or insufficiency. Normal appearance and function of the tricuspid valve with trace physiologic regurgitation. Normal right ventricular systolic pressure. Normal pericardium with no significant pericardial effusion. Normal aortic root. Normal size and normal respiratory collapse consistent with normal right atrial pressure. No Vegetation, masses, or thrombi seen. RA pacemaker lead visualized. Electronically Signed By: Anirudh Galeana 2019-02-15 08:27:11 PDT
--- NOTE | 2019-02-15 08:55 | CONS ---
Assessment/Plan Assessment/Plan Hospital Course (Demo Recall) Assessment/Recs: # RV lead dislodgement- RV lead interrogated not capturing. device placed in AAI mode. no V pacing. . pt indication was sick sinus and he is not dependant on RV pacing. Evaluated by Dr. Mcghee from EP, d/w pt/POA held. will treat medically given risks associated with repeat procedure. # Sick sinus with severe bradycardia/jxn rhythm- s/p PPM with small PTX which resolved # afib- post ppm, no recurrence, nsr. on amio post d/c can now stop # s/p AAA - stable - no further cardiac testing needed - pt off amio, will f/u in device clinic - keep LUE in sling until EP follow up in 1-2 weeks Consultation Date/Type/Reason Admit Date/Time Feb 13, 2019 at 14:08 Initial Consult Date 02/13/19 Type of Consult Cardiology Requesting Provider: CANDY PRESTON MD Date/Time of Note DATE: 02/15/19 TIME: 08:36 24 HR Interval Summary Free Text/Dictation no acute events. pt states feels well no cp/sob. tele reviewed: apaced. no events Constitutional: no complaints Detailed Summary Eyes: no complaints ENT: no complaints Respiratory: no complaints Cardiovascular: no complaints Exam/Review of Systems Exam Vitals Vital Signs Date Temp Pulse Resp B/P (MAP) Pulse Ox O2 O2 Flow FiO2 Time Delivery Rate 02/15/19 98.1 60 18 99/54 (69) 97 07:46 02/14/19 Room Air 04:10 Intake and Output 02/14/19 02/14/19 02/15/19 1515:00 23:00 07:00 IntakeIntake Total 700 ml 240 ml OutputOutput Total 500 ml 700 ml BalanceBalance 200 ml -460 ml Exam Constitutional: alert, oriented, other (elderly) Psych: no complaints, nl mood/affect Head: normocephalic, atraumatic Eyes: nl conjunctiva, nl lids ENMT: nl external ears & nose, nl lips & teeth, nl nasal mucosa & septum Neck: supple, non-tender; No jvd Respiratory: clear to auscultation, normal air movement Cardiovascular: other (derrek, nl s1s2, ii/vi esequiel rusb). L ppm in place, weal h ealed wound Gastrointestinal: soft, nl liver, spleen, non-tender Musculoskeletal: other (normal muscle mass) Extremities: normal pulses, no edema Neurological: RUNNER WORKER II-XII intact, nl mental status, nl speech, nl strength Lymph: nl lymph nodes Results Result Diagram: 02/15/19 0525 02/15/19 0533 Results 24hrs Laboratory Tests Test 02/15/19 05:25 02/15/19 05:33 White Blood Count 6.5 Red Blood Count 3.97 L Hemoglobin 10.6 L Hematocrit 34.0 L Mean Corpuscular Volume 85.6 Mean Corpuscular Hemoglobin 26.7 L Mean Corpuscular Hemoglobin Concent 31.2 L Red Cell Distribution Width 21.0 H Platelet Count 102 L Mean Platelet Volume 9.8 Immature Granulocytes % 0.300 Neutrophils % 67.5 Lymphocytes % 16.4 Monocytes % 12.7 H Eosinophils % 2.5 Basophils % 0.6 Nucleated Red Blood Cells % 0.0 Immature Granulocytes # 0.020 Neutrophils # 4.4 Lymphocytes # 1.1 Monocytes # 0.8 Eosinophils # 0.2 Basophils # 0.0 Nucleated Red Blood Cells # 0.0 Sodium Level 139 Potassium Level 4.3 Chloride Level 104 Carbon Dioxide Level 29 Anion Gap 6 Blood Urea Nitrogen 26 H Creatinine 1.11 Est Glomerular Filtrat Rate mL/min Glucose Level 88 Calcium Level 8.9 Imaging Imaging imaging reports/notes reviewed in emr Medications Medication Current Medications IV Flush (NS 3 ml) 3 ml PER PROTOCOL IV ; Start 02/13/19 at 19:30 Ondansetron HCl (Zofran Tab) 4 mg Q6H PRN PO NAUSEA/VOMITING; Start 02/13/19 at 19:30 Morphine Sulfate (morphine) 2 mg Q4H PRN IV .PAIN 7-10; Start 02/13/19 at 19:30 Zolpidem Tartrate (Ambien) 5 mg QHS PRN PO .INSOMNIA; Start 02/13/19 at 19:30 Pantoprazole (Protonix Tab) 40 mg DAILY@06 PO Last administered on 02/15/19at 05:51; Admin Dose 40 MG; Start 02/14/19 at 06:00 Escitalopram Oxalate (Lexapro) 20 mg DAILY PO Last administered on 02/14/19at 09:44; Admin Dose 20 MG; Start 02/14/19 at 09:00 Gabapentin (Neurontin) 300 mg BID PO Last administered on 02/14/19at 21:32; Admin Dose 300 MG; Start 02/13/19 at 21:00 Levothyroxine Sodium (Synthroid) 25 mcg DAILY@06 PO Last administered on 02/15/19at 05:51; Admin Dose 25 MCG; Start 02/14/19 at 06:00 Docusate Sodium (Colace) 200 mg BID PRN PO CONSTIPATION Last administered on 02/14/19at 12:23; Admin Dose 200 MG; Start 02/14/19 at 11:00 Multivitamins/ Minerals (Theragran-M) 1 tab DAILY PO ; Start 02/15/19 at 09:00 Atorvastatin Calcium (Lipitor) 10 mg QHS PO Last administered on 02/14/19at 21:32; Admin Dose 10 MG; Start 02/14/19 at 21:00 YEYO GALEANA Feb 15, 2019 08:46
[2019-02-15] MEDS: GABAPENTIN 300 MG CAP PO SCH ×2 (09:00→20:38)
[2019-02-15] MEDS: MULTIVITAMINS/MINERALS TAB PO SCH (09:00)
[2019-02-15] MEDS: ESCITALOPRAM 10 MG TAB PO SCH (09:00)
[2019-02-15 11:12] VITALS: BP 101/60; PULSE 88; RESP 18
[2019-02-15 15:20] VITALS: BP 110/55; PULSE 79; RESP 18
--- NOTE | 2019-02-15 19:13 | PN ---
DATE: 02/15/2019 SUBJECTIVE: The patient complains of pain in the right leg. Denies any chest pain. PHYSICAL EXAMINATION VITAL SIGNS: Temperature 98.2, blood pressure 110/55, O2 sat 97%. LUNGS: Clinically clear. CHEST: S1, S2 heard, no definite gallops. EXTREMITIES: No edema. Homans negative. LABORATORY DATA: WBC count 6.5, hematocrit 34, platelets 102,000. Sodium 139, potassium 4.3, BUN 26 , creatinine 1.1. IMPRESSION: 1. Pacemaker malfunction with right ventricular lead dislodgement. 2. Sick sinus syndrome with status post pacer, status post iatrogenic pneumothorax, resolved. 3. Abdominal aortic aneurysm status post endoluminal stent 10 years back. 4. History of anorectal cancer, remission. 5. Chronic anemia, thrombocytopenia. PLAN: Will continue present management. The patient's power of attorney at law is arranging to place him i n a different board and care. Will initiate discharge planning. Dictated By: SYLVAIN PORRAS MD, SR/JOHNNY Conf#: [id number] DID#: [id number]
[2019-02-15 20:07] VITALS: BP 111/55; PULSE 61; RESP 18
[2019-02-15] MEDS: ATORVASTATIN 10 MG TAB PO SCH (20:38)
[2019-02-16] VITALS (7 sets, daily range): BP systolic 101–133; BP diastolic 55–64; PULSE 60–68; RESP 18–20
[2019-02-16] MEDS: PANTOPRAZOLE (EC) 40 MG TAB PO SCH (06:07)
[2019-02-16] MEDS: LEVOTHYROXINE 25 MCG TAB PO SCH (06:07)
[2019-02-16] MEDS: ESCITALOPRAM 10 MG TAB PO SCH (09:19)
[2019-02-16] MEDS: MULTIVITAMINS/MINERALS TAB PO SCH (09:19)
[2019-02-16] MEDS: GABAPENTIN 300 MG CAP PO SCH ×2 (09:19→20:17)
--- NOTE | 2019-02-16 16:22 | PN ---
DATE: 02/16/2019 SUBJECTIVE: The patient overall feels well. Denies any chest pain or shortness of breath. PHYSICAL EXAMINATION VITAL SIGNS: Temperature is 98.3, blood pressure 109/55, O2 sats 96% on room air. CHEST: Clinically clear. HEART: S1, S2 with no rubs or gallops. Rhythm shows atrial paced rhythm at 60. EXTREMITIES: No edema. IMPRESSION: 1. Sick sinus syndrome, status post pacemaker placement, status post finding of a pacemaker malfunct ion with right ventricular lead dislodgement. 2. Status post left iatrogenic pneumothorax, resolved. 3. History of abdominal aortic aneurysm status post endoluminal stent 10 years back. 4. History of anorectal cancer in remission. 5. Chronic anemia. 6. Thrombocytopenia. PLAN: Continue present monitoring. The patient's friend who also has a power of employee benefits attorney, is arrang ing to find a place for board and care. Will discharge the patient as soon as placement is found. Dictated By: SYLVAIN PORRAS MD, SR/JOHNNY Conf#: [id number] DID#: [id number]
[2019-02-16] MEDS: ATORVASTATIN 10 MG TAB PO SCH (20:17)
[2019-02-16] MEDS: morphine 2 MG INJ IV PRN (20:35)
[2019-02-17] VITALS: BP 108/57; PULSE 60; RESP 20
[2019-02-17] MEDS: morphine 2 MG INJ IV PRN (00:37)
[2019-02-17 04:00] VITALS: BP 111/55; PULSE 58; RESP 20
[2019-02-17] MEDS: LEVOTHYROXINE 25 MCG TAB PO SCH (06:14)
[2019-02-17] MEDS: PANTOPRAZOLE (EC) 40 MG TAB PO SCH (06:14)
[2019-02-17 07:26] VITALS: BP 118/57; PULSE 60; RESP 18
[2019-02-17] MEDS: ESCITALOPRAM 10 MG TAB PO SCH (09:09)
[2019-02-17] MEDS: MULTIVITAMINS/MINERALS TAB PO SCH (09:09)
[2019-02-17] MEDS: GABAPENTIN 300 MG CAP PO SCH ×2 (09:09→20:31)
[2019-02-17 11:46] VITALS: BP 89/53; PULSE 61; RESP 18
[2019-02-17] MEDS: SOD CHLORIDE 0.9% 1,000 ML IV SCH ×2 (12:28→21:56)
[2019-02-17 15:26] VITALS: BP 103/57; PULSE 60; RESP 18
--- NOTE | 2019-02-17 16:07 | PN ---
DATE: 02/17/2019 SUBJECTIVE: The patient is awake, alert. His blood pressure dropped to 89/53. The patient is asymp tomatic. Denies any chest pain, shortness of breath. Denies any dysuria or hematuria. No complaint s of abdominal pain or any bleeding. No fever or chills. PHYSICAL EXAMINATION: VITAL SIGNS: Temperature 97.9, blood pressure 89/53, O2 sats 96% on room air. HEENT: Mild pallor without cyanosis. Tongue is moist. NECK: Supple. No thyromegaly, bruits or lymphadenopathy. LUNGS: Clinically clear. HEART: S1, S2. No definite gallops. EXTREMITIES: No edema. SKIN: The patient is also complaining of irritation in the groin area, has got erythematous skin ove r the scrotal area. IMPRESSION: 1. Hypotension. The patient is presently not on any type of hypertensives. 2. Pacemaker malfunction with right ventricular lead dislodgement. PLAN: We will obtain CBC and BMP, UA and PROFESSOR OF VISUAL ARTS and start the patient on intravenous hydration and asse ss the response. We will also discuss with Dr. Montanez regarding further care. Dictated By: SYLVAIN PORRAS MD SR/NTS Conf#: [id number] DID#: [id number]
[2019-02-17] MEDS: BETAMETHASONE/CLOTRIMAZOLE 15 GM CR TOP SCH ×2 (17:38→20:32)
[2019-02-17 20:00] VITALS: BP 111/57; PULSE 61; RESP 18
[2019-02-17] MEDS: ATORVASTATIN 10 MG TAB PO SCH (20:31)
[2019-02-18] VITALS: BP 117/59; PULSE 60; RESP 18
[2019-02-18 04:12] VITALS: BP 128/62; PULSE 62; RESP 20
[2019-02-18] MEDS: LEVOTHYROXINE 25 MCG TAB PO SCH (06:10)
[2019-02-18] MEDS: PANTOPRAZOLE (EC) 40 MG TAB PO SCH (06:10)
[2019-02-18 07:33] VITALS: BP 122/64; PULSE 60; RESP 20
[2019-02-18] MEDS: ESCITALOPRAM 10 MG TAB PO SCH (08:15)
[2019-02-18] MEDS: SOD CHLORIDE 0.9% 1,000 ML IV SCH (08:15)
[2019-02-18] MEDS: MULTIVITAMINS/MINERALS TAB PO SCH (08:16)
[2019-02-18] MEDS: GABAPENTIN 300 MG CAP PO SCH (08:16)
[2019-02-18] MEDS: BETAMETHASONE/CLOTRIMAZOLE 15 GM CR TOP SCH (08:16)
--- NOTE | 2019-02-18 11:04 | DS ---
DATE OF ADMISSION: 02/13/2019 DATE OF DISCHARGE: 02/18/2019 FINAL DIAGNOSES: 1. Pacemaker malfunction with a right ventricular lead dislodgement. 2. Sick sinus syndrome. 3. Status post abdominal aortic aneurysm, status post endoluminal stent 10 years prior. 4. History of anorectal cancer in remission. 5. Hyperlipidemia. 6. Major depression. 7. Severe DJD of the hips. HOSPITAL COURSE: The patient is a 78-year-old gentleman with a history of sick sinus syndrome, statu s post pacemaker placement recently, presenting with a 2-week history of palpitations, spasm of the a nterior chest wall. Evaluated in the Emergency Room, found to have dislodgement of the right ventric ular lead. Patient was admitted to the medical floor. The patient was seen by Dr. Montanez and and it was felt that given the patient's high risk, it would be best to keep him on conservativ e management and atrial lead position was good and he was monitored. His blood pressure dropped to 8 9 systolic, placed on IV fluids with improvement of blood pressure. Case was discussed with Dr. Cely mayer and patient was felt to be stable for discharge and was discharged back to the board and care in much improved condition. Previously been on amiodarone, which is on hold. DISCHARGE CONDITION: Much improved. Dictated By: SYLVAIN PORRAS MD, SR/JOHNNY Conf#: [id number] DID#: [id number]
[2019-02-18 11:42] VITALS: BP 127/62; PULSE 59; RESP 20
--- NOTE | 2019-02-18 15:05 | CONS ---
Assessment/Plan Assessment/Plan Hospital Course (Demo Recall) Assessment/Recs: # RV lead dislodgement- RV lead interrogated not capturing. device placed in AAI mode. no V pacing. . pt indication was sick sinus and he is not dependant on RV pacing. Evaluated by Dr. Mcghee from EP, d/w pt/POA held. will treat medically given risks associated with repeat procedure. # Sick sinus with severe bradycardia/jxn rhythm- s/p PPM with small PTX which resolved # afib- post ppm, no recurrence, nsr. on amio post d/c can now stop # s/p AAA - stable - ok to d/c home, no plan for intervention for dislodged RV lead as pt with sss, and is predominantly a paced. - pt off amio, no recurrent afib. will monitor as outpt - keep LUE in sling until EP follow up in 1-2 weeks Consultation Date/Type/Reason Admit Date/Time Feb 13, 2019 at 14:08 Initial Consult Date 02/13/19 Type of Consult Cardiology Requesting Provider: CANDY PRESTON MD Date/Time of Note DATE: 02/18/19 TIME: 15:04 24 HR Interval Summary Free Text/Dictation pt seen this am at nursing request. pt stable no cp/sob. tele reviewed, no events. a paced rhythm. no afib Detailed Summary Eyes: no complaints ENT: no complaints Respiratory: no complaints Cardiovascular: no complaints Exam/Review of Systems Exam Vitals Vital Signs Date Temp Pulse Resp B/P (MAP) Pulse Ox O2 O2 Flow FiO2 Time Delivery Rate 02/18/19 97.7 59 20 127/62 96 11:42 (83) Intake and Output 02/17/19 02/17/19 02/18/19 1515:00 23:00 07:00 IntakeIntake Total 200 ml 480 ml OutputOutput Total 300 ml 400 ml 1000 ml BalanceBalance -100 ml 80 ml -1000 ml Exam Constitutional: alert, oriented, other (elderly) Psych: no complaints, nl mood/affect Head: normocephalic, atraumatic Eyes: nl conjunctiva, nl lids ENMT: nl external ears & nose, nl lips & teeth, nl nasal mucosa & septum Neck: supple, non-tender; No jvd Respiratory: clear to auscultation, normal air movement Cardiovascular: other (derrek, nl s1s2, ii/vi esequiel rusb). L ppm in place, weal healed wound Gastrointestinal: soft, nl liver, spleen, non-tender Musculoskeletal: other (normal muscle mass) Extremities: normal pulses, no edema Neurological: ENTERPRISE MOBILITY ARCHITECT II-XII intact, nl mental status, nl speech, nl strength Lymph: nl lymph nodes Results Result Diagram: 02/17/19 1341 02/17/19 1341 Results 24hrs Laboratory Tests Test 02/17/19 18:30 Urine Color [place] Urine Clarity CLOUDY A Urine pH 5.0 Urine Specific [place] 1.019 Urine Ketones NEGATIVE Urine Nitrite NEGATIVE Urine Bilirubin NEGATIVE Urine Urobilinogen NEGATIVE Urine Leukocyte Esterase NEGATIVE Urine Microscopic RBC 6 H Urine Microscopic WBC 2 Urine Bacteria FEW A Urine Mucus FEW A Urine Hemoglobin NEGATIVE Urine Glucose NEGATIVE Urine Total Protein NEGATIVE Imaging Imaging radiology reports reviewed in emr YEYO GALEANA Feb 18, 2019 15:05
== END 2019-02-18 13:00 | disposition home or self-care (01) | DRG 310 ==
LOC: E/R 11:13 → 6WM 14:08
PROVIDERS: ADMIT Internal Medicine; ATTEND Internal Medicine
DX: T82.120A Displacement of cardiac electrode, initial encounter (principal); Z95.0 Presence of cardiac pacemaker; Z86.79 Personal history of other diseases of the circulatory system; Z85.048 Personal history of other malignant neoplasm of rectum, rectosigmoid junction, and anus; Z92.21 Personal history of antineoplastic chemotherapy; Z92.3 Personal history of irradiation; E78.5 Hyperlipidemia, unspecified; F32.9 Major depressive disorder, single episode, unspecified; M16.0 Bilateral primary osteoarthritis of hip; Z95.828 Presence of other vascular implants and grafts; D64.9 Anemia, unspecified; D69.6 Thrombocytopenia, unspecified; I95.9 Hypotension, unspecified
CPT/HCPCS: 36415; 71045; 71046; 80048; 80053; 80061; 81001; 82550; 82553; 83735; 83880; 84484; 85025; 85610; 85730; 87081; 87086; 93005; 93306; J2270; J7030